=== PATIENT | female | born 1950 | race Caucasian/White ===

== ENCOUNTER 2016-07-18 09:06 | Inpatient (IN) ==
[~2016-07-18 09:06] MED LIST: *HR* Etomidate 20 MG/10 ML AMPUL IVP ONE
--- NOTE | 2016-07-18 09:11 | Emergency Department Note ---
Disposition Clinical Impression: Lactic acidosis, Dehydration, Acute kidney injury, UTI (urinary tract infection ) Disposition: Admitted As Inpatient Condition: Serious General Adult HPI - General Chief complaint: ED Shortness of Breath/Dyspnea Stated complaint: HALEY, n/v/d Time Seen by Provider: 07/18/16 09:10 - Related Data Home Medications Medication Instructions Recorded Confirmed Chlorhexidine Rinse 15 ml MM DAILY 01/07/15 07/18/16 Cholecalciferol (Vitamin D3) 1,000 unit PO DAILY 01/07/15 07/18/16 [Vitamin D3] FLUoxetine HCl [Prozac] 10 mg PO QAM 01/07/15 07/18/16 HydrOXYzine 10 mg PO TID 01/07/15 07/18/16 Ibandronate Sodium [Boniva] 150 mg PO QMONTH 01/07/15 07/18/16 LevETIRAcetam [Keppra] 1,000 mg PO BID 01/07/15 07/18/16 Levothyroxine [Synthroid] 125 mcg PO QAM 01/07/15 07/18/16 Nitrofurantoin (BID) [Macrobid] 100 mg PO DAILY 01/07/15 07/18/16 Oxcarbazepine [Trileptal] 900 mg PO BID 01/07/15 07/18/16 Phenytoin [Dilantin] 50 mg PO HS 01/07/15 07/18/16 Phenytoin [Dilantin] 200 mg PO HS 01/07/15 07/18/16 Trihexyphenidyl [Artane] 1 mg PO BID 01/07/15 07/18/16 Ascorbate Calcium [Vitamin C] 500 mg PO DAILY 06/10/15 07/18/16 Calcium Carbonate/Vitamin D3 1 tab PO DAILY 06/10/15 07/18/16 [Oyster Shell 500-Vit D3 200 Tb] Diazepam [Diastat] 10 mg RC AD PRN 06/10/15 07/18/16 Multivitamin/Iron/Folic Acid 1 tab PO DAILY 06/10/15 07/18/16 [Certavite-Antioxidant Tablet] Acetaminophen [Tylenol] 500 mg PO Q4H PRN 07/18/16 07/18/16 Bismuth Subsalicylate 30 ml PO Q4H PRN 07/18/16 07/18/16 [PEPTO-BISMOL (262mg/15mL) Susp] Chloraseptic Sentinel [Chloraseptic] 1 spray MM QID PRN 07/18/16 07/18/16 Loperamide [Imodium] 2 mg PO Q6H PRN 07/18/16 07/18/16 Loratadine [Allergy Relief] 10 mg PO DAILY 07/18/16 07/18/16 Mag Hydrox/Al Hydrox/Simeth 15 ml PO HS 07/18/16 07/18/16 [[place]i Liquid] Magnesium Hydroxide [Milk of 30 ml PO DAILY PRN 07/18/16 07/18/16 Magnesia] Polyethylene Glycol 3350 [Purelax] 17 gm PO MOWEFR 07/18/16 07/18/16 Previous Rx's Medication Instructions Recorded Aspirin Enteric Coated [Aspirin EC] 162 mg PO DAILY #0 tablet. 01/08/15 Pantoprazole Sodium [Protonix] 20 mg PO BID 90 Days 06/12/15 Sucralfate [Carafate] 1 gm PO TID 90 Days 06/12/15 Allergies Allergy/AdvReac Type Severity Reaction Status Date / Time Sulfa (Sulfonamide Allergy See Verified 01/07/15 12:33 Antibiotics) Comments Past Medical History - Past Medical History Medical history: Reports: other, non-contributory Psychiatric history: Reports: no psych history - Social History Smoking Status: Never smoker Smokeless Tobacco Status: No Alcohol use: Reports: none Drug use: Reports: none Course Vital Signs Temperature 97.9 F 07/18/16 09:07 Pulse Rate 132 07/18/16 09:07 Respiratory Rate 25 07/18/16 09:07 Blood Pressure 91/65 07/18/16 09:07 O2 Sat by Pulse Oximetry 93 07/18/16 09:07 Temperature 97.5 F L 07/20/16 05:00 Pulse Rate 112 07/20/16 06:00 Respiratory Rate 16 07/20/16 06:00 Blood Pressure 105/52 07/20/16 06:00 O2 Sat by Pulse Oximetry 100 07/20/16 06:00 Oxygen Delivery Oxygen Delivery Nasal Cannula Medical Decision Making - Lab Data Result diagrams: 07/20/16 03:37 07/20/16 03:37 Lab Results 07/18/16 07/18/16 07/18/16 Range/Units 09:38 09:38 10:28 WBC 9.0 (4.3-11.1) K/mcL RBC 5.33 H (3.82-4.97) M/mcL Hgb 17.2 H (11.5-15.4) g/dL Hct 48.6 H (35.3-44.9) % MCV 91.2 (83.0-100.0) fL MCH 32.3 (28.0-33.3) pg MCHC 35.4 (31.6-35.5) g/dL RDW 12.0 (11.5-14.5) % Plt Count 241 (140-400) K/mcL MPV 8.7 L (9.4-12.4) fL Seg Neutrophils % 60.0 % Band Neutrophils % 19.0 H (0-4) % Lymphocytes % 6.0 % Monocytes % 11.0 % Metamyelocytes % 1.0 H (0) % Myelocytes % 3.0 H (0) % Neutrophils # 7.1 (1.6-8.9) K/mcL Lymphocytes # 0.5 L (0.6-4.6) K/mcL Monocytes # 1.0 (0.0-1.3) K/mcL Platelet Estimate Normal (Normal) PT (9.4-12.1) Seconds INR APTT (26.0-36.0) Seconds ABG pH (7.32-7.45) pH Units ABG pCO2 (35-45) mmHg ABG pO2 (85-104) mmHg ABG HCO3 (21-27) mEQ/L ABG Total CO2 (20-26) mEq/L ABG O2 Saturation (95-98) % ABG Base Excess (-2.0 to 3.0) mEq/L Liter Flow L/MIN Blood Gas Modality Inspired O2 % Sodium 130 L (136-145) mEq/L Potassium 4.0 (3.5-4.5) mEq/L Chloride 95 L (98-109) mEq/L Carbon Dioxide 17 L (19-29) mEq/L BUN 28 H (7-20) mg/dL Creatinine 1.60 H (0.57-1.11) mg/dL Est GFR ( Amer) 39 L (> 60) Est GFR (Non-Af Amer) 32 L (> 60) BUN/Creatinine Ratio 18 (6-26) Glucose 96 (70-99) mg/dL Calculated Osmolality 275 L (280-300) Lactic Acid (0.5-2.2) mmol/L Calcium 10.6 (8.6-10.8) mg/dL Phosphorus 4.6 (2.3-4.7) mg/dL Magnesium 2.0 (1.6-2.6) mg/dL Total Bilirubin 0.6 (0.2-1.2) mg/dL Direct Bilirubin 0.3 (0.0-0.5) mg/dL Indirect Bilirubin 0.3 (0.0-1.2) mg/dL AST 63 H (5-34) Units/L ALT 33 (0-55) Units/L Alkaline Phosphatase 75 (38-126) Units/L Troponin I 0.14 H* (0-0.03) ng/mL B-Natriuretic Peptide (0-100) pg/mL Serum Total Protein 7.5 (6.0-8.3) g/dL Albumin 3.4 L (3.5-5.0) g/dL Globulin 4.1 H (2.4-3.5) g/dL Albumin/Globulin Ratio 0.8 L (1.1-2.2) TSH 3.300 (0.350-4.840) mcIU/mL Urine Color (Yellow) Urine Clarity (Clear) Urine pH (5.0-8.0) pH Units Ur Specific [place] (1.010-1.025) Urine Protein (Neg-Trace) mg/dL Urine Glucose (UA) (Normal) mg/dL Urine Ketones (Negative) mg/dL Urine Blood (Negative) Urine Nitrite (Negative) Urine Bilirubin (Negative) Urine Urobilinogen (Normal) mg/dL Ur Leukocyte Esterase (Negative) Urine Microscopic RBC (0-3) per hpf Urine Microscopic WBC (0-3) per hpf Ur Squamous Epith Cells (None-Few) per lpf Urine Bacteria (None-Few) per hpf Hyaline Casts (None-Few) per lpf Ur Culture Indicated? (NO) Stl C. diff Tox B Gene (Negative) Phenytoin 13.0 (10-20) mcg/mL 07/18/16 07/18/16 07/18/16 Range/Units 10:28 10:28 10:28 WBC (4.3-11.1) K/mcL RBC (3.82-4.97) M/mcL Hgb (11.5-15.4) g/dL Hct (35.3-44.9) % MCV (83.0-100.0) fL MCH (28.0-33.3) pg MCHC (31.6-35.5) g/dL RDW (11.5-14.5) % Plt Count (140-400) K/mcL MPV (9.4-12.4) fL Seg Neutrophils % % Band Neutrophils % (0-4) % Lymphocytes % % Monocytes % % Metamyelocytes % (0) % Myelocytes % (0) % Neutrophils # (1.6-8.9) K/mcL Lymphocytes # (0.6-4.6) K/mcL Monocytes # (0.0-1.3) K/mcL Platelet Estimate (Normal) PT 14.0 H (9.4-12.1) Seconds INR 1.3 APTT 78.3 H (26.0-36.0) Seconds ABG pH (7.32-7.45) pH Units ABG pCO2 (35-45) mmHg ABG pO2 (85-104) mmHg ABG HCO3 (21-27) mEQ/L ABG Total CO2 (20-26) mEq/L ABG O2 Saturation (95-98) % ABG Base Excess (-2.0 to 3.0) mEq/L Liter Flow L/MIN Blood Gas Modality Inspired O2 % Sodium (136-145) mEq/L Potassium (3.5-4.5) mEq/L Chloride (98-109) mEq/L Carbon Dioxide (19-29) mEq/L BUN (7-20) mg/dL Creatinine (0.57-1.11) mg/dL Est GFR ( Amer) (> 60) Est GFR (Non-Af Amer) (> 60) BUN/Creatinine Ratio (6-26) Glucose (70-99) mg/dL Calculated Osmolality (280-300) Lactic Acid 7.8 H* (0.5-2.2) mmol/L Calcium (8.6-10.8) mg/dL Phosphorus (2.3-4.7) mg/dL Magnesium (1.6-2.6) mg/dL Total Bilirubin (0.2-1.2) mg/dL Direct Bilirubin (0.0-0.5) mg/dL Indirect Bilirubin (0.0-1.2) mg/dL AST (5-34) Units/L ALT (0-55) Units/L Alkaline Phosphatase (38-126) Units/L Troponin I (0-0.03) ng/mL B-Natriuretic Peptide 3231 H (0-100) pg/mL Serum Total Protein (6.0-8.3) g/dL Albumin (3.5-5.0) g/dL Globulin (2.4-3.5) g/dL Albumin/Globulin Ratio (1.1-2.2) TSH (0.350-4.840) mcIU/mL Urine Color (Yellow) Urine Clarity (Clear) Urine pH (5.0-8.0) pH Units Ur Specific [place] (1.010-1.025) Urine Protein (Neg-Trace) mg/dL Urine Glucose (UA) (Normal) mg/dL Urine Ketones (Negative) mg/dL Urine Blood (Negative) Urine Nitrite (Negative) Urine Bilirubin (Negative) Urine Urobilinogen (Normal) mg/dL Ur Leukocyte Esterase (Negative) Urine Microscopic RBC (0-3) per hpf Urine Microscopic WBC (0-3) per hpf Ur Squamous Epith Cells (None-Few) per lpf Urine Bacteria (None-Few) per hpf Hyaline Casts (None-Few) per lpf Ur Culture Indicated? (NO) Stl C. diff Tox B Gene (Negative) Phenytoin (10-20) mcg/mL 07/18/16 07/18/16 07/18/16 Range/Units 10:50 10:55 11:50 WBC (4.3-11.1) K/mcL RBC (3.82-4.97) M/mcL Hgb (11.5-15.4) g/dL Hct (35.3-44.9) % MCV (83.0-100.0) fL MCH (28.0-33.3) pg MCHC (31.6-35.5) g/dL RDW (11.5-14.5) % Plt Count (140-400) K/mcL MPV (9.4-12.4) fL Seg Neutrophils % % Band Neutrophils % (0-4) % Lymphocytes % % Monocytes % % Metamyelocytes % (0) % Myelocytes % (0) % Neutrophils # (1.6-8.9) K/mcL Lymphocytes # (0.6-4.6) K/mcL Monocytes # (0.0-1.3) K/mcL Platelet Estimate (Normal) PT (9.4-12.1) Seconds INR APTT (26.0-36.0) Seconds ABG pH 7.34 (7.32-7.45) pH Units ABG pCO2 27 L (35-45) mmHg ABG pO2 67 L (85-104) mmHg ABG HCO3 14.6 L (21-27) mEQ/L ABG Total CO2 15.4 L (20-26) mEq/L ABG O2 Saturation 92 L (95-98) % ABG Base Excess -9.4 L (-2.0 to 3.0) mEq/L Liter Flow 2 L/MIN Blood Gas Modality [place] Inspired O2 28 % Sodium (136-145) mEq/L Potassium (3.5-4.5) mEq/L Chloride (98-109) mEq/L Carbon Dioxide (19-29) mEq/L BUN (7-20) mg/dL Creatinine (0.57-1.11) mg/dL Est GFR ( Amer) (> 60) Est GFR (Non-Af Amer) (> 60) BUN/Creatinine Ratio (6-26) Glucose (70-99) mg/dL Calculated Osmolality (280-300) Lactic Acid (0.5-2.2) mmol/L Calcium (8.6-10.8) mg/dL Phosphorus (2.3-4.7) mg/dL Magnesium (1.6-2.6) mg/dL Total Bilirubin (0.2-1.2) mg/dL Direct Bilirubin (0.0-0.5) mg/dL Indirect Bilirubin (0.0-1.2) mg/dL AST (5-34) Units/L ALT (0-55) Units/L Alkaline Phosphatase (38-126) Units/L Troponin I (0-0.03) ng/mL B-Natriuretic Peptide (0-100) pg/mL Serum Total Protein (6.0-8.3) g/dL Albumin (3.5-5.0) g/dL Globulin (2.4-3.5) g/dL Albumin/Globulin Ratio (1.1-2.2) TSH (0.350-4.840) mcIU/mL Urine Color Dark Yellow (Yellow) Urine Clarity Cloudy A (Clear) Urine pH 5.5 (5.0-8.0) pH Units Ur Specific [place] 1.018 (1.010-1.025) Urine Protein 30 H (Neg-Trace) mg/dL Urine Glucose (UA) Normal (Normal) mg/dL Urine Ketones Negative (Negative) mg/dL Urine Blood Negative (Negative) Urine Nitrite Negative (Negative) Urine Bilirubin Negative (Negative) Urine Urobilinogen Normal (Normal) mg/dL Ur Leukocyte Esterase Large H (Negative) Urine Microscopic RBC 0-3 (0-3) per hpf Urine Microscopic WBC 50-100 H (0-3) per hpf Ur Squamous Epith Cells Few (None-Few) per lpf Urine Bacteria Many H (None-Few) per hpf Hyaline Casts None Seen (None-Few) per lpf Ur Culture Indicated? YES A (NO) Stl C. diff Tox B Gene Negative (Negative) Phenytoin (10-20) mcg/mL 07/18/16 Range/Units 12:30 WBC (4.3-11.1) K/mcL RBC (3.82-4.97) M/mcL Hgb (11.5-15.4) g/dL Hct (35.3-44.9) % MCV (83.0-100.0) fL MCH (28.0-33.3) pg MCHC (31.6-35.5) g/dL RDW (11.5-14.5) % Plt Count (140-400) K/mcL MPV (9.4-12.4) fL Seg Neutrophils % % Band Neutrophils % (0-4) % Lymphocytes % % Monocytes % % Metamyelocytes % (0) % Myelocytes % (0) % Neutrophils # (1.6-8.9) K/mcL Lymphocytes # (0.6-4.6) K/mcL Monocytes # (0.0-1.3) K/mcL Platelet Estimate (Normal) PT (9.4-12.1) Seconds INR APTT (26.0-36.0) Seconds ABG pH (7.32-7.45) pH Units ABG pCO2 (35-45) mmHg ABG pO2 (85-104) mmHg ABG HCO3 (21-27) mEQ/L ABG Total CO2 (20-26) mEq/L ABG O2 Saturation (95-98) % ABG Base Excess (-2.0 to 3.0) mEq/L Liter Flow L/MIN Blood Gas Modality Inspired O2 % Sodium (136-145) mEq/L Potassium (3.5-4.5) mEq/L Chloride (98-109) mEq/L Carbon Dioxide (19-29) mEq/L BUN (7-20) mg/dL Creatinine (0.57-1.11) mg/dL Est GFR ( Amer) (> 60) Est GFR (Non-Af Amer) (> 60) BUN/Creatinine Ratio (6-26) Glucose (70-99) mg/dL Calculated Osmolality (280-300) Lactic Acid 5.2 H* (0.5-2.2) mmol/L Calcium (8.6-10.8) mg/dL Phosphorus (2.3-4.7) mg/dL Magnesium (1.6-2.6) mg/dL Total Bilirubin (0.2-1.2) mg/dL Direct Bilirubin (0.0-0.5) mg/dL Indirect Bilirubin (0.0-1.2) mg/dL AST (5-34) Units/L ALT (0-55) Units/L Alkaline Phosphatase (38-126) Units/L Troponin I (0-0.03) ng/mL B-Natriuretic Peptide (0-100) pg/mL Serum Total Protein (6.0-8.3) g/dL Albumin (3.5-5.0) g/dL Globulin (2.4-3.5) g/dL Albumin/Globulin Ratio (1.1-2.2) TSH (0.350-4.840) mcIU/mL Urine Color (Yellow) Urine Clarity (Clear) Urine pH (5.0-8.0) pH Units Ur Specific [place] (1.010-1.025) Urine Protein (Neg-Trace) mg/dL Urine Glucose (UA) (Normal) mg/dL Urine Ketones (Negative) mg/dL Urine Blood (Negative) Urine Nitrite (Negative) Urine Bilirubin (Negative) Urine Urobilinogen (Normal) mg/dL Ur Leukocyte Esterase (Negative) Urine Microscopic RBC (0-3) per hpf Urine Microscopic WBC (0-3) per hpf Ur Squamous Epith Cells (None-Few) per lpf Urine Bacteria (None-Few) per hpf Hyaline Casts (None-Few) per lpf Ur Culture Indicated? (NO) Stl C. diff Tox B Gene (Negative) Phenytoin (10-20) mcg/mL Critical Care Time Critical Care Time: Yes Total Critical Care Time: 45 Attestation: Patient presented hypoxic and hypotensive requiring central line placement and IV fluids Attestation Statement - Attestation Attestation: I examined this patient and my medical decision-making was reviewed with the [employer]/PA/Advanced Practice Nurse/Resident Physician. I agree with the documented findings, disposition and treatment plan as described except to the extent set forth below. Face to face time provided Patient is hypotensive and hypoxic. MRDD prevents accurate review of systems. She had complained of GI symptoms recently. Accu-Chek normal prehospital. Patient seen and evaluated in conjunction with the resident physician Dr. Berkwoitz 10:15: Patient continues to have loose foul-smelling stools. She is hypotensive. Poor peripheral IV access. The resident physician Dr. Berkowitz placed a right femoral triple lumen catheter under my supervision with ultrasound guidance.
[2016-07-18] MEDS ORDERED: 0.9 % Sodium Chloride 1,000 ML IVC ONE ×4 (09:12→14:28)
--- NOTE | 2016-07-18 09:43 | Emergency Department Note ---
Disposition Clinical Impression: Lactic acidosis, Dehydration, Acute kidney injury UTI (urinary tract infection) Qualifiers: Urinary tract infection type: site unspecified Hematuria presence: without hematuria Qualified Code(s): N39.0 - Urinary tract infection, site not specified Disposition: Admitted As Inpatient Condition: Serious General Adult HPI - General Chief complaint: ED Shortness of Breath/Dyspnea Stated complaint: HALEY, n/v/d Time Seen by Provider: 07/18/16 09:10 Source: patient, EMS Limitations: other Nursing Notes Reviewed: Yes Vital Signs Reviewed: Yes - History of Present Illness HPI Narrative: Patient with past medical history MRDD including seizures and on Dilantin presents for evaluation secondary to decreased responsiveness and low pulse ox and detention. Per report the patient is normally able to communicate limitedly. Patient has had nausea vomiting and diarrhea since yesterday. Patient was recently treated for UTI, finish her antibiotics, and then was treated for a yeast infection. Patient presents with tachycardia and hypertensive as well as requiring 15 L by nonrebreather. No significant abdominal tenderness or other overt skin infection. Pain Scale: 0 - Related Data Home Medications Medication Instructions Recorded Confirmed Chlorhexidine Rinse 15 ml MM DAILY 01/07/15 07/18/16 Cholecalciferol (Vitamin D3) 1,000 unit PO DAILY 01/07/15 07/18/16 [Vitamin D3] FLUoxetine HCl [Prozac] 10 mg PO QAM 01/07/15 07/18/16 HydrOXYzine 10 mg PO TID 01/07/15 07/18/16 Ibandronate Sodium [Boniva] 150 mg PO QMONTH 01/07/15 07/18/16 LevETIRAcetam [Keppra] 1,000 mg PO BID 01/07/15 07/18/16 Levothyroxine [Synthroid] 125 mcg PO QAM 01/07/15 07/18/16 Nitrofurantoin (BID) [Macrobid] 100 mg PO DAILY 01/07/15 07/18/16 Oxcarbazepine [Trileptal] 900 mg PO BID 01/07/15 07/18/16 Phenytoin [Dilantin] 50 mg PO HS 01/07/15 07/18/16 Phenytoin [Dilantin] 200 mg PO HS 01/07/15 07/18/16 Trihexyphenidyl [Artane] 1 mg PO BID 01/07/15 07/18/16 Ascorbate Calcium [Vitamin C] 500 mg PO DAILY 06/10/15 07/18/16 Calcium Carbonate/Vitamin D3 1 tab PO DAILY 06/10/15 07/18/16 [Oyster Shell 500-Vit D3 200 Tb] Diazepam [Diastat] 10 mg RC AD PRN 06/10/15 07/18/16 Multivitamin/Iron/Folic Acid 1 tab PO DAILY 06/10/15 07/18/16 [Certavite-Antioxidant Tablet] Acetaminophen [Tylenol] 500 mg PO Q4H PRN 07/18/16 07/18/16 Bismuth Subsalicylate 30 ml PO Q4H PRN 07/18/16 07/18/16 [PEPTO-BISMOL (262mg/15mL) Susp] Chloraseptic [place] [Chloraseptic] 1 spray MM QID PRN 07/18/16 07/18/16 Loperamide [Imodium] 2 mg PO Q6H PRN 07/18/16 07/18/16 Loratadine [Allergy Relief] 10 mg PO DAILY 07/18/16 07/18/16 Mag Hydrox/Al Hydrox/Simeth 15 ml PO HS 07/18/16 07/18/16 [[place] Liquid] Magnesium Hydroxide [Milk of 30 ml PO DAILY PRN 07/18/16 07/18/16 Magnesia] Polyethylene Glycol 3350 [Purelax] 17 gm PO MOWEFR 07/18/16 07/18/16 Previous Rx's Medication Instructions Recorded Aspirin Enteric Coated [Aspirin EC] 162 mg PO DAILY #0 tablet. 01/08/15 Pantoprazole Sodium [Protonix] 20 mg PO BID 90 Days 06/12/15 Sucralfate [Carafate] 1 gm PO TID 90 Days 06/12/15 Allergies Allergy/AdvReac Type Severity Reaction Status Date / Time Sulfa (Sulfonamide Allergy See Verified 01/07/15 12:33 Antibiotics) Comments Review of Systems: Reported nausea, vomiting, diarrhea Limitations: ROS unobtainable due to patients medical condition Past Medical History - Past Medical History Medical history: Reports: other, non-contributory Psychiatric history: Reports: no psych history - Social History Smoking Status: Never smoker Smokeless Tobacco Status: No Alcohol use: Reports: none Drug use: Reports: none Physical Exam General appearance: Patient opens eyes to verbal stimuli. Not able to respond to communicate otherwise secondary to mental status. Protecting her airway and breathing by nonrebreather with mild tachypnea and a pulse ox of 94%. Eyes: anicteric sclerae, moist conjunctivae; PERRL HENT: Atraumatic; oropharynx clear with significantly dry mucous membranes Neck: Normal inspection; Trachea midline; FROM, supple Lungs: Occasional rhonchi CV: Tachycardic without significant murmur Abdomen: Soft, non-tender; no rebound or gaurding Extremities: No peripheral edema or extremity lymphadenopathy Skin: Normal temperature; no rash, ulcers or lesions Neuro: Awake and still voice - General Limitations: other General appearance: alert Course - Consultations Consultation #1: Discussed with reversal print inspector, Dr. Camarillo. Patient is to receive another liter of fluids and a repeat lactate in order to determine level of care needed. Repeat lactate downtrending. Patient responding to fluids. Patient cleared for intermediate care Discussed with hospitalistTd. Patient accepted for admission. Vital Signs Temperature 97.9 F 07/18/16 09:07 Pulse Rate 132 07/18/16 09:07 Respiratory Rate 25 07/18/16 09:07 Blood Pressure 91/65 07/18/16 09:07 O2 Sat by Pulse Oximetry 93 07/18/16 09:07 Temperature 97.2 F L 07/18/16 19:01 Pulse Rate 137 07/18/16 19:01 Respiratory Rate 22 07/18/16 19:01 Blood Pressure 125/81 07/18/16 19:01 O2 Sat by Pulse Oximetry 97 07/18/16 19:01 Oxygen Delivery Oxygen Delivery Nasal Cannula Procedures - Central Line Placement Right Femoral Central Line Inserted*: Yes Central Line Insertion: emergent Procedural Pause: verify patient name and date of , timeout performed per policy, larisa and assess the site, assemble equipment and verify supplies, perform hand hygiene During the Procedure: clinician is wearing sterile gloves, cap, mask,& gown during insertion, sterile field and sterile technique are maintained, patient's face is covered with drape or mask and wearing a cap, everyone in room is wearing a mask Prep the Procedure Site: apply chloraprep to the skin using a back and forth scrubbing motion, apply chloraprep for 30 seconds (upper body), 1-2 min ( femoral sites), allow prep to dry, drape the patient with a full body drape Local Anesthetic: lidocaine 1% Amount of anesthesia used (mL): 3 Ultrasound Used for Placement: Yes Central Line Lumen Inserted: triple Post Procedure: sutured in place, good blood return, all ports aspirated, flushed, capped, sterile dressing applied, guide wire removed and visualized, dressing is dated Complications: none Medical Decision Making - Medical Records Medical records reviewed: Yes I reviewed the patient's medical records. - Lab Data Lab results reviewed: Yes I reviewed the patient's lab results. Result diagrams: 07/18/16 10:28 07/18/16 09:38 Lab Results 07/18/16 07/18/16 07/18/16 Range/Units 09:38 09:38 10:28 WBC 9.0 (4.3-11.1) K/mcL RBC 5.33 H (3.82-4.97) M/mcL Hgb 17.2 H (11.5-15.4) g/dL Hct 48.6 H (35.3-44.9) % MCV 91.2 (83.0-100.0) fL MCH 32.3 (28.0-33.3) pg MCHC 35.4 (31.6-35.5) g/dL RDW 12.0 (11.5-14.5) % Plt Count 241 (140-400) K/mcL MPV 8.7 L (9.4-12.4) fL Seg Neutrophils % 60.0 % Band Neutrophils % 19.0 H (0-4) % Lymphocytes % 6.0 % Monocytes % 11.0 % Metamyelocytes % 1.0 H (0) % Myelocytes % 3.0 H (0) % Neutrophils # 7.1 (1.6-8.9) K/mcL Lymphocytes # 0.5 L (0.6-4.6) K/mcL Monocytes # 1.0 (0.0-1.3) K/mcL Platelet Estimate Normal (Normal) PT (9.4-12.1) Seconds INR APTT (26.0-36.0) Seconds ABG pH (7.32-7.45) pH Units ABG pCO2 (35-45) mmHg ABG pO2 (85-104) mmHg ABG HCO3 (21-27) mEQ/L ABG Total CO2 (20-26) mEq/L ABG O2 Saturation (95-98) % ABG Base Excess (-2.0 to 3.0) mEq/L Liter Flow L/MIN Blood Gas Modality Inspired O2 % Sodium 130 L (136-145) mEq/L Potassium 4.0 (3.5-4.5) mEq/L Chloride 95 L (98-109) mEq/L Carbon Dioxide 17 L (19-29) mEq/L BUN 28 H (7-20) mg/dL Creatinine 1.60 H (0.57-1.11) mg/dL Est GFR ( Amer) 39 L (> 60) Est GFR (Non-Af Amer) 32 L (> 60) BUN/Creatinine Ratio 18 (6-26) Glucose 96 (70-99) mg/dL Calculated Osmolality 275 L (280-300) Lactic Acid (0.5-2.2) mmol/L Calcium 10.6 (8.6-10.8) mg/dL Phosphorus 4.6 (2.3-4.7) mg/dL Magnesium 2.0 (1.6-2.6) mg/dL Total Bilirubin 0.6 (0.2-1.2) mg/dL Direct Bilirubin 0.3 (0.0-0.5) mg/dL Indirect Bilirubin 0.3 (0.0-1.2) mg/dL AST 63 H (5-34) Units/L ALT 33 (0-55) Units/L Alkaline Phosphatase 75 (38-126) Units/L Troponin I 0.14 H* (0-0.03) ng/mL B-Natriuretic Peptide (0-100) pg/mL Serum Total Protein 7.5 (6.0-8.3) g/dL Albumin 3.4 L (3.5-5.0) g/dL Globulin 4.1 H (2.4-3.5) g/dL Albumin/Globulin Ratio 0.8 L (1.1-2.2) TSH 3.300 (0.350-4.840) mcIU/mL Urine Color (Yellow) Urine Clarity (Clear) Urine pH (5.0-8.0) pH Units Ur Specific [place] (1.010-1.025) Urine Protein (Neg-Trace) mg/dL Urine Glucose (UA) (Normal) mg/dL Urine Ketones (Negative) mg/dL Urine Blood (Negative) Urine Nitrite (Negative) Urine Bilirubin (Negative) Urine Urobilinogen (Normal) mg/dL Ur Leukocyte Esterase (Negative) Urine Microscopic RBC (0-3) per hpf Urine Microscopic WBC (0-3) per hpf Ur Squamous Epith Cells (None-Few) per lpf Urine Bacteria (None-Few) per hpf Hyaline Casts (None-Few) per lpf Ur Culture Indicated? (NO) Stl C. diff Tox B Gene (Negative) Phenytoin 13.0 (10-20) mcg/mL 07/18/16 07/18/16 07/18/16 Range/Units 10:28 10:28 10:28 WBC (4.3-11.1) K/mcL RBC (3.82-4.97) M/mcL Hgb (11.5-15.4) g/dL Hct (35.3-44.9) % MCV (83.0-100.0) fL MCH (28.0-33.3) pg MCHC (31.6-35.5) g/dL RDW (11.5-14.5) % Plt Count (140-400) K/mcL MPV (9.4-12.4) fL Seg Neutrophils % % Band Neutrophils % (0-4) % Lymphocytes % % Monocytes % % Metamyelocytes % (0) % Myelocytes % (0) % Neutrophils # (1.6-8.9) K/mcL Lymphocytes # (0.6-4.6) K/mcL Monocytes # (0.0-1.3) K/mcL Platelet Estimate (Normal) PT 14.0 H (9.4-12.1) Seconds INR 1.3 APTT 78.3 H (26.0-36.0) Seconds ABG pH (7.32-7.45) pH Units ABG pCO2 (35-45) mmHg ABG pO2 (85-104) mmHg ABG HCO3 (21-27) mEQ/L ABG Total CO2 (20-26) mEq/L ABG O2 Saturation (95-98) % ABG Base Excess (-2.0 to 3.0) mEq/L Liter Flow L/MIN Blood Gas Modality Inspired O2 % Sodium (136-145) mEq/L Potassium (3.5-4.5) mEq/L Chloride (98-109) mEq/L Carbon Dioxide (19-29) mEq/L BUN (7-20) mg/dL Creatinine (0.57-1.11) mg/dL Est GFR ( Amer) (> 60) Est GFR (Non-Af Amer) (> 60) BUN/Creatinine Ratio (6-26) Glucose (70-99) mg/dL Calculated Osmolality (280-300) Lactic Acid 7.8 H* (0.5-2.2) mmol/L Calcium (8.6-10.8) mg/dL Phosphorus (2.3-4.7) mg/dL Magnesium (1.6-2.6) mg/dL Total Bilirubin (0.2-1.2) mg/dL Direct Bilirubin (0.0-0.5) mg/dL Indirect Bilirubin (0.0-1.2) mg/dL AST (5-34) Units/L ALT (0-55) Units/L Alkaline Phosphatase (38-126) Units/L Troponin I (0-0.03) ng/mL B-Natriuretic Peptide 3231 H (0-100) pg/mL Serum Total Protein (6.0-8.3) g/dL Albumin (3.5-5.0) g/dL Globulin (2.4-3.5) g/dL Albumin/Globulin Ratio (1.1-2.2) TSH (0.350-4.840) mcIU/mL Urine Color (Yellow) Urine Clarity (Clear) Urine pH (5.0-8.0) pH Units Ur Specific [place] (1.010-1.025) Urine Protein (Neg-Trace) mg/dL Urine Glucose (UA) (Normal) mg/dL Urine Ketones (Negative) mg/dL Urine Blood (Negative) Urine Nitrite (Negative) Urine Bilirubin (Negative) Urine Urobilinogen (Normal) mg/dL Ur Leukocyte Esterase (Negative) Urine Microscopic RBC (0-3) per hpf Urine Microscopic WBC (0-3) per hpf Ur Squamous Epith Cells (None-Few) per lpf Urine Bacteria (None-Few) per hpf Hyaline Casts (None-Few) per lpf Ur Culture Indicated? (NO) Stl C. diff Tox B Gene (Negative) Phenytoin (10-20) mcg/mL 07/18/16 07/18/16 07/18/16 Range/Units 10:50 10:55 11:50 WBC (4.3-11.1) K/mcL RBC (3.82-4.97) M/mcL Hgb (11.5-15.4) g/dL Hct (35.3-44.9) % MCV (83.0-100.0) fL MCH (28.0-33.3) pg MCHC (31.6-35.5) g/dL RDW (11.5-14.5) % Plt Count (140-400) K/mcL MPV (9.4-12.4) fL Seg Neutrophils % % Band Neutrophils % (0-4) % Lymphocytes % % Monocytes % % Metamyelocytes % (0) % Myelocytes % (0) % Neutrophils # (1.6-8.9) K/mcL Lymphocytes # (0.6-4.6) K/mcL Monocytes # (0.0-1.3) K/mcL Platelet Estimate (Normal) PT (9.4-12.1) Seconds INR APTT (26.0-36.0) Seconds ABG pH 7.34 (7.32-7.45) pH Units ABG pCO2 27 L (35-45) mmHg ABG pO2 67 L (85-104) mmHg ABG HCO3 14.6 L (21-27) mEQ/L ABG Total CO2 15.4 L (20-26) mEq/L ABG O2 Saturation 92 L (95-98) % ABG Base Excess -9.4 L (-2.0 to 3.0) mEq/L Liter Flow 2 L/MIN Blood Gas Modality [place] Inspired O2 28 % Sodium (136-145) mEq/L Potassium (3.5-4.5) mEq/L Chloride (98-109) mEq/L Carbon Dioxide (19-29) mEq/L BUN (7-20) mg/dL Creatinine (0.57-1.11) mg/dL Est GFR ( Amer) (> 60) Est GFR (Non-Af Amer) (> 60) BUN/Creatinine Ratio (6-26) Glucose (70-99) mg/dL Calculated Osmolality (280-300) Lactic Acid (0.5-2.2) mmol/L Calcium (8.6-10.8) mg/dL Phosphorus (2.3-4.7) mg/dL Magnesium (1.6-2.6) mg/dL Total Bilirubin (0.2-1.2) mg/dL Direct Bilirubin (0.0-0.5) mg/dL Indirect Bilirubin (0.0-1.2) mg/dL AST (5-34) Units/L ALT (0-55) Units/L Alkaline Phosphatase (38-126) Units/L Troponin I (0-0.03) ng/mL B-Natriuretic Peptide (0-100) pg/mL Serum Total Protein (6.0-8.3) g/dL Albumin (3.5-5.0) g/dL Globulin (2.4-3.5) g/dL Albumin/Globulin Ratio (1.1-2.2) TSH (0.350-4.840) mcIU/mL Urine Color Dark Yellow (Yellow) Urine Clarity Cloudy A (Clear) Urine pH 5.5 (5.0-8.0) pH Units Ur Specific [place] 1.018 (1.010-1.025) Urine Protein 30 H (Neg-Trace) mg/dL Urine Glucose (UA) Normal (Normal) mg/dL Urine Ketones Negative (Negative) mg/dL Urine Blood Negative (Negative) Urine Nitrite Negative (Negative) Urine Bilirubin Negative (Negative) Urine Urobilinogen Normal (Normal) mg/dL Ur Leukocyte Esterase Large H (Negative) Urine Microscopic RBC 0-3 (0-3) per hpf Urine Microscopic WBC 50-100 H (0-3) per hpf Ur Squamous Epith Cells Few (None-Few) per lpf Urine Bacteria Many H (None-Few) per hpf Hyaline Casts None Seen (None-Few) per lpf Ur Culture Indicated? YES A (NO) Stl C. diff Tox B Gene Negative (Negative) Phenytoin (10-20) mcg/mL 07/18/16 Range/Units 12:30 WBC (4.3-11.1) K/mcL RBC (3.82-4.97) M/mcL Hgb (11.5-15.4) g/dL Hct (35.3-44.9) % MCV (83.0-100.0) fL MCH (28.0-33.3) pg MCHC (31.6-35.5) g/dL RDW (11.5-14.5) % Plt Count (140-400) K/mcL MPV (9.4-12.4) fL Seg Neutrophils % % Band Neutrophils % (0-4) % Lymphocytes % % Monocytes % % Metamyelocytes % (0) % Myelocytes % (0) % Neutrophils # (1.6-8.9) K/mcL Lymphocytes # (0.6-4.6) K/mcL Monocytes # (0.0-1.3) K/mcL Platelet Estimate (Normal) PT (9.4-12.1) Seconds INR APTT (26.0-36.0) Seconds ABG pH (7.32-7.45) pH Units ABG pCO2 (35-45) mmHg ABG pO2 (85-104) mmHg ABG HCO3 (21-27) mEQ/L ABG Total CO2 (20-26) mEq/L ABG O2 Saturation (95-98) % ABG Base Excess (-2.0 to 3.0) mEq/L Liter Flow L/MIN Blood Gas Modality Inspired O2 % Sodium (136-145) mEq/L Potassium (3.5-4.5) mEq/L Chloride (98-109) mEq/L Carbon Dioxide (19-29) mEq/L BUN (7-20) mg/dL Creatinine (0.57-1.11) mg/dL Est GFR ( Amer) (> 60) Est GFR (Non-Af Amer) (> 60) BUN/Creatinine Ratio (6-26) Glucose (70-99) mg/dL Calculated Osmolality (280-300) Lactic Acid 5.2 H* (0.5-2.2) mmol/L Calcium (8.6-10.8) mg/dL Phosphorus (2.3-4.7) mg/dL Magnesium (1.6-2.6) mg/dL Total Bilirubin (0.2-1.2) mg/dL Direct Bilirubin (0.0-0.5) mg/dL Indirect Bilirubin (0.0-1.2) mg/dL AST (5-34) Units/L ALT (0-55) Units/L Alkaline Phosphatase (38-126) Units/L Troponin I (0-0.03) ng/mL B-Natriuretic Peptide (0-100) pg/mL Serum Total Protein (6.0-8.3) g/dL Albumin (3.5-5.0) g/dL Globulin (2.4-3.5) g/dL Albumin/Globulin Ratio (1.1-2.2) TSH (0.350-4.840) mcIU/mL Urine Color (Yellow) Urine Clarity (Clear) Urine pH (5.0-8.0) pH Units Ur Specific [place] (1.010-1.025) Urine Protein (Neg-Trace) mg/dL Urine Glucose (UA) (Normal) mg/dL Urine Ketones (Negative) mg/dL Urine Blood (Negative) Urine Nitrite (Negative) Urine Bilirubin (Negative) Urine Urobilinogen (Normal) mg/dL Ur Leukocyte Esterase (Negative) Urine Microscopic RBC (0-3) per hpf Urine Microscopic WBC (0-3) per hpf Ur Squamous Epith Cells (None-Few) per lpf Urine Bacteria (None-Few) per hpf Hyaline Casts (None-Few) per lpf Ur Culture Indicated? (NO) Stl C. diff Tox B Gene (Negative) Phenytoin (10-20) mcg/mL - Radiology Data Radiology results reviewed: Yes I reviewed the patient's radiology results. - EKG Data EKG #1 EKG attestation: Yes I reviewed and interpreted this EKG. EKG results narrative: EKG shows sinus tachycardia with ventricular rate of 133. MO 171. QRS 71. QTC 357. No ST elevations. Nonspecific rate dependent depressions likely in the anterior leads.
[2016-07-18 10:07] LABS: Albumin 3.4 g/dL (3.5-5.0); Albumin/Globulin Ratio 0.8 (1.1-2.2); Bilirubin,Direct 0.3 mg/dL (0.0-0.5); Bilirubin,Indirect 0.3 mg/dL (0.0-1.2); Bilirubin,Total 0.6 mg/dL (0.2-1.2); Calcium 10.6 mg/dL (8.6-10.8); Globulin 4.1 g/dL (2.4-3.5); Phosphorous 4.6 mg/dL (2.3-4.7); Total Protein 7.5 g/dL (6.0-8.3)
[2016-07-18] MEDS ORDERED: Piperacillin/Tazobactam 3.375 GM in D5% in Water (Mini-Bag+) 100 ML IVPB ONE (10:29)
[2016-07-18 10:36] LABS: Hematocrit 48.6 % (35.3-44.9); Hemoglobin 17.2 g/dL (11.5-15.4); Mean Corpuscular HGB Conc 35.4 g/dL (31.6-35.5); Mean Corpuscular Hemoglobin 32.3 pg (28.0-33.3); Mean Corpuscular Volume 91.2 fL (83.0-100.0); Mean Platelet Volume 8.7 fL (9.4-12.4); Platelet Count 241 K/mcL (140-400); Red Blood Count 5.33 M/mcL (3.82-4.97)
[2016-07-18 10:39] LABS: Thyroid Stimulating Hormone 3.3 mcIU/mL (0.350-4.840)
[2016-07-18 10:55] LABS: Lymphocytes # 0.5 K/mcL (0.6-4.6); Neutrophils # 7.1 K/mcL (1.6-8.9)
[2016-07-18 10:56] LABS: Platelet Estimate Normal (Normal)
[2016-07-18 11:08] LABS: INR 1.3
[2016-07-18 11:10] LABS: Activated Partial Thrombo Time 78.3 Seconds (26.0-36.0)
[2016-07-18 11:22] LABS: Bilirubin,Urine Negative (Negative); Blood,Urine Negative (Negative); Clarity,Urine Cloudy (Clear); Color,Urine Dark Yellow (Yellow); Glucose,Urine (UA) Normal (Normal); Ketones,Urine Negative (Negative); Leukocyte Esterase,Urine Large (Negative); Nitrite,Urine Negative (Negative); PH,Urine 5.5 pH Units (5.0-8.0); Protein,Urine 30 mg/dL (Neg-Trace); Specific Gravity,Urine 1.018 (1.010-1.025); Urobilinogen,Urine Normal (Normal)
[2016-07-18 11:26] LABS: Bacteria,Urine Many per hpf (None-Few); Hyaline Casts,Urine None Seen per lpf (None-Few); Squamous Epithelial Cell,Urine Few per lpf (None-Few); WBC,Urine 50-100 per hpf (0-3)
[2016-07-18 11:47] LABS: RBC,Urine 0-3 per hpf (0-3)
[2016-07-18 12:10] LABS: ABG Base Excess -9.4 mEq/L (-2.0 to 3.0); ABG HCO3 14.6 mEQ/L (21-27); ABG Oxygen Saturation 92 % (95-98); ABG PCO2 27 mmHg (35-45); ABG PH 7.34 pH Units (7.32-7.45); ABG PO2 67 mmHg (85-104); ABG TCO2 15.4 mEq/L (20-26); Blood Gas FiO2 28 %; Blood Gas Liter Flow 2 L/MIN
[2016-07-18] MEDS ORDERED: Naloxone 0.4 MG/ML INJ IVP PRN (15:49)
[2016-07-18] MEDS ORDERED: *HR* Morphine 2 MG/ML SYRINGE IVP PRN (15:49)
[2016-07-18] MEDS ORDERED: Acetaminophen 325 MG TABLET PO PRN (15:49)
[2016-07-18] MEDS ORDERED: Ondansetron 4 MG/2 ML VIAL IVP PRN (15:49)
[2016-07-18] MEDS ORDERED: *HR* HYDROcodone/Acet 5/325 mg TABLET PO PRN (15:49)
--- NOTE | 2016-07-18 15:59 | Internal Med History&Physical ---
Date of Encounter: 07/18/16 Time of Encounter: 15:57 Assessment and Plan (1) Acute respiratory failure with hypoxia Current visit: Yes Status: Acute Secondary to pneumonia Continue oxygen supplement. (2) Pneumonia Current visit: Yes Status: Acute Aspiration pneumonia Continue antibiotics Consult speech and swallow for evaluation. Nothing by mouth except medications for now. Qualifiers: Pneumonia type: due to unspecified organism Laterality: unspecified laterality Lung location: unspecified part of lung Qualified Code(s): J18.9 - Pneumonia, unspecified organism (3) Severe sepsis Current visit: Yes Status: Acute Patient with tachycardia, hypotension, no leukocytosis but chest x-ray with evidence of pneumonia. Patient has tried slightly improving with IV fluid hydration, continue IV fluid hydration. Presented lactate of 7.8 improved to 5.6 with IV fluids continue to monitor. Cultures have been drawn, will follow. Source of sepsis is aspiration pneumonia, and suspected UTI. Patient on Zosyn, will continue the same we will start patient on levofloxacin for pseudomonas coverage. Patient has not been hospitalized in the year and she is low-risk for MRSA was not started vancomycin at this time. Patient is high risk Patient is full code (4) Mental retardation Current visit: Yes Status: Chronic Chronic, stable. Resume home medication especially antiseizure medications and antipsychosis medications. Aspiration precautions, fall precautions (5) Hypothyroid Current visit: Yes Status: Chronic TSH is within normal limits, resume home dose of Synthroid. Qualifiers: Hypothyroidism type: unspecified Qualified Code(s): E03.9 - Hypothyroidism , unspecified (6) Seizure disorder Current visit: Yes Status: Chronic Phenytoin level is therapeutic, resume phenytoin. Resume other seizure medications. (7) Hyponatremia Current visit: Yes Status: Chronic Chronic, stable, continue to monitor. (8) Lactic acidosis Current visit: Yes Status: Acute Secondary to hypotension from severe sepsis. Continue to monitor Continue IV fluids (9) Acute kidney injury Current visit: Yes Status: Acute Continue IV fluid hydration, avoid nephrotoxins, obtain retroperitoneal ultrasound scan, continue to monitor closely (10) UTI (urinary tract infection) Current visit: Yes Status: Acute Suspected Patient is on antibiotics for pneumonia Follow cultures. Qualifiers: Urinary tract infection type: site unspecified Hematuria presence: without hematuria Qualified Code(s): N39.0 - Urinary tract infection, site not specified (11) Elevated troponin Current visit: Yes Status: Acute Possibly from demand ischemia We will obtain echocardiogram. Unable to state the patient has just been due to patient's mental status. EKG with sinus tachycardia. (12) Diarrhea Current visit: Yes Status: Acute Patient's home medication list reveals several medications including laxatives. Hold on laxatives. Continue rectal tube C. difficile is negative Monitor electrolytes. Qualifiers: Diarrhea type: unspecified type Qualified Code(s): R19.7 - Diarrhea, unspecified Internal Medicine - H&P: HPI Chief complaint: Difficulty Breathing Admitted From: Home ([facility]) Plans for Post Hospital Care: Transfer Other ([facility]) History of present illness: Ms. Curiel is a 65 year old female Patient is a resident of a fpc, she has a history of MRDD, schizophrenia , seizure disorder, hypothyroidism, Patient is verbal, however due to mental status, history obtained from EMR chart and from a caregiver at the fpc. Patient is reported to have had urinary tract infection about a week ago, and has completed her treatment, developed yeast infection following the use of antibiotics, and has been on treatment for that. She was noticed yesterday today complaining of epigastric discomfort, and diarrhea. This morning they noted at the nursing facility that she developed cyanosis of the fingertips, difficulty breathing. Hence to protect the ER. There are no sick contacts and a fpc. Caregivers deny history of aspiration however to reports she has been having recurrent belching and retching since yesterday. In the ER, patient was found to be Hypotensive, tachycardic, and in respiratory distress with hypoxia, workup reveals no leukocytosis, polycythemia, mild hyponatremia, severe sepsis with lactic acidosis and CLEMENTINA. Chest x-ray significant for pneumonia. Patient had copious diarrhea in the ER, CDiff was sent and was negative. Arterial blood gas reveals respiratory alkalosis compensated and hypoxia. Patient will be admitted and managed for severe sepsis secondary to aspiration pneumonia, lactic acidosis, CLEMENTINA, and suspected UTI. Her blood pressure has responded to IV fluids received in the ER. We will continue IV fluid hydration and continue to monitor. Patient is full code. Past Med Surg Social Fam HX - Past Medical History Medical history: other, non-contributory Psychiatric history: no psych history - Social History Smoking Status: Never smoker Smokeless Tobacco Status: No Alcohol use: none Drug use: none Internal Medicine - H&P: Meds Chlorhexidine Rinse 15 ml MM DAILY 01/07/15 [History] Cholecalciferol (Vitamin D3) [Vitamin D3] 1,000 unit PO DAILY 01/07/15 [History] FLUoxetine HCl [Prozac] 10 mg PO QAM 01/07/15 [History] HydrOXYzine 10 mg PO TID 01/07/15 [History] Ibandronate Sodium [Boniva] 150 mg PO QMONTH 01/07/15 [History] LevETIRAcetam [Keppra] 1,000 mg PO BID 01/07/15 [History] Levothyroxine [Synthroid] 125 mcg PO QAM 01/07/15 [History] Nitrofurantoin (BID) [Macrobid] 100 mg PO DAILY 01/07/15 [History] Oxcarbazepine [Trileptal] 900 mg PO BID 01/07/15 [History] Phenytoin [Dilantin] 50 mg PO HS 01/07/15 [History] Phenytoin [Dilantin] 200 mg PO HS 01/07/15 [History] Trihexyphenidyl [Artane] 1 mg PO BID 01/07/15 [History] Aspirin Enteric Coated [Aspirin EC] 162 mg PO DAILY #0 tablet. 01/08/15 [Rx] Ascorbate Calcium [Vitamin C] 500 mg PO DAILY 06/10/15 [History] Calcium Carbonate/Vitamin D3 [Oyster Shell 500-Vit D3 200 Tb] 1 tab PO DAILY [History] Diazepam [Diastat] 10 mg RC AD PRN 06/10/15 [History] Multivitamin/Iron/Folic Acid [Certavite-Antioxidant Tablet] 1 tab PO DAILY 06/09 [History] Pantoprazole Sodium [Protonix] 20 mg PO BID 90 Days 06/12/15 [Rx] Sucralfate [Carafate] 1 gm PO TID 90 Days 06/12/15 [Rx] Acetaminophen [Tylenol] 500 mg PO Q4H PRN 07/18/16 [History] Bismuth Subsalicylate [PEPTO-BISMOL (262mg/15mL) Susp] 30 ml PO Q4H PRN [History] Chloraseptic Crapo [Chloraseptic] 1 spray MM QID PRN 07/18/16 [History] Loperamide [Imodium] 2 mg PO Q6H PRN 07/18/16 [History] Loratadine [Allergy Relief] 10 mg PO DAILY 07/18/16 [History] Mag Hydrox/Al Hydrox/Simeth [Masanti Liquid] 15 ml PO HS 07/18/16 [History] Magnesium Hydroxide [Milk of Magnesia] 30 ml PO DAILY PRN 07/18/16 [History] Polyethylene Glycol 3350 [Purelax] 17 gm PO MOWEFR 07/18/16 [History] Allergies Sulfa (Sulfonamide Antibiotics) Allergy (Verified 01/07/15 12:33) See Comments unknown ROS unobtainable: due to mental status All Systems PM: A 10-system review of systems was performed and is negative for pertinent findings except as documented above in the HPI. - Constitutional Constitutional: as per HPI - EENT Eyes: as per HPI Ears: as per HPI - Constitutional Vitals: Temp Pulse Resp BP Pulse Ox 97.9 F 120 20 130/98 94 07/18/16 09:07 07/18/16 14:23 07/18/16 14:23 07/18/16 12:32 07/18/16 14:23 General appearance: Present: A&O X 0 (Unable to assess due to mental retartdation) - Head Head exam: Present: atraumatic, normocephalic - Eye Eye exam: Present: PERRL, conjuntiva pink, sclera anicteric Pupils: Present: PERRL - Neck Neck exam general surgery: Present: supple, trachea midline. Absent: lymphadenopathy - Respiratory Respiratory exam: Present: CTAB. Absent: accessory muscle use, rales, rhonchi, wheezes - Cardiovascular Cardiovascular exam: Present: RRR, +S1, +S2, systolic murmur, tachycardia. Absent: diastolic murmur, gallop, rubs - GI/Abdominal GI/Abdominal exam: Present: normal bowel sounds, soft, no peritoneal signs. Absent: distended, tenderness - Extremities Exam Extremities exam: Present: warm, radial pulses palpable and symetrical. Absent : calf tenderness, cyanotic, pedal edema - Neurological Exam Neurological exam: Present: alert, CN II-XII intact, no focal deficits. Absent : oriented X3, pronater drift, facial droop, speech deficit - Skin Skin exam: Present: dry, intact Internal Med - H&P Results - Labs CBC & Chem 7: 07/18/16 10:28 07/18/16 09:38
[2016-07-18] MEDS ORDERED: Levofloxacin 750 MG/150 ML 750 MG/150 ML BAG IVPB SCH ×2 (16:00→16:30)
[2016-07-18] MEDS: 0.9 % Sodium Chloride 1,000 ML IVC SCH ×2 (17:35→23:19)
--- NOTE | 2016-07-18 20:26 | Electrocardiograph Report ---
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
[2016-07-18] MEDS ORDERED: *HR* Etomidate 20 MG/10 ML AMPUL IVP ONE (21:13)
--- NOTE | 2016-07-18 21:46 | Event Note ---
Date of Encounter: 07/18/16 Time of Encounter: 21:00 On-call Hospitalist note: I was paged about the pt, that the pt is tachypneic, with resp rate of about 40/ min. Pt is unresponsive to verbal stimuli. O/E: labored breathing; b/l air entry present. Peripheral cyanosis. Tachycardic and hypotensive on the monitor. I have reviewed H&P, Imaging and labs. Pt is thought to have impending respiratory arrest. Urgent endotracheal intubation and mechanical ventilation was considered. Pt does not have any family. Contact number with the RN - Margarito Claudio: [employer] Former at the long term. Called her on cell phone # [phone] (Office# ). Discussed regarding clinical status and the need for intubation. Ms Claudio reports that Pt is her own guardian and she is for full codes. Pt never discussed with Ms Claudio regarding not wanting intubation or mechanical ventilation. Pt is transferred to the ICU and intubated and started on mechanical ventilation. CXR reviewed post intubation and the ET-tube repositioned. Pt was given IV fluids and started on norepinephrine for hypotension / septic shock. Antibiotics broadened and added vancomycin. Pt is critically ill and critical care time spent with the pt in evaluation, medical decision making and stabilizing the pt in 2N and in ICU is about 50 minutes
[2016-07-18] MEDS ORDERED: Vancomycin 1,000 MG in D5% in Water 250 ML IVPB SCH (22:00)
[2016-07-18] MEDS ORDERED: Vancomycin 1,000 MG in D5% in Water 250 ML IVPB ONE (22:00)
[2016-07-18] MEDS ORDERED: *HR* Dextrose 50 % in Water (Syg) 50 ML SYRINGE ONE (22:01)
[2016-07-18] MEDS: *HR* Dextrose 50 % in Water (Syg) 50 ML SYRINGE IVP PRN (22:05)
[2016-07-18 22:15] LABS: ABG HCO3 14.6 mEQ/L (21-27); ABG Oxygen Saturation 95 % (95-98); ABG PCO2 31 mmHg (35-45); ABG PH 7.28 pH Units (7.32-7.45); ABG PO2 84 mmHg (85-104); ABG TCO2 15.6 mEq/L (20-26)
[2016-07-18 22:18] LABS: Blood Gas FiO2 80 %; Blood Gas Respiration Rate 12
[2016-07-18 22:19] LABS: Blood Gas PEEP 5 cm H2O
[2016-07-18] MEDS: Piperacillin/Tazobactam 3.375 GM in D5% in Water (Mini-Bag+) 100 ML IVPB SCH (22:36)
[2016-07-18] MEDS: levETIRAcetam 250 MG TABLET PO SCH (22:38)
[2016-07-18] MEDS: OXcarbazepine 150 MG TABLET PO SCH (22:38)
[2016-07-18 23:02] LABS: Basophils % 0.7 %; Hematocrit 38.1 % (35.3-44.9); Immature Granulocytes % 1.9 % (0-4); Lymphocytes # 0.3 K/mcL (0.6-4.6); Lymphocytes % 7.4 %; Mean Corpuscular HGB Conc 35.2 g/dL (31.6-35.5); Mean Corpuscular Hemoglobin 32.4 pg (28.0-33.3); Mean Platelet Volume 9.2 fL (9.4-12.4); Monocytes # 0.4 K/mcL (0.0-1.3); Monocytes % 8.4 %; Neutrophils # 3.4 K/mcL (1.6-8.9); Platelet Count 141 K/mcL (140-400); Red Blood Count 4.14 M/mcL (3.82-4.97); Red Cell Distribution Width 12.4 % (11.5-14.5); Segmented Neutrophils % 81.6 %
[2016-07-18 23:04] LABS: Hemoglobin 13.4 g/dL (11.5-15.4)
[2016-07-18 23:18] LABS: Albumin/Globulin Ratio 0.8 (1.1-2.2); Bilirubin,Total 0.5 mg/dL (0.2-1.2); Globulin 2.6 g/dL (2.4-3.5); Potassium 4.7 mEq/L (3.5-4.5)
[2016-07-18 23:24] LABS: Dohle Bodies Present (Not Present); Total Protein 4.7 g/dL (6.0-8.3); Toxic Vacuolation Present (Not Present)
[2016-07-18 23:25] LABS: Albumin 2.1 g/dL (3.5-5.0); Burr Cells 3+ (Not Present); Polychromasia 1+ (Not Present)
[2016-07-18 23:26] LABS: Platelet Estimate Normal (Normal)
[2016-07-19] MEDS ORDERED: Lacri-Lube 3.5 GM TUBE BOTH EYES PRN (00:23)
--- NOTE | 2016-07-19 00:31 | Procedure Note ---
Date of procedure: 07/19/16 Pre-op diagnosis: Acute respiratory failure Post-op diagnosis: same Procedure: Endotracheal intubation: Patient was brought to the intensive care unit in respiratory distress. Patient was on BiPAP but was not responding to verbal stimuli. BiPAP removed and the patient was bagged using a bag valve mask to an oxygen saturation 100%. Patient was sedated with 15 mg of etomidate. A glidascope size 4 blade was inserted into the oropharynx and a grade 1 view of the vocal cords was obtained. A size 7 ET tube was visualized passing through the vocal cords and secured at the 23 cm larisa at the lips. CO2 detector was positive for color change, bilateral breath sounds were heard. Chest x-ray was obtained and showed the tip of the ET tube up against the yarely. The tube was then pulled back 2 cm. The patient was then placed on mechanical ventilation. The patient tolerated the procedure well, there are no immediate complications. The attending physician, Dr. Peng, was present and supervised the entire procedure. Anesthesia: MAC Surgeon: Adryan Costa Estimated blood loss (cc): 0 Pathology: none sent Condition: critical Disposition: ICU
[2016-07-19] MEDS: Norepinephrine 4 MG in D5% in Water 250 ML IVC SCH ×2 (01:18→19:20)
[2016-07-19 03:43] LABS: Basophils # 0.1 K/mcL (0.0-0.2); Hematocrit 42.1 % (35.3-44.9); Immature Granulocytes % 0.2 % (0-4); Lymphocytes # 0.6 K/mcL (0.6-4.6); Lymphocytes % 10.8 %; Mean Corpuscular HGB Conc 35.9 g/dL (31.6-35.5); Mean Corpuscular Hemoglobin 32.6 pg (28.0-33.3); Mean Corpuscular Volume 90.9 fL (83.0-100.0); Monocytes # 0.4 K/mcL (0.0-1.3); Monocytes % 6.1 %; Platelet Count 178 K/mcL (140-400); Red Blood Count 4.63 M/mcL (3.82-4.97); Red Cell Distribution Width 12.6 % (11.5-14.5); Segmented Neutrophils % 81.9 %
[2016-07-19 03:51] LABS: Hemoglobin 15.1 g/dL (11.5-15.4); Neutrophils # 4.8 K/mcL (1.6-8.9)
[2016-07-19 03:59] LABS: Calcium 8.3 mg/dL (8.6-10.8); Magnesium 1.2 mg/dL (1.6-2.6); Phosphorous 3.4 mg/dL (2.3-4.7); Potassium 4.8 mEq/L (3.5-4.5)
[2016-07-19 04:08] LABS: Platelet Estimate Normal (Normal); Reactive Lymphocytes Present (Not Present); Toxic Granulation Present (Not Present); Toxic Vacuolation Present (Not Present)
[2016-07-19 04:20] LABS: Adenovirus F 40/41 PCR Not detected (Not detect); Astrovirus PCR Not detected (Not detect); C.difficile Toxin A/B by PCR Not detected (Not detect); Campylobacter by PCR Not detected (Not detect); Cryptosporidium by PCR Not detected (Not detect); Cyclospora cayetanensis PCR Not detected (Not detect); E. coli O157 by PCR Not detected (Not detect); Entamoeba histolytica PCR Not detected (Not detect); Enteroaggregative E.coli(EAEC) Not detected (Not detect); Enteropathogenic E.coli(EPEC) Not detected (Not detect); Enterotoxigenic E.coli (ETEC) Not detected (Not detect); Giardia lamblia PCR Not detected (Not detect); Norovirus GI/GII PCR Not detected (Not detect); Plesiomonas shigelloides PCR Not detected (Not detect); Rotavirus A PCR Not detected (Not detect); Salmonella PCR Not detected (Not detect); Sapovirus PCR Not detected (Not detect); Shig/EnteroinvasiveE coli EIEC Not detected (Not detect); Shigalike tox-prod E coli STEC Not detected (Not detect); Vibrio PCR Not detected (Not detect); Vibrio cholerae PCR Not detected (Not detect); Yersinia enterocolitica PCR Not detected (Not detect)
[2016-07-19] MEDS: Piperacillin/Tazobactam 3.375 GM in D5% in Water (Mini-Bag+) 100 ML IVPB SCH ×3 (04:55→22:13)
[2016-07-19] MEDS ORDERED: Calcium Gluconate 1,000 MG in D5% in Water 100 ML IVPB PRN (04:55)
[2016-07-19] MEDS ORDERED: Sodium Phosphate 30 MMOL in D5% in Water 100 ML IVPB PRN (04:55)
[2016-07-19 04:58] LABS: ABG HCO3 11.9 mEQ/L (21-27); ABG Oxygen Saturation 98 % (95-98); ABG PCO2 21 mmHg (35-45); ABG PH 7.36 pH Units (7.32-7.45); ABG PO2 112 mmHg (85-104); ABG TCO2 12.5 mEq/L (20-26)
[2016-07-19 04:59] LABS: Blood Gas FiO2 40 %
[2016-07-19] MEDS ORDERED: D5% in 0.45% NACL 1,000 ML IVC SCH (05:00)
[2016-07-19] MEDS: Lacri-Lube 3.5 GM TUBE BOTH EYES SCH ×5 (05:02→21:29)
[2016-07-19] MEDS: *HR* Dextrose 50 % in Water (Syg) 50 ML SYRINGE IVP PRN ×3 (05:02→06:38)
[2016-07-19] MEDS: *HR* Enoxaparin 30 MG/0.3 ML SYRINGE SQ SCH (05:03)
[2016-07-19] MEDS: Pantoprazole 40 MG VIAL IVP SCH (05:04)
[2016-07-19] MEDS ORDERED: *HR* Dextrose 50 % in Water (Syg) 50 ML SYRINGE ONE (05:21)
[2016-07-19] MEDS: Magnesium Sulfate 2 GM in D5% in Water 100 ML IVPB PRN ×2 (05:31→21:12)
[2016-07-19] MEDS: Chlorhexidine Rinse 15 ML MOUTHWASH MM SCH ×2 (08:07→21:33)
[2016-07-19] MEDS: Aspirin Enteric Coated 81 MG Tablet PO SCH (08:08)
[2016-07-19] MEDS: OXcarbazepine 150 MG TABLET PO SCH ×2 (08:08→21:30)
[2016-07-19] MEDS: FLUoxetine HCl 10 MG CAPSULE PO SCH (08:09)
[2016-07-19] MEDS: Cholecalciferol (D-3) 1,000 UNIT TABLET PO SCH (08:09)
[2016-07-19] MEDS: levETIRAcetam 250 MG TABLET PO SCH (08:09)
--- NOTE | 2016-07-19 08:30 | Pulmonology Consult Note ---
<Lester Farr - Last Filed: 07/19/16 13:26> Date of Encounter: 07/19/16 Time of Encounter: 08:30 Assessment and Plan (1) Septic shock Current Visit: Yes Status: Acute on admission met SIRS criteria with tachycardia, tachypnea, and bands 19 currently afebrile and tachycardic without leukocytosis initial lactic acidosis 7.8, downtrending to 3.4 after fluid resuscitation hypotensive requiring Levophed currently 7 mcg hernandez cultured - urine culture 07/19 finalized without pathogens isolated currently on broad-spectrum empiric antibiotics, day 2 - Vancomycin, Zosyn, and Levaquine started 07/18 - await cultures to de-escalate (2) Acute respiratory failure with hypoxia Current Visit: Yes Status: Acute likely secondary to pneumonia continue vent support ABG - 7.36/21/112/11.8/98 wean as tolerated (3) Pneumonia Current Visit: Yes Status: Acute suspect aspiration pneumonia gastric contents in ET tube with suction continue broad-spectrum antibiotics, day 2 concerning for possible small bowel obstruction NPO Qualifiers: Pneumonia type: due to unspecified organism Laterality: unspecified laterality Lung location: unspecified part of lung Qualified Code(s): J18.9 - Pneumonia, unspecified organism (4) Acute kidney injury Current Visit: Yes Status: Acute possibly from hypotension continue LR maintenance AVOID nephrotoxins US retroperitoneal 07/18 - limited evaluation without evidence of hydronephrosis continue to monitor (5) Bowel obstruction Current Visit: Yes Status: Suspected reports of epigastric discomfort and diarrhea on admission on exam abdomen is mildly distended and diffusely tender gastric output 1.5 L risk for aspiration KUB 6/2 - nondistened loops of large and small bowel suspected obstruction, CT abd/pelvis with oral contrast ordered and pending - CT abd/pelvis 6/2 - multiple distended fluid-filled loops of small bowel suggestive of distal SBO without transition point Surgery consulted - continue intermittent wall suction with OG - additional 2 L gastric output through OG after CT scan Qualifiers: Intestinal obstruction type: unspecified Qualified Code(s): K56.60 - Unspecified intestinal obstruction (6) Lactic acidosis Current Visit: Yes Status: Acute secondary to hypotension from septic shock improving, 3.4 (4.5) presented initial 7.8 continue to monitor (7) Tachycardia Current Visit: Yes Status: Acute tachycardia 140s on monitor appears to be atrial flutter possibly secondary to dehydration and sepsis EKG 61/2 appears sinus tachycardia rate 140 review of records, no prior history continue to monitor and consider antiarrhythmic ECHO 04/04/2010 EF 55-60% without LV systolic dysfunction has received total of 4L resuscitation in ED, additional 2L bolus ordered (8) Diarrhea Current Visit: Yes Status: Acute 1.5L rectal tube output C. diff is negative abdominal tenderness on exam, concern for possible obstruction, CT abd/pelvis ordered stool PCR negative continue to monitor electrolytes Qualifiers: Diarrhea type: unspecified type Qualified Code(s): R19.7 - Diarrhea, unspecified (9) Mental retardation Current Visit: Yes Status: Chronic chronic resident at a long term, reportedly high functioning resume home medications (10) Seizure disorder Current Visit: Yes Status: Chronic history of seizure disorder therapeutic on Phenytoin 13 converted Keppra and Dilantin to IV equivalents from home dose, equal PO to IV equivalents - Keppra 1000 BID - Dilantin 250 to 125 BID (11) Hypomagnesemia Current Visit: Yes Status: Acute Mg 1.2 continue to monitor and replete (12) Hyponatremia Current Visit: Yes Status: Chronic chronic, stable discontinued D5W to maintenance LR 95 cc/hr continue to monitor (13) UTI (urinary tract infection) Current Visit: Yes Status: Suspected suspected UTI with many bacteria and large leuk esterase and 50-100 WBCs urine culture 07/18 NGTD without isolated pathogens Qualifiers: Urinary tract infection type: site unspecified Hematuria presence: without hematuria Qualified Code(s): N39.0 - Urinary tract infection, site not specified (14) Goals of care, counseling/discussion Current Visit: Yes Status: Acute consult social worker school to verify POA (15) DVT prophylaxis Current Visit: Yes Status: Acute Lovenox 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 diff negative, urine culture NGTD, blood culture pending, currently on broad-spectrum and plan to de-escalate Heme/Onc: stable, no active bleeding, Lovenox for DVT prophylaxis Endocrine: hypoglycemia protocol Skin: continue ICU skin care per protocol Lines: ET, OG, rectal tube, R fem CVC FULL CODE Dispo: ICU care History of Present Illness Consult date: 07/19/16 Requesting physician: Sj Peng Reason for consult: dyspnea, pneumonia, other (acute resp failure) Chief complaint: dyspnea History of present illness: Ms. Curiel is a 65-year-old female with past medical history of MRDD and seizure disorder who was admitted to [place] for severe sepsis secondary to aspiration pneumonia, lactic acidosis, and suspected UTI. History is limited at this time and supplemented through medical records. Last night patient became to And placed on BiPAP. She became nonresponsive developing respiratory failure and was subsequently intubated. She was transferred to the intensive care unit 03/2016. Appears that she is a resident at a long term. She had recently been treated for a urinary tract infection the past week and subsequently developed a yeast infection. She presented to the ED for epigastric discomfort and diarrhea. He was noted that she was having some dyspnea as well. In the ED she was found to be hypotensive, tachycardic and in respiratory distress requiring 15L NRB. A full septic workup was performed. There is questionable opacity in the right lower lobe concerning for aspiration pneumonia on CXR. No leukocytosis. She appears dehydrated with elevation in her BUN and creatinine. She has a lactic acidosis that is downtrending. She is currently on broad-spectrum empiric antibiotics day 2. Patient was examined at bedside. She was intubated overnight. Currently only on Versed. She grimaces on physical examination. Roughly 1.5 L gastric output through the rectal tube. C. diff is negative. Stool PCR negative. KUB showed some gas distention awaiting CT abdomen and pelvis with oral contrast. Unable to obtain further review of systems due to mental state. Past Med Surg Social Fam HX - Past Medical History Medical history: other, non-contributory Psychiatric history: no psych history - Past Surgical History Surgical History: hip replacement - Social History Smoking Status: Never smoker Smokeless Tobacco Status: No Alcohol use: none Drug use: none Medications and Allergies Chlorhexidine Rinse 15 ml MM DAILY 01/07/15 [History] Cholecalciferol (Vitamin D3) [Vitamin D3] 1,000 unit PO DAILY 01/07/15 [History] FLUoxetine HCl [Prozac] 10 mg PO QAM 01/07/15 [History] HydrOXYzine 10 mg PO TID 01/07/15 [History] Ibandronate Sodium [Boniva] 150 mg PO QMONTH 01/07/15 [History] LevETIRAcetam [Keppra] 1,000 mg PO BID 01/07/15 [History] Levothyroxine [Synthroid] 125 mcg PO QAM 01/07/15 [History] Nitrofurantoin (BID) [Macrobid] 100 mg PO DAILY 01/07/15 [History] Oxcarbazepine [Trileptal] 900 mg PO BID 01/07/15 [History] Phenytoin [Dilantin] 50 mg PO HS 01/07/15 [History] Phenytoin [Dilantin] 200 mg PO HS 01/07/15 [History] Trihexyphenidyl [Artane] 1 mg PO BID 01/07/15 [History] Aspirin Enteric Coated [Aspirin EC] 162 mg PO DAILY #0 tablet. 01/08/15 [Rx] Ascorbate Calcium [Vitamin C] 500 mg PO DAILY 06/10/15 [History] Calcium Carbonate/Vitamin D3 [Oyster Shell 500-Vit D3 200 Tb] 1 tab PO DAILY [History] Diazepam [Diastat] 10 mg RC AD PRN 06/10/15 [History] Multivitamin/Iron/Folic Acid [Certavite-Antioxidant Tablet] 1 tab PO DAILY 06/09 [History] Pantoprazole Sodium [Protonix] 20 mg PO BID 90 Days 06/12/15 [Rx] Sucralfate [Carafate] 1 gm PO TID 90 Days 06/12/15 [Rx] Acetaminophen [Tylenol] 500 mg PO Q4H PRN 07/18/16 [History] Bismuth Subsalicylate [PEPTO-BISMOL (262mg/15mL) Susp] 30 ml PO Q4H PRN [History] Chloraseptic [place] [Chloraseptic] 1 spray MM QID PRN 07/18/16 [History] Loperamide [Imodium] 2 mg PO Q6H PRN 07/18/16 [History] Loratadine [Allergy Relief] 10 mg PO DAILY 07/18/16 [History] Mag Hydrox/Al Hydrox/Simeth [Masanti Liquid] 15 ml PO HS 07/18/16 [History] Magnesium Hydroxide [Milk of Magnesia] 30 ml PO DAILY PRN 07/18/16 [History] Polyethylene Glycol 3350 [Purelax] 17 gm PO MOWEFR 07/18/16 [History] Allergies Sulfa (Sulfonamide Antibiotics) Allergy (Verified 01/07/15 12:33) See Comments unknown ROS unobtainable: due to mental status Physical Examination Vital Signs: Vital Signs, Last 4 Hours Temp Pulse Resp BP Pulse Ox 07/19/16 07:48 24 75/39 95 07/19/16 07:41 99.8 F H 07/19/16 06:07 24 100 07/19/16 05:48 140 22 90/50 100 07/19/16 05:25 139 07/19/16 05:00 139 26 95/53 99 General appearance: agitated, other (Sedated and intubated) Eyes: nonicteric ENT: other (Endotracheal intubation) Effort: other (Mechanically ventilated) Auscultation: bilateral: clear Cardiovascular: regular rate and rhythm (Tachycardic, 142) Gastrointestinal: hypoactive bowel sounds, tender (Diffuse), other (Mildly distended) Integumentary: normal, other (Scars to the right lower extremity suggestive of prior fracture and repair, 2 screws in the right ankle) Extremities: no cyanosis, no edema Musculoskeletal: no deformities pupils equal and round, unable to assess due to mental status Right femoral CVC properly dressed without signs of infection Ventilator Settings Ventilator Settings: Ventilator Settings, Last 8 Hours Ventilator Mode VC+ Ventilator Mode A/C Ventilator Mode A/C Ventilator Mode VC+ Ventilator Mode VC+ Ventilator Mode VC+ Ventilator Mode A/C Ventilator Mode A/C Ventilator Mode A/C Ventilator Mode A/C Ventilator Mode A/C Ventilator Tidal Volume 450 Setting Ventilator Tidal Volume 450 Setting Ventilator Tidal Volume 450 Setting Ventilator Tidal Volume 450 Setting Ventilator Tidal Volume 450 Setting Ventilator Tidal Volume 450 Setting Ventilator Tidal Volume 450 Setting Ventilator Tidal Volume 450 Setting Ventilator Tidal Volume 450 Setting Ventilator Tidal Volume 450 Setting Ventilator Tidal Volume 450 Setting Ventilator Respiratory Rate 12 Setting Ventilator Respiratory Rate 12 Setting Ventilator Respiratory Rate 12 Setting Ventilator Respiratory Rate 12 Setting Ventilator Respiratory Rate 12 Setting Ventilator Respiratory Rate 12 Setting Ventilator Respiratory Rate 12 Setting Ventilator Respiratory Rate 12 Setting Ventilator Respiratory Rate 12 Setting Ventilator Respiratory Rate 12 Setting Ventilator Respiratory Rate 12 Setting Actual Respiratory Rate 29 Actual Respiratory Rate 24 Actual Respiratory Rate 22 Actual Respiratory Rate 26 Actual Respiratory Rate 25 Actual Respiratory Rate 25 Actual Respiratory Rate 25 Actual Respiratory Rate 21 Actual Respiratory Rate 21 Actual Respiratory Rate 19 Positive End Expiratory 5 Pressure Positive End Expiratory 5 Pressure Positive End Expiratory 5 Pressure Positive End Expiratory 5 Pressure Positive End Expiratory 5 Pressure Positive End Expiratory 5 Pressure Positive End Expiratory 5 Pressure Positive End Expiratory 5 Pressure Positive End Expiratory 5 Pressure Positive End Expiratory 5 Pressure Positive End Expiratory 5 Pressure Peak Inspiratory Airway 28 Pressure Peak Inspiratory Airway 27 Pressure Peak Inspiratory Airway 28 Pressure Peak Inspiratory Airway 29 Pressure Peak Inspiratory Airway 27 Pressure Peak Inspiratory Airway 24 Pressure Peak Inspiratory Airway 27 Pressure Peak Inspiratory Airway 26 Pressure Peak Inspiratory Airway 25 Pressure Peak Inspiratory Airway 24 Pressure Results - Laboratory Findings CBC and BMP: 07/19/16 03:06 07/19/16 03:06 ABG ABG pH 7.36 pH Units (7.32-7.45) 07/19/16 04:39 ABG pCO2 21 mmHg (35-45) L 07/19/16 04:39 ABG pO2 112 mmHg (85-104) H 07/19/16 04:39 ABG O2 Saturation 98 % (95-98) 07/19/16 04:39 PT/INR, D-dimer PT 14.0 Seconds (9.4-12.1) H 07/18/16 10:28 Abnormal lab findings: Abnormal lab results MCHC 35.9 g/dL (31.6-35.5) H 07/19/16 03:06 MPV 9.0 fL (9.4-12.4) L 07/19/16 03:06 Band Neutrophils % 19.0 % (0-4) H 07/18/16 10:28 Metamyelocytes % 1.0 % (0) H 07/18/16 10:28 Myelocytes % 3.0 % (0) H 07/18/16 10:28 Reactive Lymphocytes Present (Not Present) A 07/19/16 03:06 Toxic Granulation Present (Not Present) A 07/19/16 03:06 Toxic Vacuolation Present (Not Present) A 07/19/16 03:06 Dohle Bodies Present (Not Present) A 07/18/16 22:37 Polychromasia 1+ (Not Present) A 07/18/16 22:37 [place] Cells 3+ (Not Present) A 07/18/16 22:37 PT 14.0 Seconds (9.4-12.1) H 07/18/16 10:28 APTT 78.3 Seconds (26.0-36.0) H 07/18/16 10:28 ABG pCO2 21 mmHg (35-45) L 07/19/16 04:39 ABG pO2 112 mmHg (85-104) H 07/19/16 04:39 ABG HCO3 11.9 mEQ/L (21-27) L 07/19/16 04:39 ABG Total CO2 12.5 mEq/L (20-26) L 07/19/16 04:39 ABG Base Excess -11.0 mEq/L (-2.0 to 3.0) L 07/19/16 04:39 Sodium 131 mEq/L (136-145) L 07/19/16 03:06 Potassium 4.8 mEq/L (3.5-4.5) H 07/19/16 03:06 Carbon Dioxide 14 mEq/L (19-29) L 07/19/16 03:06 BUN 38 mg/dL (7-20) H 07/19/16 03:06 Creatinine 1.43 mg/dL (0.57-1.11) H 07/19/16 03:06 Est GFR ( Amer) 45 (> 60) L 07/19/16 03:06 Est GFR (Non-Af Amer) 37 (> 60) L 07/19/16 03:06 BUN/Creatinine Ratio 27 (6-26) H 07/19/16 03:06 Glucose 114 mg/dL (70-99) H 07/19/16 03:06 POC Glucose 159 (58-89) H 07/19/16 05:51 Lactic Acid 3.4 mmol/L (0.5-2.2) H 07/19/16 03:06 Calcium 8.3 mg/dL (8.6-10.8) L 07/19/16 03:06 Magnesium 1.2 mg/dL (1.6-2.6) L 07/19/16 03:06 AST 120 Units/L (5-34) H 07/18/16 22:37 Troponin I 0.14 ng/mL (0-0.03) H* 07/18/16 09:38 B-Natriuretic Peptide 3231 pg/mL (0-100) H 07/18/16 10:28 Serum Total Protein 4.7 g/dL (6.0-8.3) L D 07/18/16 22:37 Albumin 2.1 g/dL (3.5-5.0) L D 07/18/16 22:37 Albumin/Globulin Ratio 0.8 (1.1-2.2) L 07/18/16 22:37 Urine Clarity Cloudy (Clear) A 07/18/16 10:55 Urine Protein 30 mg/dL (Neg-Trace) H 07/18/16 10:55 Ur Leukocyte Esterase Large (Negative) H 07/18/16 10:55 Urine Microscopic WBC 50-100 per hpf (0-3) H 07/18/16 10:55 Urine Bacteria Many per hpf (None-Few) H 07/18/16 10:55 Ur Culture Indicated? YES (NO) A 07/18/16 10:55 - Clinical Findings Intake & Output: Intake & Output 07/18/16 07/19/16 07/19/16 23:59 07:59 15:59 Intake Total 1010 / 1010 994 / 994 Output Total 1628 / 1628 125 / 125 Balance -618 / -618 869 / 869 Weight 54.9 kg 55.4 kg Consult Discharge Plan - Plan Referrals: NO,PCP [Primary Care Provider] - <Chaparrita Kessler - Last Filed: 07/19/16 17:17> Date of Encounter: 07/19/16 All Systems: A 10-system review of systems was performed and is negative for pertinent findings except as documented above in the HPI. Physical Examination Vital Signs: Vital Signs, Last 4 Hours Pulse Resp BP Pulse Ox 07/19/16 17:08 24 75/57 92 07/19/16 16:10 139 25 89/55 92 07/19/16 15:52 23 86/49 94 07/19/16 15:00 141 24 81/56 94 07/19/16 14:00 137 24 85/52 92 07/19/16 13:48 137 21 86/57 97 Ventilator Settings Ventilator Settings: Ventilator Settings, Last 8 Hours Ventilator Mode VC+ Ventilator Mode VC+ Ventilator Mode VC+ Ventilator Mode VC+ Ventilator Mode VC+ Ventilator Mode VC+ Ventilator Mode VC+ Ventilator Mode VC+ Ventilator Mode VC+ Ventilator Mode VC+ Ventilator Mode VC+ Ventilator Tidal Volume 450 Setting Ventilator Tidal Volume 450 Setting Ventilator Tidal Volume 450 Setting Ventilator Tidal Volume 450 Setting Ventilator Tidal Volume 450 Setting Ventilator Tidal Volume 450 Setting Ventilator Tidal Volume 450 Setting Ventilator Tidal Volume 450 Setting Ventilator Tidal Volume 450 Setting Ventilator Tidal Volume 450 Setting Ventilator Tidal Volume 450 Setting Ventilator Respiratory Rate 12 Setting Ventilator Respiratory Rate 12 Setting Ventilator Respiratory Rate 12 Setting Ventilator Respiratory Rate 12 Setting Ventilator Respiratory Rate 12 Setting Ventilator Respiratory Rate 12 Setting Ventilator Respiratory Rate 12 Setting Ventilator Respiratory Rate 12 Setting Ventilator Respiratory Rate 12 Setting Ventilator Respiratory Rate 12 Setting Ventilator Respiratory Rate 12 Setting Actual Respiratory Rate 25 Actual Respiratory Rate 24 Actual Respiratory Rate 25 Actual Respiratory Rate 24 Actual Respiratory Rate 22 Actual Respiratory Rate 20 Actual Respiratory Rate 19 Actual Respiratory Rate 21 Actual Respiratory Rate 22 Actual Respiratory Rate 27 Actual Respiratory Rate 28 Positive End Expiratory 5 Pressure Positive End Expiratory 5 Pressure Positive End Expiratory 5 Pressure Positive End Expiratory 5 Pressure Positive End Expiratory 5 Pressure Positive End Expiratory 5 Pressure Positive End Expiratory 5 Pressure Positive End Expiratory 5 Pressure Positive End Expiratory 5 Pressure Positive End Expiratory 5 Pressure Positive End Expiratory 5 Pressure Peak Inspiratory Airway 26 Pressure Peak Inspiratory Airway 25 Pressure Peak Inspiratory Airway 27 Pressure Peak Inspiratory Airway 26 Pressure Peak Inspiratory Airway 26 Pressure Peak Inspiratory Airway 27 Pressure Peak Inspiratory Airway 27 Pressure Peak Inspiratory Airway 28 Pressure Peak Inspiratory Airway 33 Pressure Peak Inspiratory Airway 33 Pressure Peak Inspiratory Airway 36 Pressure Results - Laboratory Findings CBC and BMP: 07/19/16 03:06 07/19/16 03:06 ABG ABG pH 7.36 pH Units (7.32-7.45) 07/19/16 04:39 ABG pCO2 21 mmHg (35-45) L 07/19/16 04:39 ABG pO2 112 mmHg (85-104) H 07/19/16 04:39 ABG O2 Saturation 98 % (95-98) 07/19/16 04:39 PT/INR, D-dimer PT 14.0 Seconds (9.4-12.1) H 07/18/16 10:28 Abnormal lab findings: Abnormal lab results MCHC 35.9 g/dL (31.6-35.5) H 07/19/16 03:06 MPV 9.0 fL (9.4-12.4) L 07/19/16 03:06 Band Neutrophils % 19.0 % (0-4) H 07/18/16 10:28 Metamyelocytes % 1.0 % (0) H 07/18/16 10:28 Myelocytes % 3.0 % (0) H 07/18/16 10:28 Reactive Lymphocytes Present (Not Present) A 07/19/16 03:06 Toxic Granulation Present (Not Present) A 07/19/16 03:06 Toxic Vacuolation Present (Not Present) A 07/19/16 03:06 Dohle Bodies Present (Not Present) A 07/18/16 22:37 Polychromasia 1+ (Not Present) A 07/18/16 22:37 [place] Cells 3+ (Not Present) A 07/18/16 22:37 PT 14.0 Seconds (9.4-12.1) H 07/18/16 10:28 APTT 78.3 Seconds (26.0-36.0) H 07/18/16 10:28 ABG pCO2 21 mmHg (35-45) L 07/19/16 04:39 ABG pO2 112 mmHg (85-104) H 07/19/16 04:39 ABG HCO3 11.9 mEQ/L (21-27) L 07/19/16 04:39 ABG Total CO2 12.5 mEq/L (20-26) L 07/19/16 04:39 ABG Base Excess -11.0 mEq/L (-2.0 to 3.0) L 07/19/16 04:39 Sodium 131 mEq/L (136-145) L 07/19/16 03:06 Potassium 4.8 mEq/L (3.5-4.5) H 07/19/16 03:06 Carbon Dioxide 14 mEq/L (19-29) L 07/19/16 03:06 BUN 38 mg/dL (7-20) H 07/19/16 03:06 Creatinine 1.43 mg/dL (0.57-1.11) H 07/19/16 03:06 Est GFR ( Amer) 45 (> 60) L 07/19/16 03:06 Est GFR (Non-Af Amer) 37 (> 60) L 07/19/16 03:06 BUN/Creatinine Ratio 27 (6-26) H 07/19/16 03:06 Glucose 114 mg/dL (70-99) H 07/19/16 03:06 Lactic Acid 3.4 mmol/L (0.5-2.2) H 07/19/16 03:06 Calcium 8.3 mg/dL (8.6-10.8) L 07/19/16 03:06 Magnesium 1.2 mg/dL (1.6-2.6) L 07/19/16 03:06 AST 120 Units/L (5-34) H 07/18/16 22:37 Troponin I 0.14 ng/mL (0-0.03) H* 07/18/16 09:38 B-Natriuretic Peptide 3231 pg/mL (0-100) H 07/18/16 10:28 Serum Total Protein 4.7 g/dL (6.0-8.3) L D 07/18/16 22:37 Albumin 2.1 g/dL (3.5-5.0) L D 07/18/16 22:37 Albumin/Globulin Ratio 0.8 (1.1-2.2) L 07/18/16 22:37 Urine Clarity Cloudy (Clear) A 07/18/16 10:55 Urine Protein 30 mg/dL (Neg-Trace) H 07/18/16 10:55 Ur Leukocyte Esterase Large (Negative) H 07/18/16 10:55 Urine Microscopic WBC 50-100 per hpf (0-3) H 07/18/16 10:55 Urine Bacteria Many per hpf (None-Few) H 07/18/16 10:55 Ur Culture Indicated? YES (NO) A 07/18/16 10:55 - Clinical Findings Intake & Output: Intake & Output 07/19/16 07/19/16 07/19/16 07:59 15:59 23:59 Intake Total 994 / 994 2544 / 2544 Output Total 125 / 125 1999 / 1999 Balance 869 / 869 544 / 544 Weight 55.4 kg - Attending Attestation I examined this patient and my medical decision-making was reviewed with the RV REPAIR TECHNICIAN/PA/Advanced Practice Nurse/Resident Physician. I agree with the documented findings, disposition and treatment plan as described except to the extent set forth below. Patient seen and examined. Labs, radiology, chart personally reviewed. 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 We may consider EEG. Pulmonary: Acceptable oxygenation and ventilation and change band mode to VC plus with no plan for spontaneous breathing trial since patient remained hemodynamically unstable Cardiovascular: Septic shock. I suspect tachycardia is most likely from volume depletion. GI: Nutrition per dietary and GI prophylaxis per routine. CT abdomen is ordered and suspect small bowel obstruction with consultation of surgery team. Heme: DVT prophylaxis per routine ID: Continue antibiotics and plan to de-escalation Renal; urine out put and renal funtion reviewed Endorcine: blood glucose is monitored Lines: all lines checked and no evidence of infections Skin: skin care to prevent pressure ulcers per nursing routine care Social service consultation. I spent 35 min of Critical Care time with this patient. It involved decision making of high complexity to assess, manipulate, and support vital organ system failure and/or to prevent further life threatening deterioration of the patient' s condition. The time involved in the performance of separately reportable procedures was not counted toward critical care time.
[2016-07-19] MEDS: FentaNYL (PF) 1,000 MCG in 0.9 % Sodium Chloride 80 ML IVC SCH (09:32)
[2016-07-19] MEDS: levETIRAcetam 1,000 MG in 0.9 % Sodium Chloride 100 ML IVPB SCH ×2 (09:34→21:40)
[2016-07-19] MEDS: 0.9 % Sodium Chloride 1,000 ML IVC ONE ×2 (09:36→10:47)
[2016-07-19] MEDS ORDERED: 0.9 % Sodium Chloride 1,000 ML ONE (10:43)
[2016-07-19] MEDS ORDERED: Dextrose Gel 15 GM PO PRN ×2 (10:50)
[2016-07-19] MEDS ORDERED: *HR* Dextrose 50 % in Water (Syg) 50 ML SYRINGE IVP PRN (10:50)
[2016-07-19] MEDS ORDERED: D5% in Water 1,000 ML IVC PRN (10:50)
[2016-07-19] MEDS: Ringers Solution, Lactated 1,000 ML IVC SCH ×2 (12:45→21:58)
[2016-07-19] MEDS ORDERED: 0.9 % Sodium Chloride 1,000 ML IVC ONE (16:17)
--- NOTE | 2016-07-19 17:48 | General Surgery Consult Note ---
Date of Encounter: 07/19/16 Time of Encounter: 17:40 Assessment and Plan (1) Bowel obstruction Current Visit: Yes Status: Suspected The patient has bowel obstruction by CAT scan. She has a continued septic course. She has mental retardation and schizophrenia. There is no power of energy attorney. I believe that the patient's abdominal findings constitute a true emergency and that this warrants exploration without consent. I will obtain a another opinion from her critical care doctors as to an appropriate course of action. If they concur I would recommend exploratory laparotomy. Qualifiers: Intestinal obstruction type: unspecified Qualified Code(s): K56.60 - Unspecified intestinal obstruction History of Present Illness Consult date: 07/19/16 Reason for consult: other (Sepsis and abnormal CAT scan of the abdomen) History of present illness: The patient was admitted to the hospital yesterday with severe sepsis and lactic acidosis. She was found to have pneumonia. A follow-up CAT scan demonstrated bowel obstruction. Maximum size of the small bowel is 8 cm. The patient has MRDD and schizophrenia and is unable to give a history. The patient does not have power of energy attorney. The patient is intubated and unconscious. She is on Levophed pressor to support her systolic blood pressure. She continues to have a septic course. Physical examination is limited. Nasogastric tube drainage is greater than 3 L. Past Med Surg Social Fam HX - Past Medical History Medical history: other, non-contributory Psychiatric history: no psych history - Past Surgical History Surgical History: hip replacement, other (No abdominal scars are noted) - Social History Smoking Status: Never smoker Smokeless Tobacco Status: No Alcohol use: none Drug use: none Medications and Allergies Chlorhexidine Rinse 15 ml MM DAILY 01/07/15 [History] Cholecalciferol (Vitamin D3) [Vitamin D3] 1,000 unit PO DAILY 01/07/15 [History] FLUoxetine HCl [Prozac] 10 mg PO QAM 01/07/15 [History] HydrOXYzine 10 mg PO TID 01/07/15 [History] Ibandronate Sodium [Boniva] 150 mg PO QMONTH 01/07/15 [History] LevETIRAcetam [Keppra] 1,000 mg PO BID 01/07/15 [History] Levothyroxine [Synthroid] 125 mcg PO QAM 01/07/15 [History] Nitrofurantoin (BID) [Macrobid] 100 mg PO DAILY 01/07/15 [History] Oxcarbazepine [Trileptal] 900 mg PO BID 01/07/15 [History] Phenytoin [Dilantin] 50 mg PO HS 01/07/15 [History] Phenytoin [Dilantin] 200 mg PO HS 01/07/15 [History] Trihexyphenidyl [Artane] 1 mg PO BID 01/07/15 [History] Aspirin Enteric Coated [Aspirin EC] 162 mg PO DAILY #0 tablet. 01/08/15 [Rx] Ascorbate Calcium [Vitamin C] 500 mg PO DAILY 06/10/15 [History] Calcium Carbonate/Vitamin D3 [Oyster Shell 500-Vit D3 200 Tb] 1 tab PO DAILY [History] Diazepam [Diastat] 10 mg RC AD PRN 06/10/15 [History] Multivitamin/Iron/Folic Acid [Certavite-Antioxidant Tablet] 1 tab PO DAILY 06/09 [History] Pantoprazole Sodium [Protonix] 20 mg PO BID 90 Days 06/12/15 [Rx] Sucralfate [Carafate] 1 gm PO TID 90 Days 06/12/15 [Rx] Acetaminophen [Tylenol] 500 mg PO Q4H PRN 07/18/16 [History] Bismuth Subsalicylate [PEPTO-BISMOL (262mg/15mL) Susp] 30 ml PO Q4H PRN [History] Chloraseptic [place] [Chloraseptic] 1 spray MM QID PRN 07/18/16 [History] Loperamide [Imodium] 2 mg PO Q6H PRN 07/18/16 [History] Loratadine [Allergy Relief] 10 mg PO DAILY 07/18/16 [History] Mag Hydrox/Al Hydrox/Simeth [Masanti Liquid] 15 ml PO HS 07/18/16 [History] Magnesium Hydroxide [Milk of Magnesia] 30 ml PO DAILY PRN 07/18/16 [History] Polyethylene Glycol 3350 [Purelax] 17 gm PO MOWEFR 07/18/16 [History] Allergies Sulfa (Sulfonamide Antibiotics) Allergy (Verified 01/07/15 12:33) See Comments unknown Review of Systems ROS unobtainable: due to endotracheal tube All systems PM: A 10-system review of systems was performed and is negative for pertinent findings except as documented above in the HPI. General Surgery Exam Initial Vital Signs Temp Pulse Resp BP Pulse Ox 97.9 F 132 25 91/65 93 07/18/16 09:07 07/18/16 09:07 07/18/16 09:07 07/18/16 09:07 07/18/16 09:07 - General physical appearance other (Septic on ventilator not responsive) - Neck no masses, no bruits, trachea midline, no lymphadectomy, no venous distension - Respiratory normal expansion, normal respiratory effort, clear to percussion, clear to auscultation - Cardiovascular Cardiovascular exam: Present: RRR, tachycardia (Hypotensive on pressors) - Abdomen Abdomen general surgery: Present: distended (Mildly distended with no bowel sounds.) - Neurologic Present: other (Unresponsive on the ventilator) - Psychiatric Psychiatric general surgery: Present: other (Unresponsive on the ventilator) Exam Initial Vital Signs Temp Pulse Resp BP Pulse Ox 97.9 F 132 25 91/65 93 07/18/16 09:07 07/18/16 09:07 07/18/16 09:07 07/18/16 09:07 07/18/16 09:07 Results - Labs 07/19/16 03:06 07/19/16 03:06 Abnormal lab results MCHC 35.9 g/dL (31.6-35.5) H 07/19/16 03:06 MPV 9.0 fL (9.4-12.4) L 07/19/16 03:06 Band Neutrophils % 19.0 % (0-4) H 07/18/16 10:28 Metamyelocytes % 1.0 % (0) H 07/18/16 10:28 Myelocytes % 3.0 % (0) H 07/18/16 10:28 Reactive Lymphocytes Present (Not Present) A 07/19/16 03:06 Toxic Granulation Present (Not Present) A 07/19/16 03:06 Toxic Vacuolation Present (Not Present) A 07/19/16 03:06 Dohle Bodies Present (Not Present) A 07/18/16 22:37 Polychromasia 1+ (Not Present) A 07/18/16 22:37 Ralston Cells 3+ (Not Present) A 07/18/16 22:37 PT 14.0 Seconds (9.4-12.1) H 07/18/16 10:28 APTT 78.3 Seconds (26.0-36.0) H 07/18/16 10:28 ABG pCO2 21 mmHg (35-45) L 07/19/16 04:39 ABG pO2 112 mmHg (85-104) H 07/19/16 04:39 ABG HCO3 11.9 mEQ/L (21-27) L 07/19/16 04:39 ABG Total CO2 12.5 mEq/L (20-26) L 07/19/16 04:39 ABG Base Excess -11.0 mEq/L (-2.0 to 3.0) L 07/19/16 04:39 Sodium 131 mEq/L (136-145) L 07/19/16 03:06 Potassium 4.8 mEq/L (3.5-4.5) H 07/19/16 03:06 Carbon Dioxide 14 mEq/L (19-29) L 07/19/16 03:06 BUN 38 mg/dL (7-20) H 07/19/16 03:06 Creatinine 1.43 mg/dL (0.57-1.11) H 07/19/16 03:06 Est GFR ( Amer) 45 (> 60) L 07/19/16 03:06 Est GFR (Non-Af Amer) 37 (> 60) L 07/19/16 03:06 BUN/Creatinine Ratio 27 (6-26) H 07/19/16 03:06 Glucose 114 mg/dL (70-99) H 07/19/16 03:06 Lactic Acid 3.4 mmol/L (0.5-2.2) H 07/19/16 03:06 Calcium 8.3 mg/dL (8.6-10.8) L 07/19/16 03:06 Magnesium 1.2 mg/dL (1.6-2.6) L 07/19/16 03:06 AST 120 Units/L (5-34) H 07/18/16 22:37 Troponin I 0.14 ng/mL (0-0.03) H* 07/18/16 09:38 B-Natriuretic Peptide 3231 pg/mL (0-100) H 07/18/16 10:28 Serum Total Protein 4.7 g/dL (6.0-8.3) L D 07/18/16 22:37 Albumin 2.1 g/dL (3.5-5.0) L D 07/18/16 22:37 Albumin/Globulin Ratio 0.8 (1.1-2.2) L 07/18/16 22:37 Urine Clarity Cloudy (Clear) A 07/18/16 10:55 Urine Protein 30 mg/dL (Neg-Trace) H 07/18/16 10:55 Ur Leukocyte Esterase Large (Negative) H 07/18/16 10:55 Urine Microscopic WBC 50-100 per hpf (0-3) H 07/18/16 10:55 Urine Bacteria Many per hpf (None-Few) H 07/18/16 10:55 Ur Culture Indicated? YES (NO) A 07/18/16 10:55 Diabetes panel 07/18/16 07/19/16 Range/Units 22:37 03:06 Sodium 132 L 131 L (136-145) mEq/L Potassium 4.7 H 4.8 H (3.5-4.5) mEq/L Chloride 108 107 (98-109) mEq/L Carbon Dioxide 14 L 14 L (19-29) mEq/L BUN 34 H 38 H (7-20) mg/dL Creatinine 1.41 H 1.43 H (0.57-1.11) mg/dL Glucose 154 H 114 H (70-99) mg/dL Calcium 8.0 L D 8.3 L (8.6-10.8) mg/dL AST 120 H (5-34) Units/L ALT 49 (0-55) Units/L Alkaline Phosphatase 41 (38-126) Units/L Albumin 2.1 L D (3.5-5.0) g/dL Calcium panel 07/18/16 07/19/16 Range/Units 22:37 03:06 Calcium 8.0 L D 8.3 L (8.6-10.8) mg/dL Phosphorus 3.4 (2.3-4.7) mg/dL Albumin 2.1 L D (3.5-5.0) g/dL Pituitary panel 07/18/16 07/19/16 Range/Units 22:37 03:06 Sodium 132 L 131 L (136-145) mEq/L Potassium 4.7 H 4.8 H (3.5-4.5) mEq/L Chloride 108 107 (98-109) mEq/L Carbon Dioxide 14 L 14 L (19-29) mEq/L BUN 34 H 38 H (7-20) mg/dL Creatinine 1.41 H 1.43 H (0.57-1.11) mg/dL Glucose 154 H 114 H (70-99) mg/dL Calcium 8.0 L D 8.3 L (8.6-10.8) mg/dL Adrenal panel 07/18/16 07/19/16 Range/Units 22:37 03:06 Sodium 132 L 131 L (136-145) mEq/L Potassium 4.7 H 4.8 H (3.5-4.5) mEq/L Chloride 108 107 (98-109) mEq/L Carbon Dioxide 14 L 14 L (19-29) mEq/L BUN 34 H 38 H (7-20) mg/dL Creatinine 1.41 H 1.43 H (0.57-1.11) mg/dL Glucose 154 H 114 H (70-99) mg/dL Calcium 8.0 L D 8.3 L (8.6-10.8) mg/dL Total Bilirubin 0.5 (0.2-1.2) mg/dL AST 120 H (5-34) Units/L ALT 49 (0-55) Units/L Alkaline Phosphatase 41 (38-126) Units/L Albumin 2.1 L D (3.5-5.0) g/dL All other labs normal. Consult Discharge Plan - Plan Referrals: NO,PCP [Primary Care Provider] -
--- NOTE | 2016-07-19 18:00 | Event Note ---
<Vamshi Orellana - Last Filed: 07/19/16 17:54> Date of Encounter: 07/19/16 Time of Encounter: 17:54 General surgery was consulted for bowel obstruction. After evaluation by general surgery, it was determined that patient be taken to OR for exploratory laporotomy. This is complicated by the fact that patient has no POA. However, since this is determined to be a true emergency situation, consent is implied and Dr. Laurent will take this patient for emergency exploratory laporotomy. Attending physician Dr. Kessler was made aware and agrees with this plan. <Chaparrita Kessler - Last Filed: 07/19/16 18:05> Date of Encounter: 07/19/16 Since surgeon see this as an emergency situation, then I would agree with the plan of care. This was discussed with the resident
--- NOTE | 2016-07-19 18:42 | Anesthesia Evaluation PreOp ---
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 Dsouza 2014], Ankle Fx x 2.) Alcohol Use: none Drug use: none Medications and Allergies Chlorhexidine Rinse 15 ml MM DAILY 01/07/15 [History] Cholecalciferol (Vitamin D3) [Vitamin D3] 1,000 unit PO DAILY 01/07/15 [History] FLUoxetine HCl [Prozac] 10 mg PO QAM 01/07/15 [History] HydrOXYzine 10 mg PO TID 01/07/15 [History] Ibandronate Sodium [Boniva] 150 mg PO QMONTH 01/07/15 [History] LevETIRAcetam [Keppra] 1,000 mg PO BID 01/07/15 [History] Levothyroxine [Synthroid] 125 mcg PO QAM 01/07/15 [History] Nitrofurantoin (BID) [Macrobid] 100 mg PO DAILY 01/07/15 [History] Oxcarbazepine [Trileptal] 900 mg PO BID 01/07/15 [History] Phenytoin [Dilantin] 50 mg PO HS 01/07/15 [History] Phenytoin [Dilantin] 200 mg PO HS 01/07/15 [History] Trihexyphenidyl [Artane] 1 mg PO BID 01/07/15 [History] Aspirin Enteric Coated [Aspirin EC] 162 mg PO DAILY #0 tablet. 01/08/15 [Rx] Ascorbate Calcium [Vitamin C] 500 mg PO DAILY 06/10/15 [History] Calcium Carbonate/Vitamin D3 [Oyster Shell 500-Vit D3 200 Tb] 1 tab PO DAILY [History] Diazepam [Diastat] 10 mg RC AD PRN 06/10/15 [History] Multivitamin/Iron/Folic Acid [Certavite-Antioxidant Tablet] 1 tab PO DAILY 06/09 [History] Pantoprazole Sodium [Protonix] 20 mg PO BID 90 Days 06/12/15 [Rx] Sucralfate [Carafate] 1 gm PO TID 90 Days 06/12/15 [Rx] Acetaminophen [Tylenol] 500 mg PO Q4H PRN 07/18/16 [History] Bismuth Subsalicylate [PEPTO-BISMOL (262mg/15mL) Susp] 30 ml PO Q4H PRN [History] Chloraseptic [place] [Chloraseptic] 1 spray MM QID PRN 07/18/16 [History] Loperamide [Imodium] 2 mg PO Q6H PRN 07/18/16 [History] Loratadine [Allergy Relief] 10 mg PO DAILY 07/18/16 [History] Mag Hydrox/Al Hydrox/Simeth [Masanti Liquid] 15 ml PO HS 07/18/16 [History] Magnesium Hydroxide [Milk of Magnesia] 30 ml PO DAILY PRN 07/18/16 [History] Polyethylene Glycol 3350 [Purelax] 17 gm PO MOWEFR 07/18/16 [History] Allergies Sulfa (Sulfonamide Antibiotics) Allergy (Verified 01/07/15 12:33) See Comments unknown - Meds/Allergy Pre-op Review Medications Reviewed: Yes Allergies Reviewed: Yes Beta Blockers on Current Med List: No Anesthesia Results - Labs 07/19/16 03:06 07/19/16 03:06 Laboratory Results Impressions Retroperitoneum Ultrasound 07/18/16 16:56 IMPRESSION: Limited evaluation. No evidence of hydronephrosis. D/ / Jorge Mccann MD / Jorge Mccann MD Interpreting Provider: Jorge Mccann MD Chest X-Ray 07/18/16 21:26 IMPRESSION: Interval placement of endotracheal tube with tip at the level of the yarely recommend retraction by approximately 2.5 cm. Enteric tube identified which appears appropriately positioned. D/ / Merrick Zhao MD / Merrick Zhao MD Interpreting Provider: Merrick Zhao MD X-Ray 07/19/16 08:15 IMPRESSION: Nonvisualization of the patient's reported OG tube. D/ / 07/19/2016 08:55:31 Justice Metz MD / sajan Interpreting Provider: Justice Metz MD Abdomen/Pelvis CT 07/19/16 11:00 IMPRESSION: There are multiple distended fluid-filled loops of small bowel containing air-fluid levels as well as distention of the stomach and distal esophagus. Findings are concerning for distal small bowel obstruction. Transition point is not identified on this study although evaluation is limited due to poor passage of contrast into the distal small bowel. There is a small amount of ascites with diffuse mesenteric edema. There is bibasilar airspace disease, atelectasis versus pneumonia, with trace bilateral pleural effusions. D/ / Kristina Dhaliwal MD / Kristina Dhaliwal MD Interpreting Provider: Kristina Dhaliwal MD - Imaging EKG: image reviewed (133bpm Sinus Tach) Anesthesia Exam Vital Signs Temp Pulse Resp BP Pulse Ox 07/19/16 18:23 133 22 120/64 95 07/19/16 17:56 137 23 92/59 96 07/19/16 17:08 24 75/57 92 07/19/16 16:10 139 25 89/55 92 07/19/16 15:52 23 86/49 94 07/19/16 15:00 141 24 81/56 94 07/19/16 14:00 137 24 85/52 92 07/19/16 13:48 137 21 86/57 97 07/19/16 12:01 130 19 91/58 97 07/19/16 12:00 98.1 F 07/19/16 11:41 22 85/61 95 07/19/16 10:40 137 21 78/50 94 07/19/16 09:36 28 123/64 95 07/19/16 09:20 143 27 105/66 96 07/19/16 08:15 145 26 102/87 95 07/19/16 07:48 24 75/39 95 07/19/16 07:41 99.8 F H 07/19/16 06:07 24 100 07/19/16 05:48 140 22 90/50 100 07/19/16 05:25 139 07/19/16 05:00 139 26 95/53 99 07/19/16 04:13 23 71/34 100 07/19/16 03:40 140 24 102/71 100 07/19/16 03:00 98.8 F 140 22 81/35 100 07/19/16 02:09 20 92/57 100 07/19/16 01:43 131 21 85/71 100 07/19/16 00:49 131 19 89/72 100 07/19/16 00:08 20 90/72 100 07/19/16 00:00 130 20 90/72 100 07/18/16 23:59 98.9 F 07/18/16 22:51 129 18 94/45 100 07/18/16 21:56 99.1 F 122 24 89/58 100 07/18/16 21:47 100 07/18/16 21:46 100 07/18/16 21:38 21 105/83 100 07/18/16 20:25 52 125/81 91 07/18/16 20:00 134 07/18/16 19:01 97.2 F L 137 22 125/81 97 Intake and Output 07/19/16 07/19/16 07/19/16 07:59 15:59 23:59 Intake Total 994 / 994 2544 / 2544 100 / 100 Output Total 125 / 125 1999 / 1999 200 / 200 Balance 869 / 869 544 / 544 -100 / -100 Intake: IV Fluids 994 / 994 1294 / 1294 100 / 100 0.9 % Sodium Chloride 1, 572 / 572 1000 / 1000 000 ML @ 3750 mls/hr IVC .Q32M ONE Rx#:[id number] Versed 50 MG In 0.9 % 90 / 90 Sodium Chloride 90 ML @ 2 MG/HR 4 mls/hr IVC CONT ANALI Rx#:[id number] Levophed 4 MG In Dextrose 72 / 72 5% 250 ML @ 8 MCG/MIN 30 mls/hr IVC CONT ANALI Rx#: [id number] Magnesium Sulfate 2 GM In 104 / 104 Dextrose 5% 100 ML @ 50 mls/hr IVPB Q6H PRN Rx#: [id number] Zosyn 3.375 GM In 100 / 100 100 / 100 100 / 100 Dextrose 5% (Minibag+) 100 ML 100 ML @ 25 mls/hr IVPB Q8H [facility] Rx#: [id number] Vancocin 1,000 MG In 250 / 250 Dextrose 5% 250 ML @ 166. 667 mls/hr IVPB ONCE ONE Rx#:[id number] Oral 0 / 0 Free Water 1250 / 1250 Output: Rectal Tube 0 / 0 Catheter 125 / 125 Gastric Drainage 1999 / 1999 200 / 200 Other: Stool Consistency liquid Stool Color Brown Weight 55.4 kg Blood Glucose* 159 Patient Weight 07/19/16 23:59 Weight 55.4 kg Height: 5'4" Weight: 122# BMI = 21 NPO (# of Hours): MNoc - HEENT Mallampati: Intubated Anesthesia Assess/Plan ASA Score: 4, E Modified Dubois Scale for Level of Consciousness: Asleep with no response ( Intubated/sedated in ICU) Anesthetic Plan: General Monitoring Plan: Standard Monitors, A-Line (??) Recovery Plan: ICU <Niki Hamilton - Last Filed: 07/20/16 00:48> Date of Encounter: 07/20/16 Time of Encounter: 21:50 Anesthesia Results - Labs 07/19/16 03:06 07/19/16 03:06 Anesthesia Exam - 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
[2016-07-19] MEDS ORDERED: Ondansetron 4 MG/2 ML VIAL ONE (18:50)
[2016-07-19] MEDS ORDERED: Dexamethasone 4 MG/ML VIAL ONE (18:50)
[2016-07-19] MEDS ORDERED: *HR* Succinylcholine 200 MG/10 ML VIAL IVP ONE (18:50)
[2016-07-19] MEDS ORDERED: *HR* Rocuronium Bromide 50 MG/5 ML VIAL ONE ×2 (18:50→23:43)
[2016-07-19] MEDS ORDERED: Lidocaine -MPF 2% 2 ML VIAL ONE (18:50)
[2016-07-19] MEDS ORDERED: Lidocaine -MPF 4% 5 ML AMPUL ONE (18:50)
[2016-07-19] MEDS ORDERED: *HR* FentaNYL (PF) 100 MCG/2 ML VIAL ONE (18:54)
[2016-07-19] MEDS ORDERED: *HR* Propofol 200 MG/20 ML VIAL IVP ONE (18:54)
[2016-07-19] MEDS ORDERED: Heparin 1,000 UNITS/500 mL NS 500 ML ONE (21:29)
[2016-07-19] MEDS ORDERED: *HR* EPINEPHrine 1 MG/ML AMPUL ONE (21:37)
[2016-07-19] MEDS ORDERED: CefOXitin 1,000 MG VIAL ONE (21:42)
[2016-07-19] MEDS ORDERED: *HR* Midazolam HCl 2 MG/2 ML VIAL ONE (21:44)
[2016-07-19] MEDS ORDERED: Vancomycin 1,000 MG in D5% in Water 250 ML IVPB SCH (23:00)
[2016-07-20] MEDS ORDERED: Ringers Solution, Lactated 1,000 ML IVC ONE ×2 (00:25→00:26)
--- NOTE | 2016-07-20 00:28 | Operative Note ---
Date of procedure: 07/20/16 Pre-op diagnosis: Acute abdomen Post-op diagnosis: other (Full-thickness necrosis of the colon and patchy full- thickness necrosis of 35% of the small bowel (ileum)) Anesthesia: CHAMP Surgeon: Aiden Laurent Specimen: Total abdominal colectomy. 35% of the small bowel (ileum) Condition: critical Disposition: ICU Procedure in Detail: The patient was taken to the operating room emergently without informed consent. The patient was unresponsive, on a ventilator, MRDD, and schizophrenic. The patient does not have power of assistant prosecuting attorney. She would not have survived without immediate surgery. This was discussed with her primary service and they are in agreement. Once in the operating room, a left femoral arterial line was placed. After several attempts by the anesthesiologist I placed a Seldinger needle in the left common femoral artery followed by a guidewire and catheter. This was sutured in place with 2-0 silk. Sterile dressing was applied. The abdomen was prepped and draped in sterile fashion utilizing ChloraPrep standard draping techniques. Timeout was taken patient was identified. I made a midline incision. It was immediately evident that there were multiple areas of necrosis in the abdomen. The largest area of necrosis appeared to be the entire sigmoid colon which had full-thickness necrosis but fortunately had not yet perforated. There was an area of preserved colon at the splenic flexure and along the area of necrosis across the transverse colon. There is an area of preserved right colon and then long areas of necrosis and ileum. This made operative planning problematic. I divided the rectum with a contour stapler. Then mobilized sigmoid colon and divided the sigmoid mesentery with clamps and hemostatic ligatures. This allowed me to divide the colon again and the descending area and passed the necrotic specimen off the field. I then completely mobilized the splenic flexure and as the colon was mobilized on the transverse colon a long segment of necrosis was encountered. The entire transverse mesocolon was divided with clamps and hemostatic ligatures. There was an area of hepatic flexure and right colon that was spared I mobilize this area in anticipation of performing resection with the ileum. The ileum was then assessed. There were multiple areas of full-thickness necrosis. I divided the bowel at the last area of full-thickness necrosis. I then divided the mesentery of the small bowel with clamps and hemostatic ligatures into continuity with the dissection of the right colon. At the end of the resection the patient had received a total abdominal colectomy as well as 35% of the small bowel (ileum). The remaining small bowel was brought out as an ileostomy in the right midabdomen. The abdomen was irrigated with copious amounts of antibiotic containing solution. The midline was closed with looped 0 PDS and the skin with Vicryl and skin clips. I matured the ileostomy with interrupted 3 -0 Vicryl. The patient actually required less pressor at the end of the case than at the beginning. Although I would not describe her clinical course is stable, she developed no episodes of hypotension during the procedure. She is transferred to the intensive care unit in critical condition.
[2016-07-20] MEDS ORDERED: 0.9 % Sodium Chloride 1,000 ML IVC SCH (00:30)
[2016-07-20] MEDS: Norepinephrine 4 MG in D5% in Water 250 ML IVC SCH ×3 (00:38→13:31)
--- NOTE | 2016-07-20 00:48 | Anesthesia Evaluation Post Op ---
Date of Encounter: 07/20/16 Time of Encounter: 00:47 - Vital Signs Vital Signs: See ICU documentation - Lungs Lungs: Clear Ascult./Percussion - Airway Airway: Intubated - Cardiovascular Regular Rate, Baseline Rhythm - Mental Status Mental Status: Sedated - Pain Pain Scale used: Unable to assess - Nausea Vomiting Nausea Vomiting: Unable to assess - Hydration Hydration: NPO, Navarrete catheter - Discharge PostOp Status: Transfer Patient to floor (continue care in ICU - patient remains at pre-op status)
[2016-07-20 01:11] LABS: ABG Base Excess -15.4 mEq/L (-2.0 to 3.0); ABG HCO3 12.3 mEQ/L (21-27); ABG Oxygen Saturation 98 % (95-98); ABG PCO2 36 mmHg (35-45); ABG PO2 126 mmHg (85-104); ABG TCO2 13.4 mEq/L (20-26)
[2016-07-20 01:12] LABS: Blood Gas FiO2 40 %
[2016-07-20 01:13] LABS: ABG PH 7.14 pH Units (7.32-7.45)
[2016-07-20] MEDS: Lacri-Lube 3.5 GM TUBE BOTH EYES SCH ×6 (01:22→19:54)
[2016-07-20] MEDS: FentaNYL (PF) 1,000 MCG in 0.9 % Sodium Chloride 80 ML IVC SCH (02:17)
[2016-07-20] MEDS: Ringers Solution, Lactated 1,000 ML IVC SCH ×4 (02:54→17:49)
[2016-07-20 03:53] LABS: Basophils % 0.3 %; Mean Corpuscular Volume 93.4 fL (83.0-100.0)
[2016-07-20 03:55] LABS: Hematocrit 23.9 % (35.3-44.9); Hemoglobin 8.4 g/dL (11.5-15.4); Immature Granulocytes % 2.1 % (0-4); Immature Platelets 3.2 % (1.1-6.1); Lymphocytes # 0.4 K/mcL (0.6-4.6); Lymphocytes % 12.7 %; Mean Corpuscular HGB Conc 35.1 g/dL (31.6-35.5); Mean Corpuscular Hemoglobin 32.8 pg (28.0-33.3); Mean Platelet Volume 9.5 fL (9.4-12.4); Monocytes # 0.3 K/mcL (0.0-1.3); Monocytes % 9.8 %; Red Blood Count 2.56 M/mcL (3.82-4.97); Red Cell Distribution Width 13.1 % (11.5-14.5); Segmented Neutrophils % 75.1 %
[2016-07-20] MEDS: Piperacillin/Tazobactam 3.375 GM in D5% in Water (Mini-Bag+) 100 ML IVPB SCH ×3 (04:07→19:53)
[2016-07-20 04:12] LABS: Albumin 1.1 g/dL (3.5-5.0); Albumin/Globulin Ratio 0.6 (1.1-2.2); Bilirubin,Direct 0.4 mg/dL (0.0-0.5); Bilirubin,Indirect 0.2 mg/dL (0.0-1.2); Bilirubin,Total 0.6 mg/dL (0.2-1.2); Calcium 6.4 mg/dL (8.6-10.8); Globulin 1.9 g/dL (2.4-3.5); Magnesium 1.3 mg/dL (1.6-2.6); Phosphorous 3.6 mg/dL (2.3-4.7); Potassium 4.6 mEq/L (3.5-4.5)
[2016-07-20 04:32] LABS: ABG Base Excess -10.2 mEq/L (-2.0 to 3.0); ABG HCO3 15.3 mEQ/L (21-27); ABG Oxygen Saturation 99 % (95-98); ABG PCO2 31 mmHg (35-45); ABG PO2 143 mmHg (85-104); ABG TCO2 16.3 mEq/L (20-26)
[2016-07-20 04:33] LABS: Neutrophils # 2.6 K/mcL (1.6-8.9)
[2016-07-20 04:34] LABS: Platelet Count 81 K/mcL (140-400)
[2016-07-20 04:39] LABS: Blood Gas FiO2 40 %
[2016-07-20 04:46] LABS: Platelet Estimate Decreased (Normal); Reactive Lymphocytes Present (Not Present); Toxic Granulation Present (Not Present)
[2016-07-20 04:47] LABS: Polychromasia 1+ (Not Present)
[2016-07-20 04:49] LABS: Acanthocytes 3+ (Not Present); Large Platelets Present (Not Present)
[2016-07-20] MEDS: Pantoprazole 40 MG VIAL IVP SCH (05:24)
[2016-07-20] MEDS: *HR* Enoxaparin 30 MG/0.3 ML SYRINGE SQ SCH ×2 (05:24→05:37)
[2016-07-20] MEDS: Magnesium Sulfate 2 GM in D5% in Water 100 ML IVPB PRN (05:38)
[2016-07-20] MEDS: *HR* Metoprolol 5 MG/5 ML VIAL IVP SCH (06:29)
[2016-07-20] MEDS ORDERED: *HR* Heparin 5,000 UNIT/ML VIAL IVP ONE (06:52)
[2016-07-20] MEDS ORDERED: *HR* Heparin 5,000 UNIT/ML VIAL IVP PRN ×2 (06:52)
[2016-07-20] MEDS ORDERED: Heparin 25,000 UNIT/500 ML D5W 25,000 UNIT/500 ML MLS IVC SCH (07:00)
[2016-07-20 07:11] LABS: INR 1.4; Prothrombin Time 15.7 Seconds (9.4-12.1)
[2016-07-20 07:14] LABS: Activated Partial Thrombo Time 76.2 Seconds (26.0-36.0)
[2016-07-20] MEDS: Aspirin Enteric Coated 81 MG Tablet PO SCH (08:16)
[2016-07-20] MEDS: FLUoxetine HCl 10 MG CAPSULE PO SCH (08:17)
[2016-07-20] MEDS: Cholecalciferol (D-3) 1,000 UNIT TABLET PO SCH (08:17)
[2016-07-20] MEDS: OXcarbazepine 150 MG TABLET PO SCH (08:17)
[2016-07-20] MEDS: Chlorhexidine Rinse 15 ML MOUTHWASH MM SCH ×2 (08:18→19:54)
[2016-07-20] MEDS: levETIRAcetam 1,000 MG in 0.9 % Sodium Chloride 100 ML IVPB SCH ×2 (08:23→20:17)
[2016-07-20] MEDS ORDERED: D10% in Water 500 ML IVC PRN (10:02)
--- NOTE | 2016-07-20 10:39 | Pulmonology Progress Note ---
<Graciela Pedersen - Last Filed: 07/20/16 11:35> Date of Encounter: 07/20/16 Time of Encounter: 10:32 Assessment and Plan (1) Septic shock Current Visit: Yes Status: Acute On admission, patient met SIRS criteria with tachycardia, tachypnea and bandemia. Lactic acidosis now trending down 7.8 >> 4.8. Hypertensive requiring vassopressors to maintain MAP. Initially concerned for infectious cause of sepsis - hernandez-culture negative thus far. Started on vanco, zosyn and levaquin on 07/18. Septic shock more likely secondary to significant bowel necrosis, now s/p colectomy and SBR. Will de-escalate antibiotics to zosyn. - De-escalate antibiotics to zosyn - Continue to monitor vitals and labs - Follow cultures - Vasopressors if needed to maintain MAP >65. (2) Intestinal necrosis Current Visit: Yes Status: Acute Per report, patient had epigastric discomfort and diarrhea on admission. Abdomen was midly distended and diffusely tender. CT abdomen/pelvis (07/19) demonstrated multiple distended fluid-filled loops of small bowel suggestive of distal SBO without transition point. Surgery was consulted and patient was taken for emergency ex lap. Found to have full thickness necrosis of colon and patchy full thickness necrosis of 35% small bowel, now POD#1 s/p total colectomy and SBR. Colostomy site in RLQ is pink, dry and intact. Rectal tube removed. - NPO - will start TPN today for nutrition - Maintain NG tube to low-intermittent wall suction - Management per surgery team (3) Acute respiratory failure with hypoxia Current Visit: Yes Status: Acute Acute respiratory failure likely secondary to aspiration pneumonia. Remains intubated and sedated - vent settings RR12, TV450, FiO2 40% and PEEP 5. Initially on broad-spectrum antibiotics, de-escalated to zosyn today. Follow cultures. - Continue zosyn - Follow cultures - Wean ventilatory support as tolerated (4) Lactic acidosis Current Visit: Yes Status: Acute Patient with a lactic acidosis, now improving 7.8 >> 3.7. Secondary to septic shock hypotension secondary to significant bowel necrosis. - Continue to monitor (5) Pneumonia Current Visit: Yes Status: Acute Patient with acute respiratory failure likely secondary to aspiration pneumonia. Gastric contents were seen when suctioning ET tube. Antibiotics were de-escalated to zosyn, day 3 total of antibitoics. - Continue antibiotics - Follow cultures - Wean ventilator support as tolerated Qualifiers: Pneumonia type: due to unspecified organism Laterality: unspecified laterality Lung location: unspecified part of lung Qualified Code(s): J18.9 - Pneumonia, unspecified organism (6) Atrial fibrillation Current Visit: Yes Status: Acute Patient developed atrial fibrillation this morning, unknown if patient has a history of paroxismal AFib. Rhythm converted with one dose of lopressor. - Continue cardiac monitoring - On lovenox for DVT ppx - If patient has recurrently paroxismal AFib, patient will require further treatment Qualifiers: Atrial fibrillation type: unspecified Qualified Code(s): I48.91 - Unspecified atrial fibrillation (7) Acute kidney injury Current Visit: Yes Status: Acute Patient with acute kidney injury likely secondary to hypotension initially. Worse this morning, likely secondary to surgery. Decreased urine output. - Monitor kidney function and UOP - Continue LR maintenance fluids - Avoid nephrotoxic agents (8) Hypothyroid Current Visit: Yes Status: Chronic Patient with history of hypothyroid on home synthroid 125mcg daily. Will give patient stress dose IV steroids today and started patient on IV synthroid 50mcg daily. Qualifiers: Hypothyroidism type: unspecified Qualified Code(s): E03.9 - Hypothyroidism , unspecified (9) Mental retardation Current Visit: Yes Status: Chronic History of MDRR. She is a [facility] at a [facility] but is reportedly high functioning. (10) Seizure disorder Current Visit: Yes Status: Chronic Patient with history of a sezure disorder on multiple home medications. Phenytoin therapeutic at 13. Keppra and dilantin were converted from PO to IV and continued. Trihexyphenidyl and Triliptal are both held as patient is NPO. (11) DVT prophylaxis Current Visit: Yes Status: Acute Lovenox for DVT ppx Neuro: Intubated and sedated. Will switch versed to propofol, continue fentanyl. Hx of MRDD and seizure disorder - continue dilantin and keppra, some medications on hold as she is NPO. Pulm: Acute respiratory failure likely secondary to aspiration pneumonia - on antibiotics. Vent settings - RR12, TV450, FiO2 40%, PEEP 5. Wean as tolerated. Cardio: AFib this morning, converted with one dose of lopressor. Continue to monitor. FEN-GI: S/p colectomy and SBR with colostomy. NPO, starting TPN today Renal: CLEMENTINA, minimal UOP - fluids, continue to monitor ID: Sepsis secondary to bowel necrosis. Antibiotics de-escalated to zosyn Heme/Onc: lovenox for DVT ppx Endocrine: Hypoglycemia protocol. Stress dose steroids today. Restart synthroid at 50mcg daily Skin: ICU skin care protocol Lines: Et, OG, right fem CVC, left fem arterial Code status: FULL Dispo: ICU Subjective Principal diagnosis: Sepsis secondary to bowel necrosis, acute respiratory failure Interval history: Yesterday, CT showed small bowel obstruction and patient was taken to the OR for ex lap. Found to have full thickness necrosis of the colon and patchy full thickness necrosis of 35% of the small bowel. Now POD#1 s/p total colectomy and small bowel resection with colostomy formation. This morning patient went in to atrial fibrillation with HR 100-120, converted with one dose of lopressor. Tmax 100.2 overnight. Blood pressure stable in 90-100s/50s. Patient seen and examined this morning. She remains intubated and sedated. She opens eyes with palpation of abdomen, does not follow commands. Lungs are clear to auscultation bilaterally, no wheezing or rhonchi. Abdomen is tender. New ostomy site RLQ - ostomy is pink and dry with some liquid output. Objective PUL Vital signs: Last Vital Signs Temp 96.3 F L 07/20/16 10:00 Pulse 80 07/20/16 10:00 Resp 15 07/20/16 10:18 BP 108/45 07/20/16 10:00 Pulse Ox 100 07/20/16 10:18 General appearance: no acute distress, other (Intubated and sedated) Eyes: nonicteric ENT: oropharynx moist Effort: normal Auscultation: bilateral: clear Cardiovascular: regular rate and rhythm, other Gastrointestinal: soft, tender, other (new ostomy in RLQ - pink and dry) Integumentary: normal Extremities: no cyanosis, no edema, no clubbing unable to assess due to mental status Ventilator Settings Ventilator Settings: Ventilator Settings, Last 8 Hours Ventilator Mode VC+ Ventilator Mode VC+ Ventilator Mode VC+ Ventilator Mode VC+ Ventilator Mode VC+ Ventilator Mode VC+ Ventilator Mode VC+ Ventilator Mode VC+ Ventilator Mode VC+ Ventilator Mode VC+ Ventilator Mode VC+ Ventilator Tidal Volume 450 Setting Ventilator Tidal Volume 450 Setting Ventilator Tidal Volume 450 Setting Ventilator Tidal Volume 450 Setting Ventilator Tidal Volume 450 Setting Ventilator Tidal Volume 450 Setting Ventilator Tidal Volume 450 Setting Ventilator Tidal Volume 450 Setting Ventilator Tidal Volume 450 Setting Ventilator Tidal Volume 450 Setting Ventilator Tidal Volume 450 Setting Ventilator Respiratory Rate 12 Setting Ventilator Respiratory Rate 12 Setting Ventilator Respiratory Rate 12 Setting Ventilator Respiratory Rate 12 Setting Ventilator Respiratory Rate 12 Setting Ventilator Respiratory Rate 12 Setting Ventilator Respiratory Rate 12 Setting Ventilator Respiratory Rate 12 Setting Ventilator Respiratory Rate 12 Setting Ventilator Respiratory Rate 12 Setting Ventilator Respiratory Rate 12 Setting Actual Respiratory Rate 16 Actual Respiratory Rate 15 Actual Respiratory Rate 14 Actual Respiratory Rate 13 Actual Respiratory Rate 15 Actual Respiratory Rate 18 Actual Respiratory Rate 15 Actual Respiratory Rate 14 Actual Respiratory Rate 15 Actual Respiratory Rate 13 Positive End Expiratory 5 Pressure Positive End Expiratory 5 Pressure Positive End Expiratory 5 Pressure Positive End Expiratory 5 Pressure Positive End Expiratory 5 Pressure Positive End Expiratory 5 Pressure Positive End Expiratory 5 Pressure Positive End Expiratory 5 Pressure Positive End Expiratory 5 Pressure Positive End Expiratory 5 Pressure Positive End Expiratory 5 Pressure Peak Inspiratory Airway 24 Pressure Peak Inspiratory Airway 24 Pressure Peak Inspiratory Airway 24 Pressure Peak Inspiratory Airway 25 Pressure Peak Inspiratory Airway 24 Pressure Peak Inspiratory Airway 23 Pressure Peak Inspiratory Airway 23 Pressure Peak Inspiratory Airway 25 Pressure Peak Inspiratory Airway 24 Pressure Peak Inspiratory Airway 25 Pressure Results - Laboratory Findings CBC and BMP: 07/20/16 03:37 07/20/16 03:37 ABG ABG pH 7.30 pH Units (7.32-7.45) L D 07/20/16 04:25 ABG pCO2 31 mmHg (35-45) L 07/20/16 04:25 ABG pO2 143 mmHg (85-104) H 07/20/16 04:25 ABG O2 Saturation 99 % (95-98) H 07/20/16 04:25 PT/INR, D-dimer PT 15.7 Seconds (9.4-12.1) H 07/20/16 06:53 Abnormal lab findings: Abnormal lab results WBC 3.4 K/mcL (4.3-11.1) L 07/20/16 03:37 RBC 2.56 M/mcL (3.82-4.97) L 07/20/16 03:37 Hgb 8.4 g/dL (11.5-15.4) L D 07/20/16 03:37 Hct 23.9 % (35.3-44.9) L 07/20/16 03:37 Plt Count 81 K/mcL (140-400) L D 07/20/16 03:37 Band Neutrophils % 19.0 % (0-4) H 07/18/16 10:28 Metamyelocytes % 1.0 % (0) H 07/18/16 10:28 Myelocytes % 3.0 % (0) H 07/18/16 10:28 Lymphocytes # 0.4 K/mcL (0.6-4.6) L 07/20/16 03:37 Reactive Lymphocytes Present (Not Present) A 07/20/16 03:37 Toxic Granulation Present (Not Present) A 07/20/16 03:37 Toxic Vacuolation Present (Not Present) A 07/19/16 03:06 Dohle Bodies Present (Not Present) A 07/18/16 22:37 Platelet Estimate Decreased (Normal) L 07/20/16 03:37 Large Platelets Present (Not Present) A 07/20/16 03:37 Polychromasia 1+ (Not Present) A 07/20/16 03:37 Reedy Cells 3+ (Not Present) A 07/18/16 22:37 Acanthocytes (Spur) 3+ (Not Present) A 07/20/16 03:37 PT 15.7 Seconds (9.4-12.1) H 07/20/16 06:53 APTT 76.2 Seconds (26.0-36.0) H 07/20/16 06:53 ABG pH 7.30 pH Units (7.32-7.45) L D 07/20/16 04:25 ABG pCO2 31 mmHg (35-45) L 07/20/16 04:25 ABG pO2 143 mmHg (85-104) H 07/20/16 04:25 ABG HCO3 15.3 mEQ/L (21-27) L 07/20/16 04:25 ABG Total CO2 16.3 mEq/L (20-26) L 07/20/16 04:25 ABG O2 Saturation 99 % (95-98) H 07/20/16 04:25 ABG Base Excess -10.2 mEq/L (-2.0 to 3.0) L 07/20/16 04:25 Sodium 131 mEq/L (136-145) L 07/20/16 03:37 Potassium 4.6 mEq/L (3.5-4.5) H 07/20/16 03:37 Carbon Dioxide 14 mEq/L (19-29) L 07/20/16 03:37 BUN 41 mg/dL (7-20) H 07/20/16 03:37 Creatinine 1.83 mg/dL (0.57-1.11) H 07/20/16 03:37 Est GFR ( Amer) 34 (> 60) L 07/20/16 03:37 Est GFR (Non-Af Amer) 28 (> 60) L 07/20/16 03:37 Glucose 184 mg/dL (70-99) H 07/20/16 03:37 POC Glucose 118 (58-89) H 07/20/16 06:07 Lactic Acid 3.7 mmol/L (0.5-2.2) H 07/20/16 06:53 Calcium 6.4 mg/dL (8.6-10.8) L D 07/20/16 03:37 Ionized Calcium 1.04 mmol/L (1.15-1.35) L 07/20/16 05:25 Magnesium 1.3 mg/dL (1.6-2.6) L 07/20/16 03:37 AST 103 Units/L (5-34) H 07/20/16 03:37 Alkaline Phosphatase 30 Units/L (38-126) L 07/20/16 03:37 Troponin I 0.14 ng/mL (0-0.03) H* 07/18/16 09:38 B-Natriuretic Peptide 3231 pg/mL (0-100) H 07/18/16 10:28 Serum Total Protein 3.0 g/dL (6.0-8.3) L D 07/20/16 03:37 Albumin 1.1 g/dL (3.5-5.0) L D 07/20/16 03:37 Globulin 1.9 g/dL (2.4-3.5) L 07/20/16 03:37 Albumin/Globulin Ratio 0.6 (1.1-2.2) L 07/20/16 03:37 Urine Clarity Cloudy (Clear) A 07/18/16 10:55 Urine Protein 30 mg/dL (Neg-Trace) H 07/18/16 10:55 Ur Leukocyte Esterase Large (Negative) H 07/18/16 10:55 Urine Microscopic WBC 50-100 per hpf (0-3) H 07/18/16 10:55 Urine Bacteria Many per hpf (None-Few) H 07/18/16 10:55 Ur Culture Indicated? YES (NO) A 07/18/16 10:55 - Clinical Findings Intake & Output: Intake & Output 07/19/16 07/20/16 07/20/16 23:59 07:59 15:59 Intake Total 1437.3 / 1437.3 1999.7 / 1999.7 50 / 50 Output Total 675 / 675 425 / 425 650 / 650 Balance 762.3 / 762.3 1575.7 / 1575.7 -600 / -600 Weight 68.039 kg Consult Discharge Plan - Plan Referrals: NO,PCP [Primary Care Provider] - <Chaparrita Kessler - Last Filed: 07/20/16 12:26> Date of Encounter: 07/20/16 Objective PUL Vital signs: Last Vital Signs Temp 96.3 F L 07/20/16 10:00 Pulse 80 07/20/16 10:00 Resp 15 07/20/16 10:18 BP 108/45 07/20/16 10:00 Pulse Ox 100 07/20/16 10:18 Ventilator Settings Ventilator Settings: Ventilator Settings, Last 8 Hours Ventilator Mode VC+ Ventilator Mode VC+ Ventilator Mode VC+ Ventilator Mode VC+ Ventilator Mode VC+ Ventilator Mode VC+ Ventilator Mode VC+ Ventilator Mode VC+ Ventilator Mode VC+ Ventilator Mode VC+ Ventilator Tidal Volume 450 Setting Ventilator Tidal Volume 450 Setting Ventilator Tidal Volume 450 Setting Ventilator Tidal Volume 450 Setting Ventilator Tidal Volume 450 Setting Ventilator Tidal Volume 450 Setting Ventilator Tidal Volume 450 Setting Ventilator Tidal Volume 450 Setting Ventilator Tidal Volume 450 Setting Ventilator Tidal Volume 450 Setting Ventilator Respiratory Rate 12 Setting Ventilator Respiratory Rate 12 Setting Ventilator Respiratory Rate 12 Setting Ventilator Respiratory Rate 12 Setting Ventilator Respiratory Rate 12 Setting Ventilator Respiratory Rate 12 Setting Ventilator Respiratory Rate 12 Setting Ventilator Respiratory Rate 12 Setting Ventilator Respiratory Rate 12 Setting Ventilator Respiratory Rate 12 Setting Actual Respiratory Rate 16 Actual Respiratory Rate 15 Actual Respiratory Rate 15 Actual Respiratory Rate 14 Actual Respiratory Rate 13 Actual Respiratory Rate 16 Actual Respiratory Rate 15 Actual Respiratory Rate 18 Actual Respiratory Rate 15 Positive End Expiratory 5 Pressure Positive End Expiratory 5 Pressure Positive End Expiratory 5 Pressure Positive End Expiratory 5 Pressure Positive End Expiratory 5 Pressure Positive End Expiratory 5 Pressure Positive End Expiratory 5 Pressure Positive End Expiratory 5 Pressure Positive End Expiratory 5 Pressure Positive End Expiratory 5 Pressure Peak Inspiratory Airway 24 Pressure Peak Inspiratory Airway 24 Pressure Peak Inspiratory Airway 24 Pressure Peak Inspiratory Airway 24 Pressure Peak Inspiratory Airway 25 Pressure Peak Inspiratory Airway 24 Pressure Peak Inspiratory Airway 24 Pressure Peak Inspiratory Airway 23 Pressure Peak Inspiratory Airway 23 Pressure Results - Laboratory Findings CBC and BMP: 07/20/16 03:37 07/20/16 03:37 ABG ABG pH 7.30 pH Units (7.32-7.45) L D 07/20/16 04:25 ABG pCO2 31 mmHg (35-45) L 07/20/16 04:25 ABG pO2 143 mmHg (85-104) H 07/20/16 04:25 ABG O2 Saturation 99 % (95-98) H 07/20/16 04:25 PT/INR, D-dimer PT 15.7 Seconds (9.4-12.1) H 07/20/16 06:53 Abnormal lab findings: Abnormal lab results WBC 3.4 K/mcL (4.3-11.1) L 07/20/16 03:37 RBC 2.56 M/mcL (3.82-4.97) L 07/20/16 03:37 Hgb 8.4 g/dL (11.5-15.4) L D 07/20/16 03:37 Hct 23.9 % (35.3-44.9) L 07/20/16 03:37 Plt Count 81 K/mcL (140-400) L D 07/20/16 03:37 Band Neutrophils % 19.0 % (0-4) H 07/18/16 10:28 Metamyelocytes % 1.0 % (0) H 07/18/16 10:28 Myelocytes % 3.0 % (0) H 07/18/16 10:28 Lymphocytes # 0.4 K/mcL (0.6-4.6) L 07/20/16 03:37 Reactive Lymphocytes Present (Not Present) A 07/20/16 03:37 Toxic Granulation Present (Not Present) A 07/20/16 03:37 Toxic Vacuolation Present (Not Present) A 07/19/16 03:06 Dohle Bodies Present (Not Present) A 07/18/16 22:37 Platelet Estimate Decreased (Normal) L 07/20/16 03:37 Large Platelets Present (Not Present) A 07/20/16 03:37 Polychromasia 1+ (Not Present) A 07/20/16 03:37 Isai Cells 3+ (Not Present) A 07/18/16 22:37 Acanthocytes (Spur) 3+ (Not Present) A 07/20/16 03:37 PT 15.7 Seconds (9.4-12.1) H 07/20/16 06:53 APTT 76.2 Seconds (26.0-36.0) H 07/20/16 06:53 ABG pH 7.30 pH Units (7.32-7.45) L D 07/20/16 04:25 ABG pCO2 31 mmHg (35-45) L 07/20/16 04:25 ABG pO2 143 mmHg (85-104) H 07/20/16 04:25 ABG HCO3 15.3 mEQ/L (21-27) L 07/20/16 04:25 ABG Total CO2 16.3 mEq/L (20-26) L 07/20/16 04:25 ABG O2 Saturation 99 % (95-98) H 07/20/16 04:25 ABG Base Excess -10.2 mEq/L (-2.0 to 3.0) L 07/20/16 04:25 Sodium 131 mEq/L (136-145) L 07/20/16 03:37 Potassium 4.6 mEq/L (3.5-4.5) H 07/20/16 03:37 Carbon Dioxide 14 mEq/L (19-29) L 07/20/16 03:37 BUN 41 mg/dL (7-20) H 07/20/16 03:37 Creatinine 1.83 mg/dL (0.57-1.11) H 07/20/16 03:37 Est GFR ( Amer) 34 (> 60) L 07/20/16 03:37 Est GFR (Non-Af Amer) 28 (> 60) L 07/20/16 03:37 Glucose 184 mg/dL (70-99) H 07/20/16 03:37 POC Glucose 118 (58-89) H 07/20/16 06:07 Lactic Acid 3.7 mmol/L (0.5-2.2) H 07/20/16 06:53 Calcium 6.4 mg/dL (8.6-10.8) L D 07/20/16 03:37 Ionized Calcium 1.04 mmol/L (1.15-1.35) L 07/20/16 05:25 Magnesium 1.3 mg/dL (1.6-2.6) L 07/20/16 03:37 AST 103 Units/L (5-34) H 07/20/16 03:37 Alkaline Phosphatase 30 Units/L (38-126) L 07/20/16 03:37 Troponin I 0.14 ng/mL (0-0.03) H* 07/18/16 09:38 B-Natriuretic Peptide 3231 pg/mL (0-100) H 07/18/16 10:28 Serum Total Protein 3.0 g/dL (6.0-8.3) L D 07/20/16 03:37 Albumin 1.1 g/dL (3.5-5.0) L D 07/20/16 03:37 Globulin 1.9 g/dL (2.4-3.5) L 07/20/16 03:37 Albumin/Globulin Ratio 0.6 (1.1-2.2) L 07/20/16 03:37 Urine Clarity Cloudy (Clear) A 07/18/16 10:55 Urine Protein 30 mg/dL (Neg-Trace) H 07/18/16 10:55 Ur Leukocyte Esterase Large (Negative) H 07/18/16 10:55 Urine Microscopic WBC 50-100 per hpf (0-3) H 07/18/16 10:55 Urine Bacteria Many per hpf (None-Few) H 07/18/16 10:55 Ur Culture Indicated? YES (NO) A 07/18/16 10:55 - Clinical Findings Intake & Output: Intake & Output 07/19/16 07/20/16 07/20/16 23:59 07:59 15:59 Intake Total 1437.3 / 1437.3 1999.7 / 1999.7 50 / 50 Output Total 675 / 675 425 / 425 650 / 650 Balance 762.3 / 762.3 1575.7 / 1575.7 -600 / -600 Weight 68.039 kg - Attending Attestation I examined this patient and my medical decision-making was reviewed with the REST ROOM MATRON/PA/Advanced Practice Nurse/Resident Physician. I agree with the documented findings, disposition and treatment plan as described except to the extent set forth below. Patient seen and examined. Labs, radiology, chart personally reviewed. 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 Pulmonary: Acceptable oxygenation and ventilation. There is no plan for extubation due to hemodynamic instability Cardiovascular: Patient remained in shock postoperatively and continue with resuscitation with IV fluid and vasopressor. GI: Nutrition per dietary and GI prophylaxis per routine. Since patient has large portion of her intestine was removed, then will start her on TPN. We will check pre-albumin I suspect patient is malnourished which I do not know the severity at this time until we have pre-albumen level. Discussed with Dr. Laurent and appreciate all his help. Heme: DVT prophylaxis per routine ID: Continue antibiotics and plan to de-escalation Renal; urine out put and renal funtion reviewed Endorcine: blood glucose is monitored. Change by mouth levothyroxin 2 IV levothyroxine and stressed dose steroid Lines: all lines checked and no evidence of infections Skin: skin care to prevent pressure ulcers per nursing routine care I spent 35 min of Critical Care time with this patient. It involved decision making of high complexity to assess, manipulate, and support vital organ system failure and/or to prevent further life threatening deterioration of the patient' s condition. The time involved in the performance of separately reportable procedures was not counted toward critical care time.
[2016-07-20] MEDS ORDERED: Aminoglycoside Consult 1 EACH MC ONE (12:00)
[2016-07-20] MEDS: Hydrocortisone Sodium Succ 100 MG/2 ML VIAL IVP SCH ×2 (12:22→17:48)
[2016-07-20] MEDS: Levothyroxine Sodium 100 MCG VIAL IVP SCH (12:23)
--- NOTE | 2016-07-20 12:54 | Electrocardiograph Report ---
[place] [id number] Test Date: 2016-07-19 Pat Name: Georgia Curiel Department: 109 Room: [facility] Gender: F Dog Barber: JORDIN : 1950 Requested By: Lester Farr Order Number: [id number] Reading MD: Adryan Chiu MD Measurements Intervals [place] Rate: 144 P: 56 TX: 154 QRS: 20 QRSD: 72 T: 69 QT: 269 QTc: 352 Interpretive Statements SINUS TACHYCARDIA LOW QRS VOLTAGE IN EXTREMITY LEADS Electronically Signed On 07-20-2016 12:52:52 EDT by Adryan Chiu MD
[2016-07-20] MEDS ORDERED: Clinimix E 5%-15% SOLUTION 2,000 ML with MVI, adult with vitamin K 10 ML IVC SCH (17:00)
--- NOTE | 2016-07-20 22:05 | General Surgery Progress Note ---
Date of Encounter: 07/20/16 Time of Encounter: 07:00 - Assessment and Plan (1) Acute abdomen Current Visit: Yes Status: Resolved POD #1 for; emergency exploratory laparotomy resulting in total colectomy, partial ileectomy with ileostomy with Dr. Laurent on 07/20/16 NG tube to low intermittent wall suction. Medical management per ICU team Supportive care and pain control IV fluids to maintain hydration IV antibiotics Repeat am labs Maintain Navarrete catheter for strict I and O's. Serial abdominal exams Vital signs per protocol Elevate head of bed to 30 degrees Daily dressing change- complete today PPI therapy daily DVT prophylaxis TPN for nutrition while awaiting return of bowel function Remove rectal tube Will continue to follow patient closely as patient is being treated for sepsis. The assessment and plan as outlined above was discussed with the patient and/or family members who expressed understanding and agreement. All questions were answered. Subjective Narrative: The patient was seen and examined. She is intubated and sedated. Ileostomy site with excellent result demonstrating pink tissue. Orogastric tube in place. Continue treatment of sepsis. Objective Vital Signs - Last 8 Hours Temp Pulse Resp BP Pulse Ox 07/20/16 21:00 107 18 123/55 100 07/20/16 20:09 98.6 F 07/20/16 20:00 100 17 100/48 100 07/20/16 19:42 16 106/50 100 07/20/16 19:00 99 17 110/51 100 07/20/16 18:00 96 14 93/45 100 07/20/16 17:00 98 16 100/47 100 07/20/16 16:43 15 100 07/20/16 16:00 96 14 104/48 100 07/20/16 15:00 98.3 F 88 15 113/51 100 Intake and Output 07/20/16 07/20/16 07/20/16 07:59 15:59 23:59 Intake Total 2104.7 / 2104.7 650 / 650 1270 / 1270 Output Total 425 / 425 1100 / 1100 200 / 200 Balance 1679.7 / 1679.7 -450 / -450 1070 / 1070 Intake: IV Fluids 2104.7 / 2104.7 600 / 600 1270 / 1270 FentaNYL (PF) 1,000 MCG 100 / 100 In 0.9 % Sodium Chloride 80 ML @ 50 MCG/HR 5 mls/ hr IVC CONT [facility] Rx#: [id number] Versed 50 MG In 0.9 % 100 / 100 Sodium Chloride 90 ML @ 2 MG/HR 4 mls/hr IVC CONT [facility] Rx#:[id number] Levophed 4 MG In Dextrose 500.0 / 500.0 290 / 290 60 / 60 5% 250 ML @ 8 MCG/MIN 30 mls/hr IVC CONT [facility] Rx#: [id number] Lactated Ringers 1,000 ML 1000 / 1000 1000 / 1000 @ 95 mls/hr IVC .[id number] [facility] Rx#:[id number] Calcium Gluconate 1,000 110 / 110 MG In Dextrose 5% 100 ML @ 50 mls/hr IVPB Q6HR PRN Rx#:[id number] Magnesium Sulfate 2 GM In 104 / 104 Dextrose 5% 100 ML @ 50 mls/hr IVPB Q6H PRN Rx#: [id number] Zosyn 3.375 GM In 100 / 100 100 / 100 Dextrose 5% (Minibag+) 100 ML 100 ML @ 25 mls/hr IVPB Q8H [facility] Rx#: [id number] Vancocin 1,000 MG In 250 / 250 Dextrose 5% 250 ML @ 166. 667 mls/hr IVPB Q24H [facility] Rx#:[id number] Keppra 1,000 MG In 0.9 % 50.7 / 50.7 100 / 100 110 / 110 Sodium Chloride 100 ML @ 400 mls/hr IVPB BID [facility] Rx#:[id number] Oral 0 / 0 Free Water 50 / 50 Output: Stool 125 / 125 Estimated Blood Loss 100 / 100 Rectal Tube 0 / 0 Urine Amount (Catheter) 75 / 75 Catheter 100 / 100 425 / 425 50 / 50 Gastric Drainage 150 / 150 550 / 550 150 / 150 Other: Weight 68.039 kg Blood Glucose* 118 100 98 Patient Weight 07/20/16 23:59 Weight 68.039 kg - General physical appearance other (Septic on ventilator not responsive) - ENT dry mucosa - Neck Neck exam: no masses, trachea midline - Respiratory normal expansion, normal respiratory effort, clear to auscultation - Cardiovascular Cardiovascular exam: Present: RRR, tachycardia (Hypotension on pressors). Absent: JVD - Abdomen Abdomen: Present: soft - Incision Incision: Present: clean and dry, intact - Integumentary no rash, no abnormal pigmentation - Neurologic other (Intubated and sedated unresponsive) - Labs 07/20/16 03:37 07/21/16 03:40 Diabetes panel 07/20/16 Range/Units 03:37 Sodium 131 L (136-145) mEq/L Potassium 4.6 H (3.5-4.5) mEq/L Chloride 109 (98-109) mEq/L Carbon Dioxide 14 L (19-29) mEq/L BUN 41 H (7-20) mg/dL Creatinine 1.83 H (0.57-1.11) mg/dL Glucose 184 H (70-99) mg/dL Calcium 6.4 L D (8.6-10.8) mg/dL AST 103 H (5-34) Units/L ALT 50 (0-55) Units/L Alkaline Phosphatase 30 L (38-126) Units/L Albumin 1.1 L D (3.5-5.0) g/dL Calcium panel 07/20/16 Range/Units 03:37 Calcium 6.4 L D (8.6-10.8) mg/dL Phosphorus 3.6 (2.3-4.7) mg/dL Albumin 1.1 L D (3.5-5.0) g/dL Pituitary panel 07/20/16 Range/Units 03:37 Sodium 131 L (136-145) mEq/L Potassium 4.6 H (3.5-4.5) mEq/L Chloride 109 (98-109) mEq/L Carbon Dioxide 14 L (19-29) mEq/L BUN 41 H (7-20) mg/dL Creatinine 1.83 H (0.57-1.11) mg/dL Glucose 184 H (70-99) mg/dL Calcium 6.4 L D (8.6-10.8) mg/dL Adrenal panel 07/20/16 Range/Units 03:37 Sodium 131 L (136-145) mEq/L Potassium 4.6 H (3.5-4.5) mEq/L Chloride 109 (98-109) mEq/L Carbon Dioxide 14 L (19-29) mEq/L BUN 41 H (7-20) mg/dL Creatinine 1.83 H (0.57-1.11) mg/dL Glucose 184 H (70-99) mg/dL Calcium 6.4 L D (8.6-10.8) mg/dL Total Bilirubin 0.6 (0.2-1.2) mg/dL AST 103 H (5-34) Units/L ALT 50 (0-55) Units/L Alkaline Phosphatase 30 L (38-126) Units/L Albumin 1.1 L D (3.5-5.0) g/dL - VTE Documentation of Mechanical Device: Intermittent pneumatic compression device Consult Discharge Plan - Plan Referrals: NO,PCP [Primary Care Provider] - - Attending Attestation I examined this patient and my medical decision-making was reviewed with the COSMETIC DENTIST/PA/Advanced Practice Nurse/Resident Physician. I agree with the documented findings, disposition and treatment plan as described except to the extent set forth below. The patient is seen and evaluated on morning rounds. She is still alive. Pressors are coming down. Her creatinine is 1.8. She is beginning to make urine. The ileostomy is pink. She may yet survive. Continue maximum supportive care Aiden Laurent MD FACS
[2016-07-21] MEDS: Hydrocortisone Sodium Succ 100 MG/2 ML VIAL IVP SCH
[2016-07-21] MEDS: Lacri-Lube 3.5 GM TUBE BOTH EYES SCH ×6 (00:10→20:33)
[2016-07-21 04:18] LABS: Ionized Calcium 1.16 mmol/L (1.15-1.35)
[2016-07-21 04:24] LABS: ABG Base Excess -6.3 mEq/L (-2.0 to 3.0); ABG HCO3 18.3 mEQ/L (21-27); ABG Oxygen Saturation 99 % (95-98); ABG PCO2 31 mmHg (35-45); ABG PH 7.38 pH Units (7.32-7.45); ABG PO2 155 mmHg (85-104); ABG TCO2 19.3 mEq/L (20-26)
[2016-07-21] MEDS: Piperacillin/Tazobactam 3.375 GM in D5% in Water (Mini-Bag+) 100 ML IVPB SCH ×3 (04:27→20:24)
[2016-07-21] MEDS: Ringers Solution, Lactated 1,000 ML IVC SCH ×2 (04:28→15:04)
[2016-07-21 04:32] LABS: Calcium 7.4 mg/dL (8.6-10.8)
[2016-07-21 04:34] LABS: Blood Gas FiO2 40 %
[2016-07-21 04:52] LABS: Magnesium 1.8 mg/dL (1.6-2.6); Phosphorous 3.3 mg/dL (2.3-4.7)
[2016-07-21] MEDS: Pantoprazole 40 MG VIAL IVP SCH (05:57)
[2016-07-21] MEDS: Magnesium Sulfate 2 GM in D5% in Water 100 ML IVPB PRN (05:57)
[2016-07-21] MEDS ORDERED: *HR* Enoxaparin 30 MG/0.3 ML SYRINGE SQ SCH (06:00)
--- NOTE | 2016-07-21 08:00 | Pulmonology Progress Note ---
<Lester Farr - Last Filed: 07/21/16 09:53> Date of Encounter: 07/21/16 Time of Encounter: 07:58 Assessment and Plan (1) Septic shock Current Visit: Yes Status: Acute on admission met SIRS criteria with tachycardia, tachypnea, and bandemia remains afebrile s/p colectomy and SBR, POD #2 secondary to necrotic bowel hernandez cultures negative for growth - urine and blood cultures x2 on 07/18 NGTD de-escalated antibiotics to Zosyn on 07/20, currently day 4 - Vancomycin, Zosyn, and Levaquin started / lactic acidosis increased to 3.7 (2.8) off pressors currently - goal to maintain MAP >65 (2) Acute respiratory failure with hypoxia Current Visit: Yes Status: Acute likely secondary to pneumonia continue vent support and wean as tolerated de-escalated antibiotics to Zosyn on 07/20, currently day 4 tolerating CPAP trial today, plan to wean later today or tomorrow (3) Postoperative anemia Current Visit: Yes Status: Acute POD #2 of total colectom and SBR with right ileosotomy she appears pale and hgb reported 5 from 8.4 continue to monitor transfuse 2 units of pRBCs (4) Intestinal necrosis Current Visit: Yes Status: Acute CT abd/pelvis (/) demonstrated multiple distended fluid-filled loops of small bowel suggestive of distal SBO without transition point surgery consulted and taken for emergent ex lap - full thickness necrosis of colon and patchy full thickness necrosis of 35% small bowel - colostomy site in RLQ is pink, dry and intact. POD #2 s/p total colectomy and SBR started on TPN for nutrition - hyperglycemic, added 10U insulin to TPN, next bag at 1700 - will continue to monitor plan to switch OG to NG prior to extubation management per surgery team, appreciated (5) Bowel obstruction Current Visit: Yes Status: Suspected as above Qualifiers: Intestinal obstruction type: unspecified Qualified Code(s): K56.60 - Unspecified intestinal obstruction (6) Pneumonia Current Visit: Yes Status: Acute suspect aspiration pneumonia gastric contents in ET tube with suction continue antibiotics, day 4 Qualifiers: Pneumonia type: due to unspecified organism Laterality: unspecified laterality Lung location: unspecified part of lung Qualified Code(s): J18.9 - Pneumonia, unspecified organism (7) Thrombocytopenia Current Visit: Yes Status: Acute platelets 81k continue to monitor discontinued Lovenox DVT prophylaxis EPCDs only low 4Ts HIT transfuse if develops major bleeding with <50K or drops <10K without bleeding (8) Acute kidney injury Current Visit: Yes Status: Acute improving likely from hypotension AVOID nephrotoxins US retroperitoneal / - limited evaluation without evidence of hydronephrosis continue to monitor (9) Lactic acidosis Current Visit: Yes Status: Acute secondary to hypotension from septic shock improving continue to monitor (10) Mental retardation Current Visit: Yes Status: Chronic chronic resident at a halfway, reportedly high functioning resume home medications (11) Seizure disorder Current Visit: Yes Status: Chronic history of seizure disorder therapeutic on Phenytoin 13 continue home medications (12) Hyponatremia Current Visit: Yes Status: Chronic chronic, stable continue to monitor (13) UTI (urinary tract infection) Current Visit: Yes Status: Suspected suspected UTI with many bacteria and large leuk esterase and 50-100 WBCs urine culture 07/18 NGTD without isolated pathogens Qualifiers: Urinary tract infection type: site unspecified Hematuria presence: without hematuria Qualified Code(s): N39.0 - Urinary tract infection, site not specified (14) Goals of care, counseling/discussion Current Visit: Yes Status: Acute consult child welfare social worker to verify POA patient has no POA POD #2 of total colectomy and SBR (15) Tachycardia Current Visit: Yes Status: Resolved (16) DVT prophylaxis Current Visit: Yes Status: Acute discontinued Lovenox on EPCDs 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 diff negative, urine culture NGTD, blood culture pending, currently on Zosyn day 4 Heme/Onc: postop anemia, transfuse 2 units pRBCs, platelets low at 81 will continue to monitor and plan to transfuse, discontinued Lovenox, EPCDs for DVT prophylaxis, no active bleeding Endocrine: hypoglycemia protocol, TPN with insulin Skin: continue ICU skin care per protocol Lines: ET, OG, R fem CVC, left fem arterial line FULL CODE Dispo: ICU care Subjective Principal diagnosis: Sepsis secondary to bowel necrosis, acute respiratory failure Interval history: No major events overnight. Patient seen and examined at bedside. She remains intubated and on light sedation. She opens eyes to voice and follow simple commands. She has been on CPAP trial since 619 pulling good tidal volumes and a respiratory rate of 20. Unable to obtain further review systems due to current mental status. Objective PUL Vital signs: Last Vital Signs Temp 98.8 F 07/21/16 03:00 Pulse 99 07/21/16 06:00 Resp 17 07/21/16 06:20 BP 108/53 07/21/16 06:20 Pulse Ox 100 07/21/16 06:20 General appearance: no acute distress, other (lightly sedated, remains intubated ) Eyes: nonicteric ENT: other (endotracheal intubation, OG tube) Effort: normal Auscultation: bilateral: clear Cardiovascular: regular rate and rhythm Gastrointestinal: hypoactive bowel sounds, soft, non-tender, non-distended, other (righ ileostomy, stoma is pink) Integumentary: other (appears pale without any signs of active bleeding, no jaundice) Extremities: edema (mild), other (screws to the right ankle with scar from prior surgery) Musculoskeletal: no deformities pupils equal and round, unable to assess due to mental status Right femoral CVC, left femoral arterial line, aguiar catheter, ET, OG lines appropriately dressed without signs of infection Ventilator Settings Ventilator Settings: Ventilator Settings, Last 8 Hours Ventilator Mode CPAP Ventilator Mode VC+ Ventilator Mode VC+ Ventilator Mode VC+ Ventilator Mode VC+ Ventilator Mode VC+ Ventilator Mode VC+ Ventilator Mode VC+ Ventilator Mode VC+ Ventilator Mode VC+ Ventilator Mode VC+ Ventilator Tidal Volume 450 Setting Ventilator Tidal Volume 450 Setting Ventilator Tidal Volume 450 Setting Ventilator Tidal Volume 450 Setting Ventilator Tidal Volume 450 Setting Ventilator Tidal Volume 450 Setting Ventilator Tidal Volume 450 Setting Ventilator Tidal Volume 450 Setting Ventilator Tidal Volume 450 Setting Ventilator Tidal Volume 450 Setting Ventilator Respiratory Rate 12 Setting Ventilator Respiratory Rate 12 Setting Ventilator Respiratory Rate 12 Setting Ventilator Respiratory Rate 12 Setting Ventilator Respiratory Rate 12 Setting Ventilator Respiratory Rate 12 Setting Ventilator Respiratory Rate 12 Setting Ventilator Respiratory Rate 12 Setting Ventilator Respiratory Rate 12 Setting Ventilator Respiratory Rate 12 Setting Actual Respiratory Rate 17 Actual Respiratory Rate 16 Actual Respiratory Rate 18 Actual Respiratory Rate 17 Actual Respiratory Rate 17 Actual Respiratory Rate 17 Actual Respiratory Rate 17 Actual Respiratory Rate 17 Actual Respiratory Rate 16 Actual Respiratory Rate 14 Positive End Expiratory 5 Pressure Positive End Expiratory 5 Pressure Positive End Expiratory 5 Pressure Positive End Expiratory 5 Pressure Positive End Expiratory 5 Pressure Positive End Expiratory 5 Pressure Positive End Expiratory 5 Pressure Positive End Expiratory 5 Pressure Positive End Expiratory 5 Pressure Positive End Expiratory 5 Pressure Positive End Expiratory 5 Pressure Peak Inspiratory Airway 16 Pressure Peak Inspiratory Airway 20 Pressure Peak Inspiratory Airway 22 Pressure Peak Inspiratory Airway 20 Pressure Peak Inspiratory Airway 21 Pressure Peak Inspiratory Airway 22 Pressure Peak Inspiratory Airway 22 Pressure Peak Inspiratory Airway 22 Pressure Peak Inspiratory Airway 22 Pressure Peak Inspiratory Airway 22 Pressure Results - Laboratory Findings CBC and BMP: 07/20/16 03:37 07/21/16 03:40 ABG ABG pH 7.38 pH Units (7.32-7.45) 07/21/16 04:15 ABG pCO2 31 mmHg (35-45) L 07/21/16 04:15 ABG pO2 155 mmHg (85-104) H 07/21/16 04:15 ABG O2 Saturation 99 % (95-98) H 07/21/16 04:15 PT/INR, D-dimer PT 15.7 Seconds (9.4-12.1) H 07/20/16 06:53 Abnormal lab findings: Abnormal lab results WBC 3.4 K/mcL (4.3-11.1) L 07/20/16 03:37 RBC 2.56 M/mcL (3.82-4.97) L 07/20/16 03:37 Hgb 8.4 g/dL (11.5-15.4) L D 07/20/16 03:37 Hct 23.9 % (35.3-44.9) L 07/20/16 03:37 Plt Count 81 K/mcL (140-400) L D 07/20/16 03:37 Band Neutrophils % 19.0 % (0-4) H 07/18/16 10:28 Metamyelocytes % 1.0 % (0) H 07/18/16 10:28 Myelocytes % 3.0 % (0) H 07/18/16 10:28 Lymphocytes # 0.4 K/mcL (0.6-4.6) L 07/20/16 03:37 Reactive Lymphocytes Present (Not Present) A 07/20/16 03:37 Toxic Granulation Present (Not Present) A 07/20/16 03:37 Toxic Vacuolation Present (Not Present) A 07/19/16 03:06 Dohle Bodies Present (Not Present) A 07/18/16 22:37 Platelet Estimate Decreased (Normal) L 07/20/16 03:37 Large Platelets Present (Not Present) A 07/20/16 03:37 Polychromasia 1+ (Not Present) A 07/20/16 03:37 [place] Cells 3+ (Not Present) A 07/18/16 22:37 Acanthocytes (Spur) 3+ (Not Present) A 07/20/16 03:37 PT 15.7 Seconds (9.4-12.1) H 07/20/16 06:53 APTT 76.2 Seconds (26.0-36.0) H 07/20/16 06:53 ABG pCO2 31 mmHg (35-45) L 07/21/16 04:15 ABG pO2 155 mmHg (85-104) H 07/21/16 04:15 ABG HCO3 18.3 mEQ/L (21-27) L 07/21/16 04:15 ABG Total CO2 19.3 mEq/L (20-26) L 07/21/16 04:15 ABG O2 Saturation 99 % (95-98) H 07/21/16 04:15 ABG Base Excess -6.3 mEq/L (-2.0 to 3.0) L 07/21/16 04:15 Sodium 130 mEq/L (136-145) L 07/21/16 03:40 Carbon Dioxide 17 mEq/L (19-29) L 07/21/16 03:40 BUN 42 mg/dL (7-20) H 07/21/16 03:40 Creatinine 1.61 mg/dL (0.57-1.11) H 07/21/16 03:40 Est GFR ( Amer) 39 (> 60) L 07/21/16 03:40 Est GFR (Non-Af Amer) 32 (> 60) L 07/21/16 03:40 Glucose 200 mg/dL (70-99) H 07/21/16 03:40 POC Glucose 198 (58-89) H 07/21/16 05:16 Lactic Acid 3.7 mmol/L (0.5-2.2) H 07/20/16 06:53 Calcium 7.4 mg/dL (8.6-10.8) L D 07/21/16 03:40 AST 103 Units/L (5-34) H 07/20/16 03:37 Alkaline Phosphatase 30 Units/L (38-126) L 07/20/16 03:37 Troponin I 0.14 ng/mL (0-0.03) H* 07/18/16 09:38 B-Natriuretic Peptide 3231 pg/mL (0-100) H 07/18/16 10:28 Serum Total Protein 3.0 g/dL (6.0-8.3) L D 07/20/16 03:37 Albumin 1.1 g/dL (3.5-5.0) L D 07/20/16 03:37 Globulin 1.9 g/dL (2.4-3.5) L 07/20/16 03:37 Albumin/Globulin Ratio 0.6 (1.1-2.2) L 07/20/16 03:37 Prealbumin 4.0 mg/dL (16.0-38.0) L 07/20/16 11:05 Urine Clarity Cloudy (Clear) A 07/18/16 10:55 Urine Protein 30 mg/dL (Neg-Trace) H 07/18/16 10:55 Ur Leukocyte Esterase Large (Negative) H 07/18/16 10:55 Urine Microscopic WBC 50-100 per hpf (0-3) H 07/18/16 10:55 Urine Bacteria Many per hpf (None-Few) H 07/18/16 10:55 Ur Culture Indicated? YES (NO) A 07/18/16 10:55 - Clinical Findings Intake & Output: Intake & Output 07/20/16 07/20/16 07/21/16 15:59 23:59 07:59 Intake Total 650 / 650 1370 / 1370 1150 / 1150 Output Total 1100 / 1100 425 / 425 575 / 575 Balance -450 / -450 945 / 945 575 / 575 Weight 65.8 kg - VTE Documentation of Mechanical Device: Intermittent pneumatic compression device Consult Discharge Plan - Plan Referrals: NO,PCP [Primary Care Provider] - <Saadlla,Haval M - Last Filed: 07/21/16 12:27> Date of Encounter: 07/21/16 Objective PUL Vital signs: Last Vital Signs Temp 98.7 F 07/21/16 11:40 Pulse 91 07/21/16 12:00 Resp 24 07/21/16 12:00 BP 101/45 07/21/16 12:00 Pulse Ox 100 07/21/16 12:00 Ventilator Settings Ventilator Settings: Ventilator Settings, Last 8 Hours Ventilator Mode CPAP Ventilator Mode CPAP Ventilator Mode CPAP Ventilator Mode CPAP Ventilator Mode CPAP Ventilator Mode CPAP Ventilator Mode CPAP Ventilator Mode CPAP Ventilator Mode CPAP Ventilator Mode VC+ Ventilator Mode VC+ Ventilator Tidal Volume 450 Setting Ventilator Tidal Volume 450 Setting Ventilator Tidal Volume 450 Setting Ventilator Tidal Volume 450 Setting Ventilator Tidal Volume 450 Setting Ventilator Tidal Volume 450 Setting Ventilator Tidal Volume 450 Setting Ventilator Tidal Volume 450 Setting Ventilator Tidal Volume 450 Setting Ventilator Tidal Volume 450 Setting Ventilator Respiratory Rate 12 Setting Ventilator Respiratory Rate 12 Setting Ventilator Respiratory Rate 12 Setting Ventilator Respiratory Rate 12 Setting Ventilator Respiratory Rate 12 Setting Ventilator Respiratory Rate 12 Setting Ventilator Respiratory Rate 12 Setting Ventilator Respiratory Rate 12 Setting Ventilator Respiratory Rate 12 Setting Ventilator Respiratory Rate 12 Setting Actual Respiratory Rate 23 Actual Respiratory Rate 24 Actual Respiratory Rate 24 Actual Respiratory Rate 24 Actual Respiratory Rate 19 Actual Respiratory Rate 18 Actual Respiratory Rate 20 Actual Respiratory Rate 18 Actual Respiratory Rate 17 Actual Respiratory Rate 16 Actual Respiratory Rate 18 Positive End Expiratory 5 Pressure Positive End Expiratory 5 Pressure Positive End Expiratory 5 Pressure Positive End Expiratory 5 Pressure Positive End Expiratory 5 Pressure Positive End Expiratory 5 Pressure Positive End Expiratory 5 Pressure Positive End Expiratory 5 Pressure Positive End Expiratory 5 Pressure Positive End Expiratory 5 Pressure Positive End Expiratory 5 Pressure Peak Inspiratory Airway 11 Pressure Peak Inspiratory Airway 11 Pressure Peak Inspiratory Airway 11 Pressure Peak Inspiratory Airway 11 Pressure Peak Inspiratory Airway 11 Pressure Peak Inspiratory Airway 16 Pressure Peak Inspiratory Airway 14 Pressure Peak Inspiratory Airway 16 Pressure Peak Inspiratory Airway 16 Pressure Peak Inspiratory Airway 20 Pressure Peak Inspiratory Airway 22 Pressure Results - Laboratory Findings CBC and BMP: 07/20/16 03:37 07/21/16 03:40 ABG ABG pH 7.38 pH Units (7.32-7.45) 07/21/16 04:15 ABG pCO2 31 mmHg (35-45) L 07/21/16 04:15 ABG pO2 155 mmHg (85-104) H 07/21/16 04:15 ABG O2 Saturation 99 % (95-98) H 07/21/16 04:15 PT/INR, D-dimer PT 15.7 Seconds (9.4-12.1) H 07/20/16 06:53 Abnormal lab findings: Abnormal lab results WBC 3.4 K/mcL (4.3-11.1) L 07/20/16 03:37 RBC 2.56 M/mcL (3.82-4.97) L 07/20/16 03:37 Hgb 8.4 g/dL (11.5-15.4) L D 07/20/16 03:37 Hct 23.9 % (35.3-44.9) L 07/20/16 03:37 Plt Count 81 K/mcL (140-400) L D 07/20/16 03:37 Band Neutrophils % 19.0 % (0-4) H 07/18/16 10:28 Metamyelocytes % 1.0 % (0) H 07/18/16 10:28 Myelocytes % 3.0 % (0) H 07/18/16 10:28 Lymphocytes # 0.4 K/mcL (0.6-4.6) L 07/20/16 03:37 Reactive Lymphocytes Present (Not Present) A 07/20/16 03:37 Toxic Granulation Present (Not Present) A 07/20/16 03:37 Toxic Vacuolation Present (Not Present) A 07/19/16 03:06 Dohle Bodies Present (Not Present) A 07/18/16 22:37 Platelet Estimate Decreased (Normal) L 07/20/16 03:37 Large Platelets Present (Not Present) A 07/20/16 03:37 Polychromasia 1+ (Not Present) A 07/20/16 03:37 [place] Cells 3+ (Not Present) A 07/18/16 22:37 Acanthocytes (Spur) 3+ (Not Present) A 07/20/16 03:37 PT 15.7 Seconds (9.4-12.1) H 07/20/16 06:53 APTT 76.2 Seconds (26.0-36.0) H 07/20/16 06:53 ABG pCO2 31 mmHg (35-45) L 07/21/16 04:15 ABG pO2 155 mmHg (85-104) H 07/21/16 04:15 ABG HCO3 18.3 mEQ/L (21-27) L 07/21/16 04:15 ABG Total CO2 19.3 mEq/L (20-26) L 07/21/16 04:15 ABG O2 Saturation 99 % (95-98) H 07/21/16 04:15 ABG Base Excess -6.3 mEq/L (-2.0 to 3.0) L 07/21/16 04:15 Sodium 130 mEq/L (136-145) L 07/21/16 03:40 Carbon Dioxide 17 mEq/L (19-29) L 07/21/16 03:40 BUN 42 mg/dL (7-20) H 07/21/16 03:40 Creatinine 1.61 mg/dL (0.57-1.11) H 07/21/16 03:40 Est GFR ( Amer) 39 (> 60) L 07/21/16 03:40 Est GFR (Non-Af Amer) 32 (> 60) L 07/21/16 03:40 Glucose 200 mg/dL (70-99) H 07/21/16 03:40 POC Glucose 168 (58-89) H 07/21/16 11:55 Lactic Acid 3.7 mmol/L (0.5-2.2) H 07/20/16 06:53 Calcium 7.4 mg/dL (8.6-10.8) L D 07/21/16 03:40 AST 103 Units/L (5-34) H 07/20/16 03:37 Alkaline Phosphatase 30 Units/L (38-126) L 07/20/16 03:37 Troponin I 0.14 ng/mL (0-0.03) H* 07/18/16 09:38 B-Natriuretic Peptide 3231 pg/mL (0-100) H 07/18/16 10:28 Serum Total Protein 3.0 g/dL (6.0-8.3) L D 07/20/16 03:37 Albumin 1.1 g/dL (3.5-5.0) L D 07/20/16 03:37 Globulin 1.9 g/dL (2.4-3.5) L 07/20/16 03:37 Albumin/Globulin Ratio 0.6 (1.1-2.2) L 07/20/16 03:37 Prealbumin 4.0 mg/dL (16.0-38.0) L 07/20/16 11:05 Urine Clarity Cloudy (Clear) A 07/18/16 10:55 Urine Protein 30 mg/dL (Neg-Trace) H 07/18/16 10:55 Ur Leukocyte Esterase Large (Negative) H 07/18/16 10:55 Urine Microscopic WBC 50-100 per hpf (0-3) H 07/18/16 10:55 Urine Bacteria Many per hpf (None-Few) H 07/18/16 10:55 Ur Culture Indicated? YES (NO) A 07/18/16 10:55 - Clinical Findings Intake & Output: Intake & Output 07/20/16 07/21/16 07/21/16 23:59 07:59 15:59 Intake Total 1370 / 1370 1150 / 1150 155 / 155 Output Total 425 / 425 575 / 575 710 / 710 Balance 945 / 945 575 / 575 -555 / -555 Weight 65.8 kg 71.2 kg - Attending Attestation I examined this patient and my medical decision-making was reviewed with the R D INTERN/PA/Advanced Practice Nurse/Resident Physician. I agree with the documented findings, disposition and treatment plan as described except to the extent set forth below. Patient seen and examined. Labs, radiology, chart personally reviewed. 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 Lowered to pressure support to 5 on CPAP trial. We will wait until the patient more awake and considering extubation. Most likely we will not extubate today since we will give her blood transfusion and considering will be volume. Cardiovascular: Relatively stable GI: Nutrition per dietary and GI prophylaxis per routine. Continue TPN and adding insulin Heme: DVT prophylaxis per routine. Anemia I suspect combination post surgery and also could be her baseline is low, but this is more acute blood loss and it is not clear at this time the source. Blood transfusion and if H&H drops then CT abdomen will be ordered. Hold heparin and possibly if there is evidence of active bleeding, then we will transfuse platelets. ID: Continue antibiotics and plan to de-escalation Renal; urine out put and renal funtion reviewed Endorcine: blood glucose is monitored. Blood glucose needs to be under better control Lines: all lines checked and no evidence of infections. Keep femoral line, since changing this line is not urgent and patient cannot give consent. Skin: skin care to prevent pressure ulcers per nursing routine care Social service I spent 35 min of Critical Care time with this patient. It involved decision making of high complexity to assess, manipulate, and support vital organ system failure and/or to prevent further life threatening deterioration of the patient' s condition. The time involved in the performance of separately reportable procedures was not counted toward critical care time.
--- NOTE | 2016-07-21 08:36 | General Surgery Progress Note ---
Date of Encounter: 07/21/16 Time of Encounter: 07:00 - Assessment and Plan (1) Acute abdomen Current Visit: Yes Status: Resolved POD #2 for; emergency exploratory laparotomy resulting in total colectomy, partial ileectomy with ileostomy with Dr. Laurent on 07/20/16 NG tube to low intermittent wall suction. Medical management per ICU team Supportive care and pain control IV fluids to maintain hydration IV antibiotics Repeat am labs Maintain Navarreet catheter for strict I and O's. Serial abdominal exams Vital signs per protocol Elevate head of bed to 30 degrees Daily dressing change- complete today PPI therapy daily DVT prophylaxis TPN for nutrition while awaiting return of bowel function Change out orogastric tube to NG tube today for easier extubation when indicated. Will continue to follow patient closely as patient is being treated for sepsis. The assessment and plan as outlined above was discussed with the patient and/or family members who expressed understanding and agreement. All questions were answered. Subjective Narrative: The patient was seen and examined. She is intubated with orogastric tube in place. Today however she is alert and responding to commands. Ileostomy site with excellent result still demonstrating pink tissue. Continue treatment of sepsis. Objective Vital Signs - Last 8 Hours Temp Pulse Resp BP Pulse Ox 07/21/16 08:08 19 100 07/21/16 06:20 17 108/53 100 07/21/16 06:00 99 16 112/53 100 07/21/16 05:00 100 18 117/55 100 07/21/16 04:00 101 17 102/47 100 07/21/16 03:40 17 113/51 100 07/21/16 03:00 98.8 F 98 17 125/55 100 07/21/16 02:00 98 17 122/54 100 07/21/16 01:20 17 115/52 100 07/21/16 01:00 97 16 113/51 100 Intake and Output 07/20/16 07/21/16 07/21/16 23:59 07:59 15:59 Intake Total 1370 / 1370 1150 / 1150 Output Total 425 / 425 575 / 575 Balance 945 / 945 575 / 575 Intake: IV Fluids 1370 / 1370 1150 / 1150 FentaNYL (PF) 1,000 MCG 100 / 100 In 0.9 % Sodium Chloride 80 ML @ 50 MCG/HR 5 mls/ hr IVC CONT ANALI Rx#: [id number] Levophed 4 MG In Dextrose 60 / 60 50 / 50 5% 250 ML @ 8 MCG/MIN 30 mls/hr IVC CONT ANALI Rx#: [id number] Lactated Ringers 1,000 ML 1000 / 1000 1000 / 1000 @ 95 mls/hr IVC .[id number] ANALI Rx#:[id number] Zosyn 3.375 GM In 100 / 100 100 / 100 Dextrose 5% (Minibag+) 100 ML 100 ML @ 25 mls/hr IVPB Q8H ANALI Rx#: [id number] Keppra 1,000 MG In 0.9 % 110 / 110 Sodium Chloride 100 ML @ 400 mls/hr IVPB BID ANALI Rx#:[id number] Oral 0 / 0 Output: Urine 200 / 200 Stool 175 / 175 Rectal Tube 50 / 50 Catheter 225 / 225 Gastric Drainage 150 / 150 200 / 200 Other: Weight 65.8 kg Blood Glucose* 98 198 - General physical appearance other (Septic on ventilator however today she is responding to commands is alert.) - Eyes normal ocular movement - ENT normal mucosa, atraumatic, normocephalic - Neck Neck exam: no masses, trachea midline, no venous distension - Respiratory normal expansion, normal respiratory effort, clear to auscultation - Cardiovascular Cardiovascular exam: Present: RRR, tachycardia. Absent: JVD - Abdomen Abdomen: Present: soft, tender. Absent: distended, guarding, rebound, rigid, peritoneal Additional Comments: Ileostomy site demonstrates healthy pink tissue - Incision Incision: Present: clean and dry, intact - Integumentary no rash, no abnormal pigmentation - Neurologic other (Intubated) - Labs 07/22/16 04:00 07/22/16 04:00 Diabetes panel 07/21/16 07/21/16 Range/Units 03:40 03:40 Sodium 130 L (136-145) mEq/L Potassium 4.0 (3.5-4.5) mEq/L Chloride 106 (98-109) mEq/L Carbon Dioxide 17 L (19-29) mEq/L BUN 42 H (7-20) mg/dL Creatinine 1.61 H (0.57-1.11) mg/dL Glucose 200 H (70-99) mg/dL Calcium 7.4 L D (8.6-10.8) mg/dL Triglycerides 73 (< 150) mg/dL Calcium panel 07/21/16 07/21/16 Range/Units 03:40 03:40 Calcium 7.4 L D (8.6-10.8) mg/dL Phosphorus 3.3 (2.3-4.7) mg/dL Pituitary panel 07/21/16 Range/Units 03:40 Sodium 130 L (136-145) mEq/L Potassium 4.0 (3.5-4.5) mEq/L Chloride 106 (98-109) mEq/L Carbon Dioxide 17 L (19-29) mEq/L BUN 42 H (7-20) mg/dL Creatinine 1.61 H (0.57-1.11) mg/dL Glucose 200 H (70-99) mg/dL Calcium 7.4 L D (8.6-10.8) mg/dL Adrenal panel 07/21/16 Range/Units 03:40 Sodium 130 L (136-145) mEq/L Potassium 4.0 (3.5-4.5) mEq/L Chloride 106 (98-109) mEq/L Carbon Dioxide 17 L (19-29) mEq/L BUN 42 H (7-20) mg/dL Creatinine 1.61 H (0.57-1.11) mg/dL Glucose 200 H (70-99) mg/dL Calcium 7.4 L D (8.6-10.8) mg/dL - VTE Documentation of Mechanical Device: Intermittent pneumatic compression device Consult Discharge Plan - Plan Referrals: NO,PCP [Primary Care Provider] - - Attending Attestation I examined this patient and my medical decision-making was reviewed with the SNOWBOARD DESIGNER/PA/Advanced Practice Nurse/Resident Physician. I agree with the documented findings, disposition and treatment plan as described except to the extent set forth below. The patient is seen and evaluated several times throughout the day. She demonstrates increasing stability. Nasogastric tube drainage is starting to fall off and she has developed activity in her ileostomy. Continue maximum supportive care. Aiden Laurent MD FACS
[2016-07-21] MEDS: *HR* Metoprolol 5 MG/5 ML VIAL IVP SCH (10:32)
[2016-07-21] MEDS: Chlorhexidine Rinse 15 ML MOUTHWASH MM SCH ×2 (10:32→20:24)
[2016-07-21] MEDS: Levothyroxine Sodium 100 MCG VIAL IVP SCH (10:32)
[2016-07-21] MEDS: levETIRAcetam 1,000 MG in 0.9 % Sodium Chloride 100 ML IVPB SCH ×2 (10:47→21:58)
[2016-07-21] MEDS ORDERED: 0.9 % Sodium Chloride 500 ML ONE (11:18)
[2016-07-21] MEDS ORDERED: Clinimix E 5%-15% SOLUTION 2,000 ML with MVI, adult with vitamin K 10 ML, Insulin Hum... IVC SCH (17:00)
[2016-07-21 20:01] LABS: Hematocrit 20.2 % (35.3-44.9); Hemoglobin 7.4 g/dL (11.5-15.4); Immature Platelets 3.5 % (1.1-6.1); Mean Corpuscular HGB Conc 36.6 g/dL (31.6-35.5); Mean Corpuscular Hemoglobin 31.9 pg (28.0-33.3); Mean Corpuscular Volume 87.1 fL (83.0-100.0); Mean Platelet Volume 10.5 fL (9.4-12.4); Monocytes # 0.8 K/mcL (0.0-1.3); Platelet Count 44 K/mcL (140-400); Red Blood Count 2.32 M/mcL (3.82-4.97); Red Cell Distribution Width 13.6 % (11.5-14.5)
[2016-07-21 20:08] LABS: Lymphocytes # 0.6 K/mcL (0.6-4.6); Neutrophils # 6.6 K/mcL (1.6-8.9); Platelet Estimate Decreased (Normal); Toxic Granulation Present (Not Present)
[2016-07-21 20:09] LABS: Acanthocytes 1+ (Not Present)
[2016-07-21 20:10] LABS: Reactive Lymphocytes Present (Not Present)
[2016-07-21] MEDS: FentaNYL (PF) 1,000 MCG in 0.9 % Sodium Chloride 80 ML IVC SCH ×2 (22:29)
[2016-07-22] MEDS: Lacri-Lube 3.5 GM TUBE BOTH EYES SCH ×6 (00:13→20:35)
[2016-07-22 00:21] LABS: Hematocrit 19.6 % (35.3-44.9); Hemoglobin 6.9 g/dL (11.5-15.4); Immature Platelets 4.1 % (1.1-6.1); Mean Corpuscular HGB Conc 35.2 g/dL (31.6-35.5); Mean Corpuscular Hemoglobin 30.8 pg (28.0-33.3); Mean Corpuscular Volume 87.5 fL (83.0-100.0); Mean Platelet Volume 11.1 fL (9.4-12.4); Red Blood Count 2.24 M/mcL (3.82-4.97); Red Cell Distribution Width 13.9 % (11.5-14.5)
[2016-07-22 00:24] LABS: Platelet Count 42 K/mcL (140-400)
[2016-07-22 01:08] LABS: Monocytes # 0.2 K/mcL (0.0-1.3); Neutrophils # 5.8 K/mcL (1.6-8.9)
[2016-07-22 01:09] LABS: Platelet Estimate Decreased (Normal); Toxic Granulation Present (Not Present)
[2016-07-22 01:15] LABS: Acanthocytes 1+ (Not Present); Large Platelets Present (Not Present); Reactive Lymphocytes Present (Not Present)
[2016-07-22] MEDS: Ringers Solution, Lactated 1,000 ML IVC SCH (02:13)
[2016-07-22] MEDS: Piperacillin/Tazobactam 3.375 GM in D5% in Water (Mini-Bag+) 100 ML IVPB SCH (04:06)
[2016-07-22 04:31] LABS: Hematocrit 19.6 % (35.3-44.9); Hemoglobin 6.9 g/dL (11.5-15.4); Mean Corpuscular HGB Conc 35.2 g/dL (31.6-35.5); Mean Corpuscular Hemoglobin 30.7 pg (28.0-33.3); Mean Corpuscular Volume 87.1 fL (83.0-100.0); Mean Platelet Volume 10.2 fL (9.4-12.4); Red Blood Count 2.25 M/mcL (3.82-4.97); Red Cell Distribution Width 14.2 % (11.5-14.5)
[2016-07-22 04:38] LABS: Platelet Count 39 K/mcL (140-400)
[2016-07-22 04:48] LABS: Calcium 7.6 mg/dL (8.6-10.8); Magnesium 1.9 mg/dL (1.6-2.6); Potassium 3.6 mEq/L (3.5-4.5)
[2016-07-22] MEDS: Potassium Chloride 40 MEQ/200 ML BAG IVPB PRN ×2 (05:12→12:13)
[2016-07-22] MEDS: Magnesium Sulfate 2 GM in D5% in Water 100 ML IVPB PRN (05:12)
[2016-07-22 05:41] LABS: Lymphocytes # 0.4 K/mcL (0.6-4.6); Monocytes # 0.7 K/mcL (0.0-1.3); Neutrophils # 5.6 K/mcL (1.6-8.9)
[2016-07-22 05:42] LABS: Anisocytosis 1+ (Not Present); Platelet Estimate Decreased (Normal)
[2016-07-22 05:43] LABS: Toxic Granulation Present (Not Present)
[2016-07-22 05:44] LABS: Large Platelets Present (Not Present)
[2016-07-22] MEDS: Pantoprazole 40 MG VIAL IVP SCH (06:49)
[2016-07-22] MEDS: *HR* Metoprolol 5 MG/5 ML VIAL IVP SCH (07:42)
[2016-07-22 08:35] LABS: Hematocrit 15.8 % (35.3-44.9); Hemoglobin 5.6 g/dL (11.5-15.4); Mean Corpuscular HGB Conc 35.4 g/dL (31.6-35.5); Mean Corpuscular Hemoglobin 32.7 pg (28.0-33.3); Mean Corpuscular Volume 92.4 fL (83.0-100.0); Red Blood Count 1.71 M/mcL (3.82-4.97); Red Cell Distribution Width 42.4 % (11.5-14.5)
[2016-07-22 08:36] LABS: Lymphocytes # 0.4 K/mcL (0.6-4.6); Mean Platelet Volume 9.6 fL (9.4-12.4); Platelet Count 59 K/mcL (140-400)
[2016-07-22] MEDS: levETIRAcetam 1,000 MG in 0.9 % Sodium Chloride 100 ML IVPB SCH ×2 (08:36→21:34)
[2016-07-22] MEDS: Chlorhexidine Rinse 15 ML MOUTHWASH MM SCH ×2 (08:36→20:35)
[2016-07-22 08:37] LABS: Monocytes # 0.6 K/mcL (0.0-1.3); Platelet Estimate Decreased (Normal)
[2016-07-22] MEDS: Levothyroxine Sodium 100 MCG VIAL IVP SCH (08:37)
--- NOTE | 2016-07-22 08:52 | Pulmonology Progress Note ---
<IbethGuevara W - Last Filed: 07/22/16 12:25> Date of Encounter: 07/22/16 Objective PUL Vital signs: Last Vital Signs Temp 98.5 F 07/22/16 07:43 Pulse 81 07/22/16 08:00 Resp 16 07/22/16 08:00 BP 122/49 07/22/16 08:00 Pulse Ox 98 07/22/16 08:00 Ventilator Settings Ventilator Settings: Ventilator Settings, Last 8 Hours Ventilator Mode VC+ Ventilator Mode CPAP Ventilator Mode CPAP Ventilator Mode CPAP Ventilator Mode A/C Ventilator Mode A/C Ventilator Mode A/C Ventilator Mode A/C Ventilator Mode A/C Ventilator Mode A/C Ventilator Mode A/C Ventilator Mode A/C Ventilator Tidal Volume 450 Setting Ventilator Tidal Volume 450 Setting Ventilator Tidal Volume 450 Setting Ventilator Tidal Volume 450 Setting Ventilator Tidal Volume 450 Setting Ventilator Tidal Volume 450 Setting Ventilator Tidal Volume 450 Setting Ventilator Tidal Volume 450 Setting Ventilator Tidal Volume 450 Setting Ventilator Tidal Volume 450 Setting Ventilator Tidal Volume 450 Setting Ventilator Respiratory Rate 12 Setting Ventilator Respiratory Rate 12 Setting Ventilator Respiratory Rate 12 Setting Ventilator Respiratory Rate 12 Setting Ventilator Respiratory Rate 12 Setting Ventilator Respiratory Rate 12 Setting Ventilator Respiratory Rate 12 Setting Ventilator Respiratory Rate 12 Setting Ventilator Respiratory Rate 12 Setting Actual Respiratory Rate 16 Actual Respiratory Rate 23 Actual Respiratory Rate 25 Actual Respiratory Rate 15 Actual Respiratory Rate 15 Actual Respiratory Rate 15 Actual Respiratory Rate 15 Actual Respiratory Rate 15 Actual Respiratory Rate 16 Actual Respiratory Rate 14 Actual Respiratory Rate 15 Positive End Expiratory 5 Pressure Positive End Expiratory 5 Pressure Positive End Expiratory 5 Pressure Positive End Expiratory 5 Pressure Positive End Expiratory 5 Pressure Positive End Expiratory 5 Pressure Positive End Expiratory 5 Pressure Positive End Expiratory 5 Pressure Positive End Expiratory 5 Pressure Positive End Expiratory 5 Pressure Peak Inspiratory Airway 11 Pressure Peak Inspiratory Airway 29 Pressure Peak Inspiratory Airway 28 Pressure Peak Inspiratory Airway 27 Pressure Peak Inspiratory Airway 25 Pressure Peak Inspiratory Airway 22 Pressure Peak Inspiratory Airway 28 Pressure Peak Inspiratory Airway 23 Pressure Peak Inspiratory Airway 23 Pressure Results - Laboratory Findings CBC and BMP: 07/22/16 11:03 07/22/16 11:03 ABG ABG pH 7.38 pH Units (7.32-7.45) 07/21/16 04:15 ABG pCO2 31 mmHg (35-45) L 07/21/16 04:15 ABG pO2 155 mmHg (85-104) H 07/21/16 04:15 ABG O2 Saturation 99 % (95-98) H 07/21/16 04:15 PT/INR, D-dimer PT 15.7 Seconds (9.4-12.1) H 07/20/16 06:53 Abnormal lab findings: Abnormal lab results RBC 2.25 M/mcL (3.82-4.97) L 07/22/16 04:00 Hgb 6.9 g/dL (11.5-15.4) L 07/22/16 04:00 Hct 19.6 % (35.3-44.9) L 07/22/16 04:00 Plt Count 39 K/mcL (140-400) L 07/22/16 04:00 Band Neutrophils % 10.0 % (0-4) H 07/22/16 04:00 Metamyelocytes % 2.0 % (0) H 07/21/16 23:00 Myelocytes % 3.0 % (0) H 07/18/16 10:28 Lymphocytes # 0.4 K/mcL (0.6-4.6) L 07/22/16 04:00 Reactive Lymphocytes Present (Not Present) A 07/21/16 23:00 Toxic Granulation Present (Not Present) A 07/22/16 04:00 Toxic Vacuolation Present (Not Present) A 07/19/16 03:06 Dohle Bodies Present (Not Present) A 07/18/16 22:37 Platelet Estimate Decreased (Normal) L 07/22/16 04:00 Large Platelets Present (Not Present) A 07/22/16 04:00 Polychromasia 1+ (Not Present) A 07/20/16 03:37 Anisocytosis 1+ (Not Present) A 07/22/16 04:00 [place] Cells 3+ (Not Present) A 07/18/16 22:37 Acanthocytes (Spur) 1+ (Not Present) A 07/21/16 23:00 PT 15.7 Seconds (9.4-12.1) H 07/20/16 06:53 APTT 76.2 Seconds (26.0-36.0) H 07/20/16 06:53 ABG pCO2 31 mmHg (35-45) L 07/21/16 04:15 ABG pO2 155 mmHg (85-104) H 07/21/16 04:15 ABG HCO3 18.3 mEQ/L (21-27) L 07/21/16 04:15 ABG Total CO2 19.3 mEq/L (20-26) L 07/21/16 04:15 ABG O2 Saturation 99 % (95-98) H 07/21/16 04:15 ABG Base Excess -6.3 mEq/L (-2.0 to 3.0) L 07/21/16 04:15 Sodium 132 mEq/L (136-145) L 07/22/16 04:00 Carbon Dioxide 18 mEq/L (19-29) L 07/22/16 04:00 BUN 45 mg/dL (7-20) H 07/22/16 04:00 Creatinine 1.28 mg/dL (0.57-1.11) H 07/22/16 04:00 Est GFR ( Amer) 51 (> 60) L 07/22/16 04:00 Est GFR (Non-Af Amer) 42 (> 60) L 07/22/16 04:00 BUN/Creatinine Ratio 35 (6-26) H 07/22/16 04:00 Glucose 129 mg/dL (70-99) H 07/22/16 04:00 POC Glucose 125 (58-89) H 07/22/16 06:53 Lactic Acid 3.7 mmol/L (0.5-2.2) H 07/20/16 06:53 Calcium 7.6 mg/dL (8.6-10.8) L 07/22/16 04:00 AST 103 Units/L (5-34) H 07/20/16 03:37 Alkaline Phosphatase 30 Units/L (38-126) L 07/20/16 03:37 Troponin I 0.14 ng/mL (0-0.03) H* 07/18/16 09:38 B-Natriuretic Peptide 3231 pg/mL (0-100) H 07/18/16 10:28 Serum Total Protein 3.0 g/dL (6.0-8.3) L D 07/20/16 03:37 Albumin 1.1 g/dL (3.5-5.0) L D 07/20/16 03:37 Globulin 1.9 g/dL (2.4-3.5) L 07/20/16 03:37 Albumin/Globulin Ratio 0.6 (1.1-2.2) L 07/20/16 03:37 Prealbumin 4.0 mg/dL (16.0-38.0) L 07/20/16 11:05 Urine Clarity Cloudy (Clear) A 07/18/16 10:55 Urine Protein 30 mg/dL (Neg-Trace) H 07/18/16 10:55 Ur Leukocyte Esterase Large (Negative) H 07/18/16 10:55 Urine Microscopic WBC 50-100 per hpf (0-3) H 07/18/16 10:55 Urine Bacteria Many per hpf (None-Few) H 07/18/16 10:55 Ur Culture Indicated? YES (NO) A 07/18/16 10:55 - Clinical Findings Intake & Output: Intake & Output 07/21/16 07/22/16 07/22/16 23:59 07:59 15:59 Intake Total 605 / 605 1205 / 1205 Output Total 900 / 900 800 / 800 Balance -295 / -295 405 / 405 Weight 71.8 kg Consult Discharge Plan - Plan Referrals: NO,PCP [Primary Care Provider] - - Attending Attestation I examined this patient and my medical decision-making was reviewed with the ROUTE VENDING MACHINE SERVICER/PA/Advanced Practice Nurse/Resident Physician. I agree with the documented findings, disposition and treatment plan as described except to the extent set forth below. Patient seen and examined at bedside Labs, radiology, chart personally reviewed. All lines examined without evidence of infection. Neuropsych: baseline MDR. does not follow commands today but spontaneous movements noted on exam he will cecal round reactive to light. Sedation holiday today Pulm: Hypoxic respiratory failure intubated. minimal vent settings requirements acceptable oxygenation and ventilation spontaneous breathing trial one more awake. Cards: Hemodynamics are stable. no vasopressor requirement continue telemetry monitoring remove arterial line. May need gentle diuresis if repeat transfusion needed. FEN-GI:cont TPN. currently resting bowl s/p partical small bowl and total large bowel removal. Surgery Following. PEG Tube placement per Srugery discretion no immediate need. Stop IV fluids. Renal: CLEMENT[place] improving. appropriate UOP replace lytes per protocol cont daily BMP. ID: treating for ischemic collitis. Heme/Onc: Anemia s/t to blood loss complicated by critical illness.7.1 .today afer transfuse 2 uPRBCs yesterday for hgb <7. Recheck this afternoon if <7.0 will transfuse d/w surgery regarding etiology of ongoing bleeding which is suspicious for bowel source. Thrombocytopenia stop beta lactam switch to carbapnenem holding chemical DVT prophylaxis. cont SCDs. Endo:cont synthroid, glucose monitored and stable. Integ/MSK: cont skin care per ICU protocol CODE: Full Code. <Niki De Guzman - Last Filed: 07/22/16 12:44> Date of Encounter: 07/22/16 Time of Encounter: 07:30 Assessment and Plan (1) Septic shock Current Visit: Yes Status: Acute Patient with SIRS criteria on admission with tachycardia, kidney, bandemia Status post day #3 colectomy and small bowel resection with colostomy for necrosis of bowel per Dr. Laurent Blood cultures and urine cultures 07/18/2016 no growth to date Continue Zosyn (day #4) Lactic acid 1.0 today down from 3.7 two days ago Hemodynamically stable With blood pressure of 116/46 from (MAP 70) Patient is currently off pressors at this time (2) Acute respiratory failure with hypoxia Current Visit: Yes Status: Acute Likely hypoxia secondary to aspiration pneumonia Patient ventilated with fentanyl for sedation Patient did tolerate CPAP trial yesterday Will wean off the vent when tolerated (3) Postoperative anemia Current Visit: Yes Status: Acute Patient was transfused 2 units of packed red blood cells yesterday Liver, hemoglobin 6.9 this morning which is unchanged from 6.9 yesterday prior to transfusion Will transfuse 2 more units packed RBCs today (4) Intestinal necrosis Current Visit: Yes Status: Acute Status post day #3 colectomy and small bowel resection with colostomy for necrosis of bowel per Dr. Laurent Patient has colostomy with output of brown liquid stool Continue TPN for nutrition Appreciate recommendations per surgery (5) Bowel obstruction Current Visit: Yes Status: Suspected As above Qualifiers: Intestinal obstruction type: unspecified Qualified Code(s): K56.60 - Unspecified intestinal obstruction (6) Pneumonia Current Visit: Yes Status: Acute Suspect aspiration pneumonia Diffuse rhonchi on auscultation patient of lungs NG tube in place with drainage of bilious fluid Discontinue Zosyn (day#4) due to concern for adverse reaction of pancytopenia We have started Ertapenem today Qualifiers: Pneumonia type: aspiration pneumonia Laterality: unspecified laterality Lung location: unspecified part of lung (7) Acute kidney injury Current Visit: Yes Status: Acute Creatinine 1.28 decreased from 1.61 yesterday This is elevated from patient's baseline creatinine is 0.69 Will continue to monitor renal function (8) Lactic acidosis Current Visit: Yes Status: Resolved Lactic acid 1.0 today, lactic acidosis is resolved (9) Hyponatremia Current Visit: No Status: Acute Patient has chronic hyponatremia Continue to monitor (10) Seizure disorder Current Visit: Yes Status: Chronic No recent seizure activity reported Continue home doses of Dilantin and Keppra (11) Thrombocytopenia Current Visit: Yes Status: Acute Platelets trended down to 39 today, down from 81 days ago Will discontinue Zosyn due to concern for exacerbating thrombocytopenia Will start Ertapenem for antibiotic coverage We will continue to monitor platelets (12) Mental retardation Current Visit: Yes Status: Chronic Patient lives in a prison and is reportedly high functioning (13) Tachycardia Current Visit: Yes Status: Resolved (14) UTI (urinary tract infection) Current Visit: Yes Status: Suspected Suspected UTI with many bacteria, large leukocyte esterase, 50-100 WBCs Urine culture 07/18/2016 no growth to date, no pathogens isolated Qualifiers: Urinary tract infection type: site unspecified Hematuria presence: without hematuria Qualified Code(s): N39.0 - Urinary tract infection, site not specified (15) Goals of care, counseling/discussion Current Visit: Yes Status: Acute Patient does not have POA Social work following (16) DVT prophylaxis Current Visit: Yes Status: Acute Lovenox discontinued due to continued anemia and concern for GI bleed 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 Laurent. Patient has chronic hyponatremia, will continue to monitor. Renal: CLEMENTINA is improving, patient has good urine output ID: Stool PCR negative, C. difficile negative, urine culture negative, blood cultures 2 negative, will continue Zosyn and start ertapenem today area and ertapenem will cover aspiration pneumonia as well as abdominal naida. Heme/onc: Persistent anemia with hemoglobin of 6.9 despite two units packed RBCs transfused yesterday. Will transfuse 2 more units packed RBCs today. Persistent thrombocytopenia. Lovenox has been discontinued. IPCD's for DVT prophylaxis. Continue to monitor CBC. Monitor for active bleeding. Endocrine: TPN with insulin, hypoglycemia protocol Skin: Continue ICU skin care per protocol Lines: ETT, NG, right femoral central venous catheter Full code Subjective Principal diagnosis: Sepsis secondary to bowel necrosis, acute respiratory failure Interval history: Patient doing well this morning. Patient remains on the ventilator. No events overnight. Objective PUL Vital signs: Last Vital Signs Temp 98.5 F 07/22/16 07:43 Pulse 83 07/22/16 07:00 Resp 23 07/22/16 07:36 BP 141/57 07/22/16 07:00 Pulse Ox 98 07/22/16 07:36 General appearance: no acute distress, other (Patient opens eyes to voice command) Eyes: nonicteric ENT: oropharynx dry Neck: supple, no JVD, other (No carotid bruit ) Effort: other (Ventilated at a tidal volume of 450, FiO2 40%, PEEP 5.0) Auscultation: bilateral: rhonchi Cardiovascular: regular rate and rhythm, other (No murmur noted ) Gastrointestinal: absent bowel sounds Integumentary: normal Extremities: no cyanosis, no edema Musculoskeletal: no deformities unable to assess due to mental status Ventilator Settings Ventilator Settings: Ventilator Settings, Last 8 Hours Ventilator Mode VC+ Ventilator Mode CPAP Ventilator Mode CPAP Ventilator Mode A/C Ventilator Mode A/C Ventilator Mode A/C Ventilator Mode A/C Ventilator Mode A/C Ventilator Mode A/C Ventilator Mode A/C Ventilator Mode A/C Ventilator Mode A/C Ventilator Tidal Volume 450 Setting Ventilator Tidal Volume 450 Setting Ventilator Tidal Volume 450 Setting Ventilator Tidal Volume 450 Setting Ventilator Tidal Volume 450 Setting Ventilator Tidal Volume 450 Setting Ventilator Tidal Volume 450 Setting Ventilator Tidal Volume 450 Setting Ventilator Tidal Volume 450 Setting Ventilator Tidal Volume 450 Setting Ventilator Tidal Volume 450 Setting Ventilator Respiratory Rate 12 Setting Ventilator Respiratory Rate 12 Setting Ventilator Respiratory Rate 12 Setting Ventilator Respiratory Rate 12 Setting Ventilator Respiratory Rate 12 Setting Ventilator Respiratory Rate 12 Setting Ventilator Respiratory Rate 12 Setting Ventilator Respiratory Rate 12 Setting Ventilator Respiratory Rate 12 Setting Ventilator Respiratory Rate 12 Setting Actual Respiratory Rate 23 Actual Respiratory Rate 25 Actual Respiratory Rate 15 Actual Respiratory Rate 15 Actual Respiratory Rate 15 Actual Respiratory Rate 15 Actual Respiratory Rate 15 Actual Respiratory Rate 16 Actual Respiratory Rate 14 Actual Respiratory Rate 15 Actual Respiratory Rate 15 Positive End Expiratory 5 Pressure Positive End Expiratory 5 Pressure Positive End Expiratory 5 Pressure Positive End Expiratory 5 Pressure Positive End Expiratory 5 Pressure Positive End Expiratory 5 Pressure Positive End Expiratory 5 Pressure Positive End Expiratory 5 Pressure Positive End Expiratory 5 Pressure Positive End Expiratory 5 Pressure Positive End Expiratory 5 Pressure Peak Inspiratory Airway 11 Pressure Peak Inspiratory Airway 29 Pressure Peak Inspiratory Airway 28 Pressure Peak Inspiratory Airway 27 Pressure Peak Inspiratory Airway 25 Pressure Peak Inspiratory Airway 22 Pressure Peak Inspiratory Airway 28 Pressure Peak Inspiratory Airway 23 Pressure Peak Inspiratory Airway 23 Pressure Peak Inspiratory Airway 22 Pressure Results - Laboratory Findings CBC and BMP: 07/22/16 11:03 07/22/16 11:03 ABG ABG pH 7.38 pH Units (7.32-7.45) 07/21/16 04:15 ABG pCO2 31 mmHg (35-45) L 07/21/16 04:15 ABG pO2 155 mmHg (85-104) H 07/21/16 04:15 ABG O2 Saturation 99 % (95-98) H 07/21/16 04:15 PT/INR, D-dimer PT 15.7 Seconds (9.4-12.1) H 07/20/16 06:53 Abnormal lab findings: Abnormal lab results RBC 2.25 M/mcL (3.82-4.97) L 07/22/16 04:00 Hgb 6.9 g/dL (11.5-15.4) L 07/22/16 04:00 Hct 19.6 % (35.3-44.9) L 07/22/16 04:00 Plt Count 39 K/mcL (140-400) L 07/22/16 04:00 Band Neutrophils % 10.0 % (0-4) H 07/22/16 04:00 Metamyelocytes % 2.0 % (0) H 07/21/16 23:00 Myelocytes % 3.0 % (0) H 07/18/16 10:28 Lymphocytes # 0.4 K/mcL (0.6-4.6) L 07/22/16 04:00 Reactive Lymphocytes Present (Not Present) A 07/21/16 23:00 Toxic Granulation Present (Not Present) A 07/22/16 04:00 Toxic Vacuolation Present (Not Present) A 07/19/16 03:06 Dohle Bodies Present (Not Present) A 07/18/16 22:37 Platelet Estimate Decreased (Normal) L 07/22/16 04:00 Large Platelets Present (Not Present) A 07/22/16 04:00 Polychromasia 1+ (Not Present) A 07/20/16 03:37 Anisocytosis 1+ (Not Present) A 07/22/16 04:00 [place] Cells 3+ (Not Present) A 07/18/16 22:37 Acanthocytes (Spur) 1+ (Not Present) A 07/21/16 23:00 PT 15.7 Seconds (9.4-12.1) H 07/20/16 06:53 APTT 76.2 Seconds (26.0-36.0) H 07/20/16 06:53 ABG pCO2 31 mmHg (35-45) L 07/21/16 04:15 ABG pO2 155 mmHg (85-104) H 07/21/16 04:15 ABG HCO3 18.3 mEQ/L (21-27) L 07/21/16 04:15 ABG Total CO2 19.3 mEq/L (20-26) L 07/21/16 04:15 ABG O2 Saturation 99 % (95-98) H 07/21/16 04:15 ABG Base Excess -6.3 mEq/L (-2.0 to 3.0) L 07/21/16 04:15 Sodium 132 mEq/L (136-145) L 07/22/16 04:00 Carbon Dioxide 18 mEq/L (19-29) L 07/22/16 04:00 BUN 45 mg/dL (7-20) H 07/22/16 04:00 Creatinine 1.28 mg/dL (0.57-1.11) H 07/22/16 04:00 Est GFR ( Amer) 51 (> 60) L 07/22/16 04:00 Est GFR (Non-Af Amer) 42 (> 60) L 07/22/16 04:00 BUN/Creatinine Ratio 35 (6-26) H 07/22/16 04:00 Glucose 129 mg/dL (70-99) H 07/22/16 04:00 POC Glucose 125 (58-89) H 07/22/16 06:53 Lactic Acid 3.7 mmol/L (0.5-2.2) H 07/20/16 06:53 Calcium 7.6 mg/dL (8.6-10.8) L 07/22/16 04:00 AST 103 Units/L (5-34) H 07/20/16 03:37 Alkaline Phosphatase 30 Units/L (38-126) L 07/20/16 03:37 Troponin I 0.14 ng/mL (0-0.03) H* 07/18/16 09:38 B-Natriuretic Peptide 3231 pg/mL (0-100) H 07/18/16 10:28 Serum Total Protein 3.0 g/dL (6.0-8.3) L D 07/20/16 03:37 Albumin 1.1 g/dL (3.5-5.0) L D 07/20/16 03:37 Globulin 1.9 g/dL (2.4-3.5) L 07/20/16 03:37 Albumin/Globulin Ratio 0.6 (1.1-2.2) L 07/20/16 03:37 Prealbumin 4.0 mg/dL (16.0-38.0) L 07/20/16 11:05 Urine Clarity Cloudy (Clear) A 07/18/16 10:55 Urine Protein 30 mg/dL (Neg-Trace) H 07/18/16 10:55 Ur Leukocyte Esterase Large (Negative) H 07/18/16 10:55 Urine Microscopic WBC 50-100 per hpf (0-3) H 07/18/16 10:55 Urine Bacteria Many per hpf (None-Few) H 07/18/16 10:55 Ur Culture Indicated? YES (NO) A 07/18/16 10:55 - Clinical Findings Intake & Output: Intake & Output 07/21/16 07/22/16 07/22/16 23:59 07:59 15:59 Intake Total 605 / 605 1205 / 1205 Output Total 900 / 900 800 / 800 Balance -295 / -295 405 / 405 Weight 71.8 kg - VTE Documentation of Mechanical Device: Intermittent pneumatic compression device
[2016-07-22 11:16] LABS: Red Cell Distribution Width 14.6 % (11.5-14.5)
[2016-07-22 11:18] LABS: Hematocrit 20.4 % (35.3-44.9); Hemoglobin 7.1 g/dL (11.5-15.4); Immature Platelets 3.8 % (1.1-6.1); Mean Corpuscular HGB Conc 34.8 g/dL (31.6-35.5); Mean Corpuscular Hemoglobin 30.9 pg (28.0-33.3); Mean Corpuscular Volume 88.7 fL (83.0-100.0); Mean Platelet Volume 10.3 fL (9.4-12.4)
[2016-07-22 11:25] LABS: Platelet Count 42 K/mcL (140-400)
[2016-07-22 11:56] LABS: Lymphocytes # 1.1 K/mcL (0.6-4.6); Neutrophils # 5.9 K/mcL (1.6-8.9); Toxic Granulation Present (Not Present)
[2016-07-22 11:57] LABS: Platelet Estimate Decreased (Normal)
[2016-07-22] MEDS: Ertapenem 1,000 MG in 0.9 % Sodium Chloride Mini Bag 100 ML IVPB SCH (12:03)
[2016-07-22 15:38] LABS: Eosinophils % 0.1 %; Hematocrit 18.9 % (35.3-44.9); Mean Corpuscular Volume 88.7 fL (83.0-100.0); Red Blood Count 2.13 M/mcL (3.82-4.97); Red Cell Distribution Width 14.6 % (11.5-14.5)
[2016-07-22 15:40] LABS: Basophils % 0.1 %; Hemoglobin 6.7 g/dL (11.5-15.4); Immature Platelets 4.2 % (1.1-6.1); Lymphocytes # 0.7 K/mcL (0.6-4.6); Lymphocytes % 8.6 %; Mean Corpuscular HGB Conc 35.4 g/dL (31.6-35.5); Mean Corpuscular Hemoglobin 31.5 pg (28.0-33.3); Mean Platelet Volume 10.2 fL (9.4-12.4); Monocytes # 0.4 K/mcL (0.0-1.3); Monocytes % 4.4 %; Segmented Neutrophils % 85.8 %
[2016-07-22 15:42] LABS: Platelet Count 45 K/mcL (140-400)
[2016-07-22] MEDS ORDERED: Furosemide 20 MG/2 ML VIAL IVP ONE (15:59)
[2016-07-22 16:05] LABS: Platelet Estimate Decreased (Normal); Reactive Lymphocytes Present (Not Present); Rouleaux Present (Not Present); Toxic Granulation Present (Not Present)
[2016-07-22] MEDS ORDERED: Clinimix E 5%-15% SOLUTION 2,000 ML with MVI, adult with vitamin K 10 ML IVC SCH (17:00)
[2016-07-22] MEDS ORDERED: 0.9 % Sodium Chloride 250 ML ONE (17:06)
[2016-07-22] MEDS: FentaNYL (PF) 1,000 MCG in 0.9 % Sodium Chloride 80 ML IVC SCH (19:41)
[2016-07-22 22:51] LABS: Hematocrit 28.2 % (35.3-44.9); Monocytes % 4.7 %
[2016-07-22 22:53] LABS: Basophils % 0.2 %; Eosinophils % 0.1 %; Hemoglobin 9.8 g/dL (11.5-15.4); Immature Granulocytes % 1.5 % (0-4); Immature Platelets 4.3 % (1.1-6.1); Lymphocytes # 0.8 K/mcL (0.6-4.6); Lymphocytes % 7.5 %; Mean Corpuscular HGB Conc 34.8 g/dL (31.6-35.5); Mean Corpuscular Hemoglobin 30.1 pg (28.0-33.3); Mean Corpuscular Volume 86.5 fL (83.0-100.0); Mean Platelet Volume 10.3 fL (9.4-12.4); Monocytes # 0.5 K/mcL (0.0-1.3); Neutrophils # 9.4 K/mcL (1.6-8.9); Platelet Count 48 K/mcL (140-400); Red Blood Count 3.26 M/mcL (3.82-4.97); Red Cell Distribution Width 14.6 % (11.5-14.5)
[2016-07-22 23:37] LABS: Toxic Granulation Present (Not Present)
[2016-07-22 23:38] LABS: Reactive Lymphocytes Present (Not Present)
[2016-07-22 23:40] LABS: Platelet Estimate Decreased (Normal); Rouleaux Present (Not Present)
[2016-07-23] MEDS: Lacri-Lube 3.5 GM TUBE BOTH EYES SCH ×7 (00:39→23:52)
[2016-07-23 03:22] LABS: Basophils % 0.2 %; Eosinophils % 0.1 %; Hemoglobin 9.3 g/dL (11.5-15.4)
[2016-07-23 03:24] LABS: Hematocrit 26.6 % (35.3-44.9); Immature Granulocytes % 1.8 % (0-4); Immature Platelets 4.6 % (1.1-6.1); Lymphocytes # 0.8 K/mcL (0.6-4.6); Lymphocytes % 8.1 %; Mean Corpuscular Hemoglobin 30.1 pg (28.0-33.3); Mean Corpuscular Volume 86.1 fL (83.0-100.0); Monocytes # 0.4 K/mcL (0.0-1.3); Monocytes % 4.4 %; Nucleated Red Blood Cells 0.2 /100 WBC (0); Red Blood Count 3.09 M/mcL (3.82-4.97); Red Cell Distribution Width 15.3 % (11.5-14.5); Segmented Neutrophils % 85.4 %
[2016-07-23 03:30] LABS: Magnesium 1.9 mg/dL (1.6-2.6); Phosphorous 2.8 mg/dL (2.3-4.7)
[2016-07-23 03:31] LABS: BUN/Creatinine Ratio 40 (6-26); Blood Urea Nitrogen 43 mg/dL (7-20); Carbon Dioxide 19 mEq/L (19-29); Chloride 109 mEq/L (98-109); Glucose 134 mg/dL (70-99); Potassium 4.1 mEq/L (3.5-4.5); Sodium 133 mEq/L (136-145); eGFR For African Americans > 60 (> 60); eGFR For Non-African Americans 51 (> 60)
[2016-07-23 03:32] LABS: Alanine Aminotransferase 25 Units/L (0-55); Albumin 1.1 g/dL (3.5-5.0); Albumin/Globulin Ratio 0.4 (1.1-2.2); Alkaline Phosphatase 55 Units/L (38-126); Aspartate Amino Transferase 31 Units/L (5-34); Bilirubin,Total 1.4 mg/dL (0.2-1.2); Globulin 2.9 g/dL (2.4-3.5); Osmolality,Calculated 289 (280-300)
[2016-07-23 03:49] LABS: Platelet Count 43 K/mcL (140-400)
[2016-07-23 03:50] LABS: Dohle Bodies Present (Not Present); Platelet Estimate Decreased (Normal); Reactive Lymphocytes Present (Not Present); Toxic Vacuolation Present (Not Present)
[2016-07-23] MEDS: FentaNYL (PF) 1,000 MCG in 0.9 % Sodium Chloride 80 ML IVC SCH ×2 (03:52→17:43)
[2016-07-23] MEDS: Pantoprazole 40 MG VIAL IVP SCH (05:56)
--- NOTE | 2016-07-23 07:36 | Pulmonology Progress Note ---
<Niki De Guzman Bernadette - Last Filed: 07/23/16 10:49> Date of Encounter: 07/23/16 Time of Encounter: 07:10 Assessment and Plan (1) Septic shock Current Visit: Yes Status: Acute Patient with SIRS criteria on admission with tachycardia, kidney, bandemia Status post day #4 colectomy and small bowel resection with colostomy for necrosis of bowel per Dr. Laurent Blood cultures and urine cultures 07/18/2016 no growth to date Continue Ertapenem (day#2). 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 Current Visit: Yes Status: Acute CT without contrast demonstrates moderate acute right MCA territory infarct to frontal and parietal lobes, large acute left SCREEN STRETCHER territory infarct involving parietal and occipital lobes, small acute left LUCAS territory infarct involving the left superior frontal gyrus No acute intracranial hemorrhage is demonstrated There is concern for a central embolic etiology given these findings An ECHO with saline has been ordered and is pending Neurology has been consulted Given the large distribution of this CVA, there is great concern for hemorrhagic conversion, especially given the patient's thrombocytopenia We will closely monitor pressure and augment as necessary We will hold Aspirin due to thrombocytopenia We will avoid statins at this time due to patient unable to take oral medications (3) Cerebral infarction involving left posterior cerebral artery Current Visit: Yes Status: Acute As above (4) Cerebral infarction involving left anterior cerebral artery Current Visit: Yes Status: Acute As above (5) Acute respiratory failure with hypoxia Current Visit: Yes Status: Acute Likely hypoxia secondary to aspiration pneumonia Patient has been ventilated with sedation Patient is currently tolerating CPAP trial today Will wean off the vent when tolerated (6) Postoperative anemia Current Visit: Yes Status: Acute Patient was transfused 2 units of packed red blood cells yesterday Hemoglobin 9.3 today after transfusion yesterday Patient does have black-colored stool to colostomy Continue to monitor for active bleeding (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 Laurent Patient has colostomy with output of dark brown-black liquid stool Continue TPN for nutrition Dr. Laurent plans for PEG tube placement today Appreciate recommendations per surgery (8) Bowel obstruction Current Visit: Yes Status: Suspected As above Qualifiers: Intestinal obstruction type: unspecified Qualified Code(s): K56.60 - Unspecified intestinal obstruction (9) Pneumonia Current Visit: Yes Status: Acute Suspect aspiration pneumonia Rhonchi decreased from yesterday on auscultation patient of lungs NG tube in place with drainage of 100mL of bilious fluid Continue Ertapenem (day#2) Patient did receive 3.5 days of Zosyn Zosyn has been discontinued due to concern for adverse reaction of pancytopenia Qualifiers: Pneumonia type: aspiration pneumonia Laterality: unspecified laterality Lung location: unspecified part of lung (10) Acute kidney injury Current Visit: Yes Status: Acute Creatinine 1.08 decreased from 1.28 yesterday This is elevated from patient's baseline creatinine is 0.69 Will continue to monitor renal function (11) Hyponatremia Current Visit: No Status: Acute Patient has chronic hyponatremia Continue to monitor (12) Seizure disorder Current Visit: Yes Status: Chronic No recent seizure activity reported Continue home doses of Dilantin and Keppra (13) Thrombocytopenia Current Visit: Yes Status: Acute Platelets low again today at 43 today, down from 81 days ago We have discontinued Zosyn due to concern for exacerbating thrombocytopenia Continue Ertapenem for antibiotic coverage We will continue to monitor platelets (14) Mental retardation Current Visit: Yes Status: Chronic Patient lives in a half-way and is reportedly high functioning (15) Lactic acidosis Current Visit: Yes Status: Resolved Lactic acidosis is resolved (16) Tachycardia Current Visit: Yes Status: Resolved (17) UTI (urinary tract infection) Current Visit: Yes Status: Suspected Suspected UTI with many bacteria, large leukocyte esterase, 50-100 WBCs Urine culture 07/18/2016 no growth to date, no pathogens isolated Qualifiers: Urinary tract infection type: site unspecified Hematuria presence: without hematuria Qualified Code(s): N39.0 - Urinary tract infection, site not specified (18) Goals of care, counseling/discussion Current Visit: Yes Status: Acute Patient does not have POA Social work following (19) DVT prophylaxis Current Visit: Yes Status: Acute Lovenox discontinued due to continued anemia and concern for GI bleed IPCDs in place MATERIAL LOADER: New findings of acute infarcts to right MCA, left SCREEN STRETCHER,and left LUCAS. Concern for embolic event. History of MRDD and seizure disorder, continue home medications, continue sedation with fentanyl Pulmonary: On ventilator, concern for aspiration pneumonia seen on chest x-ray 07/18/2016. Currently, she is tolerating BIPAP, will wean off vent when tolerated Cardiology: Normal sinus rhythm, stable vitals. Pressors have been discontinued FEN-GI: Status post day #4 total colectomy and small bowel resection with right ileostomy per Dr. Laurent. Good output to colostomy. Patient has chronic hyponatremia, will continue to monitor. Renal: CLEMENTINA is improving, patient has good urine output ID: Stool PCR negative, C. difficile negative, urine culture negative, blood cultures 2 negative. Continue Ertapenem (day#2), which will cover for aspiration pneumonia as well as abdominal naida. Heme/onc: Anemia improved today with hemoglobin of despite two units packed RBCs transfused yesterday. Will transfuse 2 more units packed RBCs today. Persistent thrombocytopenia. Lovenox has been discontinued. IPCD's for DVT prophylaxis. Continue to monitor CBC. Monitor for active bleeding. Endocrine: TPN with insulin, hypoglycemia protocol Skin: Continue ICU skin care per protocol Lines: ETT, NG, right femoral central venous catheter Full code Subjective Principal diagnosis: Sepsis secondary to bowel necrosis, acute respiratory failure Interval history: Patient doing well this morning. Patient has been on BIPAP for approximately 1 hour this morning. She is saturating well and breathing comfortably with a Positive Airway Pressure of 5mmHg. Patient's nurse does notice decrease movement to left hand and left foot. Patient is not moving these extremities upon command. Objective PUL Vital signs: Last Vital Signs Temp 98.2 F 07/23/16 04:46 Pulse 99 07/23/16 07:00 Resp 28 07/23/16 07:00 BP 139/75 07/23/16 07:00 Pulse Ox 98 07/23/16 07:00 General appearance: no acute distress (Sedated and on CPAP. More alter today than yesterday. Patient able to follow voice commands. ) Eyes: other (Scleral edema noted) ENT: oropharynx dry Neck: supple, no JVD, other (No carotid bruit) Effort: normal Auscultation: bilateral: rhonchi (Decreased Rhonchi from yesterday) Cardiovascular: regular rate and rhythm Gastrointestinal: normoactive bowel sounds, non-distended, other (Colostomy to right abdomen) Integumentary: normal, other (No rash, erythema, cellulitis) Extremities: no cyanosis, cool, edema (To all extremities. However, left hand has 2+ non-pitting edema), other (No cyanosis to bilateral upper and lower extremities. Right femoral central venous catheter. ) Musculoskeletal: other (Patient not moving left hand or left toes upon command. Patient does move right hand and right toes upon command. ) pupils equal and round other (Sedated on Ventilatory) Ventilator Settings Ventilator Settings: Ventilator Settings, Last 8 Hours Ventilator Mode CPAP Ventilator Mode VC+ Ventilator Mode VC+ Ventilator Mode VC+ Ventilator Mode VC+ Ventilator Mode VC+ Ventilator Mode VC+ Ventilator Mode VC+ Ventilator Mode VC+ Ventilator Mode VC+ Ventilator Mode VC+ Ventilator Tidal Volume 450 Setting Ventilator Tidal Volume 450 Setting Ventilator Tidal Volume 450 Setting Ventilator Tidal Volume 450 Setting Ventilator Tidal Volume 450 Setting Ventilator Tidal Volume 450 Setting Ventilator Tidal Volume 450 Setting Ventilator Tidal Volume 450 Setting Ventilator Tidal Volume 450 Setting Ventilator Tidal Volume 450 Setting Ventilator Respiratory Rate 12 Setting Ventilator Respiratory Rate 1 Setting Ventilator Respiratory Rate 12 Setting Ventilator Respiratory Rate 12 Setting Ventilator Respiratory Rate 12 Setting Ventilator Respiratory Rate 12 Setting Ventilator Respiratory Rate 12 Setting Ventilator Respiratory Rate 12 Setting Ventilator Respiratory Rate 12 Setting Ventilator Respiratory Rate 12 Setting Ventilator Respiratory Rate 12 Setting Actual Respiratory Rate 28 Actual Respiratory Rate 22 Actual Respiratory Rate 19 Actual Respiratory Rate 17 Actual Respiratory Rate 17 Actual Respiratory Rate 17 Actual Respiratory Rate 21 Actual Respiratory Rate 16 Actual Respiratory Rate 18 Actual Respiratory Rate 21 Actual Respiratory Rate 22 Positive End Expiratory 5 Pressure Positive End Expiratory 5 Pressure Positive End Expiratory 5 Pressure Positive End Expiratory 5 Pressure Positive End Expiratory 5 Pressure Positive End Expiratory 5 Pressure Positive End Expiratory 5 Pressure Positive End Expiratory 5 Pressure Positive End Expiratory 5 Pressure Positive End Expiratory 5 Pressure Positive End Expiratory 5 Pressure Peak Inspiratory Airway 10 Pressure Peak Inspiratory Airway 19 Pressure Peak Inspiratory Airway 27 Pressure Peak Inspiratory Airway 36 Pressure Peak Inspiratory Airway 30 Pressure Peak Inspiratory Airway 29 Pressure Peak Inspiratory Airway 31 Pressure Peak Inspiratory Airway 32 Pressure Results - Laboratory Findings CBC and BMP: 07/23/16 03:11 07/23/16 03:11 ABG ABG pH 7.38 pH Units (7.32-7.45) 07/21/16 04:15 ABG pCO2 31 mmHg (35-45) L 07/21/16 04:15 ABG pO2 155 mmHg (85-104) H 07/21/16 04:15 ABG O2 Saturation 99 % (95-98) H 07/21/16 04:15 PT/INR, D-dimer PT 15.7 Seconds (9.4-12.1) H 07/20/16 06:53 Abnormal lab findings: Abnormal lab results RBC 3.09 M/mcL (3.82-4.97) L 07/23/16 03:11 Hgb 9.3 g/dL (11.5-15.4) L 07/23/16 03:11 Hct 26.6 % (35.3-44.9) L 07/23/16 03:11 RDW 15.3 % (11.5-14.5) H 07/23/16 03:11 Plt Count 43 K/mcL (140-400) L 07/23/16 03:11 Metamyelocytes % 2.0 % (0) H 07/21/16 23:00 Myelocytes % 3.0 % (0) H 07/18/16 10:28 Nucleated RBCs/100 WBC 0.2 /100 WBC (0) H 07/23/16 03:11 Reactive Lymphocytes Present (Not Present) A 07/23/16 03:11 Toxic Granulation Present (Not Present) A 07/22/16 22:40 Toxic Vacuolation Present (Not Present) A 07/23/16 03:11 Dohle Bodies Present (Not Present) A 07/23/16 03:11 Platelet Estimate Decreased (Normal) L 07/23/16 03:11 Large Platelets Present (Not Present) A 07/22/16 04:00 Polychromasia 1+ (Not Present) A 07/20/16 03:37 Anisocytosis 1+ (Not Present) A 07/22/16 04:00 [place] Cells 3+ (Not Present) A 07/18/16 22:37 Acanthocytes (Spur) 1+ (Not Present) A 07/21/16 23:00 Rouleaux Present (Not Present) A 07/22/16 22:40 PT 15.7 Seconds (9.4-12.1) H 07/20/16 06:53 APTT 76.2 Seconds (26.0-36.0) H 07/20/16 06:53 ABG pCO2 31 mmHg (35-45) L 07/21/16 04:15 ABG pO2 155 mmHg (85-104) H 07/21/16 04:15 ABG HCO3 18.3 mEQ/L (21-27) L 07/21/16 04:15 ABG Total CO2 19.3 mEq/L (20-26) L 07/21/16 04:15 ABG O2 Saturation 99 % (95-98) H 07/21/16 04:15 ABG Base Excess -6.3 mEq/L (-2.0 to 3.0) L 07/21/16 04:15 Sodium 133 mEq/L (136-145) L 07/23/16 03:11 BUN 43 mg/dL (7-20) H 07/23/16 03:11 Est GFR (Non-Af Amer) 51 (> 60) L 07/23/16 03:11 BUN/Creatinine Ratio 40 (6-26) H 07/23/16 03:11 Glucose 134 mg/dL (70-99) H 07/23/16 03:11 POC Glucose 122 (58-89) H 07/22/16 23:46 Calcium 8.0 mg/dL (8.6-10.8) L 07/23/16 03:11 Total Bilirubin 1.4 mg/dL (0.2-1.2) H D 07/23/16 03:11 Troponin I 0.14 ng/mL (0-0.03) H* 07/18/16 09:38 B-Natriuretic Peptide 3231 pg/mL (0-100) H 07/18/16 10:28 Serum Total Protein 4.0 g/dL (6.0-8.3) L D 07/23/16 03:11 Albumin 1.1 g/dL (3.5-5.0) L 07/23/16 03:11 Albumin/Globulin Ratio 0.4 (1.1-2.2) L 07/23/16 03:11 Prealbumin 4.0 mg/dL (16.0-38.0) L 07/20/16 11:05 Urine Clarity Cloudy (Clear) A 07/18/16 10:55 Urine Protein 30 mg/dL (Neg-Trace) H 07/18/16 10:55 Ur Leukocyte Esterase Large (Negative) H 07/18/16 10:55 Urine Microscopic WBC 50-100 per hpf (0-3) H 07/18/16 10:55 Urine Bacteria Many per hpf (None-Few) H 07/18/16 10:55 Ur Culture Indicated? YES (NO) A 07/18/16 10:55 - Clinical Findings Intake & Output: Intake & Output 07/22/16 07/22/16 07/23/16 15:59 23:59 07:59 Intake Total 590 / 590 770 / 770 375 / 375 Output Total 600 / 600 725 / 725 2300 / 2300 Balance -10 / -10 45 / 45 -1925 / -1925 Weight 70.76 kg - VTE Documentation of Mechanical Device: Intermittent pneumatic compression device Consult Discharge Plan - Plan Referrals: NO,PCP [Non-Partnered Physician] - <Guevara Cristina - Last Filed: 07/23/16 12:46> Date of Encounter: 07/23/16 Objective PUL Vital signs: Last Vital Signs Temp 98.2 F 07/23/16 04:46 Pulse 87 07/23/16 09:00 Resp 16 07/23/16 09:00 BP 143/56 07/23/16 09:00 Pulse Ox 100 07/23/16 09:00 Ventilator Settings Ventilator Settings: Ventilator Settings, Last 8 Hours Ventilator Mode VC+ Ventilator Mode VC+ Ventilator Mode VC+ Ventilator Mode CPAP Ventilator Mode VC+ Ventilator Mode VC+ Ventilator Mode VC+ Ventilator Mode VC+ Ventilator Mode VC+ Ventilator Mode VC+ Ventilator Mode VC+ Ventilator Tidal Volume 450 Setting Ventilator Tidal Volume 450 Setting Ventilator Tidal Volume 450 Setting Ventilator Tidal Volume 450 Setting Ventilator Tidal Volume 450 Setting Ventilator Tidal Volume 450 Setting Ventilator Tidal Volume 450 Setting Ventilator Tidal Volume 450 Setting Ventilator Tidal Volume 450 Setting Ventilator Tidal Volume 450 Setting Ventilator Respiratory Rate 12 Setting Ventilator Respiratory Rate 12 Setting Ventilator Respiratory Rate 12 Setting Ventilator Respiratory Rate 12 Setting Ventilator Respiratory Rate 1 Setting Ventilator Respiratory Rate 12 Setting Ventilator Respiratory Rate 12 Setting Ventilator Respiratory Rate 12 Setting Ventilator Respiratory Rate 12 Setting Ventilator Respiratory Rate 12 Setting Ventilator Respiratory Rate 12 Setting Actual Respiratory Rate 16 Actual Respiratory Rate 15 Actual Respiratory Rate 19 Actual Respiratory Rate 28 Actual Respiratory Rate 22 Actual Respiratory Rate 19 Actual Respiratory Rate 17 Actual Respiratory Rate 17 Actual Respiratory Rate 17 Actual Respiratory Rate 21 Actual Respiratory Rate 16 Positive End Expiratory 5 Pressure Positive End Expiratory 5 Pressure Positive End Expiratory 5 Pressure Positive End Expiratory 5 Pressure Positive End Expiratory 5 Pressure Positive End Expiratory 5 Pressure Positive End Expiratory 5 Pressure Positive End Expiratory 5 Pressure Positive End Expiratory 5 Pressure Positive End Expiratory 5 Pressure Positive End Expiratory 5 Pressure Peak Inspiratory Airway 27 Pressure Peak Inspiratory Airway 10 Pressure Peak Inspiratory Airway 19 Pressure Peak Inspiratory Airway 27 Pressure Peak Inspiratory Airway 36 Pressure Peak Inspiratory Airway 30 Pressure Results - Laboratory Findings CBC and BMP: 07/23/16 03:11 07/23/16 03:11 ABG ABG pH 7.38 pH Units (7.32-7.45) 07/21/16 04:15 ABG pCO2 31 mmHg (35-45) L 07/21/16 04:15 ABG pO2 155 mmHg (85-104) H 07/21/16 04:15 ABG O2 Saturation 99 % (95-98) H 07/21/16 04:15 PT/INR, D-dimer PT 15.7 Seconds (9.4-12.1) H 07/20/16 06:53 Abnormal lab findings: Abnormal lab results RBC 3.09 M/mcL (3.82-4.97) L 07/23/16 03:11 Hgb 9.3 g/dL (11.5-15.4) L 07/23/16 03:11 Hct 26.6 % (35.3-44.9) L 07/23/16 03:11 RDW 15.3 % (11.5-14.5) H 07/23/16 03:11 Plt Count 43 K/mcL (140-400) L 07/23/16 03:11 Metamyelocytes % 2.0 % (0) H 07/21/16 23:00 Myelocytes % 3.0 % (0) H 07/18/16 10:28 Nucleated RBCs/100 WBC 0.2 /100 WBC (0) H 07/23/16 03:11 Reactive Lymphocytes Present (Not Present) A 07/23/16 03:11 Toxic Granulation Present (Not Present) A 07/22/16 22:40 Toxic Vacuolation Present (Not Present) A 07/23/16 03:11 Dohle Bodies Present (Not Present) A 07/23/16 03:11 Platelet Estimate Decreased (Normal) L 07/23/16 03:11 Large Platelets Present (Not Present) A 07/22/16 04:00 Polychromasia 1+ (Not Present) A 07/20/16 03:37 Anisocytosis 1+ (Not Present) A 07/22/16 04:00 [place]ai Cells 3+ (Not Present) A 07/18/16 22:37 Acanthocytes (Spur) 1+ (Not Present) A 07/21/16 23:00 Rouleaux Present (Not Present) A 07/22/16 22:40 PT 15.7 Seconds (9.4-12.1) H 07/20/16 06:53 APTT 76.2 Seconds (26.0-36.0) H 07/20/16 06:53 ABG pCO2 31 mmHg (35-45) L 07/21/16 04:15 ABG pO2 155 mmHg (85-104) H 07/21/16 04:15 ABG HCO3 18.3 mEQ/L (21-27) L 07/21/16 04:15 ABG Total CO2 19.3 mEq/L (20-26) L 07/21/16 04:15 ABG O2 Saturation 99 % (95-98) H 07/21/16 04:15 ABG Base Excess -6.3 mEq/L (-2.0 to 3.0) L 07/21/16 04:15 Sodium 133 mEq/L (136-145) L 07/23/16 03:11 BUN 43 mg/dL (7-20) H 07/23/16 03:11 Est GFR (Non-Af Amer) 51 (> 60) L 07/23/16 03:11 BUN/Creatinine Ratio 40 (6-26) H 07/23/16 03:11 Glucose 134 mg/dL (70-99) H 07/23/16 03:11 POC Glucose 122 (58-89) H 07/22/16 23:46 Calcium 8.0 mg/dL (8.6-10.8) L 07/23/16 03:11 Total Bilirubin 1.4 mg/dL (0.2-1.2) H D 07/23/16 03:11 Troponin I 0.14 ng/mL (0-0.03) H* 07/18/16 09:38 B-Natriuretic Peptide 3231 pg/mL (0-100) H 07/18/16 10:28 Serum Total Protein 4.0 g/dL (6.0-8.3) L D 07/23/16 03:11 Albumin 1.1 g/dL (3.5-5.0) L 07/23/16 03:11 Albumin/Globulin Ratio 0.4 (1.1-2.2) L 07/23/16 03:11 Prealbumin 4.0 mg/dL (16.0-38.0) L 07/20/16 11:05 Urine Clarity Cloudy (Clear) A 07/18/16 10:55 Urine Protein 30 mg/dL (Neg-Trace) H 07/18/16 10:55 Ur Leukocyte Esterase Large (Negative) H 07/18/16 10:55 Urine Microscopic WBC 50-100 per hpf (0-3) H 07/18/16 10:55 Urine Bacteria Many per hpf (None-Few) H 07/18/16 10:55 Ur Culture Indicated? YES (NO) A 07/18/16 10:55 - Clinical Findings Intake & Output: Intake & Output 07/22/16 07/23/16 07/23/16 23:59 07:59 15:59 Intake Total 770 / 770 375 / 375 Output Total 725 / 725 2400 / 2400 Balance 45 / 45 -2024 / -2024 Weight 70.76 kg - Attending Attestation I examined this patient and my medical decision-making was reviewed with the GAS WELDING MACHINE OPERATOR/PA/Advanced Practice Nurse/Resident Physician. I agree with the documented findings, disposition and treatment plan as described except to the extent set forth below. I spent 35 min of Critical Care time with this patient. It involved decision making of high complexity to assess, manipulate, and support vital organ system failure and/or to prevent further life threatening deterioration of the patient' s condition. The time involved in the performance of separately reportable procedures was not counted toward critical care time. Neuropsych: Left sided weakness primarily in LUE prompting CT scan of head which noted on acute b/l emoblic CVA phenomenom suspect central source. TTE with bubble study ordered (may need YVES),Neurology also consulted contraindication to antiplatelet therapy given thrombocytopenia currently not taking by mouth medications and so statin cannot be given glucose continues to be monitored and is well controlled , I suspect patient has high probability of development of cerebral edema and possibly hemorrhagic conversion. Will likely need MRA of head and neck but will defer to neurology for guidance history of seizure disorder cont cont antiepileptics baseline MDR. Pulm: Hypoxic respiratory failure intubated. minimal vent settings requirements acceptable oxygenation holding liberation trial pending acute CVA evaluation. Cards: Hemodynamics are stable. Avoid antihpertensives/diuretics in setting of acute Ischemic CVA. Initial evidence of Afib but has been sinus rhythm clearly this is potential cause of emoblic CVA. Cannot anticogulate given recent anemia and blood loss along with thrombocytopenia FEN-GI:cont TPN. currently resting bowl s/p partial small bowl and total large bowel removal. Surgery Following. PEG Tube placement per Surgery on hold because of acute CVA. Plan to match ins and outs today with crystalloid infusion Renal: CLEMENTINA improving. appropriate UOP replace lytes per protocol cont daily BMP. ID: treating for ischemic collitis. Had initially been on paper Salant Madhavi back down but with thrombocytopenia this was switched to ertapenem patient does have underlying seizure disorder and so this will be transitioned to aztreonam + Flagyl to -57 days based upon clinical course Heme/Onc: Anemia s/t to blood loss complicated by critical illness. H/H stable after transfusion yesterday continue to monitor. Thrombocytopenia likely secondary to sepsis and medication effect, she does not had any significant exposure to heparin so HIT is very unlikely Possible DIC Check Coag panel, fibrinogen and peripheral smear today. Scan upper and lower ext's for DVT ( although rare and considered unlikley thrombocyopenia with arterial +venous thrombosis i.e. APLA plausible). Occult malignancy also in differential. May need Hematology consult based upon today's w/u. Endo:cont synthroid for hypothyroidism, glucose monitored and stable. Integ/MSK: cont skin care per ICU protocol CODE: Full Code. Patient has no relatives or healthcare power of securities attorney we have consulted social insurance adviser to initiate process of acquiring Court guardianship. Overall prognosis is at best guarded and I do not think that aggressive measures such as cardiopulmonary resuscitation and current clinical condition is warranted may need to discuss this with Ethics team.
[2016-07-23] MEDS: Ertapenem 1,000 MG in 0.9 % Sodium Chloride Mini Bag 100 ML IVPB SCH (09:11)
[2016-07-23] MEDS: Levothyroxine Sodium 100 MCG VIAL IVP SCH (09:12)
[2016-07-23] MEDS: levETIRAcetam 1,000 MG in 0.9 % Sodium Chloride 100 ML IVPB SCH ×2 (09:12→21:38)
[2016-07-23] MEDS: Chlorhexidine Rinse 15 ML MOUTHWASH MM SCH ×2 (09:12→20:11)
[2016-07-23 11:37] LABS: Prothrombin Time 10.7 Seconds (9.4-12.1)
[2016-07-23 11:40] LABS: Activated Partial Thrombo Time 29.4 Seconds (26.0-36.0)
[2016-07-23] MEDS ORDERED: 0.9 % Sodium Chloride 500 ML IVC ONE (12:59)
--- NOTE | 2016-07-23 15:41 | Venous Imaging Report ---
Echo with Saline Contrast Name: Georgia Curiel Date of Study: 07/23/2016 Date: 1950 Ht: 64.0 in Medical Record#: [id number] Age: 66 Wt: 156.0 lb Gender: Female BSA: 1.76 Order #: [id number] Location: [facility] Room #: ICU04 Reading Physician: Harley Molina DO, [facility] [employer] Assistant: Gamaliel Dick RN Ordering Physician: Niki De Guzman DO Primary Physician: Magno Ribeiro MD Indications: Cerebrovascular Accident Impressions: LVEF 60-65%. Normal LV chamber size, wall thickness and function. Normal left ventricular diastolic function. Normal right ventricular structure and function. No evidence of a PFO with agitated saline. Mild tricuspid regurgitation. No pulmonary hypertension. Left Ventricular Wall Motion: Rest Echo Findings All wall segments showed normal motion. Findings: Study Quality * Technically adequate exam. ECG Findings * Normal sinus rhythm. Left Ventricle * LVEF 60-65%. * Normal LV chamber size, wall thickness and function. * Normal left ventricular diastolic function. Right Ventricle * Normal right ventricular structure and function. Left Atrium * Normal left atrial size. Right Atrium * Normal right atrial size. Interatrial Septum * No evidence of PFO with agitated saline contrast. Aortic Valve * Trileaflet aortic valve. * Mildly sclerotic aortic valve leaflets. * No aortic regurgitation. * No aortic stenosis. Mitral Valve * Normal mitral valve structure and function. * No mitral stenosis. * Trace mitral regurgitation. Tricuspid Valve * Normal tricuspid valve structure. * Mild tricuspid regurgitation. * No pulmonary hypertension. Pulmonic Valve * Normal pulmonic valve structure and function. * No pulmonic regurgitation. Aorta * Normally sized aortic root. Pericardium * The pericardium appears normal. IVC * Normal IVC dimensions and inspiratory collapse. Pulmonary Artery * Normal visualized portions of the main pulmonary artery. History 03/31/2010 a Previous Echo was performed. Contrast: Agitated saline 30 ml. Measurements: BP: 112/ 54 2D Normal Values RVIDd: 2.50 cm <2.7 cm IVSd: 1.20 cm 0.6 - 1.0 cm LVIDd: 3.30 cm 3.7 - 5.6 cm LVPWd: 1.20 cm 0.6 - 1.1 cm LVIDs: 2.10 cm 1.5 - 3.6 cm LA: 3.00 cm 2.0 - 4.0cm %FS: 36.40 cm >25 % LVOT Diam: 1.60 cm LA volume: 57 Mitral Valve Peak E:.93 m/sec Peak A:.78 m/sec E/A Ratio:1.2 Peak E' Lat Gee:10.4 cm/s Peak E' Med Gee:9.65 cm/s E/E' Lat Ratio:9 E/E' Med Ratio:9 Tricuspid Valve TV Regurg Peak Grad: 28.00mmHg TV Regurg Peak Gee: 2.65m/sec Updated by Harley Molina DO, CLARISA, MATTHEW SHAH on 07/23/2016 3:35:16 PM electronically signed on 07/23/2016 3:36:43 PM with status of Final Wall Motion Rosenthal: 1=Normal, 2=Hypokinesis, 3=Akinesis, 4=Dyskinesis, 5=Aneurysmal, 6=Hyperkinetic, X=Not Visualized (Blank)=Missing
--- NOTE | 2016-07-23 16:01 | Neurology - Consult Note ---
Date of Encounter: 07/23/16 Time of Encounter: 15:54 Assessment and Plan (1) Cerebral infarction involving right middle cerebral artery Current Visit: Yes Status: Acute This patient has unfortunately experienced multiple large vessel artery infarcts. These include an infarct in the territory of the right middle cerebral artery, left posterior cerebral artery, left anterior cerebral artery. 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 Echocardiogram is pending to rule out a cardiac embolic source or large aortic arch atheroma. At this juncture there was no evidence of hemorrhagic transformation, however this is certainly an area of concern. There is no mass effect or impending herniation. She does have thrombocytopenia. For now the plan should be to stabilize her medically. I will check a phenytoin as well as levetiracetam levels. I will obtain a CT scan of the head in the morning. She maintained her levetiracetam and phenytoin through IV administration if necessary. Critical care time spent with this patient reviewing the medical records, reviewing CT scan, discussing case with the attending and nursing was 60 minutes. I would not recommend anticoagulating this patient for at least 5 days unless absolutely necessary. History of Present Illness HPI: Ms. Curiel is a 66 year old female with a previous history of MRDD, and seizures was admitted to [facility] on 07/18/2016 secondary to sepsis felt secondary to aspiration pneumonia, and suspected UTI. Ultimately she developed respiratory failure and had to be intubated. A CT of the chest and abdomen apparently revealed a bowel obstruction. General surgery at that time felt that emergent and took her for immediate exploratory laparotomy on July 202016. Apparently immediately after the surgical site was opened several areas of necrotic bowel were identified. The surgery however was completed uneventfully. Apparently on July 23 the patient developed paucity of movement of the left upper and lower extremities. She also had decreased levels of responsiveness. Although she has MRDD she is generally able to communicate. A CT scan of the head revealed an acute infarct in the right middle cerebral artery territory, an acute infarct in the left posterior cerebral artery territory as well as an acute infarct in the left anterior cerebral artery territory. This of course arouses suspicions of an embolic event. I did personally reviewed the study. I did not see evidence of hemorrhagic conversion of the infarcts. There is no mass effect present. Patient does have several other independent stroke risk factors which include atrial fibrillation, hyperlipidemia. Past Med Surg Social Fam HX - Past Medical History Medical history: other, non-contributory Psychiatric history: no psych history - Past Surgical History Surgical History: hip replacement, other (No abdominal scars are noted) - Social History Smoking Status: Never smoker Smokeless Tobacco Status: No Alcohol use: none Drug use: none Medications and Allergies Chlorhexidine Rinse 15 ml MM DAILY 01/07/15 [History] Cholecalciferol (Vitamin D3) [Vitamin D3] 1,000 unit PO DAILY 01/07/15 [History] FLUoxetine HCl [Prozac] 10 mg PO QAM 01/07/15 [History] HydrOXYzine 10 mg PO TID 01/07/15 [History] Ibandronate Sodium [Boniva] 150 mg PO QMONTH 01/07/15 [History] LevETIRAcetam [Keppra] 1,000 mg PO BID 01/07/15 [History] Levothyroxine [Synthroid] 125 mcg PO QAM 01/07/15 [History] Nitrofurantoin (BID) [Macrobid] 100 mg PO DAILY 01/07/15 [History] Oxcarbazepine [Trileptal] 900 mg PO BID 01/07/15 [History] Phenytoin [Dilantin] 50 mg PO HS 01/07/15 [History] Phenytoin [Dilantin] 200 mg PO HS 01/07/15 [History] Trihexyphenidyl [Artane] 1 mg PO BID 01/07/15 [History] Aspirin Enteric Coated [Aspirin EC] 162 mg PO DAILY #0 tablet. 01/08/15 [Rx] Ascorbate Calcium [Vitamin C] 500 mg PO DAILY 06/10/15 [History] Calcium Carbonate/Vitamin D3 [Oyster Shell 500-Vit D3 200 Tb] 1 tab PO DAILY [History] Diazepam [Diastat] 10 mg RC AD PRN 06/10/15 [History] Multivitamin/Iron/Folic Acid [Certavite-Antioxidant Tablet] 1 tab PO DAILY 06/09 [History] Pantoprazole Sodium [Protonix] 20 mg PO BID 90 Days 06/12/15 [Rx] Sucralfate [Carafate] 1 gm PO TID 90 Days 06/12/15 [Rx] Acetaminophen [Tylenol] 500 mg PO Q4H PRN 07/18/16 [History] Bismuth Subsalicylate [PEPTO-BISMOL (262mg/15mL) Susp] 30 ml PO Q4H PRN [History] Chloraseptic [place] [Chloraseptic] 1 spray MM QID PRN 07/18/16 [History] Loperamide [Imodium] 2 mg PO Q6H PRN 07/18/16 [History] Loratadine [Allergy Relief] 10 mg PO DAILY 07/18/16 [History] Mag Hydrox/Al Hydrox/Simeth [Masanti Liquid] 15 ml PO HS 07/18/16 [History] Magnesium Hydroxide [Milk of Magnesia] 30 ml PO DAILY PRN 07/18/16 [History] Polyethylene Glycol 3350 [Purelax] 17 gm PO MOWEFR 07/18/16 [History] Allergies Sulfa (Sulfonamide Antibiotics) Allergy (Verified 01/07/15 12:33) See Comments unknown ROS unobtainable: due to mental status All Systems: A 10-system review of systems was performed and is negative for pertinent findings except as documented above in the HPI. Physical Examination - Vital Signs Vital Signs: Initial Vital Signs Temp Pulse Resp BP Pulse Ox 97.9 F 132 25 91/65 93 07/18/16 09:07 07/18/16 09:07 07/18/16 09:07 07/18/16 09:07 07/18/16 09:07 - Exam Exam: Neurologic examination finds that patient is sedated with fentanyl. She does open her eyes to voice and tactile stimulation. She is not following commands at this time. She does appear to make eye contact however she quickly drifts back into unconsciousness. She was attempting to raise the right arm towards her ET tube. Cranial nerve findings pupils are reactive and equal at about 3 mm. Doll's eyes are present. Patient is intubated and is difficult to assess for facial asymmetry. She is breathing above the ventilator. Motor exam finds again that she does maintain spontaneous movement of the right arm. She does withdrawal the right leg from noxious stim. She does have however increased tone to passive movement of all 4 extremities. 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 Sensory exam-is difficult to complete precisely as the patient is unconscious. However she does open her eyes to voice, she does withdrawal and open her eyes to tactile stimulation of the plantar aspects of her feet. Deep tendon reflexes-bilateral Babinski signs are present. Results - Laboratory Findings CBC and BMP: 07/23/16 03:11 07/23/16 03:11 Abnormal lab findings: Abnormal lab results RBC 3.09 M/mcL (3.82-4.97) L 07/23/16 03:11 Hgb 9.3 g/dL (11.5-15.4) L 07/23/16 03:11 Hct 26.6 % (35.3-44.9) L 07/23/16 03:11 RDW 15.3 % (11.5-14.5) H 07/23/16 03:11 Plt Count 43 K/mcL (140-400) L 07/23/16 03:11 Metamyelocytes % 2.0 % (0) H 07/21/16 23:00 Myelocytes % 3.0 % (0) H 07/18/16 10:28 Nucleated RBCs/100 WBC 0.2 /100 WBC (0) H 07/23/16 03:11 Reactive Lymphocytes Present (Not Present) A 07/23/16 03:11 Toxic Granulation Present (Not Present) A 07/22/16 22:40 Toxic Vacuolation Present (Not Present) A 07/23/16 03:11 Dohle Bodies Present (Not Present) A 07/23/16 03:11 Platelet Estimate Decreased (Normal) L 07/23/16 03:11 Large Platelets Present (Not Present) A 07/22/16 04:00 Polychromasia 1+ (Not Present) A 07/20/16 03:37 Anisocytosis 1+ (Not Present) A 07/22/16 04:00 Isai Cells 3+ (Not Present) A 07/18/16 22:37 Acanthocytes (Spur) 1+ (Not Present) A 07/21/16 23:00 Rouleaux Present (Not Present) A 07/22/16 22:40 Fibrinogen 745 mg/dL (169-393) H* 07/23/16 12:28 ABG pCO2 31 mmHg (35-45) L 07/21/16 04:15 ABG pO2 155 mmHg (85-104) H 07/21/16 04:15 ABG HCO3 18.3 mEQ/L (21-27) L 07/21/16 04:15 ABG Total CO2 19.3 mEq/L (20-26) L 07/21/16 04:15 ABG O2 Saturation 99 % (95-98) H 07/21/16 04:15 ABG Base Excess -6.3 mEq/L (-2.0 to 3.0) L 07/21/16 04:15 Sodium 133 mEq/L (136-145) L 07/23/16 03:11 BUN 43 mg/dL (7-20) H 07/23/16 03:11 Est GFR (Non-Af Amer) 51 (> 60) L 07/23/16 03:11 BUN/Creatinine Ratio 40 (6-26) H 07/23/16 03:11 Glucose 134 mg/dL (70-99) H 07/23/16 03:11 POC Glucose 141 (58-89) H 07/23/16 11:13 Calcium 8.0 mg/dL (8.6-10.8) L 07/23/16 03:11 Total Bilirubin 1.4 mg/dL (0.2-1.2) H D 07/23/16 03:11 Troponin I 0.14 ng/mL (0-0.03) H* 07/18/16 09:38 B-Natriuretic Peptide 3231 pg/mL (0-100) H 07/18/16 10:28 Serum Total Protein 4.0 g/dL (6.0-8.3) L D 07/23/16 03:11 Albumin 1.1 g/dL (3.5-5.0) L 07/23/16 03:11 Albumin/Globulin Ratio 0.4 (1.1-2.2) L 07/23/16 03:11 Prealbumin 4.0 mg/dL (16.0-38.0) L 07/20/16 11:05 Urine Clarity Cloudy (Clear) A 07/18/16 10:55 Urine Protein 30 mg/dL (Neg-Trace) H 07/18/16 10:55 Ur Leukocyte Esterase Large (Negative) H 07/18/16 10:55 Urine Microscopic WBC 50-100 per hpf (0-3) H 07/18/16 10:55 Urine Bacteria Many per hpf (None-Few) H 07/18/16 10:55 Ur Culture Indicated? YES (NO) A 07/18/16 10:55 Consult Discharge Plan - Plan Referrals: NO,PCP [Non-Partnered Physician] -
[2016-07-23] MEDS: MetroNIDAZOLE 500 MG/100 ML 500 MG/100 ML BAG IVPB SCH ×2 (16:10→23:55)
[2016-07-23] MEDS: Aztreonam 2,000 MG in D5% in Water (Mini-Bag+) 100 ML IVPB SCH ×2 (16:11→23:54)
[2016-07-23] MEDS ORDERED: Clinimix E 5%-15% SOLUTION 2,000 ML with MVI, adult with vitamin K 10 ML IVC SCH (17:00)
[2016-07-24] MEDS: Lacri-Lube 3.5 GM TUBE BOTH EYES SCH ×5 (03:55→20:42)
[2016-07-24 04:10] LABS: Magnesium 1.5 mg/dL (1.6-2.6); Phosphorous 3.6 mg/dL (2.3-4.7)
[2016-07-24 04:11] LABS: Alanine Aminotransferase 25 Units/L (0-55); Albumin 1.1 g/dL (3.5-5.0); Albumin/Globulin Ratio 0.4 (1.1-2.2); Alkaline Phosphatase 67 Units/L (38-126); Aspartate Amino Transferase 41 Units/L (5-34); BUN/Creatinine Ratio 48 (6-26); Bilirubin,Total 1.3 mg/dL (0.2-1.2); Blood Urea Nitrogen 43 mg/dL (7-20); Calcium 7.9 mg/dL (8.6-10.8); Carbon Dioxide 20 mEq/L (19-29); Chloride 110 mEq/L (98-109); Globulin 2.8 g/dL (2.4-3.5); Glucose 128 mg/dL (70-99); Osmolality,Calculated 294 (280-300); Potassium 3.9 mEq/L (3.5-4.5); Sodium 136 mEq/L (136-145); Total Protein 3.9 g/dL (6.0-8.3); eGFR For African Americans > 60 (> 60); eGFR For Non-African Americans > 60 (> 60)
[2016-07-24 04:14] LABS: Hemoglobin 8.6 g/dL (11.5-15.4); Nucleated Red Blood Cells 0.2 /100 WBC (0); Red Cell Distribution Width 15.6 % (11.5-14.5)
[2016-07-24 04:15] LABS: Basophils % 0.2 %; Hematocrit 24.8 % (35.3-44.9); Immature Granulocytes % 5.8 % (0-4); Immature Platelets 4.7 % (1.1-6.1); Lymphocytes # 0.8 K/mcL (0.6-4.6); Lymphocytes % 7.7 %; Mean Corpuscular HGB Conc 34.7 g/dL (31.6-35.5); Mean Corpuscular Hemoglobin 30.5 pg (28.0-33.3); Mean Corpuscular Volume 87.9 fL (83.0-100.0); Mean Platelet Volume 10.5 fL (9.4-12.4); Monocytes # 0.5 K/mcL (0.0-1.3); Monocytes % 4.3 %; Neutrophils # 8.6 K/mcL (1.6-8.9); Red Blood Count 2.82 M/mcL (3.82-4.97)
[2016-07-24 04:41] LABS: Platelet Count 76 K/mcL (140-400)
[2016-07-24 04:43] LABS: Reactive Lymphocytes Present (Not Present)
[2016-07-24 04:44] LABS: Platelet Estimate Marked Decrease (Normal); Rouleaux Present (Not Present); Toxic Granulation Present (Not Present)
[2016-07-24] MEDS: Potassium Chloride 40 MEQ/200 ML BAG IVPB PRN (04:44)
[2016-07-24] MEDS: Magnesium Sulfate 2 GM in D5% in Water 100 ML IVPB PRN ×2 (04:49→20:44)
[2016-07-24] MEDS: FentaNYL (PF) 1,000 MCG in 0.9 % Sodium Chloride 80 ML IVC SCH ×3 (04:49→22:10)
[2016-07-24] MEDS: Pantoprazole 40 MG VIAL IVP SCH (05:54)
--- NOTE | 2016-07-24 07:12 | Pulmonology Progress Note ---
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 Laurent --TPN with good output to ileostomy --start lactated ringers: goal net I/O near 0 Renal: Stable ID: --Stool PCR negative, C. difficile negative, urine culture negative, blood cultures 2 negative --Continue aztreonam and Flagyl for suspected aspiration pneumonia Heme/Onc: --Persistent thrombocytopenia, improved today 76 from 43 --DVT prophylaxis with IPCDs --Transfused a total of 4 units pRBC Endocrine: TPN, hypoglycemia protocol Integ/MSK: Continue ICU skin care protocol Lines: ETT, NG, right femoral central venous catheter Full code (2) Cerebral infarction involving left anterior cerebral artery Current Visit: Yes Status: Acute (3) Cerebral infarction involving left posterior cerebral artery Current Visit: Yes Status: Acute (4) Acute respiratory failure with hypoxia Current Visit: Yes Status: Acute (5) Thrombocytopenia Current Visit: Yes Status: Acute (6) Goals of care, counseling/discussion Current Visit: Yes Status: Acute Patient does not have POA Social work following (7) Postoperative anemia Current Visit: Yes Status: Acute Patient received 2 units pRBC 6/4 and 2 units pRBC 6/5 (8) Pneumonia Current Visit: Yes Status: Suspected Suspect aspiration pneumonia coverage with aztreonam and flagyl Qualifiers: Pneumonia type: aspiration pneumonia Laterality: unspecified laterality Lung location: unspecified part of lung Qualified Code(s): J69.0 - Pneumonitis due to inhalation of food and vomit (9) UTI (urinary tract infection) Current Visit: Yes Status: Suspected Suspected UTI with many bacteria, large leukocyte esterase, 50-100 WBCs Urine culture 07/18/2016 no growth to date, no pathogens isolated Qualifiers: Urinary tract infection type: site unspecified Hematuria presence: without hematuria Qualified Code(s): N39.0 - Urinary tract infection, site not specified (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 status post surgery (11) Bowel obstruction Current Visit: Yes Status: Resolved Resolved status post surgery Qualifiers: Intestinal obstruction type: unspecified Qualified Code(s): K56.60 - Unspecified intestinal obstruction (12) Mental retardation Current Visit: Yes Status: Chronic Patient lives in a fpc and is reportedly high functioning (13) Seizure disorder Current Visit: Yes Status: Chronic No recent seizure activity reported Continue home doses of Dilantin and Keppra (14) Septic shock Current Visit: Yes Status: Resolved Resolved (15) Lactic acidosis Current Visit: Yes Status: Resolved Resolved (16) Tachycardia Current Visit: Yes Status: Resolved Resolved (17) Acute kidney injury Current Visit: Yes Status: Resolved Resolved Subjective Principal diagnosis: Sepsis secondary to bowel necrosis, acute respiratory failure Objective PUL Vital signs: Last Vital Signs Temp 99.1 F 07/24/16 04:03 Pulse 96 07/24/16 06:00 Resp 16 07/24/16 06:00 BP 127/84 07/24/16 06:00 Pulse Ox 100 07/24/16 06:00 General appearance: other (Sedated) Eyes: nonicteric ENT: oropharynx moist Effort: other (Sedated and breathing with ventilatory support) Auscultation: bilateral: rhonchi Cardiovascular: regular rate and rhythm Gastrointestinal: normoactive bowel sounds, soft, tender (Postop), other (Clean dry dressing to midline abdomen, ileostomy with dark green output) Integumentary: other (Some skin breakdown and irritation around central line bandage) Extremities: no edema pupils equal and round, other (Patient does not move on command; however, she did move her right arm to painful stimulus of palpation of her abdomen. Eyes open throughout exam; however, patient would not follow commands to look at me.) Ventilator Settings Ventilator Settings: Ventilator Settings, Last 8 Hours Ventilator Mode CPAP Ventilator Mode VC+ Ventilator Mode VC+ Ventilator Mode VC+ Ventilator Mode VC+ Ventilator Mode VC+ Ventilator Mode VC+ Ventilator Mode VC+ Ventilator Mode VC+ Ventilator Mode VC+ Ventilator Mode VC+ Ventilator Tidal Volume 450 Setting Ventilator Tidal Volume 450 Setting Ventilator Tidal Volume 450 Setting Ventilator Tidal Volume 450 Setting Ventilator Tidal Volume 450 Setting Ventilator Tidal Volume 450 Setting Ventilator Tidal Volume 450 Setting Ventilator Tidal Volume 450 Setting Ventilator Tidal Volume 450 Setting Ventilator Tidal Volume 450 Setting Ventilator Tidal Volume 450 Setting Ventilator Respiratory Rate 12 Setting Ventilator Respiratory Rate 12 Setting Ventilator Respiratory Rate 12 Setting Ventilator Respiratory Rate 12 Setting Ventilator Respiratory Rate 12 Setting Ventilator Respiratory Rate 12 Setting Ventilator Respiratory Rate 12 Setting Ventilator Respiratory Rate 12 Setting Ventilator Respiratory Rate 12 Setting Ventilator Respiratory Rate 12 Setting Ventilator Respiratory Rate 12 Setting Actual Respiratory Rate 16 Actual Respiratory Rate 16 Actual Respiratory Rate 16 Actual Respiratory Rate 17 Actual Respiratory Rate 19 Actual Respiratory Rate 19 Actual Respiratory Rate 19 Actual Respiratory Rate 17 Actual Respiratory Rate 17 Actual Respiratory Rate 17 Actual Respiratory Rate 17 Positive End Expiratory 5 Pressure Positive End Expiratory 5 Pressure Positive End Expiratory 5 Pressure Positive End Expiratory 5 Pressure Positive End Expiratory 5 Pressure Positive End Expiratory 5 Pressure Positive End Expiratory 5 Pressure Positive End Expiratory 5 Pressure Positive End Expiratory 5 Pressure Positive End Expiratory 5 Pressure Positive End Expiratory 5 Pressure Peak Inspiratory Airway 30 Pressure Peak Inspiratory Airway 27 Pressure Peak Inspiratory Airway 27 Pressure Peak Inspiratory Airway 29 Pressure Peak Inspiratory Airway 36 Pressure Peak Inspiratory Airway 0 Pressure Peak Inspiratory Airway 31 Pressure Peak Inspiratory Airway 27 Pressure Peak Inspiratory Airway 27 Pressure Peak Inspiratory Airway 26 Pressure Peak Inspiratory Airway 31 Pressure Results - Laboratory Findings CBC and BMP: 07/24/16 03:24 07/24/16 03:24 ABG ABG pH 7.38 pH Units (7.32-7.45) 07/21/16 04:15 ABG pCO2 31 mmHg (35-45) L 07/21/16 04:15 ABG pO2 155 mmHg (85-104) H 07/21/16 04:15 ABG O2 Saturation 99 % (95-98) H 07/21/16 04:15 PT/INR, D-dimer PT 10.7 Seconds (9.4-12.1) 07/23/16 11:25 Abnormal lab findings: Abnormal lab results RBC 2.82 M/mcL (3.82-4.97) L 07/24/16 03:24 Hgb 8.6 g/dL (11.5-15.4) L 07/24/16 03:24 Hct 24.8 % (35.3-44.9) L 07/24/16 03:24 RDW 15.6 % (11.5-14.5) H 07/24/16 03:24 Plt Count 76 K/mcL (140-400) L D 07/24/16 03:24 Immature Gran % 5.8 % (0-4) H 07/24/16 03:24 Metamyelocytes % 2.0 % (0) H 07/21/16 23:00 Myelocytes % 3.0 % (0) H 07/18/16 10:28 Nucleated RBCs/100 WBC 0.2 /100 WBC (0) H 07/24/16 03:24 Reactive Lymphocytes Present (Not Present) A 07/24/16 03:24 Toxic Granulation Present (Not Present) A 07/24/16 03:24 Toxic Vacuolation Present (Not Present) A 07/23/16 03:11 Dohle Bodies Present (Not Present) A 07/23/16 03:11 Platelet Estimate Marked Decrease (Normal) L 07/24/16 03:24 Large Platelets Present (Not Present) A 07/22/16 04:00 Polychromasia 1+ (Not Present) A 07/20/16 03:37 Anisocytosis 1+ (Not Present) A 07/22/16 04:00 [place] Cells 3+ (Not Present) A 07/18/16 22:37 Acanthocytes (Spur) 1+ (Not Present) A 07/21/16 23:00 Rouleaux Present (Not Present) A 07/24/16 03:24 Fibrinogen 745 mg/dL (169-393) H* 07/23/16 12:28 ABG pCO2 31 mmHg (35-45) L 07/21/16 04:15 ABG pO2 155 mmHg (85-104) H 07/21/16 04:15 ABG HCO3 18.3 mEQ/L (21-27) L 07/21/16 04:15 ABG Total CO2 19.3 mEq/L (20-26) L 07/21/16 04:15 ABG O2 Saturation 99 % (95-98) H 07/21/16 04:15 ABG Base Excess -6.3 mEq/L (-2.0 to 3.0) L 07/21/16 04:15 Chloride 110 mEq/L (98-109) H 07/24/16 03:24 BUN 43 mg/dL (7-20) H 07/24/16 03:24 BUN/Creatinine Ratio 48 (6-26) H 07/24/16 03:24 Glucose 128 mg/dL (70-99) H 07/24/16 03:24 POC Glucose 140 (58-89) H 07/24/16 05:45 Calcium 7.9 mg/dL (8.6-10.8) L 07/24/16 03:24 Magnesium 1.5 mg/dL (1.6-2.6) L 07/24/16 03:24 Total Bilirubin 1.3 mg/dL (0.2-1.2) H 07/24/16 03:24 AST 41 Units/L (5-34) H 07/24/16 03:24 Troponin I 0.14 ng/mL (0-0.03) H* 07/18/16 09:38 B-Natriuretic Peptide 3231 pg/mL (0-100) H 07/18/16 10:28 Serum Total Protein 3.9 g/dL (6.0-8.3) L 07/24/16 03:24 Albumin 1.1 g/dL (3.5-5.0) L 07/24/16 03:24 Albumin/Globulin Ratio 0.4 (1.1-2.2) L 07/24/16 03:24 Prealbumin 4.0 mg/dL (16.0-38.0) L 07/20/16 11:05 Urine Clarity Cloudy (Clear) A 07/18/16 10:55 Urine Protein 30 mg/dL (Neg-Trace) H 07/18/16 10:55 Ur Leukocyte Esterase Large (Negative) H 07/18/16 10:55 Urine Microscopic WBC 50-100 per hpf (0-3) H 07/18/16 10:55 Urine Bacteria Many per hpf (None-Few) H 07/18/16 10:55 Ur Culture Indicated? YES (NO) A 07/18/16 10:55 - Clinical Findings Intake & Output: Intake & Output 07/23/16 07/23/16 07/24/16 15:59 23:59 07:59 Intake Total 121 / 121 374 / 374 864 / 864 Output Total 1400 / 1400 950 / 950 600 / 600 Balance -1279 / -1279 -576 / -576 264 / 264 Weight 70.42 kg - VTE Documentation of Mechanical Device: Intermittent pneumatic compression device Consult Discharge Plan - Plan Referrals: NO,PCP [Non-Partnered Physician] - <Guevara Cristina W - Last Filed: 07/24/16 12:17> Date of Encounter: 07/24/16 Objective PUL Vital signs: Last Vital Signs Temp 100.9 F H 07/24/16 07:40 Pulse 88 07/24/16 09:00 Resp 17 07/24/16 09:00 BP 107/51 07/24/16 09:00 Pulse Ox 100 07/24/16 09:00 Ventilator Settings Ventilator Settings: Ventilator Settings, Last 8 Hours Ventilator Mode VC+ Ventilator Mode VC+ Ventilator Mode VC+ Ventilator Mode VC+ Ventilator Mode CPAP Ventilator Mode VC+ Ventilator Mode VC+ Ventilator Mode VC+ Ventilator Mode VC+ Ventilator Mode VC+ Ventilator Mode VC+ Ventilator Tidal Volume 450 Setting Ventilator Tidal Volume 450 Setting Ventilator Tidal Volume 450 Setting Ventilator Tidal Volume 450 Setting Ventilator Tidal Volume 450 Setting Ventilator Tidal Volume 450 Setting Ventilator Tidal Volume 450 Setting Ventilator Tidal Volume 450 Setting Ventilator Tidal Volume 450 Setting Ventilator Tidal Volume 450 Setting Ventilator Tidal Volume 450 Setting Ventilator Respiratory Rate 12 Setting Ventilator Respiratory Rate 12 Setting Ventilator Respiratory Rate 12 Setting Ventilator Respiratory Rate 12 Setting Ventilator Respiratory Rate 12 Setting Ventilator Respiratory Rate 12 Setting Ventilator Respiratory Rate 12 Setting Ventilator Respiratory Rate 12 Setting Ventilator Respiratory Rate 12 Setting Ventilator Respiratory Rate 12 Setting Ventilator Respiratory Rate 12 Setting Actual Respiratory Rate 17 Actual Respiratory Rate 15 Actual Respiratory Rate 17 Actual Respiratory Rate 19 Actual Respiratory Rate 16 Actual Respiratory Rate 16 Actual Respiratory Rate 16 Actual Respiratory Rate 17 Actual Respiratory Rate 19 Actual Respiratory Rate 19 Actual Respiratory Rate 19 Positive End Expiratory 5 Pressure Positive End Expiratory 5 Pressure Positive End Expiratory 5 Pressure Positive End Expiratory 5 Pressure Positive End Expiratory 5 Pressure Positive End Expiratory 5 Pressure Positive End Expiratory 5 Pressure Positive End Expiratory 5 Pressure Positive End Expiratory 5 Pressure Positive End Expiratory 5 Pressure Positive End Expiratory 5 Pressure Peak Inspiratory Airway 28 Pressure Peak Inspiratory Airway 30 Pressure Peak Inspiratory Airway 27 Pressure Peak Inspiratory Airway 27 Pressure Peak Inspiratory Airway 29 Pressure Peak Inspiratory Airway 36 Pressure Peak Inspiratory Airway 0 Pressure Peak Inspiratory Airway 31 Pressure Results - Laboratory Findings CBC and BMP: 07/24/16 03:24 07/24/16 11:35 ABG ABG pH 7.38 pH Units (7.32-7.45) 07/21/16 04:15 ABG pCO2 31 mmHg (35-45) L 07/21/16 04:15 ABG pO2 155 mmHg (85-104) H 07/21/16 04:15 ABG O2 Saturation 99 % (95-98) H 07/21/16 04:15 PT/INR, D-dimer PT 10.7 Seconds (9.4-12.1) 07/23/16 11:25 Abnormal lab findings: Abnormal lab results RBC 2.82 M/mcL (3.82-4.97) L 07/24/16 03:24 Hgb 8.6 g/dL (11.5-15.4) L 07/24/16 03:24 Hct 24.8 % (35.3-44.9) L 07/24/16 03:24 RDW 15.6 % (11.5-14.5) H 07/24/16 03:24 Plt Count 76 K/mcL (140-400) L D 07/24/16 03:24 Immature Gran % 5.8 % (0-4) H 07/24/16 03:24 Metamyelocytes % 2.0 % (0) H 07/21/16 23:00 Myelocytes % 3.0 % (0) H 07/18/16 10:28 Nucleated RBCs/100 WBC 0.2 /100 WBC (0) H 07/24/16 03:24 Reactive Lymphocytes Present (Not Present) A 07/24/16 03:24 Toxic Granulation Present (Not Present) A 07/24/16 03:24 Toxic Vacuolation Present (Not Present) A 07/23/16 03:11 Dohle Bodies Present (Not Present) A 07/23/16 03:11 Platelet Estimate Marked Decrease (Normal) L 07/24/16 03:24 Large Platelets Present (Not Present) A 07/22/16 04:00 Polychromasia 1+ (Not Present) A 07/20/16 03:37 Anisocytosis 1+ (Not Present) A 07/22/16 04:00 Isai Cells 3+ (Not Present) A 07/18/16 22:37 Acanthocytes (Spur) 1+ (Not Present) A 07/21/16 23:00 Rouleaux Present (Not Present) A 07/24/16 03:24 Fibrinogen 745 mg/dL (169-393) H* 07/23/16 12:28 ABG pCO2 31 mmHg (35-45) L 07/21/16 04:15 ABG pO2 155 mmHg (85-104) H 07/21/16 04:15 ABG HCO3 18.3 mEQ/L (21-27) L 07/21/16 04:15 ABG Total CO2 19.3 mEq/L (20-26) L 07/21/16 04:15 ABG O2 Saturation 99 % (95-98) H 07/21/16 04:15 ABG Base Excess -6.3 mEq/L (-2.0 to 3.0) L 07/21/16 04:15 Chloride 110 mEq/L (98-109) H 07/24/16 03:24 BUN 43 mg/dL (7-20) H 07/24/16 03:24 BUN/Creatinine Ratio 48 (6-26) H 07/24/16 03:24 Glucose 128 mg/dL (70-99) H 07/24/16 03:24 POC Glucose 140 (58-89) H 07/24/16 05:45 Calcium 7.9 mg/dL (8.6-10.8) L 07/24/16 03:24 Magnesium 1.5 mg/dL (1.6-2.6) L 07/24/16 03:24 Total Bilirubin 1.3 mg/dL (0.2-1.2) H 07/24/16 03:24 AST 41 Units/L (5-34) H 07/24/16 03:24 Troponin I 0.14 ng/mL (0-0.03) H* 07/18/16 09:38 B-Natriuretic Peptide 3231 pg/mL (0-100) H 07/18/16 10:28 Serum Total Protein 3.9 g/dL (6.0-8.3) L 07/24/16 03:24 Albumin 1.1 g/dL (3.5-5.0) L 07/24/16 03:24 Albumin/Globulin Ratio 0.4 (1.1-2.2) L 07/24/16 03:24 Prealbumin 4.0 mg/dL (16.0-38.0) L 07/20/16 11:05 Urine Clarity Cloudy (Clear) A 07/18/16 10:55 Urine Protein 30 mg/dL (Neg-Trace) H 07/18/16 10:55 Ur Leukocyte Esterase Large (Negative) H 07/18/16 10:55 Urine Microscopic WBC 50-100 per hpf (0-3) H 07/18/16 10:55 Urine Bacteria Many per hpf (None-Few) H 07/18/16 10:55 Ur Culture Indicated? YES (NO) A 07/18/16 10:55 - Clinical Findings Intake & Output: Intake & Output 07/23/16 07/24/16 07/24/16 23:59 07:59 15:59 Intake Total 374 / 374 864 / 864 Output Total 950 / 950 1200 / 1200 Balance -576 / -576 -336 / -336 Weight 70.42 kg - Attending Attestation I examined this patient and my medical decision-making was reviewed with the MOLD COOLER/PA/Advanced Practice Nurse/Resident Physician. I agree with the documented findings, disposition and treatment plan as described except to the extent set forth below. Neuropsych: b/l Acute CVA including large right MCA and left [employer]NAGER territory and smaller LUCAS. Suspect emoblic phenomenon with hypercoagulble state. Neruo consulted no acute intervention. Repeat Head CT stable. Given size and thrombcytopenia high risk for hemorrhagic conversion. no Statin (no PO med) or ASA (low plts) at this time. Cont fentalnyl as needed for pain/agitation with daily sedation holiday. Cont antiepileptics for seizure disorder. Neuro following Pulm: Hypoxic respiratory failure intubated. minimal vent settings requirements acceptable oxygenation failed SBT (tachypenia) acceptable oxygenation/seation Cards: Hemodynamics are stable. Avoid antihpertensives/diuretics in setting of acute Ischemic CVA. Initial evidence of Afib but has been sinus rhythm clearly this is potential cause of emoblic CVA. Cannot anticogulate given recent anemia and blood loss along with thrombocytopenia. TTE w/o valvular vegetations may need to proceed with FEN-GI:cont TPN. currently resting bowl s/p partial small bowl and total large bowel removal. Surgery Following. PEG Tube placement per Surgery on hold because of acute CVA. Start Crystalloid Infusion. Renal: CLEMENTINA has resolved. appropriate UOP replace lytes per protocol cont daily BMP. ID: treating for ischemic collitis. Cont aztreonam + Flagyl to [id number] days based upon clinical course Heme/Onc: Anemia s/t to blood loss complicated by critical illness. H/H stable cont to monitor. Thrombocytopenia likely secondary to sepsis and medication effect, improving slowly. No evidence of DIC, Fibrinogen elevated. holding anticoagulation s/t high risk for ICH and thrombocytopenia. Endo:cont synthroid for hypothyroidism, glucose monitored and stable. Integ/MSK: cont skin care per ICU protocol CODE: Full Code. Request for emergent court ordered guardianship has been made and pending review.
[2016-07-24] MEDS: Chlorhexidine Rinse 15 ML MOUTHWASH MM SCH ×2 (08:24→20:41)
[2016-07-24] MEDS: Aztreonam 2,000 MG in D5% in Water (Mini-Bag+) 100 ML IVPB SCH ×2 (08:24→16:47)
[2016-07-24] MEDS: levETIRAcetam 1,000 MG in 0.9 % Sodium Chloride 100 ML IVPB SCH ×2 (08:24→20:44)
[2016-07-24] MEDS: Levothyroxine Sodium 100 MCG VIAL IVP SCH (08:25)
[2016-07-24] MEDS: MetroNIDAZOLE 500 MG/100 ML 500 MG/100 ML BAG IVPB SCH ×2 (08:26→16:47)
[2016-07-24] MEDS ORDERED: Ringers Solution, Lactated 500 ML IVC ONE ×2 (10:16→10:56)
--- NOTE | 2016-07-24 10:52 | Venous Imaging Report ---
LE Venous Duplex Patient Name:Georgia Curiel Order Number:[id number] Procedure Date:07/23/2016 Date:1950ge:66 yrs Gender:Female Location:[facility] Room #: IC04 Turret Lathe Machinist:Lenny Singh MD:DO Fili Mehta MD:Emir Pino MD Primary Indications:CVA, Lower extremity swelling, Concern for embolic event Secondary Indications: Impressions: Normal bilateral lower extremity deep and superficial venous exam. Findings Prior Study: No prior study available for comparison. Lower Extremity Venous Duplex Side Vein Compress Spontaneous Flow Augment Diameter (cm) Depth (cm) Right Distal Iliac Normal Yes Phasic Yes Right Common Femoral Normal Yes Phasic Yes Right Superficial Femoral Normal Yes Phasic Yes Right Popliteal Normal Yes Phasic Yes Right Posterior Tibial Normal Yes Phasic Yes Right Peroneal Normal Yes Phasic Yes Right Saphenofemoral [place] Normal Yes Phasic Yes Right Great Saphenous Normal Yes Phasic Yes Right Lesser Saphenous Normal Yes Phasic Yes Left Distal Iliac Normal Yes Phasic Yes Left Common Femoral Normal Yes Phasic Yes Left Superficial Femoral Normal Yes Phasic Yes Left Popliteal Normal Yes Phasic Yes Left Posterior Tibial Normal Yes Phasic Yes Left Peroneal Normal Yes Phasic Yes Left Saphenofemoral [place] Normal Yes Phasic Yes Left Great Saphenous Normal Yes Phasic Yes Left Lesser Saphenous Normal Yes Phasic Yes Updated by Emir Pino MD on 07/24/2016 10:46:43 AM electronically signed on 07/24/2016 10:47:10 AM with status of Final
[2016-07-24 11:52] LABS: Magnesium 1.6 mg/dL (1.6-2.6); Potassium 4.5 mEq/L (3.5-4.5)
[2016-07-24 12:05] LABS: Phenytoin (Dilantin) 8.8 mcg/mL (10-20)
[2016-07-24] MEDS: Ringers Solution, Lactated 1,000 ML IVC SCH ×2 (12:53→19:00)
--- NOTE | 2016-07-24 13:16 | General Surgery Progress Note ---
Date of Encounter: 07/24/16 Time of Encounter: 13:10 - Assessment and Plan (1) Acute abdomen Current Visit: Yes Status: Resolved POD #2 for; emergency exploratory laparotomy resulting in total colectomy, partial ileectomy with ileostomy with Dr. Laurent on 07/20/16 NG tube to low intermittent wall suction. Medical management per ICU team Supportive care and pain control IV fluids to maintain hydration IV antibiotics Repeat am labs Maintain Navarrete catheter for strict I and O's. Serial abdominal exams Vital signs per protocol Elevate head of bed to 30 degrees Daily dressing change- complete today PPI therapy daily DVT prophylaxis TPN for nutrition while awaiting return of bowel function Change out orogastric tube to NG tube today for easier extubation when indicated. Will continue to follow patient closely as patient is being treated for sepsis. The assessment and plan as outlined above was discussed with the patient and/or family members who expressed understanding and agreement. All questions were answered. 07/24/2016 the patient is seen and evaluated. We will continue with maximum supportive care. I would like to place a PEG tube as soon as possible. Understanding the emergency power of compliance attorney has been requested. Once this is in place we can discuss further care options Subjective Narrative: The patient opened her eyes and make eye contact with me today. She continues to be on the ventilator. Nasogastric tube drainage has fallen off. Midline incision looks just fine. The ileostomy is pink and functioning. She continues to have an embolic workup to explain her strokes as well as multiple areas of necrosis of the colon and small bowel. I think she would benefit from percutaneous endoscopic gastrostomy tube so that no tubes interfere with her airway during the ventilator weaning process. This will also allow for nutritional supplementation Objective Vital Signs - Last 8 Hours Temp Pulse Resp BP Pulse Ox 07/24/16 11:05 16 99 07/24/16 10:00 83 16 110/51 99 07/24/16 09:33 17 107/51 99 07/24/16 09:00 88 17 107/51 100 07/24/16 08:00 92 15 125/71 100 07/24/16 07:50 17 121/63 100 07/24/16 07:40 100.9 F H 07/24/16 07:15 95 07/24/16 07:00 93 19 121/63 100 07/24/16 06:00 96 16 127/84 100 07/24/16 05:22 16 100 Intake and Output 07/23/16 07/24/16 07/24/16 23:59 07:59 15:59 Intake Total 374 / 374 864 / 864 200 / 200 Output Total 950 / 950 1200 / 1200 Balance -576 / -576 -336 / -336 200 / 200 Intake: IV Fluids 374 / 374 864 / 864 200 / 200 FentaNYL (PF) 1,000 MCG 64 / 64 110 / 110 In 0.9 % Sodium Chloride 80 ML @ 50 MCG/HR 5 mls/ hr IVC CONT [facility] Rx#: [id number] Azactam 2,000 MG In 100 / 100 100 / 100 100 / 100 Dextrose 5% (Minibag+) 100 ML 100 ML @ 200 mls/ hr IVPB Q8HR [facility] Rx#: [id number] Intralipid 20% 250 ML @ 250 / 250 21 mls/hr IVPB DAILY@1700 [facility] Rx#:[id number] Magnesium Sulfate 2 GM In 104 / 104 Dextrose 5% 100 ML @ 50 mls/hr IVPB Q6H PRN Rx#: [id number] Flagyl Premix 500 MG/100 100 / 100 100 / 100 100 / 100 ML 500 mg In 100 ml @ 100 mls/hr IVPB Q8HR [facility] Rx# :[id number] Potassium Chloride 20 mEq 200 / 200 /100 mL 40 meq In 200 ml @ 100 mls/hr IVPB Q1H PRN Rx#:[id number] Keppra 1,000 MG In 0.9 % 110 / 110 Sodium Chloride 100 ML @ 400 mls/hr IVPB BID [facility] Rx#:[id number] Output: Stool 300 / 300 450 / 450 Catheter 600 / 600 650 / 650 Gastric Drainage 50 / 50 100 / 100 Other: Stool Consistency liquid Stool Color Green Weight 70.42 kg Blood Glucose* 104 140 - General physical appearance other (On the ventilator. She made eye contact with me today) - Respiratory clear to auscultation - Cardiovascular Cardiovascular exam: Present: irregular rhythm, no murmurs/rubs/gallops - Abdomen Abdomen: Present: bowel sounds present, soft, non tender (Ostomy is pink and functioning) - Neurologic other (Left upper extremity weakness) - Psychiatric other (Unable to assess) - Labs 07/24/16 03:24 07/24/16 11:35 Diabetes panel 07/24/16 07/24/16 Range/Units 03:24 11:35 Sodium 136 (136-145) mEq/L Potassium 3.9 4.5 (3.5-4.5) mEq/L Chloride 110 H (98-109) mEq/L Carbon Dioxide 20 (19-29) mEq/L BUN 43 H (7-20) mg/dL Creatinine 0.90 (0.57-1.11) mg/dL Glucose 128 H (70-99) mg/dL Calcium 7.9 L (8.6-10.8) mg/dL AST 41 H (5-34) Units/L ALT 25 (0-55) Units/L Alkaline Phosphatase 67 (38-126) Units/L Albumin 1.1 L (3.5-5.0) g/dL Calcium panel 07/24/16 07/24/16 Range/Units 03:24 03:24 Calcium 7.9 L (8.6-10.8) mg/dL Phosphorus 3.6 (2.3-4.7) mg/dL Albumin 1.1 L (3.5-5.0) g/dL Pituitary panel 07/24/16 07/24/16 Range/Units 03:24 11:35 Sodium 136 (136-145) mEq/L Potassium 3.9 4.5 (3.5-4.5) mEq/L Chloride 110 H (98-109) mEq/L Carbon Dioxide 20 (19-29) mEq/L BUN 43 H (7-20) mg/dL Creatinine 0.90 (0.57-1.11) mg/dL Glucose 128 H (70-99) mg/dL Calcium 7.9 L (8.6-10.8) mg/dL Adrenal panel 07/24/16 07/24/16 Range/Units 03:24 11:35 Sodium 136 (136-145) mEq/L Potassium 3.9 4.5 (3.5-4.5) mEq/L Chloride 110 H (98-109) mEq/L Carbon Dioxide 20 (19-29) mEq/L BUN 43 H (7-20) mg/dL Creatinine 0.90 (0.57-1.11) mg/dL Glucose 128 H (70-99) mg/dL Calcium 7.9 L (8.6-10.8) mg/dL Total Bilirubin 1.3 H (0.2-1.2) mg/dL AST 41 H (5-34) Units/L ALT 25 (0-55) Units/L Alkaline Phosphatase 67 (38-126) Units/L Albumin 1.1 L (3.5-5.0) g/dL - VTE Documentation of Mechanical Device: Intermittent pneumatic compression device Consult Discharge Plan - Plan Referrals: NO,PCP [Non-Partnered Physician] -
--- NOTE | 2016-07-24 16:08 | Neurology Progress Note ---
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 Unfortunately from a neurologic perspective I do not expect a good recovery. She is already compromised to some extent before experiencing 3 large vessel cerebral infarcts. Time will tell to what extent she improves. Would recommend withholding anticoagulation for at least 5 days from the time of the infarct. I would not recommend bolusing. I will follow peripherally. Subjective Principal diagnosis: Sepsis secondary to bowel necrosis, acute respiratory failure Interval history: Chart reviewed patient seen case was discussed with nursing. The patient is relatively unchanged from a neurologic perspective. She still opens her eyes spontaneously. She does not fixate on this examiner. She does not follow commands for this examiner. She still moves the right upper extremity in such a manner that she wants the ET tube out. And she does withdraw the right lower extremity to noxious stim. I did review the CT scan of the head today and is no evidence of hemorrhagic transformation of any of the infarcts. The demarcation of the infarcts however is much more prominent today which is typical. Objective - Constitutional Vitals: Temp Pulse Resp BP Pulse Ox 98.7 F 93 16 131/62 100 07/24/16 15:58 07/24/16 15:00 07/24/16 15:00 07/24/16 15:00 07/24/16 15:00 - Neurological Exam Additional comments: Neurologic examination today for cerebral functions finds that she is not following commands for me. She does try to extubate herself with the right upper extremity. She does withdraw the right foot. She has bilateral Babinskis. No seizure activity. No posturing is present. - VTE Documentation of Mechanical Device: Intermittent pneumatic compression device Results - Laboratory Findings CBC and BMP: 07/24/16 03:24 07/24/16 11:35 Abnormal lab findings: Abnormal lab results RBC 2.82 M/mcL (3.82-4.97) L 07/24/16 03:24 Hgb 8.6 g/dL (11.5-15.4) L 07/24/16 03:24 Hct 24.8 % (35.3-44.9) L 07/24/16 03:24 RDW 15.6 % (11.5-14.5) H 07/24/16 03:24 Plt Count 76 K/mcL (140-400) L D 07/24/16 03:24 Immature Gran % 5.8 % (0-4) H 07/24/16 03:24 Metamyelocytes % 2.0 % (0) H 07/21/16 23:00 Myelocytes % 3.0 % (0) H 07/18/16 10:28 Nucleated RBCs/100 WBC 0.2 /100 WBC (0) H 07/24/16 03:24 Reactive Lymphocytes Present (Not Present) A 07/24/16 03:24 Toxic Granulation Present (Not Present) A 07/24/16 03:24 Toxic Vacuolation Present (Not Present) A 07/23/16 03:11 Dohle Bodies Present (Not Present) A 07/23/16 03:11 Platelet Estimate Marked Decrease (Normal) L 07/24/16 03:24 Large Platelets Present (Not Present) A 07/22/16 04:00 Polychromasia 1+ (Not Present) A 07/20/16 03:37 Anisocytosis 1+ (Not Present) A 07/22/16 04:00 [place]vine Cells 3+ (Not Present) A 07/18/16 22:37 Acanthocytes (Spur) 1+ (Not Present) A 07/21/16 23:00 Rouleaux Present (Not Present) A 07/24/16 03:24 Fibrinogen 745 mg/dL (169-393) H* 07/23/16 12:28 ABG pCO2 31 mmHg (35-45) L 07/21/16 04:15 ABG pO2 155 mmHg (85-104) H 07/21/16 04:15 ABG HCO3 18.3 mEQ/L (21-27) L 07/21/16 04:15 ABG Total CO2 19.3 mEq/L (20-26) L 07/21/16 04:15 ABG O2 Saturation 99 % (95-98) H 07/21/16 04:15 ABG Base Excess -6.3 mEq/L (-2.0 to 3.0) L 07/21/16 04:15 Chloride 110 mEq/L (98-109) H 07/24/16 03:24 BUN 43 mg/dL (7-20) H 07/24/16 03:24 BUN/Creatinine Ratio 48 (6-26) H 07/24/16 03:24 Glucose 128 mg/dL (70-99) H 07/24/16 03:24 POC Glucose 119 (58-89) H 07/24/16 12:42 Calcium 7.9 mg/dL (8.6-10.8) L 07/24/16 03:24 Total Bilirubin 1.3 mg/dL (0.2-1.2) H 07/24/16 03:24 AST 41 Units/L (5-34) H 07/24/16 03:24 Troponin I 0.14 ng/mL (0-0.03) H* 07/18/16 09:38 B-Natriuretic Peptide 3231 pg/mL (0-100) H 07/18/16 10:28 Serum Total Protein 3.9 g/dL (6.0-8.3) L 07/24/16 03:24 Albumin 1.1 g/dL (3.5-5.0) L 07/24/16 03:24 Albumin/Globulin Ratio 0.4 (1.1-2.2) L 07/24/16 03:24 Prealbumin 4.0 mg/dL (16.0-38.0) L 07/20/16 11:05 Urine Clarity Cloudy (Clear) A 07/18/16 10:55 Urine Protein 30 mg/dL (Neg-Trace) H 07/18/16 10:55 Ur Leukocyte Esterase Large (Negative) H 07/18/16 10:55 Urine Microscopic WBC 50-100 per hpf (0-3) H 07/18/16 10:55 Urine Bacteria Many per hpf (None-Few) H 07/18/16 10:55 Ur Culture Indicated? YES (NO) A 07/18/16 10:55 Phenytoin 8.8 mcg/mL (10-20) L 07/24/16 11:35 Consult Discharge Plan - Plan Referrals: NO,PCP [Non-Partnered Physician] -
[2016-07-24] MEDS ORDERED: Clinimix E 5%-15% SOLUTION 2,000 ML with MVI, adult with vitamin K 10 ML IVC SCH (17:00)
--- NOTE | 2016-07-24 18:41 | Venous Imaging Report ---
UE Venous Duplex Patient Name:Georgia Curiel Order Number:[id number] Procedure Date:07/24/2016 Date:1950ge:66 yrs Gender:Female Location:[facility] Room #: IC04 Shank Burnisher:Maira Decker Referring MD:Guevara Cristina MD manager steel:Magno Ribeiro MD Reading MD:Emir Pino MD Primary Indications:r/o VTE Secondary Indications: Impressions: Normal bilateral lower extremity deep and superficial venous exam. Recommendations: After imaging the patient returned to their room. Findings Venous Duplex Results: Right: Venous imaging of the upper extremity reveals full patency and normal vessel compressibility of the right jugular, right subclavian, right axillary, right brachial, right cephalic, right basilic, right radial and right ulnar. Doppler signals in the evaluated veins were normal. Left: Venous imaging of the upper extremity reveals full patency and normal vessel compressibility of the left jugular, left subclavian, left axillary, left brachial, left cephalic, left basilic, left radial and left ulnar. Doppler signals in the evaluated veins were normal. Prior Study: No prior study available for comparison. Upper Extremity Venous Duplex Side Vein Compress Spontaneous Flow Augment Right Jugular Normal Yes Phasic Yes Right Subclavian Normal Yes Phasic Yes Right Axillary Normal Yes Phasic Yes Right Brachial Normal Yes Phasic Yes Right Cephalic Normal Yes Phasic Yes Right Basilic Normal Yes Phasic Yes Right Radial Normal Yes Phasic Yes Right Ulnar Normal Yes Phasic Yes Left Jugular Normal Yes Phasic Yes Left Subclavian Normal Yes Phasic Yes Left Axillary Normal Yes Phasic Yes Left Brachial Normal Yes Phasic Yes Left Cephalic Normal Yes Phasic Yes Left Basilic Normal Yes Phasic Yes Left Radial Normal Yes Phasic Yes Left Ulnar Normal Yes Phasic Yes Updated by Emir Pino MD on 07/24/2016 6:35:59 PM electronically signed on 07/24/2016 6:36:33 PM with status of Final
[2016-07-25] MEDS: Aztreonam 2,000 MG in D5% in Water (Mini-Bag+) 100 ML IVPB SCH ×4 (00:08→23:36)
[2016-07-25] MEDS: MetroNIDAZOLE 500 MG/100 ML 500 MG/100 ML BAG IVPB SCH ×4 (00:08→23:36)
[2016-07-25] MEDS: Lacri-Lube 3.5 GM TUBE BOTH EYES SCH ×7 (00:10→23:40)
[2016-07-25] MEDS: Ringers Solution, Lactated 1,000 ML IVC SCH ×3 (02:30→20:23)
[2016-07-25 03:35] LABS: Hematocrit 26.6 % (35.3-44.9); Hemoglobin 8.9 g/dL (11.5-15.4); Lymphocytes # 0.7 K/mcL (0.6-4.6); Mean Corpuscular HGB Conc 33.5 g/dL (31.6-35.5); Mean Corpuscular Hemoglobin 30.3 pg (28.0-33.3); Mean Corpuscular Volume 90.5 fL (83.0-100.0); Mean Platelet Volume 10.2 fL (9.4-12.4); Platelet Count 129 K/mcL (140-400); Red Blood Count 2.94 M/mcL (3.82-4.97)
[2016-07-25 03:54] LABS: Alanine Aminotransferase 29 Units/L (0-55); Albumin/Globulin Ratio 0.4 (1.1-2.2); Alkaline Phosphatase 69 Units/L (38-126); Aspartate Amino Transferase 50 Units/L (5-34); BUN/Creatinine Ratio 51 (6-26); Blood Urea Nitrogen 38 mg/dL (7-20); Carbon Dioxide 21 mEq/L (19-29); Chloride 110 mEq/L (98-109); Globulin 3.1 g/dL (2.4-3.5); Glucose 142 mg/dL (70-99); Magnesium 1.8 mg/dL (1.6-2.6); Osmolality,Calculated 291 (280-300); Potassium 4.2 mEq/L (3.5-4.5); Sodium 135 mEq/L (136-145); Total Protein 4.3 g/dL (6.0-8.3); eGFR For African Americans > 60 (> 60); eGFR For Non-African Americans > 60 (> 60)
[2016-07-25 03:55] LABS: Albumin 1.2 g/dL (3.5-5.0)
[2016-07-25 03:59] LABS: Eosinophils # 0.2 K/mcL (0.0-0.6); Large Platelets Present (Not Present); Monocytes # 1.1 K/mcL (0.0-1.3); Neutrophils # 9.3 K/mcL (1.6-8.9); Platelet Estimate Decreased (Normal)
[2016-07-25 04:00] LABS: Polychromasia 2+ (Not Present)
[2016-07-25] MEDS: FentaNYL (PF) 1,000 MCG in 0.9 % Sodium Chloride 80 ML IVC SCH ×3 (04:11→17:40)
[2016-07-25] MEDS: Magnesium Sulfate 2 GM in D5% in Water 100 ML IVPB PRN ×2 (04:29→15:45)
[2016-07-25] MEDS: Pantoprazole 40 MG VIAL IVP SCH (05:33)
--- NOTE | 2016-07-25 06:55 | Pulmonology Progress Note ---
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 Current Visit: Yes Status: Acute Neuropsych: --Sedated on ventilator, increased agitation, we will add Precedex --Acute infarcts to right MCA, left SPRAY GUN STRIPER,and left LUCAS 07/23; repeat head CT 07/24 shows stroke stable --History of MRDD and seizure disorder, continue home medications of phenytoin ( dilantin) and levetiracetam (keppra) --phenytoin level 07/24 8.8, corrected for albumin = 27.5 --hold phenytoin today, recheck level tomorrow morning Pulm: --On ventilator support, BiPAP trials daily; will wean off vent when tolerated --Concern for aspiration pneumonia --antibiotic coverage with aztreonam and Flagyl day 3 preceded by 1 day of ertapenem and 4.5 days of Zosyn; antibiotic day 8.5, will give 10 days of antibiotics Cardio: Stable FEN-GI: --GI prophylaxis on board --POD# 6 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 Laurent --TPN + lactated Ringer's with good output to ileostomy; total IV rate of 125, goal net I/O = 0 Renal: Stable ID: --Stool PCR negative, C. difficile negative, urine culture negative, blood cultures 2 negative --Continue aztreonam and Flagyl for suspected aspiration pneumonia Heme/Onc: --Persistent thrombocytopenia, improving daily --DVT prophylaxis with IPCDs, neurology recommends withholding anticoagulation for at least 5 days post cerebellar infarction --Transfused a total of 4 units pRBC, last transfusion 07/22 Endocrine: TPN, hypoglycemia protocol Integ/MSK: Continue ICU skin care protocol Lines: ETT, NG, right femoral central venous catheter Full code (2) Cerebral infarction involving left anterior cerebral artery Current Visit: Yes Status: Acute (3) Cerebral infarction involving left posterior cerebral artery Current Visit: Yes Status: Acute (4) Acute respiratory failure with hypoxia Current Visit: Yes Status: Acute (5) Thrombocytopenia Current Visit: Yes Status: Acute (6) Goals of care, counseling/discussion Current Visit: Yes Status: Acute Patient does not have POA Social work following (7) Postoperative anemia Current Visit: Yes Status: Acute Patient received 2 units pRBC / and 2 units pRBC / (8) Pneumonia Current Visit: Yes Status: Suspected Suspect aspiration pneumonia coverage with aztreonam and flagyl Qualifiers: Pneumonia type: aspiration pneumonia Laterality: unspecified laterality Lung location: unspecified part of lung Qualified Code(s): J69.0 - Pneumonitis due to inhalation of food and vomit (9) UTI (urinary tract infection) Current Visit: Yes Status: Suspected Suspected UTI with many bacteria, large leukocyte esterase, 50-100 WBCs Urine culture 07/18/2016 no growth to date, no pathogens isolated Qualifiers: Urinary tract infection type: site unspecified Hematuria presence: without hematuria Qualified Code(s): N39.0 - Urinary tract infection, site not specified (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 status post surgery (11) Bowel obstruction Current Visit: Yes Status: Resolved Resolved status post surgery Qualifiers: Intestinal obstruction type: unspecified Qualified Code(s): K56.60 - Unspecified intestinal obstruction (12) Mental retardation Current Visit: Yes Status: Chronic Patient lives in a alf and is reportedly high functioning (13) Seizure disorder Current Visit: Yes Status: Chronic No recent seizure activity reported Continue home doses of Dilantin and Keppra (14) Septic shock Current Visit: Yes Status: Resolved Resolved (15) Lactic acidosis Current Visit: Yes Status: Resolved Resolved (16) Tachycardia Current Visit: Yes Status: Resolved Resolved (17) Acute kidney injury Current Visit: Yes Status: Resolved Resolved Subjective Principal diagnosis: Sepsis secondary to bowel necrosis, acute respiratory failure Interval history: Patient tolerated 25 minutes of BiPAP this morning before being switched back to ventilator due to persistent tachypnea with decreased tidal volumes. Objective PUL Vital signs: Last Vital Signs Temp 99.9 F H 07/25/16 03:15 Pulse 101 07/25/16 06:00 Resp 29 07/25/16 06:00 BP 136/78 07/25/16 06:00 Pulse Ox 100 07/25/16 06:00 General appearance: other (Sedated on ventilator) Eyes: nonicteric, other (Opens eyes during my exam however does not look at me) Effort: other (On ventilator support) Auscultation: bilateral: rhonchi (Improved from previous days) Cardiovascular: regular rate and rhythm Gastrointestinal: normoactive bowel sounds, soft, tender (Postoperative), other (Ileostomy with green output) Integumentary: other (Weeping skin along groin from left line that has been removed, excoriation from previous bandage of right femoral central line) Extremities: no cyanosis, edema (Trace) Musculoskeletal: other (Moving right extremities minimally, no movement of left extremities) unable to assess due to mental status other (Unable to assess due to sedation) Ventilator Settings Ventilator Settings: Ventilator Settings, Last 8 Hours Ventilator Mode VC+ Ventilator Mode VC+ Ventilator Mode VC+ Ventilator Mode VC+ Ventilator Mode VC+ Ventilator Mode VC+ Ventilator Mode VC+ Ventilator Mode VC+ Ventilator Mode VC+ Ventilator Mode VC+ Ventilator Mode VC+ Ventilator Mode VC+ Ventilator Tidal Volume 450 Setting Ventilator Tidal Volume 450 Setting Ventilator Tidal Volume 450 Setting Ventilator Tidal Volume 450 Setting Ventilator Tidal Volume 450 Setting Ventilator Tidal Volume 450 Setting Ventilator Tidal Volume 450 Setting Ventilator Tidal Volume 450 Setting Ventilator Tidal Volume 450 Setting Ventilator Tidal Volume 450 Setting Ventilator Tidal Volume 450 Setting Ventilator Tidal Volume 450 Setting Ventilator Respiratory Rate 12 Setting Ventilator Respiratory Rate 12 Setting Ventilator Respiratory Rate 12 Setting Ventilator Respiratory Rate 12 Setting Ventilator Respiratory Rate 12 Setting Ventilator Respiratory Rate 12 Setting Ventilator Respiratory Rate 12 Setting Ventilator Respiratory Rate 12 Setting Ventilator Respiratory Rate 12 Setting Ventilator Respiratory Rate 12 Setting Ventilator Respiratory Rate 12 Setting Ventilator Respiratory Rate 12 Setting Actual Respiratory Rate 28 Actual Respiratory Rate 21 Actual Respiratory Rate 24 Actual Respiratory Rate 20 Actual Respiratory Rate 24 Actual Respiratory Rate 21 Actual Respiratory Rate 24 Actual Respiratory Rate 24 Actual Respiratory Rate 22 Actual Respiratory Rate 16 Actual Respiratory Rate 21 Actual Respiratory Rate 20 Positive End Expiratory 5 Pressure Positive End Expiratory 5 Pressure Positive End Expiratory 5 Pressure Positive End Expiratory 5 Pressure Positive End Expiratory 5 Pressure Positive End Expiratory 5 Pressure Positive End Expiratory 5 Pressure Positive End Expiratory 5 Pressure Positive End Expiratory 5 Pressure Positive End Expiratory 5 Pressure Positive End Expiratory 5 Pressure Positive End Expiratory 5 Pressure Peak Inspiratory Airway 16 Pressure Peak Inspiratory Airway 16 Pressure Peak Inspiratory Airway 26 Pressure Peak Inspiratory Airway 20 Pressure Peak Inspiratory Airway 23 Pressure Peak Inspiratory Airway 34 Pressure Peak Inspiratory Airway 35 Pressure Peak Inspiratory Airway 25 Pressure Peak Inspiratory Airway 41 Pressure Peak Inspiratory Airway 33 Pressure Peak Inspiratory Airway 32 Pressure Peak Inspiratory Airway 30 Pressure Results - Laboratory Findings CBC and BMP: 07/25/16 03:25 07/25/16 03:25 ABG ABG pH 7.38 pH Units (7.32-7.45) 07/21/16 04:15 ABG pCO2 31 mmHg (35-45) L 07/21/16 04:15 ABG pO2 155 mmHg (85-104) H 07/21/16 04:15 ABG O2 Saturation 99 % (95-98) H 07/21/16 04:15 PT/INR, D-dimer PT 10.7 Seconds (9.4-12.1) 07/23/16 11:25 Abnormal lab findings: Abnormal lab results WBC 11.3 K/mcL (4.3-11.1) H 07/25/16 03:25 RBC 2.94 M/mcL (3.82-4.97) L 07/25/16 03:25 Hgb 8.9 g/dL (11.5-15.4) L 07/25/16 03:25 Hct 26.6 % (35.3-44.9) L 07/25/16 03:25 RDW 15.0 % (11.5-14.5) H 07/25/16 03:25 Plt Count 129 K/mcL (140-400) L D 07/25/16 03:25 Immature Gran % 5.8 % (0-4) H 07/24/16 03:24 Metamyelocytes % 2.0 % (0) H 07/21/16 23:00 Myelocytes % 3.0 % (0) H 07/18/16 10:28 Neutrophils # 9.3 K/mcL (1.6-8.9) H 07/25/16 03:25 Nucleated RBCs/100 WBC 0.2 /100 WBC (0) H 07/24/16 03:24 Reactive Lymphocytes Present (Not Present) A 07/24/16 03:24 Toxic Granulation Present (Not Present) A 07/24/16 03:24 Toxic Vacuolation Present (Not Present) A 07/23/16 03:11 Dohle Bodies Present (Not Present) A 07/23/16 03:11 Platelet Estimate Decreased (Normal) L 07/25/16 03:25 Large Platelets Present (Not Present) A 07/25/16 03:25 Polychromasia 2+ (Not Present) A 07/25/16 03:25 Anisocytosis 1+ (Not Present) A 07/22/16 04:00 Cherry Plain Cells 3+ (Not Present) A 07/18/16 22:37 Acanthocytes (Spur) 1+ (Not Present) A 07/21/16 23:00 Rouleaux Present (Not Present) A 07/24/16 03:24 Fibrinogen 745 mg/dL (169-393) H* 07/23/16 12:28 ABG pCO2 31 mmHg (35-45) L 07/21/16 04:15 ABG pO2 155 mmHg (85-104) H 07/21/16 04:15 ABG HCO3 18.3 mEQ/L (21-27) L 07/21/16 04:15 ABG Total CO2 19.3 mEq/L (20-26) L 07/21/16 04:15 ABG O2 Saturation 99 % (95-98) H 07/21/16 04:15 ABG Base Excess -6.3 mEq/L (-2.0 to 3.0) L 07/21/16 04:15 Sodium 135 mEq/L (136-145) L 07/25/16 03:25 Chloride 110 mEq/L (98-109) H 07/25/16 03:25 BUN 38 mg/dL (7-20) H 07/25/16 03:25 BUN/Creatinine Ratio 51 (6-26) H 07/25/16 03:25 Glucose 142 mg/dL (70-99) H 07/25/16 03:25 POC Glucose 114 (58-89) H 07/25/16 00:07 Calcium 8.0 mg/dL (8.6-10.8) L 07/25/16 03:25 AST 50 Units/L (5-34) H 07/25/16 03:25 Troponin I 0.14 ng/mL (0-0.03) H* 07/18/16 09:38 B-Natriuretic Peptide 3231 pg/mL (0-100) H 07/18/16 10:28 Serum Total Protein 4.3 g/dL (6.0-8.3) L 07/25/16 03:25 Albumin 1.2 g/dL (3.5-5.0) L 07/25/16 03:25 Albumin/Globulin Ratio 0.4 (1.1-2.2) L 07/25/16 03:25 Prealbumin 4.0 mg/dL (16.0-38.0) L 07/20/16 11:05 Urine Clarity Cloudy (Clear) A 07/18/16 10:55 Urine Protein 30 mg/dL (Neg-Trace) H 07/18/16 10:55 Ur Leukocyte Esterase Large (Negative) H 07/18/16 10:55 Urine Microscopic WBC 50-100 per hpf (0-3) H 07/18/16 10:55 Urine Bacteria Many per hpf (None-Few) H 07/18/16 10:55 Ur Culture Indicated? YES (NO) A 07/18/16 10:55 Phenytoin 8.8 mcg/mL (10-20) L 07/24/16 11:35 - Clinical Findings Intake & Output: Intake & Output 07/24/16 07/24/16 07/25/16 15:59 23:59 07:59 Intake Total 290 / 290 1614 / 1614 1675 / 1675 Output Total 800 / 800 750 / 750 1775 / 1775 Balance -510 / -510 864 / 864 -100 / -100 Weight 72 kg - VTE Documentation of Mechanical Device: Intermittent pneumatic compression device Consult Discharge Plan - Plan Referrals: NO,PCP [Non-Partnered Physician] - <Guevara Cristina - Last Filed: 07/25/16 13:53> Date of Encounter: 07/25/16 Objective PUL Vital signs: Last Vital Signs Temp 99.1 F 07/25/16 11:33 Pulse 96 07/25/16 12:00 Resp 20 07/25/16 12:00 BP 130/69 07/25/16 12:00 Pulse Ox 100 07/25/16 12:00 Ventilator Settings Ventilator Settings: Ventilator Settings, Last 8 Hours Ventilator Mode VC+ Ventilator Mode VC+ Ventilator Mode VC+ Ventilator Mode VC+ Ventilator Mode VC+ Ventilator Mode VC+ Ventilator Mode VC+ Ventilator Mode VC+ Ventilator Mode VC+ Ventilator Mode VC+ Ventilator Tidal Volume 450 Setting Ventilator Tidal Volume 450 Setting Ventilator Tidal Volume 450 Setting Ventilator Tidal Volume 450 Setting Ventilator Tidal Volume 450 Setting Ventilator Tidal Volume 450 Setting Ventilator Tidal Volume 450 Setting Ventilator Tidal Volume 450 Setting Ventilator Tidal Volume 450 Setting Ventilator Tidal Volume 450 Setting Ventilator Respiratory Rate 12 Setting Ventilator Respiratory Rate 12 Setting Ventilator Respiratory Rate 12 Setting Ventilator Respiratory Rate 12 Setting Ventilator Respiratory Rate 12 Setting Ventilator Respiratory Rate 12 Setting Ventilator Respiratory Rate 12 Setting Ventilator Respiratory Rate 12 Setting Ventilator Respiratory Rate 12 Setting Ventilator Respiratory Rate 12 Setting Actual Respiratory Rate 15 Actual Respiratory Rate 21 Actual Respiratory Rate 25 Actual Respiratory Rate 15 Actual Respiratory Rate 20 Actual Respiratory Rate 19 Actual Respiratory Rate 19 Actual Respiratory Rate 22 Actual Respiratory Rate 20 Actual Respiratory Rate 28 Positive End Expiratory 5 Pressure Positive End Expiratory 5 Pressure Positive End Expiratory 5 Pressure Positive End Expiratory 5 Pressure Positive End Expiratory 5 Pressure Positive End Expiratory 5 Pressure Positive End Expiratory 5 Pressure Positive End Expiratory 5 Pressure Positive End Expiratory 5 Pressure Positive End Expiratory 5 Pressure Peak Inspiratory Airway 21 Pressure Peak Inspiratory Airway 18 Pressure Peak Inspiratory Airway 18 Pressure Peak Inspiratory Airway 37 Pressure Peak Inspiratory Airway 38 Pressure Peak Inspiratory Airway 38 Pressure Peak Inspiratory Airway 34 Pressure Peak Inspiratory Airway 34 Pressure Peak Inspiratory Airway 33 Pressure Peak Inspiratory Airway 16 Pressure Results - Laboratory Findings CBC and BMP: 07/25/16 03:25 07/25/16 03:25 ABG ABG pH 7.38 pH Units (7.32-7.45) 07/21/16 04:15 ABG pCO2 31 mmHg (35-45) L 07/21/16 04:15 ABG pO2 155 mmHg (85-104) H 07/21/16 04:15 ABG O2 Saturation 99 % (95-98) H 07/21/16 04:15 PT/INR, D-dimer PT 10.7 Seconds (9.4-12.1) 07/23/16 11:25 Abnormal lab findings: Abnormal lab results WBC 11.3 K/mcL (4.3-11.1) H 07/25/16 03:25 RBC 2.94 M/mcL (3.82-4.97) L 07/25/16 03:25 Hgb 8.9 g/dL (11.5-15.4) L 07/25/16 03:25 Hct 26.6 % (35.3-44.9) L 07/25/16 03:25 RDW 15.0 % (11.5-14.5) H 07/25/16 03:25 Plt Count 129 K/mcL (140-400) L D 07/25/16 03:25 Immature Gran % 5.8 % (0-4) H 07/24/16 03:24 Metamyelocytes % 2.0 % (0) H 07/21/16 23:00 Myelocytes % 3.0 % (0) H 07/18/16 10:28 Neutrophils # 9.3 K/mcL (1.6-8.9) H 07/25/16 03:25 Nucleated RBCs/100 WBC 0.2 /100 WBC (0) H 07/24/16 03:24 Reactive Lymphocytes Present (Not Present) A 07/24/16 03:24 Toxic Granulation Present (Not Present) A 07/24/16 03:24 Toxic Vacuolation Present (Not Present) A 07/23/16 03:11 Dohle Bodies Present (Not Present) A 07/23/16 03:11 Platelet Estimate Decreased (Normal) L 07/25/16 03:25 Large Platelets Present (Not Present) A 07/25/16 03:25 Polychromasia 2+ (Not Present) A 07/25/16 03:25 Anisocytosis 1+ (Not Present) A 07/22/16 04:00 Isai Cells 3+ (Not Present) A 07/18/16 22:37 Acanthocytes (Spur) 1+ (Not Present) A 07/21/16 23:00 Rouleaux Present (Not Present) A 07/24/16 03:24 Fibrinogen 745 mg/dL (169-393) H* 07/23/16 12:28 ABG pCO2 31 mmHg (35-45) L 07/21/16 04:15 ABG pO2 155 mmHg (85-104) H 07/21/16 04:15 ABG HCO3 18.3 mEQ/L (21-27) L 07/21/16 04:15 ABG Total CO2 19.3 mEq/L (20-26) L 07/21/16 04:15 ABG O2 Saturation 99 % (95-98) H 07/21/16 04:15 ABG Base Excess -6.3 mEq/L (-2.0 to 3.0) L 07/21/16 04:15 Sodium 135 mEq/L (136-145) L 07/25/16 03:25 Chloride 110 mEq/L (98-109) H 07/25/16 03:25 BUN 38 mg/dL (7-20) H 07/25/16 03:25 BUN/Creatinine Ratio 51 (6-26) H 07/25/16 03:25 Glucose 142 mg/dL (70-99) H 07/25/16 03:25 POC Glucose 107 (58-89) H 07/25/16 11:17 Calcium 8.0 mg/dL (8.6-10.8) L 07/25/16 03:25 AST 50 Units/L (5-34) H 07/25/16 03:25 Troponin I 0.14 ng/mL (0-0.03) H* 07/18/16 09:38 B-Natriuretic Peptide 3231 pg/mL (0-100) H 07/18/16 10:28 Serum Total Protein 4.3 g/dL (6.0-8.3) L 07/25/16 03:25 Albumin 1.2 g/dL (3.5-5.0) L 07/25/16 03:25 Albumin/Globulin Ratio 0.4 (1.1-2.2) L 07/25/16 03:25 Prealbumin 4.0 mg/dL (16.0-38.0) L 07/20/16 11:05 Urine Clarity Cloudy (Clear) A 07/18/16 10:55 Urine Protein 30 mg/dL (Neg-Trace) H 07/18/16 10:55 Ur Leukocyte Esterase Large (Negative) H 07/18/16 10:55 Urine Microscopic WBC 50-100 per hpf (0-3) H 07/18/16 10:55 Urine Bacteria Many per hpf (None-Few) H 07/18/16 10:55 Ur Culture Indicated? YES (NO) A 07/18/16 10:55 Phenytoin 8.8 mcg/mL (10-20) L 07/24/16 11:35 - Clinical Findings Intake & Output: Intake & Output 07/24/16 07/25/16 07/25/16 23:59 07:59 15:59 Intake Total 1614 / 1614 1685 / 1685 1269 / 1269 Output Total 750 / 750 2125 / 2125 700 / 700 Balance 864 / 864 -440 / -440 569 / 569 Weight 72 kg - Attending Attestation I examined this patient and my medical decision-making was reviewed with the ALTERATION HAND/PA/Advanced Practice Nurse/Resident Physician. I agree with the documented findings, disposition and treatment plan as described except to the extent set forth below. Neuropsych: b/l Acute CVA including large right MCA and left SPRAY GUN STRIPER territory and smaller LUCAS. Suspect emoblic phenomenon. Neuro consulted no acute intervention. Repeat Head CT stable. Given size and thrombcytopenia high risk for hemorrhagic conversion. no Statin (no PO med) or ASA (low plts) at this time. Cont fentanyl as needed for pain/agitation start precedex. Cont antiepileptics for seizure disorder hold dose of Dilatin for high level. Pulm: Hypoxic respiratory failure intubated. minimal vent settings requirements acceptable oxygenation, failed SBT (tachypenia) acceptable oxygenation/sedation and worsening pulmonary clarke. Will proceed with diuresis outside of window of acute CVA Cards: Hemodynamics are stable. Avoid antihpertensives/diuretics in setting of acute Ischemic CVA. Initial evidence of Afib but has been sinus rhythm clearly this is potential cause of emoblic CVA. Cannot anticogulate given recent anemia and blood loss along with thrombocytopenia. Consider TTE w/o valvular vegetations. FEN-GI: cont TPN. currently resting bowl s/p partial small bowl and total large bowel removal. Surgery Following. PEG Tube placement per Surgery on hold because of acute CVA. Cont Crystalloid Infusion to match I/Os. Renal: CLEMENTINA has resolved. appropriate UOP replace lytes per protocol cont daily BMP. ID: treating for ischemic collitis. Cont aztreonam + Flagyl to [id number] days based upon clinical course Heme/Onc: Anemia s/t to blood loss complicated by critical illness. H/H stable cont to monitor. Thrombocytopenia likely secondary to sepsis and medication effect continues to improve. Holding anticoagulation s/t high risk for ICH and thrombocytopenia. Cont mechanical DVT prophy Endo:cont synthroid for hypothyroidism, glucose monitored and stable. Integ/MSK: cont skin care per ICU protocol CODE: Full Code. Request for emergent court ordered guardianship has been made and pending review. Electrical Power Station Technician following
[2016-07-25] MEDS: levETIRAcetam 1,000 MG in 0.9 % Sodium Chloride 100 ML IVPB SCH ×2 (08:33→20:22)
[2016-07-25] MEDS: Chlorhexidine Rinse 15 ML MOUTHWASH MM SCH ×2 (08:34→20:22)
[2016-07-25] MEDS: Levothyroxine Sodium 100 MCG VIAL IVP SCH (08:35)
--- NOTE | 2016-07-25 10:21 | Event Note ---
Date of Encounter: 07/25/16 Time of Encounter: 07:15 No real change in the patient's overall condition. Her ileostomy is functioning. Nasogastric tube is dropping off. Once power of information security is obtained. Consider placement of PEG tube.
[2016-07-25] MEDS: Dexmedetomidine HCl 400 MCG/100 ML MLS IVC SCH ×2 (11:54→18:17)
[2016-07-25] MEDS ORDERED: Clinimix E 5%-15% SOLUTION 2,000 ML with MVI, adult with vitamin K 10 ML IVC SCH (17:00)
[2016-07-26] MEDS: Dexmedetomidine HCl 400 MCG/100 ML MLS IVC SCH ×3 (02:45→20:29)
[2016-07-26] MEDS: FentaNYL (PF) 1,000 MCG in 0.9 % Sodium Chloride 80 ML IVC SCH ×3 (03:30→23:15)
[2016-07-26] MEDS: Lacri-Lube 3.5 GM TUBE BOTH EYES SCH ×6 (03:33→23:32)
[2016-07-26 04:49] LABS: Hematocrit 27.1 % (35.3-44.9); Mean Corpuscular HGB Conc 33.2 g/dL (31.6-35.5); Mean Corpuscular Hemoglobin 30.3 pg (28.0-33.3); Mean Corpuscular Volume 91.2 fL (83.0-100.0); Mean Platelet Volume 10.5 fL (9.4-12.4); Monocytes # 0.8 K/mcL (0.0-1.3); Platelet Count 197 K/mcL (140-400); Red Blood Count 2.97 M/mcL (3.82-4.97); Red Cell Distribution Width 14.6 % (11.5-14.5)
[2016-07-26 05:19] LABS: Phenytoin (Dilantin) 6.6 mcg/mL (10-20)
[2016-07-26 05:20] LABS: BUN/Creatinine Ratio 61 (6-26); Blood Urea Nitrogen 39 mg/dL (7-20); Calcium 7.8 mg/dL (8.6-10.8); Carbon Dioxide 20 mEq/L (19-29); Chloride 109 mEq/L (98-109); Glucose 131 mg/dL (70-99); Magnesium 1.6 mg/dL (1.6-2.6); Osmolality,Calculated 291 (280-300); Phosphorous 4.6 mg/dL (2.3-4.7); Potassium 4.2 mEq/L (3.5-4.5); Sodium 135 mEq/L (136-145); eGFR For African Americans > 60 (> 60); eGFR For Non-African Americans > 60 (> 60)
[2016-07-26] MEDS: Ringers Solution, Lactated 1,000 ML IVC SCH (05:51)
[2016-07-26] MEDS: Pantoprazole 40 MG VIAL IVP SCH (05:51)
[2016-07-26 06:25] LABS: Lymphocytes # 0.8 K/mcL (0.6-4.6)
[2016-07-26 06:26] LABS: Reactive Lymphocytes Present (Not Present); Toxic Granulation Present (Not Present)
[2016-07-26 06:28] LABS: Dohle Bodies Present (Not Present); Large Platelets Present (Not Present); Platelet Estimate Normal (Normal)
[2016-07-26 06:30] LABS: Macrocytosis Present (Not Present); Polychromasia 1+ (Not Present); Rouleaux Present (Not Present)
--- NOTE | 2016-07-26 07:38 | Pulmonology Progress Note ---
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 Current Visit: Yes Status: Acute [address]-appointed guardianship has been approved for medical power of [employer] developer Neuropsych: --Sedated on ventilator --Acute infarcts to right MCA, left ASSISTANT MANAGER PT,and left LUCAS 07/23; repeat head CT 07/24 shows stroke stable --History of MRDD and seizure disorder, home medications of phenytoin (dilantin ) and levetiracetam (keppra) --Phenytoin held for 24 hours, corrected phenytoin level this morning 19.4; restart phenytoin at one half previous dose (75 mg BID) --Levetiracetam level of 47 Pulm: --On ventilator support, BiPAP trials daily; will wean off vent when tolerated --Concern for aspiration pneumonia --antibiotic coverage with aztreonam and Flagyl day 4 preceded by 1 day of ertapenem and 4.5 days of Zosyn; antibiotic day 9.5, will give 10 days of antibiotics --Plan for tracheostomy in the near future Cardio: EKG evidence of paroxysmal A. fib. Patient needs anticoagulation therapy for A. fib; this will start 07/29 - withholding anticoagulation 5 days post cerebellar infarction. 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 Laurent 07/20 --Plan for PEG tube in the near future --Start enteral feeds through NG tube/PEG tube --TPN with good output to ileostomy; goal net I/O = 0 Renal: Stable ID: --Stool PCR negative, C. difficile negative, urine culture negative, blood cultures 2 negative --Continue aztreonam and Flagyl for suspected aspiration pneumonia Heme/Onc: --DVT prophylaxis with IPCDs, neurology recommends withholding anticoagulation for at least 5 days post cerebellar infarction --Transfused a total of 4 units pRBC, last transfusion 07/22 Endocrine: TPN, hypoglycemia protocol - plan to start enteral feeds Integ/MSK: Continue ICU skin care protocol Lines: ETT, NG, right femoral central venous catheter --Plan for PICC line today with subsequent removal of central line Full code (2) Cerebral infarction involving left anterior cerebral artery Current Visit: Yes Status: Acute (3) Cerebral infarction involving left posterior cerebral artery Current Visit: Yes Status: Acute (4) Acute respiratory failure with hypoxia Current Visit: Yes Status: Acute (5) Goals of care, counseling/discussion Current Visit: Yes Status: Acute [address]-appointed guardianship has been approved Patient does not have POA Social work following (6) Postoperative anemia Current Visit: Yes Status: Acute Patient received 2 units pRBC 07/21 and 2 units pRBC 07/22 (7) Pneumonia Current Visit: Yes Status: Suspected Suspect aspiration pneumonia coverage with aztreonam and flagyl Qualifiers: Pneumonia type: aspiration pneumonia Laterality: unspecified laterality Lung location: unspecified part of lung Qualified Code(s): J69.0 - Pneumonitis due to inhalation of food and vomit (8) Thrombocytopenia Current Visit: Yes Status: Resolved Resolved (9) UTI (urinary tract infection) Current Visit: Yes Status: Suspected Suspected UTI with many bacteria, large leukocyte esterase, 50-100 WBCs Urine culture 07/18/2016 no growth to date, no pathogens isolated Qualifiers: Urinary tract infection type: site unspecified Hematuria presence: without hematuria Qualified Code(s): N39.0 - Urinary tract infection, site not specified (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 status post surgery (11) Bowel obstruction Current Visit: Yes Status: Resolved Resolved status post surgery Qualifiers: Intestinal obstruction type: unspecified Qualified Code(s): K56.60 - Unspecified intestinal obstruction (12) Mental retardation Current Visit: Yes Status: Chronic Patient lives in a chcf and is reportedly high functioning (13) Seizure disorder Current Visit: Yes Status: Chronic No recent seizure activity reported (14) Septic shock Current Visit: Yes Status: Resolved Resolved (15) Lactic acidosis Current Visit: Yes Status: Resolved Resolved (16) Tachycardia Current Visit: Yes Status: Resolved Resolved (17) Acute kidney injury Current Visit: Yes Status: Resolved Resolved Subjective Principal diagnosis: Sepsis secondary to bowel necrosis, acute respiratory failure Objective PUL Vital signs: Last Vital Signs Temp 99.2 F 07/26/16 03:30 Pulse 95 07/26/16 06:00 Resp 27 07/26/16 06:03 BP 108/60 07/26/16 06:00 Pulse Ox 100 07/26/16 06:03 General appearance: no acute distress, other (Sedated with ventilator support) Eyes: nonicteric ENT: oropharynx moist Effort: normal Auscultation: bilateral: clear Cardiovascular: regular rate and rhythm Gastrointestinal: normoactive bowel sounds, other (Ileostomy with dark green output, midline bandage clean and dry) Integumentary: other (Excoriation around bandage from right femoral central line ) Extremities: no edema, pink and warm, pulses normal Musculoskeletal: other (Movements of right extremities, no movement of left extremities) unable to assess due to mental status Ventilator Settings Ventilator Settings: Ventilator Settings, Last 8 Hours Ventilator Mode CPAP Ventilator Mode CPAP Ventilator Mode VC+ Ventilator Mode VC+ Ventilator Mode VC+ Ventilator Mode VC+ Ventilator Mode VC+ Ventilator Mode VC+ Ventilator Mode VC+ Ventilator Mode VC+ Ventilator Tidal Volume 450 Setting Ventilator Tidal Volume 450 Setting Ventilator Tidal Volume 450 Setting Ventilator Tidal Volume 450 Setting Ventilator Tidal Volume 450 Setting Ventilator Tidal Volume 450 Setting Ventilator Tidal Volume 450 Setting Ventilator Tidal Volume 450 Setting Ventilator Tidal Volume 450 Setting Ventilator Tidal Volume 450 Setting Ventilator Respiratory Rate 12 Setting Ventilator Respiratory Rate 12 Setting Ventilator Respiratory Rate 12 Setting Ventilator Respiratory Rate 12 Setting Ventilator Respiratory Rate 12 Setting Ventilator Respiratory Rate 12 Setting Ventilator Respiratory Rate 12 Setting Ventilator Respiratory Rate 12 Setting Ventilator Respiratory Rate 12 Setting Ventilator Respiratory Rate 12 Setting Actual Respiratory Rate 27 Actual Respiratory Rate 27 Actual Respiratory Rate 20 Actual Respiratory Rate 26 Actual Respiratory Rate 20 Actual Respiratory Rate 22 Actual Respiratory Rate 26 Actual Respiratory Rate 24 Actual Respiratory Rate 25 Actual Respiratory Rate 16 Positive End Expiratory 5 Pressure Positive End Expiratory 5 Pressure Positive End Expiratory 5 Pressure Positive End Expiratory 5 Pressure Positive End Expiratory 5 Pressure Positive End Expiratory 5 Pressure Positive End Expiratory 5 Pressure Positive End Expiratory 5 Pressure Positive End Expiratory 5 Pressure Positive End Expiratory 5 Pressure Peak Inspiratory Airway 16 Pressure Peak Inspiratory Airway 24 Pressure Peak Inspiratory Airway 14 Pressure Peak Inspiratory Airway 25 Pressure Peak Inspiratory Airway 24 Pressure Peak Inspiratory Airway 23 Pressure Peak Inspiratory Airway 14 Pressure Peak Inspiratory Airway 24 Pressure Peak Inspiratory Airway 26 Pressure Results - Laboratory Findings CBC and BMP: 07/26/16 04:35 07/26/16 04:35 ABG ABG pH 7.38 pH Units (7.32-7.45) 07/21/16 04:15 ABG pCO2 31 mmHg (35-45) L 07/21/16 04:15 ABG pO2 155 mmHg (85-104) H 07/21/16 04:15 ABG O2 Saturation 99 % (95-98) H 07/21/16 04:15 PT/INR, D-dimer PT 10.7 Seconds (9.4-12.1) 07/23/16 11:25 Abnormal lab findings: Abnormal lab results RBC 2.97 M/mcL (3.82-4.97) L 07/26/16 04:35 Hgb 9.0 g/dL (11.5-15.4) L 07/26/16 04:35 Hct 27.1 % (35.3-44.9) L 07/26/16 04:35 RDW 14.6 % (11.5-14.5) H 07/26/16 04:35 Immature Gran % 5.8 % (0-4) H 07/24/16 03:24 Band Neutrophils % 13.0 % (0-4) H 07/26/16 04:35 Metamyelocytes % 2.0 % (0) H 07/21/16 23:00 Myelocytes % 1.0 % (0) H 07/26/16 04:35 Promyelocytes % 1.0 % (0) H 07/26/16 04:35 Nucleated RBCs/100 WBC 0.2 /100 WBC (0) H 07/24/16 03:24 Reactive Lymphocytes Present (Not Present) A 07/26/16 04:35 Toxic Granulation Present (Not Present) A 07/26/16 04:35 Toxic Vacuolation Present (Not Present) A 07/23/16 03:11 Dohle Bodies Present (Not Present) A 07/26/16 04:35 Large Platelets Present (Not Present) A 07/26/16 04:35 Polychromasia 1+ (Not Present) A 07/26/16 04:35 Anisocytosis 1+ (Not Present) A 07/22/16 04:00 Macrocytosis Present (Not Present) A 07/26/16 04:35 Isai Cells 3+ (Not Present) A 07/18/16 22:37 Acanthocytes (Spur) 1+ (Not Present) A 07/21/16 23:00 Rouleaux Present (Not Present) A 07/26/16 04:35 Fibrinogen 745 mg/dL (169-393) H* 07/23/16 12:28 ABG pCO2 31 mmHg (35-45) L 07/21/16 04:15 ABG pO2 155 mmHg (85-104) H 07/21/16 04:15 ABG HCO3 18.3 mEQ/L (21-27) L 07/21/16 04:15 ABG Total CO2 19.3 mEq/L (20-26) L 07/21/16 04:15 ABG O2 Saturation 99 % (95-98) H 07/21/16 04:15 ABG Base Excess -6.3 mEq/L (-2.0 to 3.0) L 07/21/16 04:15 Sodium 135 mEq/L (136-145) L 07/26/16 04:35 BUN 39 mg/dL (7-20) H 07/26/16 04:35 BUN/Creatinine Ratio 61 (6-26) H 07/26/16 04:35 Glucose 131 mg/dL (70-99) H 07/26/16 04:35 POC Glucose 135 (58-89) H 07/25/16 23:50 Calcium 7.8 mg/dL (8.6-10.8) L 07/26/16 04:35 AST 50 Units/L (5-34) H 07/25/16 03:25 Troponin I 0.14 ng/mL (0-0.03) H* 07/18/16 09:38 B-Natriuretic Peptide 3231 pg/mL (0-100) H 07/18/16 10:28 Serum Total Protein 4.3 g/dL (6.0-8.3) L 07/25/16 03:25 Albumin 1.2 g/dL (3.5-5.0) L 07/25/16 03:25 Albumin/Globulin Ratio 0.4 (1.1-2.2) L 07/25/16 03:25 Prealbumin 4.0 mg/dL (16.0-38.0) L 07/20/16 11:05 Urine Clarity Cloudy (Clear) A 07/18/16 10:55 Urine Protein 30 mg/dL (Neg-Trace) H 07/18/16 10:55 Ur Leukocyte Esterase Large (Negative) H 07/18/16 10:55 Urine Microscopic WBC 50-100 per hpf (0-3) H 07/18/16 10:55 Urine Bacteria Many per hpf (None-Few) H 07/18/16 10:55 Ur Culture Indicated? YES (NO) A 07/18/16 10:55 Phenytoin 6.6 mcg/mL (10-20) L 07/26/16 04:35 - Clinical Findings Intake & Output: Intake & Output 07/25/16 07/25/16 07/26/16 15:59 23:59 07:59 Intake Total 1459 / 1459 2330 / 2330 1694 / 1694 Output Total 1000 / 1000 1500 / 1500 500 / 500 Balance 459 / 459 830 / 830 1194 / 1194 Weight 73 kg - VTE Documentation of Mechanical Device: Intermittent pneumatic compression device Consult Discharge Plan - Plan Referrals: NO,PCP [Non-Partnered Physician] - <Guevara Cristina - Last Filed: 07/26/16 16:08> Date of Encounter: 07/26/16 Objective PUL Vital signs: Last Vital Signs Temp 99.4 F 07/26/16 15:43 Pulse 90 07/26/16 15:00 Resp 19 07/26/16 15:17 BP 119/71 07/26/16 15:17 Pulse Ox 97 07/26/16 15:17 Ventilator Settings Ventilator Settings: Ventilator Settings, Last 8 Hours Ventilator Mode VC+ Ventilator Mode VC+ Ventilator Mode VC+ Ventilator Mode VC+ Ventilator Mode VC+ Ventilator Mode VC+ Ventilator Mode VC+ Ventilator Mode VC+ Ventilator Tidal Volume 450 Setting Ventilator Tidal Volume 450 Setting Ventilator Tidal Volume 450 Setting Ventilator Tidal Volume 450 Setting Ventilator Tidal Volume 450 Setting Ventilator Tidal Volume 450 Setting Ventilator Tidal Volume 450 Setting Ventilator Tidal Volume 450 Setting Ventilator Respiratory Rate 12 Setting Ventilator Respiratory Rate 12 Setting Ventilator Respiratory Rate 12 Setting Ventilator Respiratory Rate 12 Setting Ventilator Respiratory Rate 12 Setting Ventilator Respiratory Rate 12 Setting Ventilator Respiratory Rate 12 Setting Ventilator Respiratory Rate 12 Setting Actual Respiratory Rate 19 Actual Respiratory Rate 25 Actual Respiratory Rate 28 Actual Respiratory Rate 22 Actual Respiratory Rate 23 Actual Respiratory Rate 18 Actual Respiratory Rate 28 Actual Respiratory Rate 22 Positive End Expiratory 5 Pressure Positive End Expiratory 5 Pressure Positive End Expiratory 5 Pressure Positive End Expiratory 5 Pressure Positive End Expiratory 5 Pressure Positive End Expiratory 5 Pressure Positive End Expiratory 5 Pressure Positive End Expiratory 5 Pressure Peak Inspiratory Airway 26 Pressure Peak Inspiratory Airway 33 Pressure Peak Inspiratory Airway 25 Pressure Peak Inspiratory Airway 28 Pressure Results - Laboratory Findings CBC and BMP: 07/26/16 04:35 07/26/16 04:35 ABG ABG pH 7.38 pH Units (7.32-7.45) 07/21/16 04:15 ABG pCO2 31 mmHg (35-45) L 07/21/16 04:15 ABG pO2 155 mmHg (85-104) H 07/21/16 04:15 ABG O2 Saturation 99 % (95-98) H 07/21/16 04:15 PT/INR, D-dimer PT 10.7 Seconds (9.4-12.1) 07/23/16 11:25 Abnormal lab findings: Abnormal lab results RBC 2.97 M/mcL (3.82-4.97) L 07/26/16 04:35 Hgb 9.0 g/dL (11.5-15.4) L 07/26/16 04:35 Hct 27.1 % (35.3-44.9) L 07/26/16 04:35 RDW 14.6 % (11.5-14.5) H 07/26/16 04:35 Immature Gran % 5.8 % (0-4) H 07/24/16 03:24 Band Neutrophils % 13.0 % (0-4) H 07/26/16 04:35 Metamyelocytes % 2.0 % (0) H 07/21/16 23:00 Myelocytes % 1.0 % (0) H 07/26/16 04:35 Promyelocytes % 1.0 % (0) H 07/26/16 04:35 Nucleated RBCs/100 WBC 0.2 /100 WBC (0) H 07/24/16 03:24 Reactive Lymphocytes Present (Not Present) A 07/26/16 04:35 Toxic Granulation Present (Not Present) A 07/26/16 04:35 Toxic Vacuolation Present (Not Present) A 07/23/16 03:11 Dohle Bodies Present (Not Present) A 07/26/16 04:35 Large Platelets Present (Not Present) A 07/26/16 04:35 Polychromasia 1+ (Not Present) A 07/26/16 04:35 Anisocytosis 1+ (Not Present) A 07/22/16 04:00 Macrocytosis Present (Not Present) A 07/26/16 04:35 Isai Cells 3+ (Not Present) A 07/18/16 22:37 Acanthocytes (Spur) 1+ (Not Present) A 07/21/16 23:00 Rouleaux Present (Not Present) A 07/26/16 04:35 Fibrinogen 745 mg/dL (169-393) H* 07/23/16 12:28 ABG pCO2 31 mmHg (35-45) L 07/21/16 04:15 ABG pO2 155 mmHg (85-104) H 07/21/16 04:15 ABG HCO3 18.3 mEQ/L (21-27) L 07/21/16 04:15 ABG Total CO2 19.3 mEq/L (20-26) L 07/21/16 04:15 ABG O2 Saturation 99 % (95-98) H 07/21/16 04:15 ABG Base Excess -6.3 mEq/L (-2.0 to 3.0) L 07/21/16 04:15 Sodium 135 mEq/L (136-145) L 07/26/16 04:35 BUN 39 mg/dL (7-20) H 07/26/16 04:35 BUN/Creatinine Ratio 61 (6-26) H 07/26/16 04:35 Glucose 131 mg/dL (70-99) H 07/26/16 04:35 POC Glucose 142 (58-89) H 07/26/16 11:32 Calcium 7.8 mg/dL (8.6-10.8) L 07/26/16 04:35 AST 50 Units/L (5-34) H 07/25/16 03:25 Troponin I 0.14 ng/mL (0-0.03) H* 07/18/16 09:38 B-Natriuretic Peptide 3231 pg/mL (0-100) H 07/18/16 10:28 Serum Total Protein 4.3 g/dL (6.0-8.3) L 07/25/16 03:25 Albumin 1.2 g/dL (3.5-5.0) L 07/25/16 03:25 Albumin/Globulin Ratio 0.4 (1.1-2.2) L 07/25/16 03:25 Prealbumin 4.0 mg/dL (16.0-38.0) L 07/20/16 11:05 Urine Clarity Cloudy (Clear) A 07/18/16 10:55 Urine Protein 30 mg/dL (Neg-Trace) H 07/18/16 10:55 Ur Leukocyte Esterase Large (Negative) H 07/18/16 10:55 Urine Microscopic WBC 50-100 per hpf (0-3) H 07/18/16 10:55 Urine Bacteria Many per hpf (None-Few) H 07/18/16 10:55 Ur Culture Indicated? YES (NO) A 07/18/16 10:55 Phenytoin 6.6 mcg/mL (10-20) L 07/26/16 04:35 Levetiracetam 47 ug/mL (12-46) H 07/24/16 04:35 - Clinical Findings Intake & Output: Intake & Output 07/26/16 07/26/16 07/26/16 07:59 15:59 23:59 Intake Total 1694 / 1694 714 / 714 Output Total 500 / 500 2210 / 2210 Balance 1194 / 1194 -1496 / -1496 - Attending Attestation I examined this patient and my medical decision-making was reviewed with the PRESSURISED CONTAINER FILLER/PA/Advanced Practice Nurse/Resident Physician. I agree with the documented findings, disposition and treatment plan as described except to the extent set forth below. Neuropsych: b/l Acute CVA including large right MCA and left ASSISTANT MANAGER PT territory and smaller LUCAS. Suspect emoblic in the context of atrial fibrillation. Starting low-dose aspirin today consider full anticoagulation early next week if neurologically stable consulted cardiology no acute need for transesophageal echocardiogram. Cont fentanyl as needed for pain/agitation start precedex. Cont antiepileptics for seizure disorder restart smaller dose of Dilantin for high level. Continue Keppra neurology following. Daily sedation holiday Pulm: Hypoxic respiratory failure intubated. minimal vent settings requirements acceptable oxygenation but failed SBT (tachypenia) likely secondary to worsening pulmonary edema. Trial diuresis today for goal 1 L negative. Daily spontaneous breathing trial. Consideration of trach if fails liberation trial over the next week. Cards: Hemodynamics are stable. Recommendations from cardiology her to start full anticoagulation when safe from a neurological perspective which would be early next week. Aspirin has been started FEN-GI: cont TPN. Start trophic enteral nutrition. General surgery on board possibility of PEG tube Renal: CLEMENTINA has resolved. appropriate UOP replace lytes per protocol cont daily BMP. ID: treating for ischemic collitis. Cont aztreonam + Flagyl to [id number] days based upon clinical course. Antimicrobials to stop tomorrow Heme/Onc: Anemia s/t to blood loss complicated by critical illness. H/H stable cont to monitor. Thrombocytopenia has resolved . Cont mechanical DVT prophy Endo:cont synthroid for hypothyroidism, glucose monitored and stable. Integ/MSK: cont skin care per ICU protocol; remove Fem CVC replace with upper Ext PICC per team. CODE: Full Code. Request for emergent granted (for 48 hours) I spoke to the legal guardian Mr. Deras he is petition for full guardianship which will be under review next week
[2016-07-26] MEDS: Magnesium Sulfate 2 GM in D5% in Water 100 ML IVPB PRN ×2 (07:40→16:35)
[2016-07-26 08:04] LABS: Keppra (Levetiracetam) 47 ug/mL (12-46)
--- NOTE | 2016-07-26 08:09 | General Surgery Progress Note ---
Date of Encounter: 07/26/16 Time of Encounter: 06:45 - Assessment and Plan (1) Acute abdomen Current Visit: Yes Status: Resolved POD #2 for; emergency exploratory laparotomy resulting in total colectomy, partial ileectomy with ileostomy with Dr. Laurent on 07/20/16 NG tube to low intermittent wall suction. Medical management per ICU team Supportive care and pain control IV fluids to maintain hydration IV antibiotics Repeat am labs Maintain Navarrete catheter for strict I and O's. Serial abdominal exams Vital signs per protocol Elevate head of bed to 30 degrees Daily dressing change- complete today PPI therapy daily DVT prophylaxis TPN for nutrition while awaiting return of bowel function Change out orogastric tube to NG tube today for easier extubation when indicated. Will continue to follow patient closely as patient is being treated for sepsis. The assessment and plan as outlined above was discussed with the patient and/or family members who expressed understanding and agreement. All questions were answered. 07/24/2016 the patient is seen and evaluated. We will continue with maximum supportive care. I would like to place a PEG tube as soon as possible. Understanding the emergency power of title attorney has been requested. Once this is in place we can discuss further care options 07/26/2016. The patient is seen and evaluated. She may require PEG tube placement. The medical team and inform me that they have 48 hours of medical power of title attorney on emergency basis. She may require tracheostomy or PEG tube placement during that window time. No further abdominal surgical intervention is indicated. Subjective Narrative: The patient continues on the ventilator. Her blood pressure is now stable. The medical team has obtained emergency 48 hour power of title attorney. The patient had several episodes of bleeding through her ileostomy yesterday and the day before. I believe these episodes are mucosal slough from ischemia. She will not tolerate further bowel resection. I think the surgical decision is to go with the small bowel that remains. The ileostomy is functioning and passing watery green stool . She may require PEG tube placement as well as tracheostomy in the coming days. Objective Vital Signs - Last 8 Hours Temp Pulse Resp BP Pulse Ox 07/26/16 06:03 27 100 07/26/16 06:00 95 27 108/60 100 07/26/16 05:00 90 23 81/67 97 07/26/16 04:00 100 26 82/68 100 06/09/17 03:45 20 99 07/26/16 03:30 99.2 F 73 26 108/66 99 07/26/16 02:00 87 26 106/53 100 07/26/16 01:28 25 100 07/26/16 01:00 88 25 96/69 99 Intake and Output 07/25/16 07/26/16 07/26/16 23:59 07:59 15:59 Intake Total 2330 / 2330 1694 / 1694 Output Total 1500 / 1500 500 / 500 Balance 830 / 830 1194 / 1194 Intake: IV Fluids 2330 / 2330 1694 / 1694 PRECEDEX 400 mcg In 100 100 / 100 100 / 100 ml @ 0.2 MCG/KG/HR 3.6 mls/hr IVC .Q24H [facility] Rx#: [id number] FentaNYL (PF) 1,000 MCG 20 / 20 144 / 144 In 0.9 % Sodium Chloride 80 ML @ 50 MCG/HR 5 mls/ hr IVC CONT [facility] Rx#: [id number] Clinimix E 5%-15% 1900 / 1900 SOLUTION 2,000 ML @ 75 mls/hr IVC .Q24H [facility] with M.v.i. Adult 10 ml Rx#: [id number] Azactam 2,000 MG In 100 / 100 100 / 100 Dextrose 5% (Minibag+) 100 ML 100 ML @ 200 mls/ hr IVPB Q8HR [facility] Rx#: [id number] Intralipid 20% 250 ML @ 250 / 250 21 mls/hr IVPB DAILY@1700 [facility] Rx#:[id number] Flagyl Premix 500 MG/100 100 / 100 100 / 100 ML 500 mg In 100 ml @ 100 mls/hr IVPB Q8HR [facility] Rx# :[id number] Keppra 1,000 MG In 0.9 % 110 / 110 Sodium Chloride 100 ML @ 400 mls/hr IVPB BID [facility] Rx#:[id number] Oral 0 / 0 0 / 0 Tube Feeding 0 / 0 0 / 0 Free Water 0 / 0 0 / 0 Output: Stool 550 / 550 175 / 175 Catheter 800 / 800 300 / 300 Gastric Drainage 150 / 150 25 / 25 Other: Stool Consistency liquid Stool Color Bright Red Blood Green Blood Tinged Weight 73 kg Blood Glucose* 135 - General physical appearance chronically ill - Respiratory normal expansion, normal respiratory effort, clear to percussion, clear to auscultation - Cardiovascular Cardiovascular exam: Present: RRR, no murmurs/rubs/gallops - Abdomen Abdomen: Present: bowel sounds present, soft, non tender - Incision Incision: Present: clean and dry (Ostomy is pink and functional) - Psychiatric other (Unresponsive today) - Labs 07/26/16 04:35 07/26/16 04:35 Diabetes panel 07/26/16 Range/Units 04:35 Sodium 135 L (136-145) mEq/L Potassium 4.2 (3.5-4.5) mEq/L Chloride 109 (98-109) mEq/L Carbon Dioxide 20 (19-29) mEq/L BUN 39 H (7-20) mg/dL Creatinine 0.64 (0.57-1.11) mg/dL Glucose 131 H (70-99) mg/dL Calcium 7.8 L (8.6-10.8) mg/dL Calcium panel 07/26/16 07/26/16 Range/Units 04:35 04:35 Calcium 7.8 L (8.6-10.8) mg/dL Phosphorus 4.6 (2.3-4.7) mg/dL Pituitary panel 07/26/16 Range/Units 04:35 Sodium 135 L (136-145) mEq/L Potassium 4.2 (3.5-4.5) mEq/L Chloride 109 (98-109) mEq/L Carbon Dioxide 20 (19-29) mEq/L BUN 39 H (7-20) mg/dL Creatinine 0.64 (0.57-1.11) mg/dL Glucose 131 H (70-99) mg/dL Calcium 7.8 L (8.6-10.8) mg/dL Adrenal panel 07/26/16 Range/Units 04:35 Sodium 135 L (136-145) mEq/L Potassium 4.2 (3.5-4.5) mEq/L Chloride 109 (98-109) mEq/L Carbon Dioxide 20 (19-29) mEq/L BUN 39 H (7-20) mg/dL Creatinine 0.64 (0.57-1.11) mg/dL Glucose 131 H (70-99) mg/dL Calcium 7.8 L (8.6-10.8) mg/dL - VTE Documentation of Mechanical Device: Intermittent pneumatic compression device Consult Discharge Plan - Plan Referrals: NO,PCP [Non-Partnered Physician] -
[2016-07-26] MEDS: Levothyroxine Sodium 100 MCG VIAL IVP SCH (08:15)
[2016-07-26] MEDS: Chlorhexidine Rinse 15 ML MOUTHWASH MM SCH ×2 (08:15→20:18)
[2016-07-26] MEDS: Aztreonam 2,000 MG in D5% in Water (Mini-Bag+) 100 ML IVPB SCH ×3 (08:16→23:31)
[2016-07-26] MEDS: levETIRAcetam 1,000 MG in 0.9 % Sodium Chloride 100 ML IVPB SCH ×2 (08:16→21:18)
[2016-07-26] MEDS: MetroNIDAZOLE 500 MG/100 ML 500 MG/100 ML BAG IVPB SCH ×3 (08:16→23:31)
[2016-07-26] MEDS ORDERED: Furosemide 20 MG/2 ML VIAL IVP ONE (10:16)
[2016-07-26] MEDS ORDERED: PHENYTOIN IVPB SCH (10:30)
--- NOTE | 2016-07-26 10:30 | Event Note ---
Date of Encounter: 07/26/16 Time of Encounter: 10:25 YVES ordered by ICU team. Case discussed with ICU during formal rounds and chart reviewed. Patient in guarded condition given multiple comorbidities, but not currently requiring pressor support. ECGs reviewed - one demonstrates atrial fibrillation (not in [employer]). Neurology note reviewed - embolic event(s) described and anticoagulation recommended in 5 days, which will be 07/29/2016. Given PAF and embolic CVA, patient ideally should be on anticoagulation. YVES unlikely to change this management. Recommend cancel YVES for now. Please call me if any questions or concerns. Thanks, Harley Molina
[2016-07-26] MEDS ORDERED: Clinimix E 5%-15% SOLUTION 2,000 ML with MVI, adult with vitamin K 10 ML IVC SCH (17:00)
[2016-07-27] MEDS: Lacri-Lube 3.5 GM TUBE BOTH EYES SCH ×6 (04:25→23:18)
[2016-07-27] MEDS: Dexmedetomidine HCl 400 MCG/100 ML MLS IVC SCH ×3 (04:26→21:30)
[2016-07-27 05:03] LABS: Hematocrit 26.1 % (35.3-44.9); Hemoglobin 8.6 g/dL (11.5-15.4); Mean Corpuscular Hemoglobin 30.1 pg (28.0-33.3); Mean Corpuscular Volume 91.3 fL (83.0-100.0); Mean Platelet Volume 10.2 fL (9.4-12.4); Platelet Count 289 K/mcL (140-400); Red Blood Count 2.86 M/mcL (3.82-4.97); Red Cell Distribution Width 14.6 % (11.5-14.5)
[2016-07-27 05:17] LABS: BUN/Creatinine Ratio 62 (6-26); Blood Urea Nitrogen 38 mg/dL (7-20); Calcium 7.6 mg/dL (8.6-10.8); Carbon Dioxide 20 mEq/L (19-29); Chloride 108 mEq/L (98-109); Glucose 157 mg/dL (70-99); Magnesium 1.8 mg/dL (1.6-2.6); Osmolality,Calculated 288 (280-300); Phosphorous 5.1 mg/dL (2.3-4.7); Potassium 4.1 mEq/L (3.5-4.5); Sodium 133 mEq/L (136-145); eGFR For African Americans > 60 (> 60); eGFR For Non-African Americans > 60 (> 60)
[2016-07-27 05:35] LABS: Lymphocytes # 1.5 K/mcL (0.6-4.6); Monocytes # 0.5 K/mcL (0.0-1.3); Neutrophils # 6.2 K/mcL (1.6-8.9)
[2016-07-27 05:36] LABS: Platelet Estimate Normal (Normal); Reactive Lymphocytes Present (Not Present); Toxic Granulation Present (Not Present)
[2016-07-27 05:37] LABS: Dohle Bodies Present (Not Present)
[2016-07-27] MEDS: Pantoprazole 40 MG VIAL IVP SCH (05:55)
[2016-07-27] MEDS: FentaNYL (PF) 1,000 MCG in 0.9 % Sodium Chloride 80 ML IVC SCH ×3 (08:00→20:38)
[2016-07-27] MEDS: Chlorhexidine Rinse 15 ML MOUTHWASH MM SCH ×2 (09:02→20:22)
[2016-07-27] MEDS: Aspirin 81 MG TAB.CHEW PO SCH (09:02)
[2016-07-27] MEDS: Aztreonam 2,000 MG in D5% in Water (Mini-Bag+) 100 ML IVPB SCH (09:02)
[2016-07-27] MEDS: Levothyroxine Sodium 100 MCG VIAL IVP SCH (09:02)
[2016-07-27] MEDS: MetroNIDAZOLE 500 MG/100 ML 500 MG/100 ML BAG IVPB SCH (09:03)
[2016-07-27] MEDS: levETIRAcetam 1,000 MG in 0.9 % Sodium Chloride 100 ML IVPB SCH ×2 (09:10→21:11)
[2016-07-27] MEDS: Magnesium Sulfate 2 GM in D5% in Water 100 ML IVPB PRN (09:10)
--- NOTE | 2016-07-27 09:52 | General Surgery Progress Note ---
Date of Encounter: 07/28/16 Time of Encounter: 09:51 - Assessment and Plan (1) Acute abdomen Current Visit: Yes Status: Resolved Status post subtotal colectomy with ileostomy. Continue with dressing changes. Patient with minimal NG tube output. Agree with starting tube feeds via the NG tube. With respect to the patient's nutritional status I am concerned about placement of a PEG tube since she actively "pulled" at items and has the density to remove IVs and possible tubes. At this time I think would be most appropriate to start with feeds through the NG tube. Subjective Patient reports: other (Patient intubated and sedated. NG tube in place with minimal drainage.) Objective Vital Signs - Last 8 Hours Temp Pulse Resp BP Pulse Ox 07/27/16 09:03 100.2 F H 07/27/16 07:38 83 24 123/64 100 07/27/16 07:21 25 115/59 100 07/27/16 06:00 110 22 117/49 100 07/27/16 05:36 29 137/73 100 07/27/16 05:00 115 30 137/73 100 07/27/16 04:26 23 120/86 100 07/27/16 04:00 100.9 F H 102 25 109/96 100 07/27/16 03:50 99 18 128/87 100 07/27/16 02:19 25 100 07/27/16 02:00 99 20 127/76 100 Intake and Output 07/26/16 07/27/16 07/27/16 23:59 07:59 15:59 Intake Total 2624 / 2624 650 / 650 Output Total 1050 / 1050 400 / 400 Balance 1574 / 1574 650 / 650 -400 / -400 Intake: IV Fluids 2624 / 2624 650 / 650 PRECEDEX 400 mcg In 100 100 / 100 100 / 100 ml @ 0.2 MCG/KG/HR 3.6 mls/hr IVC .Q24H [facility] Rx#: [id number] FentaNYL (PF) 1,000 MCG 100 / 100 100 / 100 In 0.9 % Sodium Chloride 80 ML @ 50 MCG/HR 5 mls/ hr IVC CONT [facility] Rx#: [id number] Clinimix E 5%-15% 2009 SOLUTION 2,000 ML @ 75 mls/hr IVC .Q24H [facility] with M.v.i. Adult 10 ml Rx#: [id number] Azactam 2,000 MG In 100 / 100 100 / 100 Dextrose 5% (Minibag+) 100 ML 100 ML @ 200 mls/ hr IVPB Q8HR [facility] Rx#: [id number] Intralipid 20% 250 ML @ 250 / 250 21 mls/hr IVPB DAILY@1700 [facility] Rx#:[id number] Magnesium Sulfate 2 GM In 104 / 104 Dextrose 5% 100 ML @ 50 mls/hr IVPB Q6H [facility]N Rx#: [id number] Flagyl Premix 500 MG/100 100 / 100 100 / 100 ML 500 mg In 100 ml @ 100 mls/hr IVPB Q8HR [facility] Rx# :[id number] Keppra 1,000 MG In 0.9 % 110 / 110 Sodium Chloride 100 ML @ 400 mls/hr IVPB BID [facility] Rx#:[id number] Oral 0 / 0 0 / 0 Tube Feeding 0 / 0 0 / 0 Free Water 0 / 0 0 / 0 Output: Stool 375 / 375 75 / 75 Catheter 675 / 675 275 / 275 Gastric Drainage 0 / 0 50 / 50 Other: Stool Consistency liquid Stool Color Green Weight 73.5 kg Blood Glucose* 103 - Abdomen Abdomen: Present: soft (unable to assess tenderness on exam. Incision CDI. Ostomy pink. ) - Labs 07/28/16 03:35 07/28/16 03:35 Diabetes panel 07/27/16 Range/Units 04:55 Sodium 133 L (136-145) mEq/L Potassium 4.1 (3.5-4.5) mEq/L Chloride 108 (98-109) mEq/L Carbon Dioxide 20 (19-29) mEq/L BUN 38 H (7-20) mg/dL Creatinine 0.61 (0.57-1.11) mg/dL Glucose 157 H (70-99) mg/dL Calcium 7.6 L (8.6-10.8) mg/dL Calcium panel 07/27/16 Range/Units 04:55 Calcium 7.6 L (8.6-10.8) mg/dL Phosphorus 5.1 H (2.3-4.7) mg/dL Pituitary panel 07/27/16 Range/Units 04:55 Sodium 133 L (136-145) mEq/L Potassium 4.1 (3.5-4.5) mEq/L Chloride 108 (98-109) mEq/L Carbon Dioxide 20 (19-29) mEq/L BUN 38 H (7-20) mg/dL Creatinine 0.61 (0.57-1.11) mg/dL Glucose 157 H (70-99) mg/dL Calcium 7.6 L (8.6-10.8) mg/dL Adrenal panel 07/27/16 Range/Units 04:55 Sodium 133 L (136-145) mEq/L Potassium 4.1 (3.5-4.5) mEq/L Chloride 108 (98-109) mEq/L Carbon Dioxide 20 (19-29) mEq/L BUN 38 H (7-20) mg/dL Creatinine 0.61 (0.57-1.11) mg/dL Glucose 157 H (70-99) mg/dL Calcium 7.6 L (8.6-10.8) mg/dL - VTE Documentation of Mechanical Device: Intermittent pneumatic compression device Consult Discharge Plan - Plan Referrals: NO,PCP [Non-Partnered Physician] -
[2016-07-27 10:00] LABS: Phenytoin (Dilantin) Free 2.6 ug/mL (1.0-2.5); Phenytoin Dose NOT PROVIDED; Phenytoin Dose Frequency NOT PROVIDED; Phenytoin Route NOT PROVIDED
[2016-07-27] MEDS ORDERED: Vancomycin 1,000 MG in D5% in Water 250 ML IVPB SCH (10:00)
[2016-07-27 10:09] LABS: Phenytoin Percent Free 28.3 % (8.0-14.0); Phenytoin Type of Draw NOT PROVIDED
--- NOTE | 2016-07-27 10:23 | Pulmonology Progress Note ---
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 fib. Patient needs anticoagulation therapy for A. fib; this will start 07/29 - withholding anticoagulation 5 days post cerebellar infarction. 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 Laurent 07/20 --Plan for PEG tube in the near future --Start enteral/trophic feeds through NG tube/PEG tube --TPN with good output to ileostomy; goal net I/O = 0 Renal: Stable ID: Patient spiked fever overnight. Walls cultures obtained. Antibiotic coverage changed to vancomycin, meropenem, and micafungin. Antibiotic day #10 Heme/Onc: --DVT prophylaxis with IPCDs, neurology recommends withholding anticoagulation for at least 5 days post cerebellar infarction --Transfused a total of 4 units pRBC, last transfusion 07/22 Endocrine: TPN, hypoglycemia protocol - plan to start enteral/trophic feeds Integ/MSK: Continue ICU skin care protocol Lines: ETT, NG, R PICC Full code (2) Cerebral infarction involving left anterior cerebral artery Current Visit: Yes Status: Acute (3) Cerebral infarction involving left posterior cerebral artery Current Visit: Yes Status: Acute (4) Acute respiratory failure with hypoxia Current Visit: Yes Status: Acute (5) Goals of care, counseling/discussion Current Visit: Yes Status: Acute [address]-appointed guardianship has been approved Patient does not have POA Social work following (6) Postoperative anemia Current Visit: Yes Status: Acute Patient received 2 units pRBC /4 and 2 units pRBC /5 (7) Pneumonia Current Visit: Yes Status: Suspected Suspect aspiration pneumonia coverage with aztreonam and flagyl Qualifiers: Pneumonia type: aspiration pneumonia Laterality: unspecified laterality Lung location: unspecified part of lung Qualified Code(s): J69.0 - Pneumonitis due to inhalation of food and vomit (8) Thrombocytopenia Current Visit: Yes Status: Resolved Resolved (9) UTI (urinary tract infection) Current Visit: Yes Status: Suspected Suspected UTI with many bacteria, large leukocyte esterase, 50-100 WBCs Urine culture 07/18/2016 no growth to date, no pathogens isolated Qualifiers: Urinary tract infection type: site unspecified Hematuria presence: without hematuria Qualified Code(s): N39.0 - Urinary tract infection, site not specified (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 status post surgery (11) Bowel obstruction Current Visit: Yes Status: Resolved Resolved status post surgery Qualifiers: Intestinal obstruction type: unspecified Qualified Code(s): K56.60 - Unspecified intestinal obstruction (12) Mental retardation Current Visit: Yes Status: Chronic Patient lives in a [facility] and is reportedly high functioning (13) Seizure disorder Current Visit: Yes Status: Chronic No recent seizure activity reported (14) Septic shock Current Visit: Yes Status: Resolved Resolved (15) Lactic acidosis Current Visit: Yes Status: Resolved Resolved (16) Tachycardia Current Visit: Yes Status: Resolved Resolved (17) Acute kidney injury Current Visit: Yes Status: Resolved Resolved Subjective Principal diagnosis: Sepsis secondary to bowel necrosis, acute respiratory failure Interval history: Patient spiked a fever this AM. Objective PUL Vital signs: Last Vital Signs Temp 100.2 F H 07/27/16 09:03 Pulse 103 07/27/16 07:38 Resp 22 07/27/16 10:03 BP 109/48 07/27/16 10:03 Pulse Ox 100 07/27/16 10:03 General appearance: no acute distress, other (Sedated on mechanical ventilator) Eyes: nonicteric ENT: oropharynx moist Neck: supple Effort: normal Auscultation: bilateral: clear Cardiovascular: regular rate and rhythm Gastrointestinal: normoactive bowel sounds, soft, other (Ileostomy with liquid dark green output, midline bandage clean and dry) Integumentary: other (Excoriation from previous femoral central line bandages, improving) Extremities: no cyanosis, no edema, pink and warm, pulses normal Musculoskeletal: other (Moving right extremities, no movement of left extremities) unable to assess due to mental status Ventilator Settings Ventilator Settings: Ventilator Settings, Last 8 Hours Ventilator Mode VC+ Ventilator Mode VC+ Ventilator Mode VC+ Ventilator Mode VC+ Ventilator Mode VC+ Ventilator Mode VC+ Ventilator Mode VC+ Ventilator Mode VC+ Ventilator Mode VC+ Ventilator Tidal Volume 450 Setting Ventilator Tidal Volume 450 Setting Ventilator Tidal Volume 450 Setting Ventilator Tidal Volume 450 Setting Ventilator Tidal Volume 450 Setting Ventilator Tidal Volume 450 Setting Ventilator Tidal Volume 450 Setting Ventilator Tidal Volume 450 Setting Ventilator Tidal Volume 450 Setting Ventilator Respiratory Rate 12 Setting Ventilator Respiratory Rate 12 Setting Ventilator Respiratory Rate 12 Setting Ventilator Respiratory Rate 12 Setting Ventilator Respiratory Rate 12 Setting Ventilator Respiratory Rate 12 Setting Ventilator Respiratory Rate 12 Setting Ventilator Respiratory Rate 12 Setting Ventilator Respiratory Rate 12 Setting Actual Respiratory Rate 21 Actual Respiratory Rate 24 Actual Respiratory Rate 24 Actual Respiratory Rate 24 Actual Respiratory Rate 29 Actual Respiratory Rate 30 Actual Respiratory Rate 23 Actual Respiratory Rate 25 Actual Respiratory Rate 22 Positive End Expiratory 5 Pressure Positive End Expiratory 5 Pressure Positive End Expiratory 5 Pressure Positive End Expiratory 5 Pressure Positive End Expiratory 5 Pressure Positive End Expiratory 5 Pressure Positive End Expiratory 5 Pressure Positive End Expiratory 5 Pressure Peak Inspiratory Airway 22 Pressure Peak Inspiratory Airway 22 Pressure Peak Inspiratory Airway 20 Pressure Peak Inspiratory Airway 25 Pressure Peak Inspiratory Airway 22 Pressure Peak Inspiratory Airway 22 Pressure Peak Inspiratory Airway 26 Pressure Peak Inspiratory Airway 26 Pressure Results - Laboratory Findings CBC and BMP: 07/27/16 04:55 07/27/16 04:55 ABG ABG pH 7.38 pH Units (7.32-7.45) 07/21/16 04:15 ABG pCO2 31 mmHg (35-45) L 07/21/16 04:15 ABG pO2 155 mmHg (85-104) H 07/21/16 04:15 ABG O2 Saturation 99 % (95-98) H 07/21/16 04:15 PT/INR, D-dimer PT 10.7 Seconds (9.4-12.1) 07/23/16 11:25 Abnormal lab findings: Abnormal lab results RBC 2.86 M/mcL (3.82-4.97) L 07/27/16 04:55 Hgb 8.6 g/dL (11.5-15.4) L 07/27/16 04:55 Hct 26.1 % (35.3-44.9) L 07/27/16 04:55 RDW 14.6 % (11.5-14.5) H 07/27/16 04:55 Immature Gran % 5.8 % (0-4) H 07/24/16 03:24 Band Neutrophils % 13.0 % (0-4) H 07/26/16 04:35 Metamyelocytes % 2.0 % (0) H 07/21/16 23:00 Myelocytes % 1.0 % (0) H 07/26/16 04:35 Promyelocytes % 1.0 % (0) H 07/26/16 04:35 Nucleated RBCs/100 WBC 0.2 /100 WBC (0) H 07/24/16 03:24 Reactive Lymphocytes Present (Not Present) A 07/27/16 04:55 Toxic Granulation Present (Not Present) A 07/27/16 04:55 Toxic Vacuolation Present (Not Present) A 07/23/16 03:11 Dohle Bodies Present (Not Present) A 07/27/16 04:55 Large Platelets Present (Not Present) A 07/26/16 04:35 Polychromasia 1+ (Not Present) A 07/26/16 04:35 Anisocytosis 1+ (Not Present) A 07/22/16 04:00 Macrocytosis Present (Not Present) A 07/26/16 04:35 [place] Cells 3+ (Not Present) A 07/18/16 22:37 Acanthocytes (Spur) 1+ (Not Present) A 07/21/16 23:00 Rouleaux Present (Not Present) A 07/26/16 04:35 Fibrinogen 745 mg/dL (169-393) H* 07/23/16 12:28 ABG pCO2 31 mmHg (35-45) L 07/21/16 04:15 ABG pO2 155 mmHg (85-104) H 07/21/16 04:15 ABG HCO3 18.3 mEQ/L (21-27) L 07/21/16 04:15 ABG Total CO2 19.3 mEq/L (20-26) L 07/21/16 04:15 ABG O2 Saturation 99 % (95-98) H 07/21/16 04:15 ABG Base Excess -6.3 mEq/L (-2.0 to 3.0) L 07/21/16 04:15 Sodium 133 mEq/L (136-145) L 07/27/16 04:55 BUN 38 mg/dL (7-20) H 07/27/16 04:55 BUN/Creatinine Ratio 62 (6-26) H 07/27/16 04:55 Glucose 157 mg/dL (70-99) H 07/27/16 04:55 POC Glucose 103 (58-89) H 07/27/16 00:01 Calcium 7.6 mg/dL (8.6-10.8) L 07/27/16 04:55 Phosphorus 5.1 mg/dL (2.3-4.7) H 07/27/16 04:55 AST 50 Units/L (5-34) H 07/25/16 03:25 Troponin I 0.14 ng/mL (0-0.03) H* 07/18/16 09:38 B-Natriuretic Peptide 3231 pg/mL (0-100) H 07/18/16 10:28 Serum Total Protein 4.3 g/dL (6.0-8.3) L 07/25/16 03:25 Albumin 1.2 g/dL (3.5-5.0) L 07/25/16 03:25 Albumin/Globulin Ratio 0.4 (1.1-2.2) L 07/25/16 03:25 Prealbumin 4.0 mg/dL (16.0-38.0) L 07/20/16 11:05 Urine Clarity Cloudy (Clear) A 07/18/16 10:55 Urine Protein 30 mg/dL (Neg-Trace) H 07/18/16 10:55 Ur Leukocyte Esterase Large (Negative) H 07/18/16 10:55 Urine Microscopic WBC 50-100 per hpf (0-3) H 07/18/16 10:55 Urine Bacteria Many per hpf (None-Few) H 07/18/16 10:55 Ur Culture Indicated? YES (NO) A 07/18/16 10:55 Phenytoin 6.6 mcg/mL (10-20) L 07/26/16 04:35 Free Phenytoin 2.6 ug/mL (1.0-2.5) H* 07/24/16 04:35 Total Phenytoin 9.2 ug/mL (10.0-20.0) L 07/24/16 04:35 Percent Free Phenytoin 28.3 % (8.0-14.0) H 07/24/16 04:35 Levetiracetam 47 ug/mL (12-46) H 07/24/16 04:35 - Clinical Findings Intake & Output: Intake & Output 07/26/16 07/27/16 07/27/16 23:59 07:59 15:59 Intake Total 2624 / 2624 650 / 650 Output Total 1050 / 1050 400 / 400 Balance 1574 / 1574 650 / 650 -400 / -400 Weight 73.5 kg - VTE Documentation of Mechanical Device: Intermittent pneumatic compression device Consult Discharge Plan - Plan Referrals: NO,PCP [Non-Partnered Physician] - <Guevara Cristina - Last Filed: 07/27/16 12:04> Date of Encounter: 07/27/16 Objective PUL Vital signs: Last Vital Signs Temp 100.2 F H 07/27/16 09:03 Pulse 90 07/27/16 10:30 Resp 18 07/27/16 11:18 BP 104/48 07/27/16 11:18 Pulse Ox 100 07/27/16 11:18 Ventilator Settings Ventilator Settings: Ventilator Settings, Last 8 Hours Ventilator Mode VC+ Ventilator Mode VC+ Ventilator Mode VC+ Ventilator Mode VC+ Ventilator Mode VC+ Ventilator Mode VC+ Ventilator Mode VC+ Ventilator Mode VC+ Ventilator Mode VC+ Ventilator Tidal Volume 450 Setting Ventilator Tidal Volume 450 Setting Ventilator Tidal Volume 450 Setting Ventilator Tidal Volume 450 Setting Ventilator Tidal Volume 450 Setting Ventilator Tidal Volume 450 Setting Ventilator Tidal Volume 450 Setting Ventilator Tidal Volume 450 Setting Ventilator Tidal Volume 450 Setting Ventilator Respiratory Rate 12 Setting Ventilator Respiratory Rate 12 Setting Ventilator Respiratory Rate 12 Setting Ventilator Respiratory Rate 12 Setting Ventilator Respiratory Rate 12 Setting Ventilator Respiratory Rate 12 Setting Ventilator Respiratory Rate 12 Setting Ventilator Respiratory Rate 12 Setting Ventilator Respiratory Rate 12 Setting Actual Respiratory Rate 14 Actual Respiratory Rate 21 Actual Respiratory Rate 24 Actual Respiratory Rate 24 Actual Respiratory Rate 24 Actual Respiratory Rate 29 Actual Respiratory Rate 30 Actual Respiratory Rate 23 Actual Respiratory Rate 25 Positive End Expiratory 5 Pressure Positive End Expiratory 5 Pressure Positive End Expiratory 5 Pressure Positive End Expiratory 5 Pressure Positive End Expiratory 5 Pressure Positive End Expiratory 5 Pressure Positive End Expiratory 5 Pressure Positive End Expiratory 5 Pressure Peak Inspiratory Airway 23 Pressure Peak Inspiratory Airway 16 Pressure Peak Inspiratory Airway 22 Pressure Peak Inspiratory Airway 23 Pressure Peak Inspiratory Airway 23 Pressure Peak Inspiratory Airway 22 Pressure Peak Inspiratory Airway 20 Pressure Peak Inspiratory Airway 25 Pressure Peak Inspiratory Airway 22 Pressure Peak Inspiratory Airway 22 Pressure Peak Inspiratory Airway 26 Pressure Peak Inspiratory Airway 26 Pressure Results - Laboratory Findings CBC and BMP: 07/27/16 04:55 07/27/16 04:55 ABG ABG pH 7.38 pH Units (7.32-7.45) 07/21/16 04:15 ABG pCO2 31 mmHg (35-45) L 07/21/16 04:15 ABG pO2 155 mmHg (85-104) H 07/21/16 04:15 ABG O2 Saturation 99 % (95-98) H 07/21/16 04:15 PT/INR, D-dimer PT 10.7 Seconds (9.4-12.1) 07/23/16 11:25 Abnormal lab findings: Abnormal lab results RBC 2.86 M/mcL (3.82-4.97) L 07/27/16 04:55 Hgb 8.6 g/dL (11.5-15.4) L 07/27/16 04:55 Hct 26.1 % (35.3-44.9) L 07/27/16 04:55 RDW 14.6 % (11.5-14.5) H 07/27/16 04:55 Immature Gran % 5.8 % (0-4) H 07/24/16 03:24 Band Neutrophils % 13.0 % (0-4) H 07/26/16 04:35 Metamyelocytes % 2.0 % (0) H 07/21/16 23:00 Myelocytes % 1.0 % (0) H 07/26/16 04:35 Promyelocytes % 1.0 % (0) H 07/26/16 04:35 Nucleated RBCs/100 WBC 0.2 /100 WBC (0) H 07/24/16 03:24 Reactive Lymphocytes Present (Not Present) A 07/27/16 04:55 Toxic Granulation Present (Not Present) A 07/27/16 04:55 Toxic Vacuolation Present (Not Present) A 07/23/16 03:11 Dohle Bodies Present (Not Present) A 07/27/16 04:55 Large Platelets Present (Not Present) A 07/26/16 04:35 Polychromasia 1+ (Not Present) A 07/26/16 04:35 Anisocytosis 1+ (Not Present) A 07/22/16 04:00 Macrocytosis Present (Not Present) A 07/26/16 04:35 Isai Cells 3+ (Not Present) A 07/18/16 22:37 Acanthocytes (Spur) 1+ (Not Present) A 07/21/16 23:00 Rouleaux Present (Not Present) A 07/26/16 04:35 Fibrinogen 745 mg/dL (169-393) H* 07/23/16 12:28 ABG pCO2 31 mmHg (35-45) L 07/21/16 04:15 ABG pO2 155 mmHg (85-104) H 07/21/16 04:15 ABG HCO3 18.3 mEQ/L (21-27) L 07/21/16 04:15 ABG Total CO2 19.3 mEq/L (20-26) L 07/21/16 04:15 ABG O2 Saturation 99 % (95-98) H 07/21/16 04:15 ABG Base Excess -6.3 mEq/L (-2.0 to 3.0) L 07/21/16 04:15 Sodium 133 mEq/L (136-145) L 07/27/16 04:55 BUN 38 mg/dL (7-20) H 07/27/16 04:55 BUN/Creatinine Ratio 62 (6-26) H 07/27/16 04:55 Glucose 157 mg/dL (70-99) H 07/27/16 04:55 POC Glucose 109 (58-89) H 07/27/16 11:51 Calcium 7.6 mg/dL (8.6-10.8) L 07/27/16 04:55 Phosphorus 5.1 mg/dL (2.3-4.7) H 07/27/16 04:55 AST 50 Units/L (5-34) H 07/25/16 03:25 Troponin I 0.14 ng/mL (0-0.03) H* 07/18/16 09:38 B-Natriuretic Peptide 3231 pg/mL (0-100) H 07/18/16 10:28 Serum Total Protein 4.3 g/dL (6.0-8.3) L 07/25/16 03:25 Albumin 1.2 g/dL (3.5-5.0) L 07/25/16 03:25 Albumin/Globulin Ratio 0.4 (1.1-2.2) L 07/25/16 03:25 Prealbumin 4.0 mg/dL (16.0-38.0) L 07/20/16 11:05 Urine Clarity Cloudy (Clear) A 07/18/16 10:55 Urine Protein 30 mg/dL (Neg-Trace) H 07/18/16 10:55 Ur Leukocyte Esterase Large (Negative) H 07/18/16 10:55 Urine Microscopic WBC 50-100 per hpf (0-3) H 07/18/16 10:55 Urine Bacteria Many per hpf (None-Few) H 07/18/16 10:55 Ur Culture Indicated? YES (NO) A 07/18/16 10:55 Phenytoin 6.6 mcg/mL (10-20) L 07/26/16 04:35 Free Phenytoin 2.6 ug/mL (1.0-2.5) H* 07/24/16 04:35 Total Phenytoin 9.2 ug/mL (10.0-20.0) L 07/24/16 04:35 Percent Free Phenytoin 28.3 % (8.0-14.0) H 07/24/16 04:35 Levetiracetam 47 ug/mL (12-46) H 07/24/16 04:35 - Clinical Findings Intake & Output: Intake & Output 07/26/16 07/27/16 07/27/16 23:59 07:59 15:59 Intake Total 2624 / 2624 650 / 650 200 / 200 Output Total 1050 / 1050 400 / 400 Balance 1574 / 1574 650 / 650 -200 / -200 Weight 73.5 kg - Attending Attestation I examined this patient and my medical decision-making was reviewed with the PROFESSOR OF COMMUNICATION/PA/Advanced Practice Nurse/Resident Physician. I agree with the documented findings, disposition and treatment plan as described except to the extent set forth below. Neuropsych: b/l Acute CVA including large right MCA and left PALEOLOGY TEACHER territory and smaller LUCAS. Suspect emoblic in the context of atrial fibrillation. ASA 81mg given consider full anticoagulation early next week if neurologically stable. . Cont fentanyl and precedex as needed for pain/agitation. Cont antiepileptics for seizure disorder (Dilantin and Keppra) neurology following. Daily sedation holiday. Pulm: Hypoxic respiratory failure intubated. minimal vent settings requirements acceptable oxygenation but failed SBT (tachypenia) possible from pulmonary edema +/_ sepsis. Will cont Daily spontaneous breathing trial. Consideration of trach if fails liberation trial over the next week. Cards: Hemodynamics are stable. Recommendations from cardiology her to start full anticoagulation when safe from a neurological perspective which would be early next week. FEN-GI: cont TPN. Cont trophic enteral nutrition. General surgery currently fabors enteral nutrition through NG vs PEG. Renal: CLEMENTINA has resolved. appropriate UOP replace lytes per protocol cont daily BMP. ID: Febrile overnight temperature as 102f with purulent drainage from right thumb site treating broadly for hospital-acquired pathogens as well as fungal start vancomycin and meropenem and micafungin has patient on TPN high risk for fungal infection. Heme/Onc: Anemia s/t to blood loss complicated by critical illness. H/H stable cont to monitor. Thrombocytopenia has resolved . Cont mechanical DVT prophy Endo:cont synthroid for hypothyroidism, glucose monitored and stable. Integ/MSK: cont skin care per ICU protocol; remove right thumb site appears to be infected the catheter has been removed and the tip has been cultured CODE: Full Code. Request for emergent granted (for 48 hours) I spoke to the legal guardian Mr. Deras he is petition for full guardianship which will be under review next week
[2016-07-27] MEDS: Micafungin 100 MG in 0.9 % Sodium Chloride 100 ML IVPB SCH (13:53)
[2016-07-27] MEDS: Meropenem 1,000 MG in 0.9 % Sodium Chloride Mini Bag 100 ML IVPB SCH ×2 (14:07→20:21)
[2016-07-27] MEDS: Vancomycin 1,000 MG in D5% in Water 250 ML IVPB SCH ×2 (14:08→23:17)
[2016-07-27] MEDS: Clinimix E 5%-15% SOLUTION 2,000 ML with MVI, adult with vitamin K 10 ML IVC SCH (17:40)
[2016-07-28] MEDS: FentaNYL (PF) 1,000 MCG in 0.9 % Sodium Chloride 80 ML IVC SCH ×5 (01:12→21:59)
[2016-07-28] MEDS: Dexmedetomidine HCl 400 MCG/100 ML MLS IVC SCH ×4 (02:32→19:48)
[2016-07-28 03:39] LABS: Hematocrit 26.1 % (35.3-44.9); Hemoglobin 8.5 g/dL (11.5-15.4); Mean Corpuscular HGB Conc 32.6 g/dL (31.6-35.5); Mean Corpuscular Hemoglobin 30.1 pg (28.0-33.3); Mean Corpuscular Volume 92.6 fL (83.0-100.0); Mean Platelet Volume 9.7 fL (9.4-12.4); Monocytes # 0.9 K/mcL (0.0-1.3); Platelet Count 394 K/mcL (140-400); Red Blood Count 2.82 M/mcL (3.82-4.97); Red Cell Distribution Width 14.5 % (11.5-14.5)
[2016-07-28 03:51] LABS: BUN/Creatinine Ratio 61 (6-26); Blood Urea Nitrogen 36 mg/dL (7-20); Calcium 7.5 mg/dL (8.6-10.8); Carbon Dioxide 20 mEq/L (19-29); Chloride 108 mEq/L (98-109); Glucose 135 mg/dL (70-99); Magnesium 1.7 mg/dL (1.6-2.6); Osmolality,Calculated 288 (280-300); Phosphorous 4.6 mg/dL (2.3-4.7); Potassium 4.2 mEq/L (3.5-4.5); Sodium 134 mEq/L (136-145); eGFR For African Americans > 60 (> 60); eGFR For Non-African Americans > 60 (> 60)
[2016-07-28] MEDS: Meropenem 1,000 MG in 0.9 % Sodium Chloride Mini Bag 100 ML IVPB SCH ×3 (03:55→19:05)
[2016-07-28] MEDS: Lacri-Lube 3.5 GM TUBE BOTH EYES SCH ×6 (03:55→22:30)
[2016-07-28 04:04] LABS: Large Platelets Present (Not Present); Lymphocytes # 1.1 K/mcL (0.6-4.6); Neutrophils # 6.9 K/mcL (1.6-8.9); Platelet Estimate Normal (Normal)
[2016-07-28 04:05] LABS: Toxic Granulation Present (Not Present)
[2016-07-28] MEDS: Pantoprazole 40 MG VIAL IVP SCH (06:10)
[2016-07-28] MEDS: Magnesium Sulfate 2 GM in D5% in Water 100 ML IVPB PRN (06:10)
--- NOTE | 2016-07-28 07:58 | Pulmonology Progress Note ---
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 fib. Patient needs anticoagulation therapy for A. fib; this will start 07/29 - withholding anticoagulation 5 days post cerebellar infarction. 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 Laurent 07/20 --Plan for PEG tube being held at this time due to patient's tendency to pull at lines and tubes. --Enteral feedings via NG tube, plan to slowly increase enteral feeds and decreased TPN. Good output to ileostomy. Goal net I/O = 0 Renal: Stable ID: Patient spiked fever overnight 07/27-07/28. Walls cultures pending. Antibiotic coverage changed to vancomycin, meropenem, and micafungin (day 2). check chest x-ray and abdominal ultrasound. Heme/Onc: --DVT prophylaxis with IPCDs, neurology recommends withholding anticoagulation for at least 5 days post cerebellar infarction --Transfused a total of 4 units pRBC, last transfusion 07/22 Endocrine: NG tube feeds and TPN (increasing tube feeds, decreasing TPN); hypoglycemia protocol Integ/MSK: Continue ICU skin care protocol to prevent ulcers Lines: ETT, NG, R PICC Code: DNR-CCA (2) Cerebral infarction involving left anterior cerebral artery Current Visit: Yes Status: Acute (3) Cerebral infarction involving left posterior cerebral artery Current Visit: Yes Status: Acute (4) Acute respiratory failure with hypoxia Current Visit: Yes Status: Acute (5) Goals of care, counseling/discussion Current Visit: Yes Status: Acute [address]-appointed guardianship has been approved Patient does not have POA Social work following (6) Postoperative anemia Current Visit: Yes Status: Acute Patient received 2 units pRBC 07/21 and 2 units pRBC 07/22 (7) Pneumonia Current Visit: Yes Status: Suspected Suspect aspiration pneumonia coverage with aztreonam and flagyl Qualifiers: Pneumonia type: aspiration pneumonia Laterality: unspecified laterality Lung location: unspecified part of lung Qualified Code(s): J69.0 - Pneumonitis due to inhalation of food and vomit (8) Thrombocytopenia Current Visit: Yes Status: Resolved Resolved (9) UTI (urinary tract infection) Current Visit: Yes Status: Suspected Suspected UTI with many bacteria, large leukocyte esterase, 50-100 WBCs Urine culture 07/18/2016 no growth to date, no pathogens isolated Qualifiers: Urinary tract infection type: site unspecified Hematuria presence: without hematuria Qualified Code(s): N39.0 - Urinary tract infection, site not specified (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 status post surgery (11) Bowel obstruction Current Visit: Yes Status: Resolved Resolved status post surgery Qualifiers: Intestinal obstruction type: unspecified Qualified Code(s): K56.60 - Unspecified intestinal obstruction (12) Mental retardation Current Visit: Yes Status: Chronic Patient lives in a prison and is reportedly high functioning (13) Seizure disorder Current Visit: Yes Status: Chronic No recent seizure activity reported (14) Septic shock Current Visit: Yes Status: Resolved Resolved (15) Lactic acidosis Current Visit: Yes Status: Resolved Resolved (16) Tachycardia Current Visit: Yes Status: Resolved Resolved (17) Acute kidney injury Current Visit: Yes Status: Resolved Resolved Subjective Principal diagnosis: Sepsis secondary to bowel necrosis, acute respiratory failure Interval history: Patient with fever overnight. Objective PUL Vital signs: Last Vital Signs Temp 99.7 F H 07/28/16 04:00 Pulse 103 07/28/16 07:27 Resp 24 07/28/16 07:48 BP 95/61 07/28/16 07:48 Pulse Ox 100 07/28/16 07:48 General appearance: no acute distress, other (Sedated on mechanical ventilation) Eyes: nonicteric ENT: oropharynx moist Neck: supple Effort: normal Auscultation: bilateral: clear Cardiovascular: regular rate and rhythm Gastrointestinal: normoactive bowel sounds, soft Integumentary: normal Extremities: no cyanosis, no edema Gait: other (Continuous movements of right extremities, no movements of the left extremities) Ventilator Settings Ventilator Settings: Ventilator Settings, Last 8 Hours Ventilator Mode CPAP Ventilator Mode CPAP Ventilator Mode CPAP Ventilator Mode VC+ Ventilator Mode VC+ Ventilator Mode VC+ Ventilator Mode VC+ Ventilator Mode VC+ Ventilator Tidal Volume 450 Setting Ventilator Tidal Volume 450 Setting Ventilator Tidal Volume 450 Setting Ventilator Tidal Volume 450 Setting Ventilator Tidal Volume 450 Setting Ventilator Tidal Volume 450 Setting Ventilator Respiratory Rate 12 Setting Ventilator Respiratory Rate 12 Setting Ventilator Respiratory Rate 12 Setting Ventilator Respiratory Rate 12 Setting Ventilator Respiratory Rate 12 Setting Actual Respiratory Rate 23 Actual Respiratory Rate 23 Actual Respiratory Rate 22 Actual Respiratory Rate 22 Actual Respiratory Rate 27 Actual Respiratory Rate 22 Actual Respiratory Rate 26 Actual Respiratory Rate 23 Positive End Expiratory 5 Pressure Positive End Expiratory 5 Pressure Positive End Expiratory 5 Pressure Positive End Expiratory 5 Pressure Positive End Expiratory 5 Pressure Positive End Expiratory 5 Pressure Positive End Expiratory 5 Pressure Positive End Expiratory 5 Pressure Peak Inspiratory Airway 16 Pressure Peak Inspiratory Airway 19 Pressure Peak Inspiratory Airway 16 Pressure Peak Inspiratory Airway 25 Pressure Peak Inspiratory Airway 26 Pressure Peak Inspiratory Airway 33 Pressure Peak Inspiratory Airway 28 Pressure Peak Inspiratory Airway 29 Pressure Results - Laboratory Findings CBC and BMP: 07/28/16 03:35 07/28/16 03:35 ABG ABG pH 7.38 pH Units (7.32-7.45) 07/21/16 04:15 ABG pCO2 31 mmHg (35-45) L 07/21/16 04:15 ABG pO2 155 mmHg (85-104) H 07/21/16 04:15 ABG O2 Saturation 99 % (95-98) H 07/21/16 04:15 PT/INR, D-dimer PT 10.7 Seconds (9.4-12.1) 07/23/16 11:25 Abnormal lab findings: Abnormal lab results RBC 2.82 M/mcL (3.82-4.97) L 07/28/16 03:35 Hgb 8.5 g/dL (11.5-15.4) L 07/28/16 03:35 Hct 26.1 % (35.3-44.9) L 07/28/16 03:35 Immature Gran % 5.8 % (0-4) H 07/24/16 03:24 Metamyelocytes % 2.0 % (0) H 07/21/16 23:00 Myelocytes % 1.0 % (0) H 07/26/16 04:35 Promyelocytes % 1.0 % (0) H 07/26/16 04:35 Nucleated RBCs/100 WBC 0.2 /100 WBC (0) H 07/24/16 03:24 Reactive Lymphocytes Present (Not Present) A 07/27/16 04:55 Toxic Granulation Present (Not Present) A 07/28/16 03:35 Toxic Vacuolation Present (Not Present) A 07/23/16 03:11 Dohle Bodies Present (Not Present) A 07/27/16 04:55 Large Platelets Present (Not Present) A 07/28/16 03:35 Polychromasia 1+ (Not Present) A 07/26/16 04:35 Anisocytosis 1+ (Not Present) A 07/22/16 04:00 Macrocytosis Present (Not Present) A 07/26/16 04:35 Isai Cells 3+ (Not Present) A 07/18/16 22:37 Acanthocytes (Spur) 1+ (Not Present) A 07/21/16 23:00 Rouleaux Present (Not Present) A 07/26/16 04:35 Fibrinogen 745 mg/dL (169-393) H* 07/23/16 12:28 ABG pCO2 31 mmHg (35-45) L 07/21/16 04:15 ABG pO2 155 mmHg (85-104) H 07/21/16 04:15 ABG HCO3 18.3 mEQ/L (21-27) L 07/21/16 04:15 ABG Total CO2 19.3 mEq/L (20-26) L 07/21/16 04:15 ABG O2 Saturation 99 % (95-98) H 07/21/16 04:15 ABG Base Excess -6.3 mEq/L (-2.0 to 3.0) L 07/21/16 04:15 Sodium 134 mEq/L (136-145) L 07/28/16 03:35 BUN 36 mg/dL (7-20) H 07/28/16 03:35 BUN/Creatinine Ratio 61 (6-26) H 07/28/16 03:35 Glucose 135 mg/dL (70-99) H 07/28/16 03:35 POC Glucose 116 (58-89) H 07/28/16 05:09 Calcium 7.5 mg/dL (8.6-10.8) L 07/28/16 03:35 AST 50 Units/L (5-34) H 07/25/16 03:25 Troponin I 0.14 ng/mL (0-0.03) H* 07/18/16 09:38 B-Natriuretic Peptide 3231 pg/mL (0-100) H 07/18/16 10:28 Serum Total Protein 4.3 g/dL (6.0-8.3) L 07/25/16 03:25 Albumin 1.2 g/dL (3.5-5.0) L 07/25/16 03:25 Albumin/Globulin Ratio 0.4 (1.1-2.2) L 07/25/16 03:25 Prealbumin 4.0 mg/dL (16.0-38.0) L 07/20/16 11:05 Urine Clarity Cloudy (Clear) A 07/18/16 10:55 Urine Protein 30 mg/dL (Neg-Trace) H 07/18/16 10:55 Ur Leukocyte Esterase Large (Negative) H 07/18/16 10:55 Urine Microscopic WBC 50-100 per hpf (0-3) H 07/18/16 10:55 Urine Bacteria Many per hpf (None-Few) H 07/18/16 10:55 Ur Culture Indicated? YES (NO) A 07/18/16 10:55 Phenytoin 6.6 mcg/mL (10-20) L 07/26/16 04:35 Free Phenytoin 2.6 ug/mL (1.0-2.5) H* 07/24/16 04:35 Total Phenytoin 9.2 ug/mL (10.0-20.0) L 07/24/16 04:35 Percent Free Phenytoin 28.3 % (8.0-14.0) H 07/24/16 04:35 Levetiracetam 47 ug/mL (12-46) H 07/24/16 04:35 - Microbiology Findings Microbiology Findings: Microbiology, Last 48 Hours 07/26/16 18:09 Catheter Tip Culture - Preliminary Intravenous or Arterial Cath No growth. - Clinical Findings Intake & Output: Intake & Output 07/27/16 07/27/16 07/28/16 15:59 23:59 07:59 Intake Total 960 / 960 2433 / 2433 717 / 717 Output Total 800 / 800 900 / 900 1150 / 1150 Balance 160 / 160 1533 / 1533 -433 / -433 Weight 76.1 kg - VTE Documentation of Mechanical Device: Intermittent pneumatic compression device Consult Discharge Plan - Plan Referrals: NO,PCP [Non-Partnered Physician] - <Guevara Cristina - Last Filed: 07/28/16 10:01> Date of Encounter: 07/28/16 Objective PUL Vital signs: Last Vital Signs Temp 99.1 F 07/28/16 08:02 Pulse 100 07/28/16 08:15 Resp 20 07/28/16 09:44 BP 108/54 07/28/16 09:44 Pulse Ox 100 07/28/16 09:44 Ventilator Settings Ventilator Settings: Ventilator Settings, Last 8 Hours Ventilator Mode VC+ Ventilator Mode CPAP Ventilator Mode CPAP Ventilator Mode CPAP Ventilator Mode CPAP Ventilator Mode VC+ Ventilator Mode VC+ Ventilator Mode VC+ Ventilator Tidal Volume 450 Setting Ventilator Tidal Volume 450 Setting Ventilator Tidal Volume 450 Setting Ventilator Tidal Volume 450 Setting Ventilator Tidal Volume 450 Setting Ventilator Respiratory Rate 12 Setting Ventilator Respiratory Rate 12 Setting Ventilator Respiratory Rate 12 Setting Ventilator Respiratory Rate 12 Setting Actual Respiratory Rate 26 Actual Respiratory Rate 23 Actual Respiratory Rate 23 Actual Respiratory Rate 22 Actual Respiratory Rate 22 Actual Respiratory Rate 27 Actual Respiratory Rate 22 Positive End Expiratory 5 Pressure Positive End Expiratory 5 Pressure Positive End Expiratory 5 Pressure Positive End Expiratory 5 Pressure Positive End Expiratory 5 Pressure Positive End Expiratory 5 Pressure Positive End Expiratory 5 Pressure Peak Inspiratory Airway 27 Pressure Peak Inspiratory Airway 16 Pressure Peak Inspiratory Airway 19 Pressure Peak Inspiratory Airway 16 Pressure Peak Inspiratory Airway 25 Pressure Peak Inspiratory Airway 26 Pressure Peak Inspiratory Airway 33 Pressure Results - Laboratory Findings CBC and BMP: 07/28/16 03:35 07/28/16 03:35 ABG ABG pH 7.38 pH Units (7.32-7.45) 07/21/16 04:15 ABG pCO2 31 mmHg (35-45) L 07/21/16 04:15 ABG pO2 155 mmHg (85-104) H 07/21/16 04:15 ABG O2 Saturation 99 % (95-98) H 07/21/16 04:15 PT/INR, D-dimer PT 10.7 Seconds (9.4-12.1) 07/23/16 11:25 Abnormal lab findings: Abnormal lab results RBC 2.82 M/mcL (3.82-4.97) L 07/28/16 03:35 Hgb 8.5 g/dL (11.5-15.4) L 07/28/16 03:35 Hct 26.1 % (35.3-44.9) L 07/28/16 03:35 Immature Gran % 5.8 % (0-4) H 07/24/16 03:24 Metamyelocytes % 2.0 % (0) H 07/21/16 23:00 Myelocytes % 1.0 % (0) H 07/26/16 04:35 Promyelocytes % 1.0 % (0) H 07/26/16 04:35 Nucleated RBCs/100 WBC 0.2 /100 WBC (0) H 07/24/16 03:24 Reactive Lymphocytes Present (Not Present) A 07/27/16 04:55 Toxic Granulation Present (Not Present) A 07/28/16 03:35 Toxic Vacuolation Present (Not Present) A 07/23/16 03:11 Dohle Bodies Present (Not Present) A 07/27/16 04:55 Large Platelets Present (Not Present) A 07/28/16 03:35 Polychromasia 1+ (Not Present) A 07/26/16 04:35 Anisocytosis 1+ (Not Present) A 07/22/16 04:00 Macrocytosis Present (Not Present) A 07/26/16 04:35 Isai Cells 3+ (Not Present) A 07/18/16 22:37 Acanthocytes (Spur) 1+ (Not Present) A 07/21/16 23:00 Rouleaux Present (Not Present) A 07/26/16 04:35 Fibrinogen 745 mg/dL (169-393) H* 07/23/16 12:28 ABG pCO2 31 mmHg (35-45) L 07/21/16 04:15 ABG pO2 155 mmHg (85-104) H 07/21/16 04:15 ABG HCO3 18.3 mEQ/L (21-27) L 07/21/16 04:15 ABG Total CO2 19.3 mEq/L (20-26) L 07/21/16 04:15 ABG O2 Saturation 99 % (95-98) H 07/21/16 04:15 ABG Base Excess -6.3 mEq/L (-2.0 to 3.0) L 07/21/16 04:15 Sodium 134 mEq/L (136-145) L 07/28/16 03:35 BUN 36 mg/dL (7-20) H 07/28/16 03:35 BUN/Creatinine Ratio 61 (6-26) H 07/28/16 03:35 Glucose 135 mg/dL (70-99) H 07/28/16 03:35 POC Glucose 116 (58-89) H 07/28/16 05:09 Calcium 7.5 mg/dL (8.6-10.8) L 07/28/16 03:35 AST 50 Units/L (5-34) H 07/25/16 03:25 Troponin I 0.14 ng/mL (0-0.03) H* 07/18/16 09:38 B-Natriuretic Peptide 3231 pg/mL (0-100) H 07/18/16 10:28 Serum Total Protein 4.3 g/dL (6.0-8.3) L 07/25/16 03:25 Albumin 1.2 g/dL (3.5-5.0) L 07/25/16 03:25 Albumin/Globulin Ratio 0.4 (1.1-2.2) L 07/25/16 03:25 Prealbumin 4.0 mg/dL (16.0-38.0) L 07/20/16 11:05 Urine Clarity Cloudy (Clear) A 07/18/16 10:55 Urine Protein 30 mg/dL (Neg-Trace) H 07/18/16 10:55 Ur Leukocyte Esterase Large (Negative) H 07/18/16 10:55 Urine Microscopic WBC 50-100 per hpf (0-3) H 07/18/16 10:55 Urine Bacteria Many per hpf (None-Few) H 07/18/16 10:55 Ur Culture Indicated? YES (NO) A 07/18/16 10:55 Phenytoin 6.6 mcg/mL (10-20) L 07/26/16 04:35 Free Phenytoin 2.6 ug/mL (1.0-2.5) H* 07/24/16 04:35 Total Phenytoin 9.2 ug/mL (10.0-20.0) L 07/24/16 04:35 Percent Free Phenytoin 28.3 % (8.0-14.0) H 07/24/16 04:35 Levetiracetam 47 ug/mL (12-46) H 07/24/16 04:35 - Microbiology Findings Microbiology Findings: Microbiology, Last 48 Hours 07/26/16 18:09 Catheter Tip Culture - Preliminary Intravenous or Arterial Cath No growth. - Clinical Findings Intake & Output: Intake & Output 07/27/16 07/28/16 07/28/16 23:59 07:59 15:59 Intake Total 2433 / 2433 717 / 717 100 / 100 Output Total 900 / 900 1150 / 1150 350 / 350 Balance 1533 / 1533 -433 / -433 -250 / -250 Weight 76.1 kg - Attending Attestation I examined this patient and my medical decision-making was reviewed with the FAST FOOD WORKER/PA/Advanced Practice Nurse/Resident Physician. I agree with the documented findings, disposition and treatment plan as described except to the extent set forth below. Patient seen and examined at bedside Labs, radiology, chart personally reviewed. All lines examined without evidence of infection. Neuropsych: Status post embolic CVA -Neuro exam stable today. Aspirin given. Discussed with pharmacy to dose IV formulations of anti-seizure medications to by mouth now that antral administration is possible Pulm: Acute hypoxic respiratory failure stable still with suboptimal spontaneous breathing trials would likely benefit from tracheostomy sometime in the upcoming week. Acceptable oxygenation on minimal settings today Cardio: Atrial fibrillation was likely embolic stroke consider full anticoagulation tomorrow cardiology following FEN-GI: Trophic enteral nutrition given continue total parenteral nutrition Renal: No LIANA appears volume overloaded IV Lasix given today we will attempt to decrease amount of IV fluids given for medications etc. ID: Remains persistently febrile broad-spectrum antimicrobials given yesterday cultures pending at risk for fungal infection and healthcare organizations all of which have been covered for. I am concerned source may be femoral catheter insertion site which still has purulent drainage we will get a bedside ultrasound to see if there is any fluid collection in this area Heme/Onc: The chemical DVT prophylaxis given hemoglobin and platelets are stable Endo: Glucose monitored Integ/MSK: Skin care per ICU protocol to prevent ulcers CODE: DNR-CCA
[2016-07-28] MEDS: Chlorhexidine Rinse 15 ML MOUTHWASH MM SCH ×2 (07:59→20:11)
[2016-07-28] MEDS: Levothyroxine Sodium 100 MCG VIAL IVP SCH (08:00)
[2016-07-28] MEDS: Aspirin 81 MG TAB.CHEW PO SCH (08:00)
--- NOTE | 2016-07-28 09:18 | General Surgery Progress Note ---
Date of Encounter: 07/28/16 Time of Encounter: 09:16 - Assessment and Plan (1) Acute abdomen Current Visit: Yes Status: Resolved Status post subtotal colectomy with ileostomy. Continue with dressing changes. Patient tolerating TFs via NGT-no significant residual. OK with advancement of TFs. Subjective Patient reports: other (Patient remains intubated/sedated. On fentanyl IV. Occassional agitation with attempts to remove ET tube/IVs.) Objective Vital Signs - Last 8 Hours Temp Pulse Resp BP Pulse Ox 07/28/16 08:15 100 28 109/50 100 07/28/16 08:02 99.1 F 07/28/16 07:48 24 95/61 100 07/28/16 07:27 103 23 110/63 100 07/28/16 06:00 100 24 111/59 98 07/28/16 05:30 24 105/60 98 07/28/16 05:00 100 21 105/60 98 07/28/16 04:29 22 100/64 100 07/28/16 04:00 99.7 F H 101 22 100/64 100 07/28/16 03:57 99.7 F H 07/28/16 03:00 110 26 106/87 100 07/28/16 02:25 22 130/76 98 07/28/16 02:00 86 18 130/76 97 Intake and Output 07/27/16 07/28/16 07/28/16 23:59 07:59 15:59 Intake Total 2433 / 2433 717 / 717 100 / 100 Output Total 900 / 900 1150 / 1150 350 / 350 Balance 1533 / 1533 -433 / -433 -250 / -250 Intake: IV Fluids 2410 / 2410 650 / 650 100 / 100 PRECEDEX 400 mcg In 100 100 / 100 100 / 100 100 / 100 ml @ 0.2 MCG/KG/HR 3.6 mls/hr IVC .Q24H ANALI Rx#: [id number] FentaNYL (PF) 1,000 MCG 100 / 100 200 / 200 In 0.9 % Sodium Chloride 80 ML @ 50 MCG/HR 5 mls/ hr IVC CONT ANALI Rx#: [id number] Clinimix E 5%-15% 1900 / 1900 SOLUTION 2,000 ML @ 75 mls/hr IVC .Q24H ANALI with M.v.i. Adult 10 ml Rx#: [id number] Merrem 1,000 MG In 0.9 % 200 / 200 100 / 100 Sodium Chloride (Mini-Bag +) 100 ML @ 200 mls/hr IVPB Q8H ANALI Rx#: [id number] Vancocin 1,000 MG In 250 / 250 Dextrose 5% 250 ML @ 167 mls/hr IVPB Q12H ANALI Rx#: [id number] Keppra 1,000 MG In 0.9 % 110 / 110 Sodium Chloride 100 ML @ 400 mls/hr IVPB BID ANALI Rx#:[id number] Tube Feeding Output: Stool 350 / 350 350 / 350 50 / 50 Catheter 550 / 550 800 / 800 300 / 300 Other: Weight 76.1 kg Blood Glucose* 116 Patient Weight 07/28/16 23:59 Weight 76.1 kg - General physical appearance well nourished, no distress - Abdomen Abdomen: Present: soft (Unable to assess tenderness. Incision CDI. No erythema or drainage. NGT in place.) - Labs 07/28/16 03:35 07/28/16 03:35 Diabetes panel 07/28/16 Range/Units 03:35 Sodium 134 L (136-145) mEq/L Potassium 4.2 (3.5-4.5) mEq/L Chloride 108 (98-109) mEq/L Carbon Dioxide 20 (19-29) mEq/L BUN 36 H (7-20) mg/dL Creatinine 0.59 (0.57-1.11) mg/dL Glucose 135 H (70-99) mg/dL Calcium 7.5 L (8.6-10.8) mg/dL Calcium panel 07/28/16 Range/Units 03:35 Calcium 7.5 L (8.6-10.8) mg/dL Phosphorus 4.6 (2.3-4.7) mg/dL Pituitary panel 07/28/16 Range/Units 03:35 Sodium 134 L (136-145) mEq/L Potassium 4.2 (3.5-4.5) mEq/L Chloride 108 (98-109) mEq/L Carbon Dioxide 20 (19-29) mEq/L BUN 36 H (7-20) mg/dL Creatinine 0.59 (0.57-1.11) mg/dL Glucose 135 H (70-99) mg/dL Calcium 7.5 L (8.6-10.8) mg/dL Adrenal panel 07/28/16 Range/Units 03:35 Sodium 134 L (136-145) mEq/L Potassium 4.2 (3.5-4.5) mEq/L Chloride 108 (98-109) mEq/L Carbon Dioxide 20 (19-29) mEq/L BUN 36 H (7-20) mg/dL Creatinine 0.59 (0.57-1.11) mg/dL Glucose 135 H (70-99) mg/dL Calcium 7.5 L (8.6-10.8) mg/dL - VTE Documentation of Mechanical Device: Intermittent pneumatic compression device Consult Discharge Plan - Plan Referrals: NO,PCP [Non-Partnered Physician] -
[2016-07-28] MEDS ORDERED: Furosemide 20 MG/2 ML VIAL IVP ONE (09:19)
[2016-07-28] MEDS: levETIRAcetam 500 MG/5 ML UDC PO SCH ×2 (10:36→20:09)
[2016-07-28] MEDS: Vancomycin 1,000 MG in D5% in Water 250 ML IVPB SCH ×2 (10:37→23:34)
[2016-07-28] MEDS: Micafungin 100 MG in 0.9 % Sodium Chloride 100 ML IVPB SCH (10:41)
[2016-07-28] MEDS: levETIRAcetam 1,000 MG in 0.9 % Sodium Chloride 100 ML IVPB SCH (10:43)
[2016-07-28 11:26] LABS: Ionized Calcium 1.13 mmol/L (1.15-1.35)
[2016-07-28 11:41] LABS: Vancomycin,Trough 14.9 mcg/mL (10-20)
[2016-07-28] MEDS: Clinimix E 5%-15% SOLUTION 2,000 ML with MVI, adult with vitamin K 10 ML IVC SCH ×3 (17:57→19:14)
[2016-07-29] MEDS: Dexmedetomidine HCl 400 MCG/100 ML MLS IVC SCH ×4 (00:37→18:20)
[2016-07-29] MEDS: Meropenem 1,000 MG in 0.9 % Sodium Chloride Mini Bag 100 ML IVPB SCH ×3 (02:03→18:53)
[2016-07-29] MEDS: FentaNYL (PF) 1,000 MCG in 0.9 % Sodium Chloride 80 ML IVC SCH ×4 (02:14→19:50)
[2016-07-29] MEDS: Lacri-Lube 3.5 GM TUBE BOTH EYES SCH ×6 (03:30→23:15)
[2016-07-29 03:35] LABS: Hematocrit 25.8 % (35.3-44.9); Hemoglobin 8.3 g/dL (11.5-15.4); Mean Corpuscular HGB Conc 32.2 g/dL (31.6-35.5); Mean Corpuscular Volume 93.1 fL (83.0-100.0); Mean Platelet Volume 9.8 fL (9.4-12.4); Platelet Count 469 K/mcL (140-400); Red Blood Count 2.77 M/mcL (3.82-4.97); Red Cell Distribution Width 14.4 % (11.5-14.5)
[2016-07-29 03:36] LABS: Lymphocytes # 0.9 K/mcL (0.6-4.6)
[2016-07-29 03:47] LABS: BUN/Creatinine Ratio 65 (6-26); Blood Urea Nitrogen 35 mg/dL (7-20); Calcium 7.6 mg/dL (8.6-10.8); Carbon Dioxide 20 mEq/L (19-29); Chloride 107 mEq/L (98-109); Glucose 109 mg/dL (70-99); Magnesium 1.5 mg/dL (1.6-2.6); Osmolality,Calculated 281 (280-300); Phosphorous 4.1 mg/dL (2.3-4.7); Potassium 4.1 mEq/L (3.5-4.5); Sodium 131 mEq/L (136-145); Triglycerides 61 mg/dL (< 150); eGFR For African Americans > 60 (> 60); eGFR For Non-African Americans > 60 (> 60)
[2016-07-29 04:04] LABS: Monocytes # 0.6 K/mcL (0.0-1.3); Neutrophils # 6.1 K/mcL (1.6-8.9)
[2016-07-29 04:05] LABS: Reactive Lymphocytes Present (Not Present)
[2016-07-29 04:06] LABS: Anisocytosis 1+ (Not Present); Toxic Granulation Present (Not Present)
[2016-07-29] MEDS: Magnesium Sulfate 2 GM in D5% in Water 100 ML IVPB PRN (04:16)
[2016-07-29] MEDS: Pantoprazole 40 MG VIAL IVP SCH (05:20)
[2016-07-29 06:51] LABS: ABG Base Excess -1.6 mEq/L (-2.0 to 3.0); ABG HCO3 21.8 mEQ/L (21-27); ABG Oxygen Saturation 98 % (95-98); ABG PCO2 30 mmHg (35-45); ABG PH 7.47 pH Units (7.32-7.45); ABG PO2 106 mmHg (85-104); ABG TCO2 22.7 mEq/L (20-26)
[2016-07-29 06:52] LABS: Blood Gas FiO2 30 %
[2016-07-29] MEDS ORDERED: Calcium Gluconate 1,000 MG in D5% in Water 100 ML IVPB PRN (07:02)
--- NOTE | 2016-07-29 08:15 | Pulmonology Progress Note ---
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 Neuropsych: --Sedated on ventilator --Acute infarcts to right MCA, left SOUND CONTROLLER,and left LUCAS 07/23; repeat head CT 07/24 shows stroke stable --History of MRDD and seizure disorder, home medications of phenytoin, keppra, triletpal, and prozac --Currently on phenytoin and Keppra, start Trileptal and Seroquel -- 07/29 Phenytoin corrected level 15.3; start 50 mg QAM and 100 mg QPM Pulm: Chronic respiratory failure on ventilator support, CPAP trials daily; will wean off vent when tolerated Cardio: EKG evidence of paroxysmal A. fib. 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 Laurent 07/20 --Enteral feedings via NG tube, plan to slowly increase enteral feeds and decreased TPN. Good output to ileostomy. --Goal net I/O = 0; albumin and Lasix --On electrolyte protocol Renal: Stable ID: Patient spiked fever overnight 07/27-07/29. Catheter tip preliminary report gram-positive cocci, urinary preliminary report yeast species, blood culture preliminary report no growth. Antibiotic coverage vancomycin, meropenem, and micafungin (day 3). Abdominal CT shows bilateral pleural effusions, small to moderate hyperdense fluid in the pelvis compatible with hemoperitoneum, moderate amount of ascites in the abdomen. Heme/Onc: --DVT prophylaxis with subcutaneous heparin --Transfused a total of 4 units pRBC, last transfusion 07/22 Endocrine: NG tube feeds and TPN (increasing tube feeds, decreasing TPN); hypoglycemia protocol Integ/MSK: Continue ICU skin care protocol to prevent ulcers Lines: ETT, NG, R PICC Code: DNR-CCA (2) Cerebral infarction involving left anterior cerebral artery Current Visit: Yes Status: Acute (3) Cerebral infarction involving left posterior cerebral artery Current Visit: Yes Status: Acute (4) Chronic respiratory failure Current Visit: Yes Status: Acute Qualifiers: Respiratory failure complication: unspecified whether with hypoxia or hypercapnia Qualified Code(s): J96.10 - Chronic respiratory failure, unspecified whether with hypoxia or hypercapnia (5) Goals of care, counseling/discussion Current Visit: Yes Status: Acute [address]-appointed guardianship has been approved Patient does not have POA Social work following (6) Paroxysmal a-fib Current Visit: Yes Status: Acute (7) Postoperative anemia Current Visit: Yes Status: Acute Patient received 2 units pRBC / and 2 units pRBC / (8) Pneumonia Current Visit: Yes Status: Suspected Suspect aspiration pneumonia coverage with aztreonam and flagyl Qualifiers: Pneumonia type: aspiration pneumonia Laterality: unspecified laterality Lung location: unspecified part of lung Qualified Code(s): J69.0 - Pneumonitis due to inhalation of food and vomit (9) Thrombocytopenia Current Visit: Yes Status: Resolved Resolved (10) UTI (urinary tract infection) Current Visit: Yes Status: Suspected Suspected UTI with many bacteria, large leukocyte esterase, 50-100 WBCs Urine culture 07/18/2016 no growth to date, no pathogens isolated Qualifiers: Urinary tract infection type: site unspecified Hematuria presence: without hematuria Qualified Code(s): N39.0 - Urinary tract infection, site not specified (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 Resolved status post surgery (12) Bowel obstruction Current Visit: Yes Status: Resolved Resolved status post surgery Qualifiers: Intestinal obstruction type: unspecified Qualified Code(s): K56.60 - Unspecified intestinal obstruction (13) Mental retardation Current Visit: Yes Status: Chronic Patient lives in a [facility] and is reportedly high functioning (14) Seizure disorder Current Visit: Yes Status: Chronic No recent seizure activity reported (15) Septic shock Current Visit: Yes Status: Resolved Resolved (16) Lactic acidosis Current Visit: Yes Status: Resolved Resolved (17) Tachycardia Current Visit: Yes Status: Resolved Resolved (18) Acute kidney injury Current Visit: Yes Status: Resolved Resolved Subjective Principal diagnosis: Sepsis secondary to bowel necrosis, acute respiratory failure Interval history: Patient with fever overnight. Did not tolerate CPAP trial this morning. Objective PUL Vital signs: Last Vital Signs Temp 100.5 F H 07/29/16 04:43 Pulse 101 07/29/16 07:30 Resp 26 07/29/16 07:35 BP 107/58 07/29/16 07:30 Pulse Ox 100 07/29/16 07:35 General appearance: no acute distress Eyes: nonicteric ENT: oropharynx dry Neck: supple Effort: normal Auscultation: bilateral: clear Cardiovascular: regular rate and rhythm Gastrointestinal: normoactive bowel sounds, soft Extremities: no cyanosis, pink and warm, anasarca Musculoskeletal: no deformities, other (Moving right extremities, no movement of left extremities) other (Sedated on mechanical ventilation, follows commands with right extremities) Ventilator Settings Ventilator Settings: Ventilator Settings, Last 8 Hours Ventilator Mode VC+ Ventilator Mode VC+ Ventilator Mode VC+ Ventilator Mode VC+ Ventilator Mode VC+ Ventilator Mode VC+ Ventilator Mode VC+ Ventilator Mode VC+ Ventilator Mode VC+ Ventilator Mode VC+ Ventilator Mode VC+ Ventilator Mode VC+ Ventilator Mode VC+ Ventilator Tidal Volume 400 Setting Ventilator Tidal Volume 450 Setting Ventilator Tidal Volume 450 Setting Ventilator Tidal Volume 450 Setting Ventilator Tidal Volume 450 Setting Ventilator Tidal Volume 450 Setting Ventilator Tidal Volume 450 Setting Ventilator Tidal Volume 450 Setting Ventilator Tidal Volume 450 Setting Ventilator Tidal Volume 450 Setting Ventilator Tidal Volume 450 Setting Ventilator Tidal Volume 450 Setting Ventilator Tidal Volume 450 Setting Ventilator Respiratory Rate 12 Setting Ventilator Respiratory Rate 12 Setting Ventilator Respiratory Rate 12 Setting Ventilator Respiratory Rate 12 Setting Ventilator Respiratory Rate 12 Setting Ventilator Respiratory Rate 12 Setting Ventilator Respiratory Rate 12 Setting Ventilator Respiratory Rate 12 Setting Ventilator Respiratory Rate 12 Setting Ventilator Respiratory Rate 12 Setting Ventilator Respiratory Rate 12 Setting Ventilator Respiratory Rate 12 Setting Ventilator Respiratory Rate 12 Setting Actual Respiratory Rate 27 Actual Respiratory Rate 26 Actual Respiratory Rate 24 Actual Respiratory Rate 24 Actual Respiratory Rate 24 Actual Respiratory Rate 24 Actual Respiratory Rate 27 Actual Respiratory Rate 27 Actual Respiratory Rate 27 Actual Respiratory Rate 20 Actual Respiratory Rate 25 Actual Respiratory Rate 25 Positive End Expiratory 5 Pressure Positive End Expiratory 5 Pressure Positive End Expiratory 5 Pressure Positive End Expiratory 5 Pressure Positive End Expiratory 5 Pressure Positive End Expiratory 5 Pressure Positive End Expiratory 5 Pressure Positive End Expiratory 5 Pressure Positive End Expiratory 5 Pressure Positive End Expiratory 5 Pressure Positive End Expiratory 5 Pressure Positive End Expiratory 5 Pressure Positive End Expiratory 5 Pressure Peak Inspiratory Airway 23 Pressure Peak Inspiratory Airway 19 Pressure Peak Inspiratory Airway 26 Pressure Peak Inspiratory Airway 22 Pressure Peak Inspiratory Airway 27 Pressure Peak Inspiratory Airway 27 Pressure Peak Inspiratory Airway 28 Pressure Peak Inspiratory Airway 28 Pressure Peak Inspiratory Airway 24 Pressure Peak Inspiratory Airway 24 Pressure Peak Inspiratory Airway 16 Pressure Results - Laboratory Findings CBC and BMP: 07/29/16 03:00 07/29/16 03:00 ABG ABG pH 7.47 pH Units (7.32-7.45) H 07/29/16 06:44 ABG pCO2 30 mmHg (35-45) L 07/29/16 06:44 ABG pO2 106 mmHg (85-104) H 07/29/16 06:44 ABG O2 Saturation 98 % (95-98) 07/29/16 06:44 PT/INR, D-dimer PT 10.7 Seconds (9.4-12.1) 07/23/16 11:25 Abnormal lab findings: Abnormal lab results RBC 2.77 M/mcL (3.82-4.97) L 07/29/16 03:00 Hgb 8.3 g/dL (11.5-15.4) L 07/29/16 03:00 Hct 25.8 % (35.3-44.9) L 07/29/16 03:00 Plt Count 469 K/mcL (140-400) H 07/29/16 03:00 Immature Gran % 5.8 % (0-4) H 07/24/16 03:24 Band Neutrophils % 8.0 % (0-4) H 07/29/16 03:00 Metamyelocytes % 2.0 % (0) H 07/21/16 23:00 Myelocytes % 1.0 % (0) H 07/26/16 04:35 Promyelocytes % 1.0 % (0) H 07/26/16 04:35 Nucleated RBCs/100 WBC 0.2 /100 WBC (0) H 07/24/16 03:24 Reactive Lymphocytes Present (Not Present) A 07/29/16 03:00 Toxic Granulation Present (Not Present) A 07/29/16 03:00 Toxic Vacuolation Present (Not Present) A 07/23/16 03:11 Dohle Bodies Present (Not Present) A 07/27/16 04:55 Platelet Estimate Slight increase (Normal) H 07/29/16 03:00 Large Platelets Present (Not Present) A 07/28/16 03:35 Polychromasia 1+ (Not Present) A 07/26/16 04:35 Anisocytosis 1+ (Not Present) A 07/29/16 03:00 Macrocytosis Present (Not Present) A 07/26/16 04:35 Isai Cells 3+ (Not Present) A 07/18/16 22:37 Acanthocytes (Spur) 1+ (Not Present) A 07/21/16 23:00 Rouleaux Present (Not Present) A 07/26/16 04:35 Fibrinogen 745 mg/dL (169-393) H* 07/23/16 12:28 ABG pH 7.47 pH Units (7.32-7.45) H 07/29/16 06:44 ABG pCO2 30 mmHg (35-45) L 07/29/16 06:44 ABG pO2 106 mmHg (85-104) H 07/29/16 06:44 Sodium 131 mEq/L (136-145) L 07/29/16 03:00 BUN 35 mg/dL (7-20) H 07/29/16 03:00 Creatinine 0.54 mg/dL (0.57-1.11) L 07/29/16 03:00 BUN/Creatinine Ratio 65 (6-26) H 07/29/16 03:00 Glucose 109 mg/dL (70-99) H 07/29/16 03:00 POC Glucose 158 (58-89) H 07/28/16 23:45 Calcium 7.6 mg/dL (8.6-10.8) L 07/29/16 03:00 Ionized Calcium 1.13 mmol/L (1.15-1.35) L 07/28/16 11:05 Magnesium 1.5 mg/dL (1.6-2.6) L 07/29/16 03:00 AST 50 Units/L (5-34) H 07/25/16 03:25 Troponin I 0.14 ng/mL (0-0.03) H* 07/18/16 09:38 B-Natriuretic Peptide 3231 pg/mL (0-100) H 07/18/16 10:28 Serum Total Protein 4.3 g/dL (6.0-8.3) L 07/25/16 03:25 Albumin 1.2 g/dL (3.5-5.0) L 07/25/16 03:25 Albumin/Globulin Ratio 0.4 (1.1-2.2) L 07/25/16 03:25 Prealbumin 13.0 mg/dL (16.0-38.0) L 07/29/16 03:00 Urine Clarity Cloudy (Clear) A 07/18/16 10:55 Urine Protein 30 mg/dL (Neg-Trace) H 07/18/16 10:55 Ur Leukocyte Esterase Large (Negative) H 07/18/16 10:55 Urine Microscopic WBC 50-100 per hpf (0-3) H 07/18/16 10:55 Urine Bacteria Many per hpf (None-Few) H 07/18/16 10:55 Ur Culture Indicated? YES (NO) A 07/18/16 10:55 Phenytoin 5.2 mcg/mL (10-20) L 07/29/16 03:00 Free Phenytoin 2.6 ug/mL (1.0-2.5) H* 07/24/16 04:35 Total Phenytoin 9.2 ug/mL (10.0-20.0) L 07/24/16 04:35 Percent Free Phenytoin 28.3 % (8.0-14.0) H 07/24/16 04:35 Levetiracetam 47 ug/mL (12-46) H 07/24/16 04:35 - Microbiology Findings Microbiology Findings: Microbiology, Last 48 Hours 07/26/16 18:09 Catheter Tip Culture - Preliminary Intravenous or Arterial Cath Gram Positive Cocci 07/27/16 13:30 Blood Culture - Preliminary Peripheral Venipuncture No growth. 07/27/16 13:30 Blood Culture - Preliminary Peripheral Venipuncture No growth. 07/27/16 13:45 Urine Culture - Preliminary Urine,Catheterized Yeast Species - Clinical Findings Intake & Output: Intake & Output 07/28/16 07/28/16 07/29/16 15:59 23:59 07:59 Intake Total 1647 / 1647 2605 / 2605 1014 / 1014 Output Total 2075 / 2075 275 / 275 675 / 675 Balance -428 / -428 2330 / 2330 339 / 339 Weight 76 kg - VTE Documentation of Mechanical Device: Intermittent pneumatic compression device Consult Discharge Plan - Plan Referrals: NO,PCP [Non-Partnered Physician] - <Chaparrita Kessler - Last Filed: 07/29/16 16:36> Date of Encounter: 07/29/16 Objective PUL Vital signs: Last Vital Signs Temp 98.8 F 07/29/16 15:30 Pulse 106 07/29/16 16:18 Resp 24 07/29/16 16:18 BP 118/69 07/29/16 16:18 Pulse Ox 100 07/29/16 16:18 Ventilator Settings Ventilator Settings: Ventilator Settings, Last 8 Hours Ventilator Mode VC+ Ventilator Mode VC+ Ventilator Mode VC+ Ventilator Mode VC+ Ventilator Mode VC+ Ventilator Mode VC+ Ventilator Tidal Volume 400 Setting Ventilator Tidal Volume 400 Setting Ventilator Tidal Volume 400 Setting Ventilator Tidal Volume 400 Setting Ventilator Tidal Volume 400 Setting Ventilator Respiratory Rate 12 Setting Ventilator Respiratory Rate 12 Setting Ventilator Respiratory Rate 12 Setting Ventilator Respiratory Rate 12 Setting Ventilator Respiratory Rate 12 Setting Actual Respiratory Rate 24 Actual Respiratory Rate 25 Actual Respiratory Rate 25 Actual Respiratory Rate 24 Actual Respiratory Rate 22 Positive End Expiratory 5 Pressure Positive End Expiratory 5 Pressure Positive End Expiratory 5 Pressure Positive End Expiratory 5 Pressure Positive End Expiratory 5 Pressure Peak Inspiratory Airway 33 Pressure Peak Inspiratory Airway 33 Pressure Peak Inspiratory Airway 33 Pressure Peak Inspiratory Airway 30 Pressure Peak Inspiratory Airway 20 Pressure Peak Inspiratory Airway 25 Pressure Peak Inspiratory Airway 18 Pressure Peak Inspiratory Airway 23 Pressure Peak Inspiratory Airway 25 Pressure Peak Inspiratory Airway 28 Pressure Peak Inspiratory Airway 23 Pressure Peak Inspiratory Airway 22 Pressure Results - Laboratory Findings CBC and BMP: 07/29/16 03:00 07/29/16 03:00 ABG ABG pH 7.47 pH Units (7.32-7.45) H 07/29/16 06:44 ABG pCO2 30 mmHg (35-45) L 07/29/16 06:44 ABG pO2 106 mmHg (85-104) H 07/29/16 06:44 ABG O2 Saturation 98 % (95-98) 07/29/16 06:44 PT/INR, D-dimer PT 14.2 Seconds (9.4-12.1) H 07/29/16 09:21 Abnormal lab findings: Abnormal lab results RBC 2.77 M/mcL (3.82-4.97) L 07/29/16 03:00 Hgb 8.3 g/dL (11.5-15.4) L 07/29/16 03:00 Hct 25.8 % (35.3-44.9) L 07/29/16 03:00 Plt Count 469 K/mcL (140-400) H 07/29/16 03:00 Immature Gran % 5.8 % (0-4) H 07/24/16 03:24 Band Neutrophils % 8.0 % (0-4) H 07/29/16 03:00 Metamyelocytes % 2.0 % (0) H 07/21/16 23:00 Myelocytes % 1.0 % (0) H 07/26/16 04:35 Promyelocytes % 1.0 % (0) H 07/26/16 04:35 Nucleated RBCs/100 WBC 0.2 /100 WBC (0) H 07/24/16 03:24 Reactive Lymphocytes Present (Not Present) A 07/29/16 03:00 Toxic Granulation Present (Not Present) A 07/29/16 03:00 Toxic Vacuolation Present (Not Present) A 07/23/16 03:11 Dohle Bodies Present (Not Present) A 07/27/16 04:55 Platelet Estimate Slight increase (Normal) H 07/29/16 03:00 Large Platelets Present (Not Present) A 07/28/16 03:35 Polychromasia 1+ (Not Present) A 07/26/16 04:35 Anisocytosis 1+ (Not Present) A 07/29/16 03:00 Macrocytosis Present (Not Present) A 07/26/16 04:35 Dellrose Cells 3+ (Not Present) A 07/18/16 22:37 Acanthocytes (Spur) 1+ (Not Present) A 07/21/16 23:00 Rouleaux Present (Not Present) A 07/26/16 04:35 PT 14.2 Seconds (9.4-12.1) H 07/29/16 09:21 Fibrinogen 745 mg/dL (169-393) H* 07/23/16 12:28 ABG pH 7.47 pH Units (7.32-7.45) H 07/29/16 06:44 ABG pCO2 30 mmHg (35-45) L 07/29/16 06:44 ABG pO2 106 mmHg (85-104) H 07/29/16 06:44 Sodium 131 mEq/L (136-145) L 07/29/16 03:00 BUN 35 mg/dL (7-20) H 07/29/16 03:00 Creatinine 0.54 mg/dL (0.57-1.11) L 07/29/16 03:00 BUN/Creatinine Ratio 65 (6-26) H 07/29/16 03:00 Glucose 109 mg/dL (70-99) H 07/29/16 03:00 POC Glucose 113 (58-89) H 07/29/16 11:51 Calcium 7.6 mg/dL (8.6-10.8) L 07/29/16 03:00 Ionized Calcium 1.13 mmol/L (1.15-1.35) L 07/28/16 11:05 Magnesium 1.5 mg/dL (1.6-2.6) L 07/29/16 03:00 AST 41 Units/L (5-34) H 07/29/16 09:21 Troponin I 0.14 ng/mL (0-0.03) H* 07/18/16 09:38 B-Natriuretic Peptide 3231 pg/mL (0-100) H 07/18/16 10:28 Serum Total Protein 4.3 g/dL (6.0-8.3) L 07/29/16 09:21 Albumin 1.1 g/dL (3.5-5.0) L 07/29/16 09:21 Albumin/Globulin Ratio 0.3 (1.1-2.2) L 07/29/16 09:21 Prealbumin 13.0 mg/dL (16.0-38.0) L 07/29/16 03:00 Urine Clarity Cloudy (Clear) A 07/18/16 10:55 Urine Protein 30 mg/dL (Neg-Trace) H 07/18/16 10:55 Ur Leukocyte Esterase Large (Negative) H 07/18/16 10:55 Urine Microscopic WBC 50-100 per hpf (0-3) H 07/18/16 10:55 Urine Bacteria Many per hpf (None-Few) H 07/18/16 10:55 Ur Culture Indicated? YES (NO) A 07/18/16 10:55 Phenytoin 5.2 mcg/mL (10-20) L 07/29/16 03:00 Free Phenytoin 2.6 ug/mL (1.0-2.5) H* 07/24/16 04:35 Total Phenytoin 9.2 ug/mL (10.0-20.0) L 07/24/16 04:35 Percent Free Phenytoin 28.3 % (8.0-14.0) H 07/24/16 04:35 Levetiracetam 47 ug/mL (12-46) H 07/24/16 04:35 - Microbiology Findings Microbiology Findings: Microbiology, Last 48 Hours 07/26/16 18:09 Catheter Tip Culture - Preliminary Intravenous or Arterial Cath Gram Positive Cocci 07/27/16 13:30 Blood Culture - Preliminary Peripheral Venipuncture No growth. 07/27/16 13:30 Blood Culture - Preliminary Peripheral Venipuncture No growth. 07/27/16 13:45 Urine Culture - Preliminary Urine,Catheterized Yeast Species - Clinical Findings Intake & Output: Intake & Output 07/29/16 07/29/16 07/29/16 07:59 15:59 23:59 Intake Total 1114 / 1114 1625 / 1625 80 / 80 Output Total 675 / 675 800 / 800 1460 / 1460 Balance 439 / 439 825 / 825 -1380 / -1380 Weight 76 kg - Attending Attestation I examined this patient and my medical decision-making was reviewed with the SHELL MOLD BONDER/PA/Advanced Practice Nurse/Resident Physician. I agree with the documented findings, disposition and treatment plan as described except to the extent set forth below. Patient seen and examined. Labs, radiology, chart personally reviewed. Agree with resident's history and physical, assessment, plan with following comments: [employer] AGENT: Patient awake and anxious looking, but does not follows commands. Pulmonary: Acceptable oxygenation and ventilation. Ultrasound was done at the bedside with a pocket of pleural effusion which a few diuresis would be appropriate and fluid goal to be negative and subsequently to extubate before and he plans for tracheostomy if her breathing improves. Cardiovascular: stable. I feel the risk of full anticoagulation outweighs the benefits at this time since she is postsurgical and his risk of hemorrhagic conversion of her stroke. GI: Nutrition per dietary and GI prophylaxis per routine. Decreased rate of TPN which will help fluid management. Heme: DVT prophylaxis per routine ID: Continue antibiotics and plan to de-escalation Renal; urine out put and renal funtion reviewed Endorcine: blood glucose is monitored Lines: all lines checked and no evidence of infections Skin: skin care to prevent pressure ulcers per nursing routine care Overall prognosis is poor
[2016-07-29] MEDS ORDERED: *HR* Heparin 5,000 UNIT/ML VIAL IVP PRN ×2 (08:37)
[2016-07-29] MEDS ORDERED: *HR* Heparin 5,000 UNIT/ML VIAL IVP ONE (08:37)
[2016-07-29] MEDS ORDERED: Heparin 25,000 UNIT/500 ML D5W 25,000 UNIT/500 ML MLS IVC SCH (08:45)
[2016-07-29] MEDS: Chlorhexidine Rinse 15 ML MOUTHWASH MM SCH ×2 (09:02→21:33)
[2016-07-29] MEDS: levETIRAcetam 500 MG/5 ML UDC PO SCH ×2 (09:03→21:34)
[2016-07-29] MEDS: Aspirin 81 MG TAB.CHEW PO SCH (09:03)
[2016-07-29] MEDS: Furosemide 20 MG/2 ML VIAL IVP SCH ×2 (09:05→17:49)
[2016-07-29 09:43] LABS: INR 1.3; Prothrombin Time 14.2 Seconds (9.4-12.1)
[2016-07-29 09:46] LABS: Activated Partial Thrombo Time 28.4 Seconds (26.0-36.0)
[2016-07-29 10:06] LABS: Albumin/Globulin Ratio 0.3 (1.1-2.2); Bilirubin,Direct 0.4 mg/dL (0.0-0.5); Bilirubin,Indirect 0.2 mg/dL (0.0-1.2); Bilirubin,Total 0.6 mg/dL (0.2-1.2); Globulin 3.2 g/dL (2.4-3.5); Total Protein 4.3 g/dL (6.0-8.3)
[2016-07-29 10:09] LABS: Albumin 1.1 g/dL (3.5-5.0)
--- NOTE | 2016-07-29 11:37 | General Surgery Progress Note ---
Date of Encounter: 07/29/16 Time of Encounter: 11:35 - Assessment and Plan (1) Acute abdomen Current Visit: Yes Status: Resolved Status post subtotal colectomy with ileostomy. Agree with continued increase in TF to goal. I personally reviewed the CT scan images an report which verify an significant amount of third spacing of fluid. Ostomy functioning; agree with decreasing TPN as TFs increase. Subjective Patient reports: other (Patient intubated. Responsive. On TF via NGT at 20ml/ hr.) Objective Vital Signs - Last 8 Hours Temp Pulse Resp BP Pulse Ox 07/29/16 11:09 20 94 07/29/16 10:30 107 24 130/79 07/29/16 09:30 102 25 119/73 100 07/29/16 09:14 99.7 F H 07/29/16 08:38 104 20 115/60 100 07/29/16 08:20 25 100 07/29/16 07:35 26 100 07/29/16 07:30 101 24 107/58 100 07/29/16 06:01 24 110/59 100 07/29/16 06:00 101 20 109/56 100 07/29/16 05:00 103 24 109/55 100 07/29/16 04:43 100.5 F H 07/29/16 04:07 24 109/54 91 07/29/16 04:00 102 24 109/54 100 Intake and Output 07/28/16 07/29/16 07/29/16 23:59 07:59 15:59 Intake Total 2605 / 2605 1114 / 1114 250 / 250 Output Total 275 / 275 675 / 675 350 / 350 Balance 2330 / 2330 439 / 439 -100 / -100 Intake: IV Fluids 2550 / 2550 1104 / 1104 250 / 250 ALBURX 5% 12.5 gm In 250 250 / 250 ml @ 60 mls/hr IVC . Q4H10M [facility] Rx#:[id number] PRECEDEX 400 mcg In 100 100 / 100 200 / 200 ml @ 0.2 MCG/KG/HR 3.6 mls/hr IVC .Q24H [facility] Rx#: [id number] FentaNYL (PF) 1,000 MCG 200 / 200 200 / 200 In 0.9 % Sodium Chloride 80 ML @ 50 MCG/HR 5 mls/ hr IVC CONT [facility] Rx#: [id number] Clinimix E 5%-15% 1900 / 1900 SOLUTION 2,000 ML @ 75 mls/hr IVC .Q24H [facility] with M.v.i. Adult 10 ml Rx#: [id number] Intralipid 20% 250 ML @ 250 / 250 21 mls/hr IVPB DAILY@1700 [facility] Rx#:[id number] Magnesium Sulfate 2 GM In 104 / 104 Dextrose 5% 100 ML @ 50 mls/hr IVPB Q6H PRN Rx#: [id number] Merrem 1,000 MG In 0.9 % 100 / 100 100 / 100 Sodium Chloride (Mini-Bag +) 100 ML @ 200 mls/hr IVPB Q8H [facility] Rx#: [id number] Vancocin 1,000 MG In 250 / 250 250 / 250 Dextrose 5% 250 ML @ 167 mls/hr IVPB Q12H [facility] Rx#: [id number] Tube Feeding 45 / 45 Free Water 10 10 10 Output: Stool 75 / 75 75 / 75 Catheter 200 / 200 600 / 600 275 / 275 Gastric Drainage 75 / 75 Other: Weight 76 kg Blood Glucose* 158 Patient Weight 07/29/16 23:59 Weight 76 kg - Abdomen Abdomen: Present: soft (Unable to appreciate pain with palpation. Incision CDI. No erythema, no drainage. Ostomy pink, positive output.) - Musculoskeletal other (Positive pitting edema and total boday soft tissue edema.) - Labs 07/29/16 03:00 07/29/16 03:00 Diabetes panel 07/29/16 07/29/16 Range/Units 03:00 09:21 Sodium 131 L (136-145) mEq/L Potassium 4.1 (3.5-4.5) mEq/L Chloride 107 (98-109) mEq/L Carbon Dioxide 20 (19-29) mEq/L BUN 35 H (7-20) mg/dL Creatinine 0.54 L (0.57-1.11) mg/dL Glucose 109 H (70-99) mg/dL Calcium 7.6 L (8.6-10.8) mg/dL AST 41 H (5-34) Units/L ALT 29 (0-55) Units/L Alkaline Phosphatase 54 (38-126) Units/L Albumin 1.1 L (3.5-5.0) g/dL Triglycerides 61 (< 150) mg/dL Calcium panel 07/29/16 07/29/16 07/29/16 Range/Units 03:00 03:00 09:21 Calcium 7.6 L (8.6-10.8) mg/dL Phosphorus 4.1 (2.3-4.7) mg/dL Albumin 1.1 L (3.5-5.0) g/dL Pituitary panel 07/29/16 Range/Units 03:00 Sodium 131 L (136-145) mEq/L Potassium 4.1 (3.5-4.5) mEq/L Chloride 107 (98-109) mEq/L Carbon Dioxide 20 (19-29) mEq/L BUN 35 H (7-20) mg/dL Creatinine 0.54 L (0.57-1.11) mg/dL Glucose 109 H (70-99) mg/dL Calcium 7.6 L (8.6-10.8) mg/dL Adrenal panel 07/29/16 07/29/16 Range/Units 03:00 09:21 Sodium 131 L (136-145) mEq/L Potassium 4.1 (3.5-4.5) mEq/L Chloride 107 (98-109) mEq/L Carbon Dioxide 20 (19-29) mEq/L BUN 35 H (7-20) mg/dL Creatinine 0.54 L (0.57-1.11) mg/dL Glucose 109 H (70-99) mg/dL Calcium 7.6 L (8.6-10.8) mg/dL Total Bilirubin 0.6 (0.2-1.2) mg/dL AST 41 H (5-34) Units/L ALT 29 (0-55) Units/L Alkaline Phosphatase 54 (38-126) Units/L Albumin 1.1 L (3.5-5.0) g/dL - VTE Documentation of Mechanical Device: Intermittent pneumatic compression device Consult Discharge Plan - Plan Referrals: NO,PCP [Non-Partnered Physician] -
[2016-07-29] MEDS: Micafungin 100 MG in 0.9 % Sodium Chloride 100 ML IVPB SCH (11:53)
[2016-07-29] MEDS: Vancomycin 1,000 MG in D5% in Water 250 ML IVPB SCH ×2 (11:54→23:14)
[2016-07-29] MEDS ORDERED: Aminoglycoside Consult 1 EACH MC ONE (12:00)
[2016-07-29] MEDS: *HR* Heparin 5,000 UNIT/ML VIAL SQ SCH ×2 (15:45→21:33)
[2016-07-29] MEDS ORDERED: Clinimix E 5%-15% SOLUTION 2,000 ML with MVI, adult with vitamin K 10 ML IVC SCH (17:00)
[2016-07-29] MEDS: Clinimix E 5%-15% SOLUTION 2,000 ML with MVI, adult with vitamin K 10 ML IVC SCH (17:45)
[2016-07-29] MEDS: OXcarbazepine 150 MG TABLET PO SCH (21:34)
[2016-07-30] MEDS: Dexmedetomidine HCl 400 MCG/100 ML MLS IVC SCH ×4 (00:16→23:59)
[2016-07-30] MEDS: Acetaminophen 325 MG TABLET PO PRN (00:16)
[2016-07-30] MEDS: FentaNYL (PF) 1,000 MCG in 0.9 % Sodium Chloride 80 ML IVC SCH ×3 (01:45→18:29)
[2016-07-30] MEDS: Meropenem 1,000 MG in 0.9 % Sodium Chloride Mini Bag 100 ML IVPB SCH ×3 (02:21→18:44)
[2016-07-30 03:38] LABS: Basophils % 0.1 %; Hematocrit 22.8 % (35.3-44.9); Hemoglobin 7.5 g/dL (11.5-15.4); Lymphocytes # 0.9 K/mcL (0.6-4.6); Lymphocytes % 12.9 %; Mean Corpuscular HGB Conc 32.9 g/dL (31.6-35.5); Mean Corpuscular Volume 94.2 fL (83.0-100.0); Mean Platelet Volume 9.8 fL (9.4-12.4); Monocytes # 0.8 K/mcL (0.0-1.3); Monocytes % 12.1 %; Platelet Count 529 K/mcL (140-400); Red Blood Count 2.42 M/mcL (3.82-4.97); Red Cell Distribution Width 14.5 % (11.5-14.5); Segmented Neutrophils % 72.9 %
[2016-07-30 03:49] LABS: BUN/Creatinine Ratio 66 (6-26); Blood Urea Nitrogen 35 mg/dL (7-20); Calcium 7.6 mg/dL (8.6-10.8); Carbon Dioxide 22 mEq/L (19-29); Chloride 107 mEq/L (98-109); Glucose 125 mg/dL (70-99); Magnesium 1.5 mg/dL (1.6-2.6); Osmolality,Calculated 279 (280-300); Phosphorous 3.7 mg/dL (2.3-4.7); Potassium 3.9 mEq/L (3.5-4.5); Sodium 130 mEq/L (136-145); eGFR For African Americans > 60 (> 60); eGFR For Non-African Americans > 60 (> 60)
[2016-07-30] MEDS: Lacri-Lube 3.5 GM TUBE BOTH EYES SCH ×5 (03:57→21:14)
[2016-07-30 04:05] LABS: Platelet Estimate Increased (Normal)
[2016-07-30] MEDS: Magnesium Sulfate 2 GM in D5% in Water 100 ML IVPB PRN (04:46)
[2016-07-30] MEDS: *HR* Heparin 5,000 UNIT/ML VIAL SQ SCH (05:13)
[2016-07-30] MEDS: Pantoprazole 40 MG VIAL IVP SCH (05:15)
[2016-07-30] MEDS ORDERED: Furosemide 20 MG/2 ML VIAL IVP ONE (05:54)
[2016-07-30] MEDS: Aspirin 81 MG TAB.CHEW PO SCH (08:03)
[2016-07-30] MEDS: OXcarbazepine 150 MG TABLET PO SCH ×2 (08:03→21:13)
[2016-07-30] MEDS: Furosemide 20 MG/2 ML VIAL IVP SCH ×2 (08:04→17:03)
[2016-07-30] MEDS: Chlorhexidine Rinse 15 ML MOUTHWASH MM SCH ×2 (08:04→21:14)
--- NOTE | 2016-07-30 08:29 | Pulmonology Progress Note ---
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 Hemoglobin has slowly trended down from 9.0 (07/26) to 7.5 today. Plan for bronchoscopy today. 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 Plan for bronchoscopy today, possible emergent tracheostomy. Cardio: EKG evidence of paroxysmal A. fib. Patient will need anticoagulation for this. No anticoagulations at this time due to anemia and blood via PO suctioning. 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 Laurent 07/20 --Enteral feedings via NG tube, increase enteral feeds and decreased TPN. Good output to ileostomy. --Goal net I/O = 0; Lasix BID, extra Lasix dose this morning --On electrolyte protocol Renal: Stable ID: Patient spiked fever overnight 07/27-07/30. Catheter tip Staphylococcus epidermidis, urinary Nevaeh albicans, sputum cultures pulmonary no growth, blood culture preliminary report no growth. De-escalate antibiotics: Stop vancomycin and micafungin, continue meropenem (day 3). Chest x-ray small bilateral pleural effusions and bibasilar atelectasis or pneumonitis. Heme/Onc: --DVT prophylaxis with SCDs due to anemia. --Transfused a total of 4 units pRBC, last transfusion 07/22 Endocrine: NG tube feeds and TPN (increasing tube feeds, decreasing TPN); hypoglycemia protocol Integ/MSK: Continue ICU skin care protocol to prevent ulcers Lines: ETT, NG, powerglide Code: DNR-CCA (2) Cerebral infarction involving left anterior cerebral artery Current Visit: Yes Status: Acute (3) Cerebral infarction involving left posterior cerebral artery Current Visit: Yes Status: Acute (4) Chronic respiratory failure Current Visit: Yes Status: Acute Qualifiers: Respiratory failure complication: unspecified whether with hypoxia or hypercapnia Qualified Code(s): J96.10 - Chronic respiratory failure, unspecified whether with hypoxia or hypercapnia (5) Goals of care, counseling/discussion Current Visit: Yes Status: Acute [address]-appointed guardianship has been approved Patient does not have POA Social work following (6) Paroxysmal a-fib Current Visit: Yes Status: Acute (7) Postoperative anemia Current Visit: Yes Status: Acute Patient received 2 units pRBC / and 2 units pRBC / (8) Pneumonia Current Visit: Yes Status: Suspected Suspect aspiration pneumonia coverage with aztreonam and flagyl Qualifiers: Pneumonia type: aspiration pneumonia Laterality: unspecified laterality Lung location: unspecified part of lung Qualified Code(s): J69.0 - Pneumonitis due to inhalation of food and vomit (9) Thrombocytopenia Current Visit: Yes Status: Resolved Resolved (10) UTI (urinary tract infection) Current Visit: Yes Status: Suspected Suspected UTI with many bacteria, large leukocyte esterase, 50-100 WBCs Urine culture 07/18/2016 no growth to date, no pathogens isolated Qualifiers: Urinary tract infection type: site unspecified Hematuria presence: without hematuria Qualified Code(s): N39.0 - Urinary tract infection, site not specified (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 Resolved status post surgery (12) Bowel obstruction Current Visit: Yes Status: Resolved Resolved status post surgery Qualifiers: Intestinal obstruction type: unspecified Qualified Code(s): K56.60 - Unspecified intestinal obstruction (13) Mental retardation Current Visit: Yes Status: Chronic Patient lives in a jail and is reportedly high functioning (14) Seizure disorder Current Visit: Yes Status: Chronic No recent seizure activity reported (15) Septic shock Current Visit: Yes Status: Resolved Resolved (16) Lactic acidosis Current Visit: Yes Status: Resolved Resolved (17) Tachycardia Current Visit: Yes Status: Resolved Resolved (18) Acute kidney injury Current Visit: Yes Status: Resolved Resolved Subjective Principal diagnosis: Sepsis secondary to bowel necrosis, acute respiratory failure Interval history: Patient with fever overnight. Patient tolerated CPAP well this morning. Increased blood from by mouth suctioning. Objective PUL Vital signs: Last Vital Signs Temp 99.4 F 07/30/16 07:44 Pulse 101 07/30/16 07:25 Resp 32 07/30/16 08:20 BP 109/48 07/30/16 07:20 Pulse Ox 97 07/30/16 08:20 General appearance: no acute distress, other (Sedated and on mechanical ventilation) Eyes: nonicteric ENT: oropharynx dry Neck: supple Effort: normal Auscultation: bilateral: rhonchi (R>L) Cardiovascular: regular rate and rhythm Gastrointestinal: normoactive bowel sounds, soft Extremities: no cyanosis, pink and warm, pulses normal Musculoskeletal: no deformities, other (Moving regularly extremity, no movement of left extremities) Ventilator Settings Ventilator Settings: Ventilator Settings, Last 8 Hours Ventilator Mode CPAP Ventilator Mode CPAP Ventilator Mode CPAP Ventilator Mode CPAP Ventilator Mode VC+ Ventilator Mode VC+ Ventilator Mode VC+ Ventilator Mode VC+ Ventilator Mode VC+ Ventilator Mode VC+ Ventilator Mode VC+ Ventilator Tidal Volume 400 Setting Ventilator Tidal Volume 400 Setting Ventilator Tidal Volume 400 Setting Ventilator Tidal Volume 400 Setting Ventilator Tidal Volume 400 Setting Ventilator Tidal Volume 400 Setting Ventilator Tidal Volume 400 Setting Ventilator Tidal Volume 400 Setting Ventilator Respiratory Rate 12 Setting Ventilator Respiratory Rate 12 Setting Ventilator Respiratory Rate 12 Setting Ventilator Respiratory Rate 12 Setting Ventilator Respiratory Rate 12 Setting Ventilator Respiratory Rate 12 Setting Ventilator Respiratory Rate 12 Setting Ventilator Respiratory Rate 12 Setting Actual Respiratory Rate 30 Actual Respiratory Rate 33 Actual Respiratory Rate 28 Actual Respiratory Rate 28 Actual Respiratory Rate 28 Actual Respiratory Rate 28 Actual Respiratory Rate 25 Actual Respiratory Rate 20 Actual Respiratory Rate 20 Actual Respiratory Rate 20 Actual Respiratory Rate 25 Positive End Expiratory 5 Pressure Positive End Expiratory 5 Pressure Positive End Expiratory 5 Pressure Positive End Expiratory 5 Pressure Positive End Expiratory 5 Pressure Positive End Expiratory 5 Pressure Positive End Expiratory 5 Pressure Positive End Expiratory 5 Pressure Positive End Expiratory 5 Pressure Positive End Expiratory 5 Pressure Peak Inspiratory Airway 17 Pressure Peak Inspiratory Airway 11 Pressure Peak Inspiratory Airway 16 Pressure Peak Inspiratory Airway 3 Pressure Peak Inspiratory Airway 22 Pressure Peak Inspiratory Airway 28 Pressure Peak Inspiratory Airway 27 Pressure Peak Inspiratory Airway 28 Pressure Peak Inspiratory Airway 25 Pressure Peak Inspiratory Airway 29 Pressure Peak Inspiratory Airway 30 Pressure Results - Laboratory Findings CBC and BMP: 07/30/16 03:30 07/30/16 03:30 ABG ABG pH 7.47 pH Units (7.32-7.45) H 07/29/16 06:44 ABG pCO2 30 mmHg (35-45) L 07/29/16 06:44 ABG pO2 106 mmHg (85-104) H 07/29/16 06:44 ABG O2 Saturation 98 % (95-98) 07/29/16 06:44 PT/INR, D-dimer PT 14.2 Seconds (9.4-12.1) H 07/29/16 09:21 Abnormal lab findings: Abnormal lab results RBC 2.42 M/mcL (3.82-4.97) L 07/30/16 03:30 Hgb 7.5 g/dL (11.5-15.4) L 07/30/16 03:30 Hct 22.8 % (35.3-44.9) L 07/30/16 03:30 Plt Count 529 K/mcL (140-400) H 07/30/16 03:30 Band Neutrophils % 8.0 % (0-4) H 07/29/16 03:00 Metamyelocytes % 2.0 % (0) H 07/21/16 23:00 Myelocytes % 1.0 % (0) H 07/26/16 04:35 Promyelocytes % 1.0 % (0) H 07/26/16 04:35 Nucleated RBCs/100 WBC 0.2 /100 WBC (0) H 07/24/16 03:24 Reactive Lymphocytes Present (Not Present) A 07/29/16 03:00 Toxic Granulation Present (Not Present) A 07/29/16 03:00 Toxic Vacuolation Present (Not Present) A 07/23/16 03:11 Dohle Bodies Present (Not Present) A 07/27/16 04:55 Platelet Estimate Increased (Normal) H 07/30/16 03:30 Large Platelets Present (Not Present) A 07/28/16 03:35 Polychromasia 1+ (Not Present) A 07/26/16 04:35 Anisocytosis 1+ (Not Present) A 07/29/16 03:00 Macrocytosis Present (Not Present) A 07/26/16 04:35 Isai Cells 3+ (Not Present) A 07/18/16 22:37 Acanthocytes (Spur) 1+ (Not Present) A 07/21/16 23:00 Rouleaux Present (Not Present) A 07/26/16 04:35 PT 14.2 Seconds (9.4-12.1) H 07/29/16 09:21 Fibrinogen 745 mg/dL (169-393) H* 07/23/16 12:28 ABG pH 7.47 pH Units (7.32-7.45) H 07/29/16 06:44 ABG pCO2 30 mmHg (35-45) L 07/29/16 06:44 ABG pO2 106 mmHg (85-104) H 07/29/16 06:44 Sodium 130 mEq/L (136-145) L 07/30/16 03:30 BUN 35 mg/dL (7-20) H 07/30/16 03:30 Creatinine 0.53 mg/dL (0.57-1.11) L 07/30/16 03:30 BUN/Creatinine Ratio 66 (6-26) H 07/30/16 03:30 Glucose 125 mg/dL (70-99) H 07/30/16 03:30 POC Glucose 117 (58-89) H 07/29/16 23:46 Calculated Osmolality 279 (280-300) L 07/30/16 03:30 Calcium 7.6 mg/dL (8.6-10.8) L 07/30/16 03:30 Ionized Calcium 1.13 mmol/L (1.15-1.35) L 07/28/16 11:05 Magnesium 1.5 mg/dL (1.6-2.6) L 07/30/16 03:30 AST 41 Units/L (5-34) H 07/29/16 09:21 Troponin I 0.14 ng/mL (0-0.03) H* 07/18/16 09:38 B-Natriuretic Peptide 3231 pg/mL (0-100) H 07/18/16 10:28 Serum Total Protein 4.3 g/dL (6.0-8.3) L 07/29/16 09:21 Albumin 1.1 g/dL (3.5-5.0) L 07/29/16 09:21 Albumin/Globulin Ratio 0.3 (1.1-2.2) L 07/29/16 09:21 Prealbumin 13.0 mg/dL (16.0-38.0) L 07/29/16 03:00 Urine Clarity Cloudy (Clear) A 07/18/16 10:55 Urine Protein 30 mg/dL (Neg-Trace) H 07/18/16 10:55 Ur Leukocyte Esterase Large (Negative) H 07/18/16 10:55 Urine Microscopic WBC 50-100 per hpf (0-3) H 07/18/16 10:55 Urine Bacteria Many per hpf (None-Few) H 07/18/16 10:55 Ur Culture Indicated? YES (NO) A 07/18/16 10:55 Phenytoin 5.2 mcg/mL (10-20) L 07/29/16 03:00 Free Phenytoin 2.6 ug/mL (1.0-2.5) H* 07/24/16 04:35 Total Phenytoin 9.2 ug/mL (10.0-20.0) L 07/24/16 04:35 Percent Free Phenytoin 28.3 % (8.0-14.0) H 07/24/16 04:35 Levetiracetam 47 ug/mL (12-46) H 07/24/16 04:35 - Microbiology Findings Microbiology Findings: Microbiology, Last 48 Hours 07/30/16 03:35 Sputum Culture - Preliminary Sputum 07/27/16 13:45 Urine Culture - Final Urine,Catheterized Nevaeh albicans 07/26/16 18:09 Catheter Tip Culture - Final Intravenous or Arterial Cath Staphylococcus epidermidis 07/27/16 13:30 Blood Culture - Preliminary Peripheral Venipuncture No growth. 07/27/16 13:30 Blood Culture - Preliminary Peripheral Venipuncture No growth. - Clinical Findings Intake & Output: Intake & Output 07/29/16 07/30/16 07/30/16 23:59 07:59 15:59 Intake Total 847 / 847 1103 / 1103 Output Total 2560 / 2560 2100 / 2100 Balance -1713 / -1713 -997 / -997 Weight 75.8 kg - VTE Documentation of Mechanical Device: Intermittent pneumatic compression device Consult Discharge Plan - Plan Referrals: NO,PCP [Non-Partnered Physician] - <Chaparrita Kessler - Last Filed: 07/30/16 17:34> Date of Encounter: 07/30/16 Objective PUL Vital signs: Last Vital Signs Temp 99.0 F 07/30/16 17:17 Pulse 88 07/30/16 17:17 Resp 20 07/30/16 17:17 BP 96/51 07/30/16 17:17 Pulse Ox 100 07/30/16 16:00 Ventilator Settings Ventilator Settings: Ventilator Settings, Last 8 Hours Ventilator Mode VC+ Ventilator Mode VC+ Ventilator Mode VC+ Ventilator Tidal Volume 400 Setting Ventilator Tidal Volume 400 Setting Ventilator Tidal Volume 400 Setting Ventilator Respiratory Rate 12 Setting Ventilator Respiratory Rate 12 Setting Ventilator Respiratory Rate 12 Setting Actual Respiratory Rate 24 Actual Respiratory Rate 24 Positive End Expiratory 5 Pressure Positive End Expiratory 5 Pressure Positive End Expiratory 5 Pressure Peak Inspiratory Airway 37 Pressure Peak Inspiratory Airway 20 Pressure Results - Laboratory Findings CBC and BMP: 07/30/16 03:30 07/30/16 03:30 ABG ABG pH 7.47 pH Units (7.32-7.45) H 07/29/16 06:44 ABG pCO2 30 mmHg (35-45) L 07/29/16 06:44 ABG pO2 106 mmHg (85-104) H 07/29/16 06:44 ABG O2 Saturation 98 % (95-98) 07/29/16 06:44 PT/INR, D-dimer PT 13.5 Seconds (9.4-12.1) H 07/30/16 14:00 Abnormal lab findings: Abnormal lab results RBC 2.42 M/mcL (3.82-4.97) L 07/30/16 03:30 Hgb 7.5 g/dL (11.5-15.4) L 07/30/16 03:30 Hct 22.8 % (35.3-44.9) L 07/30/16 03:30 Plt Count 529 K/mcL (140-400) H 07/30/16 03:30 Band Neutrophils % 8.0 % (0-4) H 07/29/16 03:00 Metamyelocytes % 2.0 % (0) H 07/21/16 23:00 Myelocytes % 1.0 % (0) H 07/26/16 04:35 Promyelocytes % 1.0 % (0) H 07/26/16 04:35 Nucleated RBCs/100 WBC 0.2 /100 WBC (0) H 07/24/16 03:24 Reactive Lymphocytes Present (Not Present) A 07/29/16 03:00 Toxic Granulation Present (Not Present) A 07/29/16 03:00 Toxic Vacuolation Present (Not Present) A 07/23/16 03:11 Dohle Bodies Present (Not Present) A 07/27/16 04:55 Platelet Estimate Increased (Normal) H 07/30/16 03:30 Large Platelets Present (Not Present) A 07/28/16 03:35 Polychromasia 1+ (Not Present) A 07/26/16 04:35 Anisocytosis 1+ (Not Present) A 07/29/16 03:00 Macrocytosis Present (Not Present) A 07/26/16 04:35 Isai Cells 3+ (Not Present) A 07/18/16 22:37 Acanthocytes (Spur) 1+ (Not Present) A 07/21/16 23:00 Rouleaux Present (Not Present) A 07/26/16 04:35 PT 13.5 Seconds (9.4-12.1) H 07/30/16 14:00 Fibrinogen 745 mg/dL (169-393) H* 07/23/16 12:28 ABG pH 7.47 pH Units (7.32-7.45) H 07/29/16 06:44 ABG pCO2 30 mmHg (35-45) L 07/29/16 06:44 ABG pO2 106 mmHg (85-104) H 07/29/16 06:44 Sodium 130 mEq/L (136-145) L 07/30/16 03:30 BUN 35 mg/dL (7-20) H 07/30/16 03:30 Creatinine 0.53 mg/dL (0.57-1.11) L 07/30/16 03:30 BUN/Creatinine Ratio 66 (6-26) H 07/30/16 03:30 Glucose 125 mg/dL (70-99) H 07/30/16 03:30 POC Glucose 132 (58-89) H 07/30/16 11:33 Calculated Osmolality 279 (280-300) L 07/30/16 03:30 Calcium 7.6 mg/dL (8.6-10.8) L 07/30/16 03:30 Ionized Calcium 1.13 mmol/L (1.15-1.35) L 07/28/16 11:05 Magnesium 1.5 mg/dL (1.6-2.6) L 07/30/16 03:30 AST 41 Units/L (5-34) H 07/29/16 09:21 Troponin I 0.14 ng/mL (0-0.03) H* 07/18/16 09:38 B-Natriuretic Peptide 3231 pg/mL (0-100) H 07/18/16 10:28 Serum Total Protein 4.3 g/dL (6.0-8.3) L 07/29/16 09:21 Albumin 1.1 g/dL (3.5-5.0) L 07/29/16 09:21 Albumin/Globulin Ratio 0.3 (1.1-2.2) L 07/29/16 09:21 Prealbumin 13.0 mg/dL (16.0-38.0) L 07/29/16 03:00 Urine Clarity Cloudy (Clear) A 07/18/16 10:55 Urine Protein 30 mg/dL (Neg-Trace) H 07/18/16 10:55 Ur Leukocyte Esterase Large (Negative) H 07/18/16 10:55 Urine Microscopic WBC 50-100 per hpf (0-3) H 07/18/16 10:55 Urine Bacteria Many per hpf (None-Few) H 07/18/16 10:55 Ur Culture Indicated? YES (NO) A 07/18/16 10:55 Phenytoin 5.2 mcg/mL (10-20) L 07/29/16 03:00 Free Phenytoin 2.6 ug/mL (1.0-2.5) H* 07/24/16 04:35 Total Phenytoin 9.2 ug/mL (10.0-20.0) L 07/24/16 04:35 Percent Free Phenytoin 28.3 % (8.0-14.0) H 07/24/16 04:35 Levetiracetam 47 ug/mL (12-46) H 07/24/16 04:35 - Microbiology Findings Microbiology Findings: Microbiology, Last 48 Hours 07/30/16 03:35 Sputum Culture - Preliminary Sputum 07/27/16 13:45 Urine Culture - Final Urine,Catheterized Nevaeh albicans 07/26/16 18:09 Catheter Tip Culture - Final Intravenous or Arterial Cath Staphylococcus epidermidis 07/27/16 13:30 Blood Culture - Preliminary Peripheral Venipuncture No growth. 07/27/16 13:30 Blood Culture - Preliminary Peripheral Venipuncture No growth. - Clinical Findings Intake & Output: Intake & Output 07/30/16 07/30/16 07/30/16 07:59 15:59 23:59 Intake Total 1242 / 1242 565 / 565 350 / 350 Output Total 2100 / 2100 1200 / 1200 400 / 400 Balance -858 / -858 -635 / -635 -50 / -50 Weight 75.8 kg - Attending Attestation I examined this patient and my medical decision-making was reviewed with the TALENT RECRUITER/PA/Advanced Practice Nurse/Resident Physician. I agree with the documented findings, disposition and treatment plan as described except to the extent set forth below. Patient seen and examined. Labs, radiology, chart personally reviewed. 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 Patient was noticed to have massive hemoptysis and for that reason bronchoscopy was done emergently with significant finding bleeding from his lung and due to the amount and not able to find exact source of the bleeding, I went and discussed with the interventional radiologist for bronchial embolization and helping to stop bleeding. I will plan for bronhoscopy again to check the area. Cardiovascular: Tachycardia sinus GI: Nutrition per dietary and GI prophylaxis per routine Heme: DVT prophylaxis per routine. Blood transfusion ID: Continue antibiotics and plan to de-escalation Renal; urine out put and renal funtion reviewed Endorcine: blood glucose is monitored Lines: all lines checked and no evidence of infections Skin: skin care to prevent pressure ulcers per nursing routine care I spent 40 min of Critical Care time with this patient. It involved decision making of high complexity to assess, manipulate, and support vital organ system failure and/or to prevent further life threatening deterioration of the patient' s condition. The time involved in the performance of separately reportable procedures was not counted toward critical care time.
--- NOTE | 2016-07-30 10:25 | General Surgery Progress Note ---
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 Kessler Subjective Patient reports: fever (Tmax 101.3), other (Patient resting comfortably on ventilator support; Suctioning of blood from ETT noted- plan for bronchoscopy today; Tube feeds on hold for CPAP trial and bronchoscopy) Objective Vital Signs - Last 8 Hours Temp Pulse Resp BP Pulse Ox 07/30/16 10:01 24 96 07/30/16 10:00 105 20 110/47 97 07/30/16 09:10 32 97 07/30/16 09:00 96 21 102/50 94 07/30/16 08:20 32 97 07/30/16 08:10 30 99 07/30/16 08:00 109 29 109/67 99 07/30/16 07:44 99.4 F 07/30/16 07:25 101 07/30/16 07:20 101 28 109/48 100 07/30/16 07:17 101 28 109/48 100 07/30/16 06:00 102 28 119/62 100 07/30/16 05:50 28 100 07/30/16 05:00 94 28 112/68 100 07/30/16 04:51 33 105/60 100 07/30/16 04:00 99 F 91 251 106/60 0 07/30/16 03:49 92 07/30/16 03:00 82 20 89/43 100 Intake and Output 07/29/16 07/30/16 07/30/16 23:59 07:59 15:59 Intake Total 847 / 847 1138 / 1138 Output Total 2560 / 2560 2100 / 2100 Balance -1713 / -1713 -962 / -962 Intake: IV Fluids 615 / 615 985 / 985 15 / 15 PRECEDEX 400 mcg In 100 100 / 100 200 / 200 ml @ 0.2 MCG/KG/HR 3.6 mls/hr IVC .Q24H [facility] Rx#: [id number] FentaNYL (PF) 1,000 MCG 100 / 100 185 / 185 15 / 15 In 0.9 % Sodium Chloride 80 ML @ 50 MCG/HR 5 mls/ hr IVC CONT [facility] Rx#: [id number] Clinimix E 5%-15% 315 / 315 SOLUTION 2,000 ML @ 75 mls/hr IVC .Q24H [facility] with M.v.i. Adult 10 ml Rx#: [id number] Intralipid 20% 250 ML @ 250 / 250 21 mls/hr IVPB DAILY@1700 [facility] Rx#:[id number] Merrem 1,000 MG In 0.9 % 100 / 100 100 / 100 Sodium Chloride (Mini-Bag +) 100 ML @ 200 mls/hr IVPB Q8H [facility] Rx#: [id number] Vancocin 1,000 MG In 250 / 250 Dextrose 5% 250 ML @ 167 mls/hr IVPB Q12H [facility] Rx#: [id number] Tube Feeding 232 / 232 153 / 153 Output: Stool 260 / 260 350 / 350 Catheter 2300 / 2300 1750 / 1750 Other: Weight 75.8 kg Blood Glucose* 117 Patient Weight 07/30/16 23:59 Weight 75.8 kg - General physical appearance other (Patient resting on ventilator support and no acute distress noted) - Eyes normal ocular movement - ENT atraumatic, normocephalic, Other (blood tinged mucous draining from mouth) - Neck Neck exam: trachea midline - Respiratory other (ventilator support- FiO2 of 30% with PEEP of 5) - Cardiovascular Cardiovascular exam: Present: tachycardia - Abdomen Abdomen: Present: bowel sounds present, soft, wound (Ostomy pink and moist with liquid stool noted; NG tube clamped- tube feeds on hold.) - Incision Incision: Present: clean and dry, intact - Neurologic other (left side flaccid secondary to acute CVA) - Musculoskeletal other (Unable to assess) - Psychiatric other (Unable to assess) - Labs 07/30/16 03:30 07/30/16 03:30 Diabetes panel 07/30/16 Range/Units 03:30 Sodium 130 L (136-145) mEq/L Potassium 3.9 (3.5-4.5) mEq/L Chloride 107 (98-109) mEq/L Carbon Dioxide 22 (19-29) mEq/L BUN 35 H (7-20) mg/dL Creatinine 0.53 L (0.57-1.11) mg/dL Glucose 125 H (70-99) mg/dL Calcium 7.6 L (8.6-10.8) mg/dL Calcium panel 07/30/16 07/30/16 Range/Units 03:30 03:30 Calcium 7.6 L (8.6-10.8) mg/dL Phosphorus 3.7 (2.3-4.7) mg/dL Pituitary panel 07/30/16 Range/Units 03:30 Sodium 130 L (136-145) mEq/L Potassium 3.9 (3.5-4.5) mEq/L Chloride 107 (98-109) mEq/L Carbon Dioxide 22 (19-29) mEq/L BUN 35 H (7-20) mg/dL Creatinine 0.53 L (0.57-1.11) mg/dL Glucose 125 H (70-99) mg/dL Calcium 7.6 L (8.6-10.8) mg/dL Adrenal panel 07/30/16 Range/Units 03:30 Sodium 130 L (136-145) mEq/L Potassium 3.9 (3.5-4.5) mEq/L Chloride 107 (98-109) mEq/L Carbon Dioxide 22 (19-29) mEq/L BUN 35 H (7-20) mg/dL Creatinine 0.53 L (0.57-1.11) mg/dL Glucose 125 H (70-99) mg/dL Calcium 7.6 L (8.6-10.8) mg/dL - VTE Documentation of Mechanical Device: Intermittent pneumatic compression device Consult Discharge Plan - Plan Referrals: NO,PCP [Non-Partnered Physician] - - Attending Attestation I examined this patient and my medical decision-making was reviewed with the TABLE OPERATOR/PA/Advanced Practice Nurse/Resident Physician. I agree with the documented findings, disposition and treatment plan as described except to the extent set forth below. <Arpan Greene - Last Filed: 07/31/16 02:25> Date of Encounter: 07/31/16 - Assessment and Plan (1) Acute abdomen Current Visit: Yes Status: Resolved Objective Vital Signs - Last 8 Hours Temp Pulse Resp BP Pulse Ox 07/31/16 02:00 110 26 123/75 100 07/31/16 01:00 106 26 108/63 98 07/31/16 00:00 99.6 F 91 32 110/54 100 07/30/16 23:37 22 100 07/30/16 23:00 86 20 93/52 100 07/30/16 22:00 97 19 92/58 100 07/30/16 21:02 26 99 07/30/16 21:00 106 24 117/60 99 07/30/16 20:30 99.4 F 114 27 142/94 96 07/30/16 20:00 99.5 F 108 18 126/66 100 07/30/16 19:30 24 100 07/30/16 19:00 94 23 85/54 100 Intake and Output 07/30/16 07/30/16 07/31/16 15:59 23:59 07:59 Intake Total 565 / 565 650 / 650 348 / 348 Output Total 1200 / 1200 1125 / 1125 475 / 475 Balance -635 / -635 -475 / -475 -127 / -127 Intake: IV Fluids 565 / 565 300 / 300 250 / 250 PRECEDEX 400 mcg In 100 100 / 100 100 / 100 ml @ 0.2 MCG/KG/HR 3.6 mls/hr IVC .Q24H [facility] Rx#: [id number] FentaNYL (PF) 1,000 MCG 15 / 15 100 / 100 In 0.9 % Sodium Chloride 80 ML @ 50 MCG/HR 5 mls/ hr IVC CONT [facility] Rx#: [id number] Merrem 1,000 MG In 0.9 % 100 / 100 100 / 100 Sodium Chloride (Mini-Bag +) 100 ML @ 200 mls/hr IVPB Q8H [facility] Rx#: [id number] Mycamine 100 MG In 0.9 % 100 / 100 Sodium Chloride 100 ML @ 100 mls/hr IVPB Q24H [facility] Rx#:[id number] Vancocin 1,000 MG In 250 / 250 250 / 250 Dextrose 5% 250 ML @ 167 mls/hr IVPB Q12H [facility] Rx#: [id number] Tube Feeding 98 / 98 Blood Product 350 / 350 Rbcs Leuko Poor As-1 350 / 350 Unit [id number] Output: Stool 200 / 200 0 / 0 125 / 125 Catheter 1000 / 1000 1125 / 1125 350 / 350 Other: Blood Glucose* 132 93 - Labs 07/30/16 21:39 07/30/16 03:30 Diabetes panel 07/30/16 Range/Units 03:30 Sodium 130 L (136-145) mEq/L Potassium 3.9 (3.5-4.5) mEq/L Chloride 107 (98-109) mEq/L Carbon Dioxide 22 (19-29) mEq/L BUN 35 H (7-20) mg/dL Creatinine 0.53 L (0.57-1.11) mg/dL Glucose 125 H (70-99) mg/dL Calcium 7.6 L (8.6-10.8) mg/dL Calcium panel 07/30/16 07/30/16 Range/Units 03:30 03:30 Calcium 7.6 L (8.6-10.8) mg/dL Phosphorus 3.7 (2.3-4.7) mg/dL Pituitary panel 07/30/16 Range/Units 03:30 Sodium 130 L (136-145) mEq/L Potassium 3.9 (3.5-4.5) mEq/L Chloride 107 (98-109) mEq/L Carbon Dioxide 22 (19-29) mEq/L BUN 35 H (7-20) mg/dL Creatinine 0.53 L (0.57-1.11) mg/dL Glucose 125 H (70-99) mg/dL Calcium 7.6 L (8.6-10.8) mg/dL Adrenal panel 07/30/16 Range/Units 03:30 Sodium 130 L (136-145) mEq/L Potassium 3.9 (3.5-4.5) mEq/L Chloride 107 (98-109) mEq/L Carbon Dioxide 22 (19-29) mEq/L BUN 35 H (7-20) mg/dL Creatinine 0.53 L (0.57-1.11) mg/dL Glucose 125 H (70-99) mg/dL Calcium 7.6 L (8.6-10.8) mg/dL - Attending Attestation I reviewed the above assessment and examination and agree with the overall plan. Continue with tube feeds via the NG tube at this time.
[2016-07-30] MEDS ORDERED: *HR* Midazolam HCl 5 MG/5 ML VIAL IVP ONE (11:12)
[2016-07-30] MEDS: *HR* EPINEPHrine 1 MG/10 ML SYRINGE INTRATRACH PRN ×2 (11:20→14:43)
[2016-07-30] MEDS: Vancomycin 1,000 MG in D5% in Water 250 ML IVPB SCH ×2 (11:41→23:59)
[2016-07-30] MEDS ORDERED: D10% in Water 500 ML IVC PRN (11:48)
[2016-07-30] MEDS: Micafungin 100 MG in 0.9 % Sodium Chloride 100 ML IVPB SCH (12:59)
[2016-07-30] MEDS ORDERED: Heparin 1,000 UNITS/500 mL NS 500 ML ONE (13:14)
[2016-07-30] MEDS ORDERED: 0.9 % Sodium Chloride 500 ML ONE (13:14)
[2016-07-30 14:20] LABS: INR 1.2; Prothrombin Time 13.5 Seconds (9.4-12.1)
[2016-07-30] MEDS ORDERED: *HR* EPINEPHrine 1 MG/10 ML SYRINGE ONE (14:39)
[2016-07-30] MEDS: levETIRAcetam 500 MG/5 ML UDC PO SCH ×2 (14:54→21:14)
[2016-07-30] MEDS: Lidocaine Viscous Oral Soln 15 ML SOLUTION MM SCH ×2 (14:54→21:14)
[2016-07-30] MEDS ORDERED: Clinimix E 5%-15% SOLUTION 2,000 ML with MVI, adult with vitamin K 10 ML IVC ONE (17:00)
[2016-07-30] MEDS ORDERED: 0.9 % Sodium Chloride 250 ML ONE (17:01)
[2016-07-30 21:49] LABS: Hematocrit 27.6 % (35.3-44.9); Hemoglobin 9.3 g/dL (11.5-15.4)
[2016-07-31] MEDS: Meropenem 1,000 MG in 0.9 % Sodium Chloride Mini Bag 100 ML IVPB SCH ×3 (02:11→18:50)
[2016-07-31] MEDS: Lacri-Lube 3.5 GM TUBE BOTH EYES SCH ×6 (03:44→20:11)
[2016-07-31 03:49] LABS: BUN/Creatinine Ratio 60 (6-26); Blood Urea Nitrogen 32 mg/dL (7-20); Calcium 7.8 mg/dL (8.6-10.8); Carbon Dioxide 21 mEq/L (19-29); Chloride 106 mEq/L (98-109); Glucose 108 mg/dL (70-99); Magnesium 1.4 mg/dL (1.6-2.6); Osmolality,Calculated 283 (280-300); Phosphorous 3.6 mg/dL (2.3-4.7); Potassium 3.7 mEq/L (3.5-4.5); Sodium 133 mEq/L (136-145); eGFR For African Americans > 60 (> 60); eGFR For Non-African Americans > 60 (> 60)
[2016-07-31 04:13] LABS: Basophils % 0.5 %; Hematocrit 27.8 % (35.3-44.9); Hemoglobin 9.2 g/dL (11.5-15.4); Immature Granulocytes % 2.2 % (0-4); Lymphocytes # 0.9 K/mcL (0.6-4.6); Lymphocytes % 11.7 %; Mean Corpuscular HGB Conc 33.1 g/dL (31.6-35.5); Mean Corpuscular Hemoglobin 29.6 pg (28.0-33.3); Mean Corpuscular Volume 89.4 fL (83.0-100.0); Mean Platelet Volume 9.8 fL (9.4-12.4); Monocytes # 0.8 K/mcL (0.0-1.3); Monocytes % 10.4 %; Neutrophils # 5.7 K/mcL (1.6-8.9); Platelet Count 676 K/mcL (140-400); Red Blood Count 3.11 M/mcL (3.82-4.97); Red Cell Distribution Width 15.6 % (11.5-14.5); Segmented Neutrophils % 75.2 %
[2016-07-31 04:49] LABS: Platelet Estimate Increased (Normal)
[2016-07-31] MEDS: Pantoprazole 40 MG VIAL IVP SCH (05:57)
[2016-07-31] MEDS: Potassium Chloride 40 MEQ/200 ML BAG IVPB PRN (05:58)
[2016-07-31] MEDS: Magnesium Sulfate 2 GM in D5% in Water 100 ML IVPB PRN (05:58)
[2016-07-31] MEDS: FentaNYL (PF) 1,000 MCG in 0.9 % Sodium Chloride 80 ML IVC SCH ×2 (06:59→21:05)
--- NOTE | 2016-07-31 08:26 | Pulmonology Progress Note ---
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 Bronchoscopy 07/30 showed evidence of bleed, followed by embolization. Plan for bronchoscopy today with biopsies. Cardio: EKG evidence of paroxysmal A. fib. Patient will need anticoagulation for this. 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 Laurent 07/20 --Enteral feedings via NG tube, increase enteral feeds and decreased TPN. Good output to ileostomy. --Goal net I/O = 0; Lasix BID, extra Lasix dose this morning --On electrolyte protocol Renal: Stable ID: Patient spiked fever overnight 07/27-07/30. Catheter tip Staphylococcus epidermidis, urinary Nevaeh albicans, sputum cultures pulmonary no growth, blood culture preliminary report no growth. Continue meropenem (day 5). Heme/Onc: --DVT prophylaxis with SCDs due to anemia. --Transfused a total of 5 units pRBC, last transfusion 07/30 Endocrine: NG tube feeds and TPN (increasing tube feeds, decreasing TPN); hypoglycemia protocol Integ/MSK: Continue ICU skin care protocol to prevent ulcers Lines: ETT, NG, R powerglide Code: DNR-CCA (2) Cerebral infarction involving left anterior cerebral artery Current Visit: Yes Status: Acute (3) Cerebral infarction involving left posterior cerebral artery Current Visit: Yes Status: Acute (4) Chronic respiratory failure Current Visit: Yes Status: Acute Qualifiers: Respiratory failure complication: unspecified whether with hypoxia or hypercapnia Qualified Code(s): J96.10 - Chronic respiratory failure, unspecified whether with hypoxia or hypercapnia (5) Goals of care, counseling/discussion Current Visit: Yes Status: Acute [address]-appointed guardianship has been approved Patient does not have POA Social work following (6) Paroxysmal a-fib Current Visit: Yes Status: Acute (7) Postoperative anemia Current Visit: Yes Status: Acute Patient received 2 units pRBC 6/4 and 2 units pRBC 6/5 (8) Pneumonia Current Visit: Yes Status: Suspected Suspect aspiration pneumonia coverage with aztreonam and flagyl Qualifiers: Pneumonia type: aspiration pneumonia Laterality: unspecified laterality Lung location: unspecified part of lung Qualified Code(s): J69.0 - Pneumonitis due to inhalation of food and vomit (9) Thrombocytopenia Current Visit: Yes Status: Resolved Resolved (10) UTI (urinary tract infection) Current Visit: Yes Status: Suspected Suspected UTI with many bacteria, large leukocyte esterase, 50-100 WBCs Urine culture 07/18/2016 no growth to date, no pathogens isolated Qualifiers: Urinary tract infection type: site unspecified Hematuria presence: without hematuria Qualified Code(s): N39.0 - Urinary tract infection, site not specified (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 Resolved status post surgery (12) Bowel obstruction Current Visit: Yes Status: Resolved Resolved status post surgery Qualifiers: Intestinal obstruction type: unspecified Qualified Code(s): K56.60 - Unspecified intestinal obstruction (13) Mental retardation Current Visit: Yes Status: Chronic Patient lives in a intermediate and is reportedly high functioning (14) Seizure disorder Current Visit: Yes Status: Chronic No recent seizure activity reported (15) Septic shock Current Visit: Yes Status: Resolved Resolved (16) Lactic acidosis Current Visit: Yes Status: Resolved Resolved (17) Tachycardia Current Visit: Yes Status: Resolved Resolved (18) Acute kidney injury Current Visit: Yes Status: Resolved Resolved Subjective Principal diagnosis: Sepsis secondary to bowel necrosis, acute respiratory failure Interval history: No overnight events. Chest x-ray this morning improved from yesterday morning. Patient did not tolerate CPAP this morning. Objective PUL Vital signs: Last Vital Signs Temp 98.3 F 07/31/16 04:00 Pulse 111 07/31/16 07:21 Resp 25 07/31/16 07:44 BP 105/54 07/31/16 07:44 Pulse Ox 100 07/31/16 07:44 General appearance: other (Sedated on mechanical ventilation) Eyes: nonicteric ENT: oropharynx dry Neck: supple Effort: normal Auscultation: bilateral: clear Cardiovascular: regular rate and rhythm Gastrointestinal: hypoactive bowel sounds Extremities: edema Musculoskeletal: other (Movement of her right extremities, no movement of left extremities) Ventilator Settings Ventilator Settings: Ventilator Settings, Last 8 Hours Ventilator Mode VC+ Ventilator Mode VC+ Ventilator Mode VC+ Ventilator Mode VC+ Ventilator Mode VC+ Ventilator Mode VC+ Ventilator Mode VC+ Ventilator Mode VC+ Ventilator Mode VC+ Ventilator Mode VC+ Ventilator Tidal Volume 400 Setting Ventilator Tidal Volume 400 Setting Ventilator Tidal Volume 400 Setting Ventilator Tidal Volume 400 Setting Ventilator Tidal Volume 400 Setting Ventilator Tidal Volume 400 Setting Ventilator Tidal Volume 400 Setting Ventilator Tidal Volume 400 Setting Ventilator Tidal Volume 400 Setting Ventilator Tidal Volume 400 Setting Ventilator Respiratory Rate 12 Setting Ventilator Respiratory Rate 12 Setting Ventilator Respiratory Rate 12 Setting Ventilator Respiratory Rate 12 Setting Ventilator Respiratory Rate 12 Setting Ventilator Respiratory Rate 12 Setting Ventilator Respiratory Rate 12 Setting Ventilator Respiratory Rate 12 Setting Ventilator Respiratory Rate 12 Setting Ventilator Respiratory Rate 12 Setting Actual Respiratory Rate 24 Actual Respiratory Rate 30 Actual Respiratory Rate 22 Actual Respiratory Rate 23 Actual Respiratory Rate 22 Actual Respiratory Rate 25 Actual Respiratory Rate 24 Actual Respiratory Rate 23 Actual Respiratory Rate 26 Actual Respiratory Rate 26 Positive End Expiratory 5 Pressure Positive End Expiratory 5 Pressure Positive End Expiratory 5 Pressure Positive End Expiratory 5 Pressure Positive End Expiratory 5 Pressure Positive End Expiratory 5 Pressure Positive End Expiratory 5 Pressure Positive End Expiratory 5 Pressure Positive End Expiratory 5 Pressure Positive End Expiratory 5 Pressure Peak Inspiratory Airway 31 Pressure Peak Inspiratory Airway 43 Pressure Peak Inspiratory Airway 30 Pressure Peak Inspiratory Airway 28 Pressure Peak Inspiratory Airway 32 Pressure Peak Inspiratory Airway 36 Pressure Peak Inspiratory Airway 39 Pressure Peak Inspiratory Airway 29 Pressure Peak Inspiratory Airway 40 Pressure Peak Inspiratory Airway 36 Pressure Results - Laboratory Findings CBC and BMP: 07/31/16 03:21 07/31/16 03:21 ABG ABG pH 7.47 pH Units (7.32-7.45) H 07/29/16 06:44 ABG pCO2 30 mmHg (35-45) L 07/29/16 06:44 ABG pO2 106 mmHg (85-104) H 07/29/16 06:44 ABG O2 Saturation 98 % (95-98) 07/29/16 06:44 PT/INR, D-dimer PT 13.5 Seconds (9.4-12.1) H 07/30/16 14:00 Abnormal lab findings: Abnormal lab results RBC 3.11 M/mcL (3.82-4.97) L 07/31/16 03:21 Hgb 9.2 g/dL (11.5-15.4) L 07/31/16 03:21 Hct 27.8 % (35.3-44.9) L 07/31/16 03:21 RDW 15.6 % (11.5-14.5) H 07/31/16 03:21 Plt Count 676 K/mcL (140-400) H 07/31/16 03:21 Band Neutrophils % 8.0 % (0-4) H 07/29/16 03:00 Metamyelocytes % 2.0 % (0) H 07/21/16 23:00 Myelocytes % 1.0 % (0) H 07/26/16 04:35 Promyelocytes % 1.0 % (0) H 07/26/16 04:35 Nucleated RBCs/100 WBC 0.2 /100 WBC (0) H 07/24/16 03:24 Reactive Lymphocytes Present (Not Present) A 07/29/16 03:00 Toxic Granulation Present (Not Present) A 07/29/16 03:00 Toxic Vacuolation Present (Not Present) A 07/23/16 03:11 Dohle Bodies Present (Not Present) A 07/27/16 04:55 Platelet Estimate Increased (Normal) H 07/31/16 03:21 Large Platelets Present (Not Present) A 07/28/16 03:35 Polychromasia 1+ (Not Present) A 07/26/16 04:35 Anisocytosis 1+ (Not Present) A 07/29/16 03:00 Macrocytosis Present (Not Present) A 07/26/16 04:35 Isai Cells 3+ (Not Present) A 07/18/16 22:37 Acanthocytes (Spur) 1+ (Not Present) A 07/21/16 23:00 Rouleaux Present (Not Present) A 07/26/16 04:35 PT 13.5 Seconds (9.4-12.1) H 07/30/16 14:00 Fibrinogen 745 mg/dL (169-393) H* 07/23/16 12:28 ABG pH 7.47 pH Units (7.32-7.45) H 07/29/16 06:44 ABG pCO2 30 mmHg (35-45) L 07/29/16 06:44 ABG pO2 106 mmHg (85-104) H 07/29/16 06:44 Sodium 133 mEq/L (136-145) L 07/31/16 03:21 BUN 32 mg/dL (7-20) H 07/31/16 03:21 Creatinine 0.53 mg/dL (0.57-1.11) L 07/31/16 03:21 BUN/Creatinine Ratio 60 (6-26) H 07/31/16 03:21 Glucose 108 mg/dL (70-99) H 07/31/16 03:21 POC Glucose 93 (58-89) H 07/31/16 00:11 Calcium 7.8 mg/dL (8.6-10.8) L 07/31/16 03:21 Ionized Calcium 1.13 mmol/L (1.15-1.35) L 07/28/16 11:05 Magnesium 1.4 mg/dL (1.6-2.6) L 07/31/16 03:21 AST 41 Units/L (5-34) H 07/29/16 09:21 Troponin I 0.14 ng/mL (0-0.03) H* 07/18/16 09:38 B-Natriuretic Peptide 3231 pg/mL (0-100) H 07/18/16 10:28 Serum Total Protein 4.3 g/dL (6.0-8.3) L 07/29/16 09:21 Albumin 1.1 g/dL (3.5-5.0) L 07/29/16 09:21 Albumin/Globulin Ratio 0.3 (1.1-2.2) L 07/29/16 09:21 Prealbumin 13.0 mg/dL (16.0-38.0) L 07/29/16 03:00 Urine Clarity Cloudy (Clear) A 07/18/16 10:55 Urine Protein 30 mg/dL (Neg-Trace) H 07/18/16 10:55 Ur Leukocyte Esterase Large (Negative) H 07/18/16 10:55 Urine Microscopic WBC 50-100 per hpf (0-3) H 07/18/16 10:55 Urine Bacteria Many per hpf (None-Few) H 07/18/16 10:55 Ur Culture Indicated? YES (NO) A 07/18/16 10:55 Phenytoin 5.2 mcg/mL (10-20) L 07/29/16 03:00 Free Phenytoin 2.6 ug/mL (1.0-2.5) H* 07/24/16 04:35 Total Phenytoin 9.2 ug/mL (10.0-20.0) L 07/24/16 04:35 Percent Free Phenytoin 28.3 % (8.0-14.0) H 07/24/16 04:35 Levetiracetam 47 ug/mL (12-46) H 07/24/16 04:35 - Microbiology Findings Microbiology Findings: Microbiology, Last 48 Hours 07/30/16 03:35 Sputum Culture - Preliminary Sputum 07/27/16 13:45 Urine Culture - Final Urine,Catheterized Nevaeh albicans 07/26/16 18:09 Catheter Tip Culture - Final Intravenous or Arterial Cath Staphylococcus epidermidis 07/27/16 13:30 Blood Culture - Preliminary Peripheral Venipuncture No growth. 07/27/16 13:30 Blood Culture - Preliminary Peripheral Venipuncture No growth. - Clinical Findings Intake & Output: Intake & Output 07/30/16 07/31/16 07/31/16 23:59 07:59 15:59 Intake Total 650 / 650 783 / 783 Output Total 1125 / 1125 900 / 900 Balance -475 / -475 -117 / -117 - VTE Documentation of Mechanical Device: Intermittent pneumatic compression device Consult Discharge Plan - Plan Referrals: NO,PCP [Non-Partnered Physician] - <Chaparrita Kessler - Last Filed: 07/31/16 15:01> Date of Encounter: 07/31/16 Objective PUL Vital signs: Last Vital Signs Temp 100.9 F H 07/31/16 11:50 Pulse 103 07/31/16 14:00 Resp 22 07/31/16 14:00 BP 109/61 07/31/16 14:00 Pulse Ox 94 07/31/16 14:00 Ventilator Settings Ventilator Settings: Ventilator Settings, Last 8 Hours Ventilator Mode VC+ Ventilator Tidal Volume 400 Setting Ventilator Respiratory Rate 12 Setting Actual Respiratory Rate 24 Positive End Expiratory 5 Pressure Peak Inspiratory Airway 31 Pressure Results - Laboratory Findings CBC and BMP: 07/31/16 03:21 07/31/16 03:21 ABG ABG pH 7.47 pH Units (7.32-7.45) H 07/29/16 06:44 ABG pCO2 30 mmHg (35-45) L 07/29/16 06:44 ABG pO2 106 mmHg (85-104) H 07/29/16 06:44 ABG O2 Saturation 98 % (95-98) 07/29/16 06:44 PT/INR, D-dimer PT 13.5 Seconds (9.4-12.1) H 07/30/16 14:00 Abnormal lab findings: Abnormal lab results RBC 3.11 M/mcL (3.82-4.97) L 07/31/16 03:21 Hgb 9.2 g/dL (11.5-15.4) L 07/31/16 03:21 Hct 27.8 % (35.3-44.9) L 07/31/16 03:21 RDW 15.6 % (11.5-14.5) H 07/31/16 03:21 Plt Count 676 K/mcL (140-400) H 07/31/16 03:21 Band Neutrophils % 8.0 % (0-4) H 07/29/16 03:00 Metamyelocytes % 2.0 % (0) H 07/21/16 23:00 Myelocytes % 1.0 % (0) H 07/26/16 04:35 Promyelocytes % 1.0 % (0) H 07/26/16 04:35 Nucleated RBCs/100 WBC 0.2 /100 WBC (0) H 07/24/16 03:24 Reactive Lymphocytes Present (Not Present) A 07/29/16 03:00 Toxic Granulation Present (Not Present) A 07/29/16 03:00 Toxic Vacuolation Present (Not Present) A 07/23/16 03:11 Dohle Bodies Present (Not Present) A 07/27/16 04:55 Platelet Estimate Increased (Normal) H 07/31/16 03:21 Large Platelets Present (Not Present) A 07/28/16 03:35 Polychromasia 1+ (Not Present) A 07/26/16 04:35 Anisocytosis 1+ (Not Present) A 07/29/16 03:00 Macrocytosis Present (Not Present) A 07/26/16 04:35 Clio Cells 3+ (Not Present) A 07/18/16 22:37 Acanthocytes (Spur) 1+ (Not Present) A 07/21/16 23:00 Rouleaux Present (Not Present) A 07/26/16 04:35 PT 13.5 Seconds (9.4-12.1) H 07/30/16 14:00 Fibrinogen 745 mg/dL (169-393) H* 07/23/16 12:28 ABG pH 7.47 pH Units (7.32-7.45) H 07/29/16 06:44 ABG pCO2 30 mmHg (35-45) L 07/29/16 06:44 ABG pO2 106 mmHg (85-104) H 07/29/16 06:44 Sodium 133 mEq/L (136-145) L 07/31/16 03:21 BUN 32 mg/dL (7-20) H 07/31/16 03:21 Creatinine 0.53 mg/dL (0.57-1.11) L 07/31/16 03:21 BUN/Creatinine Ratio 60 (6-26) H 07/31/16 03:21 Glucose 108 mg/dL (70-99) H 07/31/16 03:21 POC Glucose 114 (58-89) H 07/31/16 11:08 Calcium 7.8 mg/dL (8.6-10.8) L 07/31/16 03:21 Ionized Calcium 1.11 mmol/L (1.15-1.35) L 07/31/16 08:50 Magnesium 1.4 mg/dL (1.6-2.6) L 07/31/16 03:21 AST 41 Units/L (5-34) H 07/29/16 09:21 Troponin I 0.14 ng/mL (0-0.03) H* 07/18/16 09:38 B-Natriuretic Peptide 3231 pg/mL (0-100) H 07/18/16 10:28 Serum Total Protein 4.3 g/dL (6.0-8.3) L 07/29/16 09:21 Albumin 1.1 g/dL (3.5-5.0) L 07/29/16 09:21 Albumin/Globulin Ratio 0.3 (1.1-2.2) L 07/29/16 09:21 Prealbumin 13.0 mg/dL (16.0-38.0) L 07/29/16 03:00 Urine Clarity Cloudy (Clear) A 07/18/16 10:55 Urine Protein 30 mg/dL (Neg-Trace) H 07/18/16 10:55 Ur Leukocyte Esterase Large (Negative) H 07/18/16 10:55 Urine Microscopic WBC 50-100 per hpf (0-3) H 07/18/16 10:55 Urine Bacteria Many per hpf (None-Few) H 07/18/16 10:55 Ur Culture Indicated? YES (NO) A 07/18/16 10:55 Phenytoin 5.2 mcg/mL (10-20) L 07/29/16 03:00 Free Phenytoin 2.6 ug/mL (1.0-2.5) H* 07/24/16 04:35 Total Phenytoin 9.2 ug/mL (10.0-20.0) L 07/24/16 04:35 Percent Free Phenytoin 28.3 % (8.0-14.0) H 07/24/16 04:35 Levetiracetam 47 ug/mL (12-46) H 07/24/16 04:35 - Microbiology Findings Microbiology Findings: Microbiology, Last 48 Hours 07/30/16 11:05 Respiratory Culture - Preliminary Left Lower Lobe Lung No growth. 07/30/16 03:35 Sputum Culture - Preliminary Sputum 07/27/16 13:45 Urine Culture - Final Urine,Catheterized Nevaeh albicans 07/26/16 18:09 Catheter Tip Culture - Final Intravenous or Arterial Cath Staphylococcus epidermidis - Clinical Findings Intake & Output: Intake & Output 07/30/16 07/31/16 07/31/16 23:59 07:59 15:59 Intake Total 650 / 650 783 / 783 504 / 504 Output Total 1125 / 1125 900 / 900 1300 / 1300 Balance -475 / -475 -117 / -117 -796 / -796 - Attending Attestation I examined this patient and my medical decision-making was reviewed with the HOURLY SIGN LANGUAGE INTERPRETER/PA/Advanced Practice Nurse/Resident Physician. I agree with the documented findings, disposition and treatment plan as described except to the extent set forth below. Patient seen and examined. Labs, radiology, chart personally reviewed. Agree with resident's history and physical, assessment, plan with following comments: OFFICE NURSE: Patient awake but does not follows commands Pulmonary: Acceptable oxygenation and ventilation. She did not failed spontaneous breathing trial and repeated bronchoscopy looking for source of the bleeding. Most likely she will need tracheostomy and plan that for next 1-2 days. Cardiovascular: stable GI: Nutrition per dietary and GI prophylaxis per routine Heme: DVT prophylaxis per routine ID: Continue antibiotics and plan to de-escalation Renal; urine out put and renal funtion reviewed Endorcine: blood glucose is monitored Lines: all lines checked and no evidence of infections Skin: skin care to prevent pressure ulcers per nursing routine care Overall prognosis is poor
[2016-07-31] MEDS: Chlorhexidine Rinse 15 ML MOUTHWASH MM SCH ×2 (08:28→20:09)
[2016-07-31] MEDS: Aspirin 81 MG TAB.CHEW PO SCH (08:28)
[2016-07-31] MEDS: Lidocaine Viscous Oral Soln 15 ML SOLUTION MM SCH ×2 (08:28→20:09)
[2016-07-31] MEDS: OXcarbazepine 150 MG TABLET PO SCH ×2 (08:29→20:10)
[2016-07-31] MEDS: Furosemide 20 MG/2 ML VIAL IVP SCH ×2 (08:29→17:15)
[2016-07-31] MEDS: Dexmedetomidine HCl 400 MCG/100 ML MLS IVC SCH ×2 (09:29→18:52)
[2016-07-31] MEDS: levETIRAcetam 500 MG/5 ML UDC PO SCH ×2 (10:38→20:10)
[2016-07-31] MEDS ORDERED: D10% in Water 500 ML IVC PRN (10:43)
--- NOTE | 2016-07-31 11:20 | General Surgery Progress Note ---
<Zakiya Morrison - Last Filed: 07/31/16 11:24> Date of Encounter: 07/31/16 Time of Encounter: 10:15 - Assessment and Plan (1) Acute abdomen Current Visit: Yes Status: Resolved POD #11 Total abdominal colectomy and 35% of the small bowel (ileum) with Dr. 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 Kessler Subjective Patient reports: afebrile (Tmax 100.8), other (Patient sedated on ventilator support. Failed CPAP trial today. Plan for trach in the next 48 hours with pulmonary. S/P bronchoscopy 07/30/16 due to hemoptysis- s/p IR embolization. Repeat bronchoscopy today for biopsies to rule out malignancy. Tube feeds on hold for bronchoscopy.) Objective Vital Signs - Last 8 Hours Temp Pulse Resp BP Pulse Ox 07/31/16 10:00 106 24 101/57 100 07/31/16 09:00 100.8 F H 110 23 106/63 100 07/31/16 08:25 100.8 F H 07/31/16 08:00 106 21 107/58 100 07/31/16 07:44 25 105/54 100 07/31/16 07:21 111 07/31/16 07:19 111 26 110/79 96 07/31/16 07:00 111 26 110/79 96 07/31/16 06:00 109 30 121/62 100 07/31/16 05:23 22 100 07/31/16 05:00 118 23 93/48 100 07/31/16 04:23 20 98 07/31/16 04:00 98.3 F 106 25 103/55 100 Intake and Output 07/30/16 07/31/16 07/31/16 23:59 07:59 15:59 Intake Total 650 / 650 783 / 783 404 / 404 Output Total 1125 / 1125 900 / 900 500 / 500 Balance -475 / -475 -117 / -117 -96 / -96 Intake: IV Fluids 300 / 300 550 / 550 404 / 404 PRECEDEX 400 mcg In 100 100 / 100 100 / 100 ml @ 0.2 MCG/KG/HR 3.6 mls/hr IVC .Q24H [facility] Rx#: [id number] FentaNYL (PF) 1,000 MCG 100 / 100 100 / 100 In 0.9 % Sodium Chloride 80 ML @ 50 MCG/HR 5 mls/ hr IVC CONT [facility] Rx#: [id number] Versed 50 MG In 0.9 % 100 / 100 Sodium Chloride 90 ML @ 2 MG/HR 4 mls/hr IVC CONT [facility] Rx#:[id number] Magnesium Sulfate 2 GM In 104 / 104 Dextrose 5% 100 ML @ 50 mls/hr IVPB Q6H PRN Rx#: [id number] Merrem 1,000 MG In 0.9 % 100 / 100 100 / 100 Sodium Chloride (Mini-Bag +) 100 ML @ 200 mls/hr IVPB Q8H [facility] Rx#: [id number] Potassium Chloride 20 mEq 200 / 200 /100 mL 40 meq In 200 ml @ 100 mls/hr IVPB Q1H PRN Rx#:[id number] Vancocin 1,000 MG In 250 / 250 Dextrose 5% 250 ML @ 167 mls/hr IVPB Q12H [facility] Rx#: [id number] Tube Feeding 233 / 233 Blood Product 350 / 350 Rbcs Leuko Poor As-1 350 / 350 Unit [id number] Output: Stool 0 / 0 250 / 250 200 / 200 Catheter 1125 / 1125 650 / 650 300 / 300 Other: Blood Glucose* 93 - General physical appearance chronically ill, other (Patient sedated on ventilator support) - ENT dry mucosa, atraumatic, normocephalic - Neck Neck exam: trachea midline - Respiratory other (ventilator support- FiO2 of 60% and PEEP of 5) rales: bilateral - Abdomen Abdomen: Present: bowel sounds present, soft, non tender (no grimace with palpation), wound (Ostomy pink and moist with liquid brown stool noted; NG tube clamped) - Incision Incision: Present: clean and dry, intact - Genitourinary other (Navarrete catheter to straight drain with clear, yellow urine) - Musculoskeletal other (Unable to assess) - Psychiatric other (Unable to assess) - Labs 07/31/16 03:21 07/31/16 03:21 Diabetes panel 07/31/16 Range/Units 03:21 Sodium 133 L (136-145) mEq/L Potassium 3.7 (3.5-4.5) mEq/L Chloride 106 (98-109) mEq/L Carbon Dioxide 21 (19-29) mEq/L BUN 32 H (7-20) mg/dL Creatinine 0.53 L (0.57-1.11) mg/dL Glucose 108 H (70-99) mg/dL Calcium 7.8 L (8.6-10.8) mg/dL Calcium panel 07/31/16 07/31/16 Range/Units 03:21 03:21 Calcium 7.8 L (8.6-10.8) mg/dL Phosphorus 3.6 (2.3-4.7) mg/dL Pituitary panel 07/31/16 Range/Units 03:21 Sodium 133 L (136-145) mEq/L Potassium 3.7 (3.5-4.5) mEq/L Chloride 106 (98-109) mEq/L Carbon Dioxide 21 (19-29) mEq/L BUN 32 H (7-20) mg/dL Creatinine 0.53 L (0.57-1.11) mg/dL Glucose 108 H (70-99) mg/dL Calcium 7.8 L (8.6-10.8) mg/dL Adrenal panel 07/31/16 Range/Units 03:21 Sodium 133 L (136-145) mEq/L Potassium 3.7 (3.5-4.5) mEq/L Chloride 106 (98-109) mEq/L Carbon Dioxide 21 (19-29) mEq/L BUN 32 H (7-20) mg/dL Creatinine 0.53 L (0.57-1.11) mg/dL Glucose 108 H (70-99) mg/dL Calcium 7.8 L (8.6-10.8) mg/dL - VTE Documentation of Mechanical Device: Intermittent pneumatic compression device Consult Discharge Plan - Plan Referrals: NO,PCP [Non-Partnered Physician] - - Attending Attestation I examined this patient and my medical decision-making was reviewed with the TRAINING DIRECTOR/PA/Advanced Practice Nurse/Resident Physician. I agree with the documented findings, disposition and treatment plan as described except to the extent set forth below. <Arpan Greene - Last Filed: 08/01/16 12:35> Date of Encounter: 08/01/16 - Assessment and Plan (1) Acute abdomen Current Visit: Yes Status: Resolved Objective Vital Signs - Last 8 Hours Temp Pulse Pulse Pulse Pulse Pulse Pulse 08/01/16 11:37 97 91 105 90 105 08/01/16 11:21 100 08/01/16 11:12 08/01/16 11:00 100.8 F H 97 08/01/16 10:00 93 08/01/16 09:37 08/01/16 09:00 96 08/01/16 08:00 95 08/01/16 07:38 08/01/16 07:30 99.3 F 08/01/16 07:18 08/01/16 07:00 99.3 F 93 08/01/16 06:00 93 08/01/16 05:07 08/01/16 05:00 103 Resp Resp Resp Resp Resp Resp BP 08/01/16 11:37 22 20 18 18 18 08/01/16 11:21 08/01/16 11:12 25 125/57 08/01/16 11:00 20 146/59 08/01/16 10:00 18 111/52 08/01/16 09:37 20 117/55 08/01/16 09:00 24 107/53 08/01/16 08:00 22 117/58 08/01/16 07:38 39 119/56 08/01/16 07:30 08/01/16 07:18 34 152/62 08/01/16 07:00 25 152/62 08/01/16 06:00 25 113/57 08/01/16 05:07 23 08/01/16 05:00 22 119/72 BP BP BP BP BP Pulse Ox 08/01/16 11:37 110/56 127/57 153/85 148/61 128/56 08/01/16 11:21 08/01/16 11:12 96 08/01/16 11:00 100 08/01/16 10:00 100 08/01/16 09:37 100 08/01/16 09:00 100 08/01/16 08:00 100 08/01/16 07:38 100 08/01/16 07:30 08/01/16 07:18 100 08/01/16 07:00 100 08/01/16 06:00 100 08/01/16 05:07 100 08/01/16 05:00 100 Intake and Output 07/31/16 08/01/16 08/01/16 23:59 07:59 15:59 Intake Total 649 / 649 845 / 845 429 / 429 Output Total 1050 / 1050 1025 / 1025 950 / 950 Balance -401 / -401 -180 / -180 -521 / -521 Intake: IV Fluids 300 / 300 550 / 550 429 / 429 PRECEDEX 400 mcg In 100 100 / 100 100 / 100 100 / 100 ml @ 0.2 MCG/KG/HR 3.6 mls/hr IVC .Q24H [facility] Rx#: [id number] FentaNYL (PF) 1,000 MCG 100 / 100 114 / 114 In 0.9 % Sodium Chloride 80 ML @ 50 MCG/HR 5 mls/ hr IVC CONT [facility] Rx#: [id number] Versed 50 MG In 0.9 % 100 / 100 Sodium Chloride 90 ML @ 2 MG/HR 4 mls/hr IVC CONT [facility] Rx#:[id number] Intralipid 20% 250 ML @ 250 / 250 21 mls/hr IVPB DAILY@1700 [facility] Rx#:[id number] Magnesium Sulfate 2 GM In 104 / 104 Dextrose 5% 100 ML @ 50 mls/hr IVPB Q6H PRN Rx#: [id number] Merrem 1,000 MG In 0.9 % 100 / 100 100 / 100 Sodium Chloride (Mini-Bag +) 100 ML @ 200 mls/hr IVPB Q8H [facility] Rx#: [id number] Dilantin 50 MG In Syringe 1 / 1 1 EACH @ 120 mls/hr IVPB ONCE ONE Rx#:[id number] Keppra 1,000 MG In 0.9 % 110 / 110 Sodium Chloride 100 ML @ 400 mls/hr IVPB ONCE ONE Rx#:[id number] Tube Feeding 349 / 349 295 / 295 Output: Stool 150 / 150 375 / 375 0 / 0 Catheter 900 / 900 650 / 650 950 / 950 Other: Weight 76.5 kg Blood Glucose* 140 100 Patient Weight 08/01/16 23:59 Weight 76.5 kg - Labs 08/01/16 03:22 08/01/16 03:22 Diabetes panel 08/01/16 08/01/16 Range/Units 03:22 09:20 Sodium 134 L (136-145) mEq/L Potassium 4.0 (3.5-4.5) mEq/L Chloride 108 (98-109) mEq/L Carbon Dioxide 22 (19-29) mEq/L BUN 34 H (7-20) mg/dL Creatinine 0.51 L (0.57-1.11) mg/dL Glucose 113 H (70-99) mg/dL Calcium 7.8 L (8.6-10.8) mg/dL AST 54 H (5-34) Units/L ALT 35 (0-55) Units/L Alkaline Phosphatase 65 (38-126) Units/L Albumin 1.4 L D (3.5-5.0) g/dL Calcium panel 08/01/16 08/01/16 08/01/16 Range/Units 03:22 03:22 09:20 Calcium 7.8 L (8.6-10.8) mg/dL Phosphorus 3.2 (2.3-4.7) mg/dL Albumin 1.4 L D (3.5-5.0) g/dL Pituitary panel 08/01/16 Range/Units 03:22 Sodium 134 L (136-145) mEq/L Potassium 4.0 (3.5-4.5) mEq/L Chloride 108 (98-109) mEq/L Carbon Dioxide 22 (19-29) mEq/L BUN 34 H (7-20) mg/dL Creatinine 0.51 L (0.57-1.11) mg/dL Glucose 113 H (70-99) mg/dL Calcium 7.8 L (8.6-10.8) mg/dL Adrenal panel 08/01/16 08/01/16 Range/Units 03:22 09:20 Sodium 134 L (136-145) mEq/L Potassium 4.0 (3.5-4.5) mEq/L Chloride 108 (98-109) mEq/L Carbon Dioxide 22 (19-29) mEq/L BUN 34 H (7-20) mg/dL Creatinine 0.51 L (0.57-1.11) mg/dL Glucose 113 H (70-99) mg/dL Calcium 7.8 L (8.6-10.8) mg/dL Total Bilirubin 0.9 (0.2-1.2) mg/dL AST 54 H (5-34) Units/L ALT 35 (0-55) Units/L Alkaline Phosphatase 65 (38-126) Units/L Albumin 1.4 L D (3.5-5.0) g/dL - Attending Attestation I personally reviewed this assessment and evaluation with the nurse practitioner and agree with the above-mentioned plan. Continue with tube feeds via the NG tube at this time.
[2016-07-31] MEDS ORDERED: *HR* EPINEPHrine 1 MG/10 ML SYRINGE ONE (12:48)
[2016-07-31] MEDS ORDERED: Clinimix E 5%-15% SOLUTION 2,000 ML with MVI, adult with vitamin K 10 ML IVC SCH (17:00)
[2016-07-31] MEDS: Acetaminophen 325 MG TABLET PO PRN (20:10)
[2016-08-01] MEDS: Lacri-Lube 3.5 GM TUBE BOTH EYES SCH ×7 (00:27→23:30)
[2016-08-01] MEDS: Meropenem 1,000 MG in 0.9 % Sodium Chloride Mini Bag 100 ML IVPB SCH ×3 (02:46→18:34)
[2016-08-01 03:36] LABS: Basophils % 0.3 %; Eosinophils % 0.1 %; Hematocrit 24.8 % (35.3-44.9); Immature Granulocytes % 4.1 % (0-4); Lymphocytes % 13.4 %; Mean Corpuscular HGB Conc 32.3 g/dL (31.6-35.5); Mean Corpuscular Hemoglobin 29.6 pg (28.0-33.3); Mean Corpuscular Volume 91.9 fL (83.0-100.0); Mean Platelet Volume 9.3 fL (9.4-12.4); Monocytes % 13.4 %; Neutrophils # 4.9 K/mcL (1.6-8.9); Platelet Count 630 K/mcL (140-400); Red Cell Distribution Width 15.4 % (11.5-14.5); Segmented Neutrophils % 68.7 %
[2016-08-01 03:53] LABS: BUN/Creatinine Ratio 67 (6-26); Blood Urea Nitrogen 34 mg/dL (7-20); Carbon Dioxide 22 mEq/L (19-29); Chloride 108 mEq/L (98-109); Glucose 113 mg/dL (70-99); Magnesium 1.4 mg/dL (1.6-2.6); Osmolality,Calculated 286 (280-300); Phosphorous 3.2 mg/dL (2.3-4.7); Sodium 134 mEq/L (136-145); eGFR For African Americans > 60 (> 60); eGFR For Non-African Americans > 60 (> 60)
[2016-08-01 04:11] LABS: Calcium 7.8 mg/dL (8.6-10.8)
[2016-08-01] MEDS: Dexmedetomidine HCl 400 MCG/100 ML MLS IVC SCH ×3 (05:23→20:38)
[2016-08-01] MEDS: Pantoprazole 40 MG VIAL IVP SCH (05:24)
[2016-08-01] MEDS: Magnesium Sulfate 2 GM in D5% in Water 100 ML IVPB PRN ×2 (05:29→19:50)
[2016-08-01] MEDS: Aspirin 81 MG TAB.CHEW PO SCH (07:45)
[2016-08-01] MEDS ORDERED: levETIRAcetam 1,000 MG in 0.9 % Sodium Chloride 100 ML IVPB ONE (07:45)
[2016-08-01] MEDS ORDERED: PHENYTOIN IVPB ONE (07:46)
[2016-08-01] MEDS: Furosemide 20 MG/2 ML VIAL IVP SCH ×2 (07:48→16:06)
[2016-08-01] MEDS: Lidocaine Viscous Oral Soln 15 ML SOLUTION MM SCH ×2 (07:49→19:45)
[2016-08-01] MEDS: Chlorhexidine Rinse 15 ML MOUTHWASH MM SCH ×2 (07:49→19:45)
[2016-08-01] MEDS: OXcarbazepine 150 MG TABLET PO SCH ×2 (07:50→19:45)
--- NOTE | 2016-08-01 07:54 | Pulmonology Progress Note ---
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 Bronchoscopy 07/30 showed evidence of bleed, followed by embolization. Bronchoscopy with biopsy 07/31. Plan for tracheostomy 08/01. Cardio: EKG evidence of paroxysmal A. fib. Patient will need anticoagulation for this. 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 Laurent 07/20 --Enteral feedings via NG tube, increase enteral feeds and decreased TPN. Good output to ileostomy. --Goal net I/O = 0; Lasix BID --On electrolyte protocol Renal: Stable ID: Catheter tip Staphylococcus epidermidis, urinary Nevaeh albicans, sputum cultures pulmonary no growth, blood culture preliminary report no growth, respiratory culture preliminary no growth. Tmax previous 24 hours 102.3, continue meropenem (day 6). Heme/Onc: --DVT prophylaxis with SCDs due to anemia. --Transfused a total of 5 units pRBC, last transfusion 07/30 Endocrine: NG tube feeds and TPN (increasing tube feeds, decreasing TPN); hypoglycemia protocol Integ/MSK: Continue ICU skin care protocol to prevent ulcers Lines: ETT, NG, R powerglide Code: DNR-CCA (2) Cerebral infarction involving left anterior cerebral artery Current Visit: Yes Status: Acute (3) Cerebral infarction involving left posterior cerebral artery Current Visit: Yes Status: Acute (4) Chronic respiratory failure Current Visit: Yes Status: Acute Qualifiers: Respiratory failure complication: unspecified whether with hypoxia or hypercapnia Qualified Code(s): J96.10 - Chronic respiratory failure, unspecified whether with hypoxia or hypercapnia (5) Goals of care, counseling/discussion Current Visit: Yes Status: Acute [address] court-appointed guardianship has been approved Patient does not have POA Social work following (6) Thrombocytosis Current Visit: Yes Status: Acute (7) Paroxysmal a-fib Current Visit: Yes Status: Acute (8) Postoperative anemia Current Visit: Yes Status: Acute Patient received 2 units pRBC 6/4 and 2 units pRBC 6/5 (9) Pneumonia Current Visit: Yes Status: Suspected Suspect aspiration pneumonia coverage with aztreonam and flagyl Qualifiers: Pneumonia type: aspiration pneumonia Laterality: unspecified laterality Lung location: unspecified part of lung Qualified Code(s): J69.0 - Pneumonitis due to inhalation of food and vomit (10) UTI (urinary tract infection) Current Visit: Yes Status: Suspected Suspected UTI with many bacteria, large leukocyte esterase, 50-100 WBCs Urine culture 07/18/2016 no growth to date, no pathogens isolated Qualifiers: Urinary tract infection type: site unspecified Hematuria presence: without hematuria Qualified Code(s): N39.0 - Urinary tract infection, site not specified (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 Resolved status post surgery (12) Bowel obstruction Current Visit: Yes Status: Resolved Resolved status post surgery Qualifiers: Intestinal obstruction type: unspecified Qualified Code(s): K56.60 - Unspecified intestinal obstruction (13) Mental retardation Current Visit: Yes Status: Chronic Patient lives in a long-term and is reportedly high functioning (14) Seizure disorder Current Visit: Yes Status: Chronic No recent seizure activity reported (15) Septic shock Current Visit: Yes Status: Resolved Resolved (16) Lactic acidosis Current Visit: Yes Status: Resolved Resolved (17) Tachycardia Current Visit: Yes Status: Resolved Resolved (18) Acute kidney injury Current Visit: Yes Status: Resolved Resolved (19) Thrombocytopenia Current Visit: Yes Status: Resolved Resolved Subjective Principal diagnosis: Sepsis secondary to bowel necrosis, acute respiratory failure Interval history: Moving left extremities spontaneously! Objective PUL Vital signs: Last Vital Signs Temp 99.3 F 08/01/16 07:00 Pulse 93 08/01/16 07:00 Resp 25 08/01/16 07:00 BP 152/62 08/01/16 07:00 Pulse Ox 100 08/01/16 07:00 General appearance: other (Sedated on mechanical ventilation) Eyes: nonicteric ENT: oropharynx dry Neck: supple Effort: normal Auscultation: bilateral: rhonchi Cardiovascular: regular rate and rhythm Gastrointestinal: hypoactive bowel sounds, soft Integumentary: normal Extremities: pink and warm, edema, anasarca Musculoskeletal: other (Moving all extremities, does not respond to commands) unable to assess due to mental status (Does not respond to commands, sedated on mechanical ventilation) Ventilator Settings Ventilator Settings: Ventilator Settings, Last 8 Hours Ventilator Mode VC+ Ventilator Mode VC+ Ventilator Mode VC+ Ventilator Mode VC+ Ventilator Mode VC+ Ventilator Mode VC+ Ventilator Mode VC+ Ventilator Mode VC+ Ventilator Mode VC+ Ventilator Mode VC+ Ventilator Tidal Volume 400 Setting Ventilator Tidal Volume 400 Setting Ventilator Tidal Volume 400 Setting Ventilator Tidal Volume 400 Setting Ventilator Tidal Volume 400 Setting Ventilator Tidal Volume 400 Setting Ventilator Tidal Volume 400 Setting Ventilator Tidal Volume 400 Setting Ventilator Tidal Volume 400 Setting Ventilator Tidal Volume 400 Setting Ventilator Respiratory Rate 12 Setting Ventilator Respiratory Rate 12 Setting Ventilator Respiratory Rate 25 Setting Ventilator Respiratory Rate 12 Setting Ventilator Respiratory Rate 12 Setting Ventilator Respiratory Rate 12 Setting Ventilator Respiratory Rate 12 Setting Ventilator Respiratory Rate 12 Setting Ventilator Respiratory Rate 12 Setting Ventilator Respiratory Rate 12 Setting Actual Respiratory Rate 25 Actual Respiratory Rate 25 Actual Respiratory Rate 27 Actual Respiratory Rate 22 Actual Respiratory Rate 27 Actual Respiratory Rate 27 Actual Respiratory Rate 27 Actual Respiratory Rate 25 Actual Respiratory Rate 24 Actual Respiratory Rate 24 Positive End Expiratory 5 Pressure Positive End Expiratory 5 Pressure Positive End Expiratory 5 Pressure Positive End Expiratory 5 Pressure Positive End Expiratory 5 Pressure Positive End Expiratory 5 Pressure Positive End Expiratory 5 Pressure Positive End Expiratory 5 Pressure Positive End Expiratory 5 Pressure Positive End Expiratory 5 Pressure Peak Inspiratory Airway 28 Pressure Peak Inspiratory Airway 27 Pressure Peak Inspiratory Airway 28 Pressure Peak Inspiratory Airway 24 Pressure Peak Inspiratory Airway 22 Pressure Peak Inspiratory Airway 25 Pressure Peak Inspiratory Airway 29 Pressure Peak Inspiratory Airway 26 Pressure Peak Inspiratory Airway 28 Pressure Results - Laboratory Findings CBC and BMP: 08/01/16 03:22 08/01/16 03:22 ABG ABG pH 7.47 pH Units (7.32-7.45) H 07/29/16 06:44 ABG pCO2 30 mmHg (35-45) L 07/29/16 06:44 ABG pO2 106 mmHg (85-104) H 07/29/16 06:44 ABG O2 Saturation 98 % (95-98) 07/29/16 06:44 PT/INR, D-dimer PT 13.5 Seconds (9.4-12.1) H 07/30/16 14:00 Abnormal lab findings: Abnormal lab results RBC 2.70 M/mcL (3.82-4.97) L 08/01/16 03:22 Hgb 8.0 g/dL (11.5-15.4) L 08/01/16 03:22 Hct 24.8 % (35.3-44.9) L 08/01/16 03:22 RDW 15.4 % (11.5-14.5) H 08/01/16 03:22 Plt Count 630 K/mcL (140-400) H 08/01/16 03:22 MPV 9.3 fL (9.4-12.4) L 08/01/16 03:22 Immature Gran % 4.1 % (0-4) H 08/01/16 03:22 Band Neutrophils % 8.0 % (0-4) H 07/29/16 03:00 Metamyelocytes % 2.0 % (0) H 07/21/16 23:00 Myelocytes % 1.0 % (0) H 07/26/16 04:35 Promyelocytes % 1.0 % (0) H 07/26/16 04:35 Nucleated RBCs/100 WBC 0.2 /100 WBC (0) H 07/24/16 03:24 Reactive Lymphocytes Present (Not Present) A 07/29/16 03:00 Toxic Granulation Present (Not Present) A 07/29/16 03:00 Toxic Vacuolation Present (Not Present) A 07/23/16 03:11 Dohle Bodies Present (Not Present) A 07/27/16 04:55 Platelet Estimate Increased (Normal) H 07/31/16 03:21 Large Platelets Present (Not Present) A 07/28/16 03:35 Polychromasia 1+ (Not Present) A 07/26/16 04:35 Anisocytosis 1+ (Not Present) A 07/29/16 03:00 Macrocytosis Present (Not Present) A 07/26/16 04:35 [place] Cells 3+ (Not Present) A 07/18/16 22:37 Acanthocytes (Spur) 1+ (Not Present) A 07/21/16 23:00 Rouleaux Present (Not Present) A 07/26/16 04:35 PT 13.5 Seconds (9.4-12.1) H 07/30/16 14:00 Fibrinogen 745 mg/dL (169-393) H* 07/23/16 12:28 ABG pH 7.47 pH Units (7.32-7.45) H 07/29/16 06:44 ABG pCO2 30 mmHg (35-45) L 07/29/16 06:44 ABG pO2 106 mmHg (85-104) H 07/29/16 06:44 Sodium 134 mEq/L (136-145) L 08/01/16 03:22 BUN 34 mg/dL (7-20) H 08/01/16 03:22 Creatinine 0.51 mg/dL (0.57-1.11) L 08/01/16 03:22 BUN/Creatinine Ratio 67 (6-26) H 08/01/16 03:22 Glucose 113 mg/dL (70-99) H 08/01/16 03:22 POC Glucose 140 (58-89) H 07/31/16 23:33 Calcium 7.8 mg/dL (8.6-10.8) L 08/01/16 03:22 Ionized Calcium 1.11 mmol/L (1.15-1.35) L 07/31/16 08:50 Magnesium 1.4 mg/dL (1.6-2.6) L 08/01/16 03:22 AST 41 Units/L (5-34) H 07/29/16 09:21 Troponin I 0.14 ng/mL (0-0.03) H* 07/18/16 09:38 B-Natriuretic Peptide 3231 pg/mL (0-100) H 07/18/16 10:28 Serum Total Protein 4.3 g/dL (6.0-8.3) L 07/29/16 09:21 Albumin 1.1 g/dL (3.5-5.0) L 07/29/16 09:21 Albumin/Globulin Ratio 0.3 (1.1-2.2) L 07/29/16 09:21 Prealbumin 13.0 mg/dL (16.0-38.0) L 07/29/16 03:00 Urine Clarity Cloudy (Clear) A 07/18/16 10:55 Urine Protein 30 mg/dL (Neg-Trace) H 07/18/16 10:55 Ur Leukocyte Esterase Large (Negative) H 07/18/16 10:55 Urine Microscopic WBC 50-100 per hpf (0-3) H 07/18/16 10:55 Urine Bacteria Many per hpf (None-Few) H 07/18/16 10:55 Ur Culture Indicated? YES (NO) A 07/18/16 10:55 Phenytoin 5.2 mcg/mL (10-20) L 07/29/16 03:00 Free Phenytoin 2.6 ug/mL (1.0-2.5) H* 07/24/16 04:35 Total Phenytoin 9.2 ug/mL (10.0-20.0) L 07/24/16 04:35 Percent Free Phenytoin 28.3 % (8.0-14.0) H 07/24/16 04:35 Levetiracetam 47 ug/mL (12-46) H 07/24/16 04:35 - Microbiology Findings Microbiology Findings: Microbiology, Last 48 Hours 07/30/16 11:05 Respiratory Culture - Preliminary Left Lower Lobe Lung No growth. 07/30/16 03:35 Sputum Culture - Preliminary Sputum 07/27/16 13:45 Urine Culture - Final Urine,Catheterized Nevaeh albicans 07/26/16 18:09 Catheter Tip Culture - Final Intravenous or Arterial Cath Staphylococcus epidermidis - Clinical Findings Intake & Output: Intake & Output 07/31/16 07/31/16 08/01/16 15:59 23:59 07:59 Intake Total 504 / 504 649 / 649 845 / 845 Output Total 1675 / 1675 1050 / 1050 750 / 750 Balance -1171 / -1171 -401 / -401 95 / 95 Weight 76.5 kg - VTE Documentation of Mechanical Device: Intermittent pneumatic compression device Consult Discharge Plan - Plan Referrals: NO,PCP [Non-Partnered Physician] - <Chaparrita Kessler - Last Filed: 08/01/16 12:33> Date of Encounter: 08/01/16 Objective PUL Vital signs: Last Vital Signs Temp 100.8 F H 08/01/16 11:00 Pulse 97 08/01/16 11:37 Resp 22 08/01/16 11:37 BP 110/56 08/01/16 11:37 Pulse Ox 96 08/01/16 11:12 Ventilator Settings Ventilator Settings: Ventilator Settings, Last 8 Hours Ventilator Mode VC+ Ventilator Mode VC+ Ventilator Mode VC+ Ventilator Mode VC+ Ventilator Mode VC+ Ventilator Mode VC+ Ventilator Mode CPAP Ventilator Mode VC+ Ventilator Mode VC+ Ventilator Mode VC+ Ventilator Mode VC+ Ventilator Mode VC+ Ventilator Tidal Volume 400 Setting Ventilator Tidal Volume 400 Setting Ventilator Tidal Volume 400 Setting Ventilator Tidal Volume 400 Setting Ventilator Tidal Volume 400 Setting Ventilator Tidal Volume 400 Setting Ventilator Tidal Volume 400 Setting Ventilator Tidal Volume 400 Setting Ventilator Tidal Volume 400 Setting Ventilator Tidal Volume 400 Setting Ventilator Tidal Volume 400 Setting Ventilator Respiratory Rate 12 Setting Ventilator Respiratory Rate 12 Setting Ventilator Respiratory Rate 12 Setting Ventilator Respiratory Rate 12 Setting Ventilator Respiratory Rate 12 Setting Ventilator Respiratory Rate 12 Setting Ventilator Respiratory Rate 12 Setting Ventilator Respiratory Rate 12 Setting Ventilator Respiratory Rate 12 Setting Ventilator Respiratory Rate 25 Setting Ventilator Respiratory Rate 12 Setting Actual Respiratory Rate 25 Actual Respiratory Rate 20 Actual Respiratory Rate 18 Actual Respiratory Rate 20 Actual Respiratory Rate 24 Actual Respiratory Rate 22 Actual Respiratory Rate 39 Actual Respiratory Rate 34 Actual Respiratory Rate 25 Actual Respiratory Rate 25 Actual Respiratory Rate 27 Actual Respiratory Rate 22 Positive End Expiratory 5 Pressure Positive End Expiratory 5 Pressure Positive End Expiratory 5 Pressure Positive End Expiratory 5 Pressure Positive End Expiratory 5 Pressure Positive End Expiratory 5 Pressure Positive End Expiratory 5 Pressure Positive End Expiratory 5 Pressure Positive End Expiratory 5 Pressure Positive End Expiratory 5 Pressure Positive End Expiratory 5 Pressure Positive End Expiratory 5 Pressure Peak Inspiratory Airway 26 Pressure Peak Inspiratory Airway 22 Pressure Peak Inspiratory Airway 24 Pressure Peak Inspiratory Airway 22 Pressure Peak Inspiratory Airway 22 Pressure Peak Inspiratory Airway 24 Pressure Peak Inspiratory Airway 16 Pressure Peak Inspiratory Airway 25 Pressure Peak Inspiratory Airway 28 Pressure Peak Inspiratory Airway 27 Pressure Peak Inspiratory Airway 28 Pressure Peak Inspiratory Airway 24 Pressure Results - Laboratory Findings CBC and BMP: 08/01/16 03:22 08/01/16 03:22 ABG ABG pH 7.47 pH Units (7.32-7.45) H 07/29/16 06:44 ABG pCO2 30 mmHg (35-45) L 07/29/16 06:44 ABG pO2 106 mmHg (85-104) H 07/29/16 06:44 ABG O2 Saturation 98 % (95-98) 07/29/16 06:44 PT/INR, D-dimer PT 12.7 Seconds (9.4-12.1) H 08/01/16 09:20 Abnormal lab findings: Abnormal lab results RBC 2.70 M/mcL (3.82-4.97) L 08/01/16 03:22 Hgb 8.0 g/dL (11.5-15.4) L 08/01/16 03:22 Hct 24.8 % (35.3-44.9) L 08/01/16 03:22 RDW 15.4 % (11.5-14.5) H 08/01/16 03:22 Plt Count 630 K/mcL (140-400) H 08/01/16 03:22 MPV 9.3 fL (9.4-12.4) L 08/01/16 03:22 Immature Gran % 4.1 % (0-4) H 08/01/16 03:22 Band Neutrophils % 8.0 % (0-4) H 07/29/16 03:00 Metamyelocytes % 2.0 % (0) H 07/21/16 23:00 Myelocytes % 1.0 % (0) H 07/26/16 04:35 Promyelocytes % 1.0 % (0) H 07/26/16 04:35 Nucleated RBCs/100 WBC 0.2 /100 WBC (0) H 07/24/16 03:24 Reactive Lymphocytes Present (Not Present) A 07/29/16 03:00 Toxic Granulation Present (Not Present) A 07/29/16 03:00 Toxic Vacuolation Present (Not Present) A 07/23/16 03:11 Dohle Bodies Present (Not Present) A 07/27/16 04:55 Platelet Estimate Increased (Normal) H 07/31/16 03:21 Large Platelets Present (Not Present) A 07/28/16 03:35 Polychromasia 1+ (Not Present) A 07/26/16 04:35 Anisocytosis 1+ (Not Present) A 07/29/16 03:00 Macrocytosis Present (Not Present) A 07/26/16 04:35 [place] Cells 3+ (Not Present) A 07/18/16 22:37 Acanthocytes (Spur) 1+ (Not Present) A 07/21/16 23:00 Rouleaux Present (Not Present) A 07/26/16 04:35 PT 12.7 Seconds (9.4-12.1) H 08/01/16 09:20 Fibrinogen 745 mg/dL (169-393) H* 07/23/16 12:28 ABG pH 7.47 pH Units (7.32-7.45) H 07/29/16 06:44 ABG pCO2 30 mmHg (35-45) L 07/29/16 06:44 ABG pO2 106 mmHg (85-104) H 07/29/16 06:44 Sodium 134 mEq/L (136-145) L 08/01/16 03:22 BUN 34 mg/dL (7-20) H 08/01/16 03:22 Creatinine 0.51 mg/dL (0.57-1.11) L 08/01/16 03:22 BUN/Creatinine Ratio 67 (6-26) H 08/01/16 03:22 Glucose 113 mg/dL (70-99) H 08/01/16 03:22 POC Glucose 100 (58-89) H 08/01/16 11:41 Calcium 7.8 mg/dL (8.6-10.8) L 08/01/16 03:22 Magnesium 1.4 mg/dL (1.6-2.6) L 08/01/16 03:22 Direct Bilirubin 0.6 mg/dL (0.0-0.5) H 08/01/16 09:20 AST 54 Units/L (5-34) H 08/01/16 09:20 Troponin I 0.14 ng/mL (0-0.03) H* 07/18/16 09:38 B-Natriuretic Peptide 3231 pg/mL (0-100) H 07/18/16 10:28 Serum Total Protein 4.6 g/dL (6.0-8.3) L 08/01/16 09:20 Albumin 1.4 g/dL (3.5-5.0) L D 08/01/16 09:20 Albumin/Globulin Ratio 0.4 (1.1-2.2) L 08/01/16 09:20 Prealbumin 13.0 mg/dL (16.0-38.0) L 07/29/16 03:00 Urine Clarity Cloudy (Clear) A 07/18/16 10:55 Urine Protein 30 mg/dL (Neg-Trace) H 07/18/16 10:55 Ur Leukocyte Esterase Large (Negative) H 07/18/16 10:55 Urine Microscopic WBC 50-100 per hpf (0-3) H 07/18/16 10:55 Urine Bacteria Many per hpf (None-Few) H 07/18/16 10:55 Ur Culture Indicated? YES (NO) A 07/18/16 10:55 Phenytoin 5.2 mcg/mL (10-20) L 07/29/16 03:00 Free Phenytoin 2.6 ug/mL (1.0-2.5) H* 07/24/16 04:35 Total Phenytoin 9.2 ug/mL (10.0-20.0) L 07/24/16 04:35 Percent Free Phenytoin 28.3 % (8.0-14.0) H 07/24/16 04:35 Levetiracetam 47 ug/mL (12-46) H 07/24/16 04:35 - Microbiology Findings Microbiology Findings: Microbiology, Last 48 Hours 07/30/16 11:05 Respiratory Culture - Final Left Lower Lobe Lung No growth. 07/30/16 03:35 Sputum Culture - Preliminary Sputum Yeast Species - Clinical Findings Intake & Output: Intake & Output 07/31/16 08/01/16 08/01/16 23:59 07:59 15:59 Intake Total 649 / 649 845 / 845 429 / 429 Output Total 1050 / 1050 1025 / 1025 950 / 950 Balance -401 / -401 -180 / -180 -521 / -521 Weight 76.5 kg - Attending Attestation I examined this patient and my medical decision-making was reviewed with the MACARONI MAKER/PA/Advanced Practice Nurse/Resident Physician. I agree with the documented findings, disposition and treatment plan as described except to the extent set forth below. Patient seen and examined. Labs, radiology, chart personally reviewed. Agree with resident's history and physical, assessment, plan with following comments: FLAP PRESSER: Patient doesn't follows commands, Pulmonary: Acceptable oxygenation and ventilation. Patient failed SBT and for that reason tracheostomy was placed for need of prolong mechanical ventilation. I'm still concern about the clot in the left side and still not clear eitiology , could be malignancy, but due to the size of the clot and risk to remove it, biospy was not done. Just monitor for now. Cardiovascular: stable GI: Nutrition per dietary and GI prophylaxis per routine Heme: DVT prophylaxis per routine ID: Continue antibiotics and plan to de-escalation Renal; urine out put and renal funtion reviewed. Continue diuresis. Endorcine: blood glucose is monitored Lines: all lines checked and no evidence of infections Skin: skin care to prevent pressure ulcers per nursing routine care
[2016-08-01 09:39] LABS: INR 1.2; Prothrombin Time 12.7 Seconds (9.4-12.1)
[2016-08-01 09:41] LABS: Activated Partial Thrombo Time 32.4 Seconds (26.0-36.0)
[2016-08-01 09:48] LABS: Albumin/Globulin Ratio 0.4 (1.1-2.2); Bilirubin,Direct 0.6 mg/dL (0.0-0.5); Bilirubin,Indirect 0.3 mg/dL (0.0-1.2); Bilirubin,Total 0.9 mg/dL (0.2-1.2); Globulin 3.2 g/dL (2.4-3.5); Total Protein 4.6 g/dL (6.0-8.3)
[2016-08-01 09:49] LABS: Albumin 1.4 g/dL (3.5-5.0)
[2016-08-01] MEDS ORDERED: *HR* Vecuronium 10 MG VIAL IVP ONE (10:30)
[2016-08-01] MEDS: FentaNYL (PF) 1,000 MCG in 0.9 % Sodium Chloride 80 ML IVC SCH ×2 (10:41→19:49)
--- NOTE | 2016-08-01 15:26 | General Surgery Progress Note ---
Date of Encounter: 08/01/16 Time of Encounter: 15:00 - Assessment and Plan (1) Acute abdomen Current Visit: Yes Status: Resolved POD #12 Total abdominal colectomy and 35% of the small bowel (ileum) with Dr. Laurent secondary to Full-thickness necrosis of the colon and patchy full- thickness necrosis of 35% of the small bowel (ileum) Continue tube feeds via NG tube TPN discontinued Ostomy care Supportive care/pain control Critical care/ventilator managment per Dr. Kessler- s/p traheostomy today Subjective Patient reports: no new complaints, fever (Tmax 102.3), other (Patient sedated on ventilator support; s/p tracheostomy placement today.) Objective Vital Signs - Last 8 Hours Temp Pulse Pulse Pulse Pulse Pulse Pulse 08/01/16 13:00 95 08/01/16 12:00 98 08/01/16 11:37 97 91 105 90 105 08/01/16 11:21 100 08/01/16 11:12 08/01/16 11:00 100.8 F H 97 08/01/16 10:00 93 08/01/16 09:37 08/01/16 09:00 96 08/01/16 08:00 95 08/01/16 07:38 08/01/16 07:30 99.3 F Resp Resp Resp Resp Resp Resp BP 08/01/16 13:00 18 118/55 08/01/16 12:00 22 103/56 08/01/16 11:37 22 20 18 18 18 08/01/16 11:21 08/01/16 11:12 25 125/57 08/01/16 11:00 20 146/59 08/01/16 10:00 18 111/52 08/01/16 09:37 20 117/55 08/01/16 09:00 24 107/53 08/01/16 08:00 22 117/58 08/01/16 07:38 39 119/56 08/01/16 07:30 BP BP BP BP BP Pulse Ox 08/01/16 13:00 100 08/01/16 12:00 100 08/01/16 11:37 110/56 127/57 153/85 148/61 128/56 08/01/16 11:21 08/01/16 11:12 96 08/01/16 11:00 100 08/01/16 10:00 100 06/15/17 09:37 100 08/01/16 09:00 100 08/01/16 08:00 100 08/01/16 07:38 100 08/01/16 07:30 Intake and Output 07/31/16 08/01/16 08/01/16 23:59 07:59 15:59 Intake Total 649 / 649 845 / 845 429 / 429 Output Total 1050 / 1050 1025 / 1025 950 / 950 Balance -401 / -401 -180 / -180 -521 / -521 Intake: IV Fluids 300 / 300 550 / 550 429 / 429 PRECEDEX 400 mcg In 100 100 / 100 100 / 100 100 / 100 ml @ 0.2 MCG/KG/HR 3.6 mls/hr IVC .Q24H [facility] Rx#: [id number] FentaNYL (PF) 1,000 MCG 100 / 100 114 / 114 In 0.9 % Sodium Chloride 80 ML @ 50 MCG/HR 5 mls/ hr IVC CONT [facility] Rx#: [id number] Versed 50 MG In 0.9 % 100 / 100 Sodium Chloride 90 ML @ 2 MG/HR 4 mls/hr IVC CONT [facility] Rx#:[id number] Intralipid 20% 250 ML @ 250 / 250 21 mls/hr IVPB DAILY@1700 [facility] Rx#:[id number] Magnesium Sulfate 2 GM In 104 / 104 Dextrose 5% 100 ML @ 50 mls/hr IVPB Q6H [facility] Rx#: [id number] Merrem 1,000 MG In 0.9 % 100 / 100 100 / 100 Sodium Chloride (Mini-Bag +) 100 ML @ 200 mls/hr IVPB Q8H [facility] Rx#: [id number] Dilantin 50 MG In Syringe 1 / 1 EACH @ 120 mls/hr IVPB ONCE ONE Rx#:[id number] Keppra 1,000 MG In 0.9 % 110 / 110 Sodium Chloride 100 ML @ 400 mls/hr IVPB ONCE ONE Rx#:[id number] Tube Feeding 349 / 349 295 / 295 Output: Stool 150 / 150 375 / 375 0 / 0 Catheter 900 / 900 650 / 650 950 / 950 Other: Weight 76.5 kg Blood Glucose* 140 100 Patient Weight 08/01/16 23:59 Weight 76.5 kg - General physical appearance other (Resting comfortably on ventilator support) - Eyes PERRL - ENT atraumatic, normocephalic - Neck Neck exam: trachea midline (tracheostomy secure) - Respiratory other (ventilator support- FiO2 40% PEEP of 5) rales: bilateral - Cardiovascular Cardiovascular exam: Present: RRR - Abdomen Abdomen: Present: bowel sounds present, soft, non tender (no grimace with palpation), wound (Colostomy pink and moist with liquid, brown stool noted) - Incision Incision: Present: clean and dry, intact - Genitourinary other (Navarrete catheter to straight drain with clear, yellow urine) - Musculoskeletal other (Unable to assess at this time) - Psychiatric other (Unable to assess at this time) - Labs 08/01/16 03:22 08/01/16 03:22 Diabetes panel 08/01/16 08/01/16 Range/Units 03:22 09:20 Sodium 134 L (136-145) mEq/L Potassium 4.0 (3.5-4.5) mEq/L Chloride 108 (98-109) mEq/L Carbon Dioxide 22 (19-29) mEq/L BUN 34 H (7-20) mg/dL Creatinine 0.51 L (0.57-1.11) mg/dL Glucose 113 H (70-99) mg/dL Calcium 7.8 L (8.6-10.8) mg/dL AST 54 H (5-34) Units/L ALT 35 (0-55) Units/L Alkaline Phosphatase 65 (38-126) Units/L Albumin 1.4 L D (3.5-5.0) g/dL Calcium panel 08/01/16 08/01/16 08/01/16 Range/Units 03:22 03:22 09:20 Calcium 7.8 L (8.6-10.8) mg/dL Phosphorus 3.2 (2.3-4.7) mg/dL Albumin 1.4 L D (3.5-5.0) g/dL Pituitary panel 08/01/16 Range/Units 03:22 Sodium 134 L (136-145) mEq/L Potassium 4.0 (3.5-4.5) mEq/L Chloride 108 (98-109) mEq/L Carbon Dioxide 22 (19-29) mEq/L BUN 34 H (7-20) mg/dL Creatinine 0.51 L (0.57-1.11) mg/dL Glucose 113 H (70-99) mg/dL Calcium 7.8 L (8.6-10.8) mg/dL Adrenal panel 08/01/16 08/01/16 Range/Units 03:22 09:20 Sodium 134 L (136-145) mEq/L Potassium 4.0 (3.5-4.5) mEq/L Chloride 108 (98-109) mEq/L Carbon Dioxide 22 (19-29) mEq/L BUN 34 H (7-20) mg/dL Creatinine 0.51 L (0.57-1.11) mg/dL Glucose 113 H (70-99) mg/dL Calcium 7.8 L (8.6-10.8) mg/dL Total Bilirubin 0.9 (0.2-1.2) mg/dL AST 54 H (5-34) Units/L ALT 35 (0-55) Units/L Alkaline Phosphatase 65 (38-126) Units/L Albumin 1.4 L D (3.5-5.0) g/dL - VTE Documentation of Mechanical Device: Intermittent pneumatic compression device Consult Discharge Plan - Plan Referrals: NO,PCP [Non-Partnered Physician] -
[2016-08-01] MEDS ORDERED: Clinimix E 5%-15% SOLUTION 2,000 ML with MVI, adult with vitamin K 10 ML IVC SCH (17:00)
[2016-08-01] MEDS: levETIRAcetam 500 MG/5 ML UDC PO SCH (19:48)
[2016-08-02] MEDS: FentaNYL (PF) 1,000 MCG in 0.9 % Sodium Chloride 80 ML IVC SCH (03:10)
[2016-08-02] MEDS: Lacri-Lube 3.5 GM TUBE BOTH EYES SCH ×3 (04:07→10:35)
[2016-08-02] MEDS: Meropenem 1,000 MG in 0.9 % Sodium Chloride Mini Bag 100 ML IVPB SCH ×2 (04:07→10:33)
[2016-08-02 04:39] LABS: Basophils % 0.3 %; Eosinophils % 0.1 %; Hematocrit 23.1 % (35.3-44.9); Hemoglobin 7.5 g/dL (11.5-15.4); Immature Granulocytes % 2.9 % (0-4); Immature Platelets 1.2 % (1.1-6.1); Lymphocytes # 0.7 K/mcL (0.6-4.6); Lymphocytes % 9.2 %; Mean Corpuscular HGB Conc 32.5 g/dL (31.6-35.5); Mean Corpuscular Hemoglobin 30.1 pg (28.0-33.3); Mean Corpuscular Volume 92.8 fL (83.0-100.0); Mean Platelet Volume 9.7 fL (9.4-12.4); Monocytes % 14.2 %; Neutrophils # 5.3 K/mcL (1.6-8.9); Platelet Count 659 K/mcL (140-400); Red Blood Count 2.49 M/mcL (3.82-4.97); Red Cell Distribution Width 15.5 % (11.5-14.5); Segmented Neutrophils % 73.3 %
[2016-08-02 04:56] LABS: BUN/Creatinine Ratio 67 (6-26); Blood Urea Nitrogen 32 mg/dL (7-20); Calcium 7.6 mg/dL (8.6-10.8); Carbon Dioxide 24 mEq/L (19-29); Chloride 107 mEq/L (98-109); Glucose 115 mg/dL (70-99); Magnesium 1.7 mg/dL (1.6-2.6); Osmolality,Calculated 286 (280-300); Phosphorous 3.2 mg/dL (2.3-4.7); Sodium 134 mEq/L (136-145); eGFR For African Americans > 60 (> 60); eGFR For Non-African Americans > 60 (> 60)
[2016-08-02] MEDS: Pantoprazole 40 MG VIAL IVP SCH (05:32)
[2016-08-02] MEDS: Dexmedetomidine HCl 400 MCG/100 ML MLS IVC SCH (06:41)
[2016-08-02] MEDS: Magnesium Sulfate 2 GM in D5% in Water 100 ML IVPB PRN (07:30)
--- NOTE | 2016-08-02 07:55 | Pulmonology Progress Note ---
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 07/30 Bronchoscopy showed evidence of bleed, followed by embolization. 07/31 Bronchoscopy showed large blood clot. Cardio: EKG evidence of paroxysmal A. fib. Patient will need anticoagulation for this. 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 Laurent 07/20 --Tube feeds via NG. Good output to ileostomy. --Goal net I/O = 0; Lasix BID --On electrolyte protocol Renal: Stable ID: Catheter tip Staphylococcus epidermidis, urinary Nevaeh albicans, sputum cultures pulmonary no growth, blood culture preliminary report no growth, respiratory culture preliminary no growth. Tmax previous 24 hours 101.5. Meropenem 7 day course will finish today. Heme/Onc: --Concern for neoplasm due to vasculature of lungs seen on CTA, blood clot in lungs seen on bronchoscopy, and platelet count rising. Unable to get biopsy during bronchoscopy 07/31 due to large blood clot. -- Anemia: Hemoglobin continues to trend down slowly. Continue to monitor with transfusions as needed. --Thrombocytosis: Continues to trend up. --DVT prophylaxis with SCDs due to anemia. --Transfused a total of 5 units pRBC, last transfusion 07/30 Endocrine: NG tube feeds; hypoglycemia protocol Integ/MSK: Continue ICU skin care protocol to prevent ulcers Lines: ETT, NG, R powerglide Code: DNR-CCA (2) Cerebral infarction involving left anterior cerebral artery Current Visit: Yes Status: Acute (3) Cerebral infarction involving left posterior cerebral artery Current Visit: Yes Status: Acute (4) Chronic respiratory failure Current Visit: Yes Status: Acute Qualifiers: Respiratory failure complication: unspecified whether with hypoxia or hypercapnia Qualified Code(s): J96.10 - Chronic respiratory failure, unspecified whether with hypoxia or hypercapnia (5) Goals of care, counseling/discussion Current Visit: Yes Status: Acute [address]-appointed guardianship has been approved Patient does not have POA Social work following (6) Thrombocytosis Current Visit: Yes Status: Acute (7) Paroxysmal a-fib Current Visit: Yes Status: Acute (8) Postoperative anemia Current Visit: Yes Status: Acute Patient received 2 units pRBC / and 2 units pRBC / (9) Pneumonia Current Visit: Yes Status: Suspected Suspect aspiration pneumonia coverage with aztreonam and flagyl Qualifiers: Pneumonia type: aspiration pneumonia Laterality: unspecified laterality Lung location: unspecified part of lung Qualified Code(s): J69.0 - Pneumonitis due to inhalation of food and vomit (10) UTI (urinary tract infection) Current Visit: Yes Status: Suspected Suspected UTI with many bacteria, large leukocyte esterase, 50-100 WBCs Urine culture 07/18/2016 no growth to date, no pathogens isolated Qualifiers: Urinary tract infection type: site unspecified Hematuria presence: without hematuria Qualified Code(s): N39.0 - Urinary tract infection, site not specified (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 Resolved status post surgery (12) Bowel obstruction Current Visit: Yes Status: Resolved Resolved status post surgery Qualifiers: Intestinal obstruction type: unspecified Qualified Code(s): K56.60 - Unspecified intestinal obstruction (13) Mental retardation Current Visit: Yes Status: Chronic Patient lives in a snf and is reportedly high functioning (14) Seizure disorder Current Visit: Yes Status: Chronic No recent seizure activity reported (15) Septic shock Current Visit: Yes Status: Resolved Resolved (16) Lactic acidosis Current Visit: Yes Status: Resolved Resolved (17) Tachycardia Current Visit: Yes Status: Resolved Resolved (18) Acute kidney injury Current Visit: Yes Status: Resolved Resolved (19) Thrombocytopenia Current Visit: Yes Status: Resolved Resolved Subjective Principal diagnosis: Sepsis secondary to bowel necrosis, acute respiratory failure Interval history: Patient did not tolerate CPAP this morning. Objective PUL Vital signs: Last Vital Signs Temp 100.2 F H 08/02/16 07:49 Pulse 112 08/02/16 06:00 Resp 28 08/02/16 07:23 BP 156/71 08/02/16 07:23 Pulse Ox 99 08/02/16 07:23 General appearance: no acute distress, other (sedated on mechanical ventilation) Eyes: nonicteric ENT: oropharynx dry Neck: other (with tracheostomy) Auscultation: bilateral: rhonchi Cardiovascular: regular rate and rhythm Gastrointestinal: hypoactive bowel sounds Integumentary: normal Extremities: edema, anasarca Musculoskeletal: no deformities, other (moving all extremities) other (does not follow commands) Ventilator Settings Ventilator Settings: Ventilator Settings, Last 8 Hours Ventilator Mode VC+ Ventilator Mode VC+ Ventilator Mode VC+ Ventilator Mode VC+ Ventilator Mode VC+ Ventilator Mode VC+ Ventilator Mode VC+ Ventilator Mode VC+ Ventilator Mode VC+ Ventilator Mode VC+ Ventilator Mode VC+ Ventilator Mode VC+ Ventilator Tidal Volume 400 Setting Ventilator Tidal Volume 400 Setting Ventilator Tidal Volume 400 Setting Ventilator Tidal Volume 400 Setting Ventilator Tidal Volume 400 Setting Ventilator Tidal Volume 400 Setting Ventilator Tidal Volume 400 Setting Ventilator Tidal Volume 400 Setting Ventilator Tidal Volume 400 Setting Ventilator Tidal Volume 400 Setting Ventilator Tidal Volume 400 Setting Ventilator Tidal Volume 400 Setting Ventilator Respiratory Rate 12 Setting Ventilator Respiratory Rate 12 Setting Ventilator Respiratory Rate 12 Setting Ventilator Respiratory Rate 12 Setting Ventilator Respiratory Rate 12 Setting Ventilator Respiratory Rate 12 Setting Ventilator Respiratory Rate 12 Setting Ventilator Respiratory Rate 12 Setting Ventilator Respiratory Rate 12 Setting Ventilator Respiratory Rate 12 Setting Ventilator Respiratory Rate 12 Setting Ventilator Respiratory Rate 12 Setting Actual Respiratory Rate 27 Actual Respiratory Rate 36 Actual Respiratory Rate 22 Actual Respiratory Rate 23 Actual Respiratory Rate 17 Actual Respiratory Rate 17 Actual Respiratory Rate 17 Actual Respiratory Rate 20 Actual Respiratory Rate 33 Actual Respiratory Rate 19 Actual Respiratory Rate 22 Actual Respiratory Rate 22 Positive End Expiratory 5 Pressure Positive End Expiratory 5 Pressure Positive End Expiratory 5 Pressure Positive End Expiratory 5 Pressure Positive End Expiratory 5 Pressure Positive End Expiratory 5 Pressure Positive End Expiratory 5 Pressure Positive End Expiratory 5 Pressure Positive End Expiratory 5 Pressure Positive End Expiratory 5 Pressure Positive End Expiratory 5 Pressure Positive End Expiratory 5 Pressure Peak Inspiratory Airway 27 Pressure Peak Inspiratory Airway 30 Pressure Peak Inspiratory Airway 26 Pressure Peak Inspiratory Airway 2 Pressure Peak Inspiratory Airway 24 Pressure Peak Inspiratory Airway 23 Pressure Peak Inspiratory Airway 23 Pressure Peak Inspiratory Airway 22 Pressure Peak Inspiratory Airway 33 Pressure Peak Inspiratory Airway 22 Pressure Peak Inspiratory Airway 22 Pressure Peak Inspiratory Airway 25 Pressure Results - Laboratory Findings CBC and BMP: 08/02/16 04:10 08/02/16 04:24 ABG ABG pH 7.47 pH Units (7.32-7.45) H 07/29/16 06:44 ABG pCO2 30 mmHg (35-45) L 07/29/16 06:44 ABG pO2 106 mmHg (85-104) H 07/29/16 06:44 ABG O2 Saturation 98 % (95-98) 07/29/16 06:44 PT/INR, D-dimer PT 12.7 Seconds (9.4-12.1) H 08/01/16 09:20 Abnormal lab findings: Abnormal lab results RBC 2.49 M/mcL (3.82-4.97) L 08/02/16 04:10 Hgb 7.5 g/dL (11.5-15.4) L 08/02/16 04:10 Hct 23.1 % (35.3-44.9) L 08/02/16 04:10 RDW 15.5 % (11.5-14.5) H 08/02/16 04:10 Plt Count 659 K/mcL (140-400) H 08/02/16 04:10 Band Neutrophils % 8.0 % (0-4) H 07/29/16 03:00 Metamyelocytes % 2.0 % (0) H 07/21/16 23:00 Myelocytes % 1.0 % (0) H 07/26/16 04:35 Promyelocytes % 1.0 % (0) H 07/26/16 04:35 Nucleated RBCs/100 WBC 0.2 /100 WBC (0) H 07/24/16 03:24 Reactive Lymphocytes Present (Not Present) A 07/29/16 03:00 Toxic Granulation Present (Not Present) A 07/29/16 03:00 Toxic Vacuolation Present (Not Present) A 07/23/16 03:11 Dohle Bodies Present (Not Present) A 07/27/16 04:55 Platelet Estimate Increased (Normal) H 07/31/16 03:21 Large Platelets Present (Not Present) A 07/28/16 03:35 Polychromasia 1+ (Not Present) A 07/26/16 04:35 Anisocytosis 1+ (Not Present) A 07/29/16 03:00 Macrocytosis Present (Not Present) A 07/26/16 04:35 Isai Cells 3+ (Not Present) A 07/18/16 22:37 Acanthocytes (Spur) 1+ (Not Present) A 07/21/16 23:00 Rouleaux Present (Not Present) A 07/26/16 04:35 PT 12.7 Seconds (9.4-12.1) H 08/01/16 09:20 Fibrinogen 745 mg/dL (169-393) H* 07/23/16 12:28 ABG pH 7.47 pH Units (7.32-7.45) H 07/29/16 06:44 ABG pCO2 30 mmHg (35-45) L 07/29/16 06:44 ABG pO2 106 mmHg (85-104) H 07/29/16 06:44 Sodium 134 mEq/L (136-145) L 08/02/16 04:24 BUN 32 mg/dL (7-20) H 08/02/16 04:24 Creatinine 0.48 mg/dL (0.57-1.11) L 08/02/16 04:24 BUN/Creatinine Ratio 67 (6-26) H 08/02/16 04:24 Glucose 115 mg/dL (70-99) H 08/02/16 04:24 Calcium 7.6 mg/dL (8.6-10.8) L 08/02/16 04:24 Direct Bilirubin 0.6 mg/dL (0.0-0.5) H 08/01/16 09:20 AST 54 Units/L (5-34) H 08/01/16 09:20 Troponin I 0.14 ng/mL (0-0.03) H* 07/18/16 09:38 B-Natriuretic Peptide 3231 pg/mL (0-100) H 07/18/16 10:28 Serum Total Protein 4.6 g/dL (6.0-8.3) L 08/01/16 09:20 Albumin 1.4 g/dL (3.5-5.0) L D 08/01/16 09:20 Albumin/Globulin Ratio 0.4 (1.1-2.2) L 08/01/16 09:20 Prealbumin 13.0 mg/dL (16.0-38.0) L 07/29/16 03:00 Urine Clarity Cloudy (Clear) A 07/18/16 10:55 Urine Protein 30 mg/dL (Neg-Trace) H 07/18/16 10:55 Ur Leukocyte Esterase Large (Negative) H 07/18/16 10:55 Urine Microscopic WBC 50-100 per hpf (0-3) H 07/18/16 10:55 Urine Bacteria Many per hpf (None-Few) H 07/18/16 10:55 Ur Culture Indicated? YES (NO) A 07/18/16 10:55 Phenytoin < 0.5 mcg/mL (10-20) L 08/02/16 04:24 Free Phenytoin 2.6 ug/mL (1.0-2.5) H* 07/24/16 04:35 Total Phenytoin 9.2 ug/mL (10.0-20.0) L 07/24/16 04:35 Percent Free Phenytoin 28.3 % (8.0-14.0) H 07/24/16 04:35 Levetiracetam 47 ug/mL (12-46) H 07/24/16 04:35 - Microbiology Findings Microbiology Findings: Microbiology, Last 48 Hours 07/27/16 13:30 Blood Culture - Final Peripheral Venipuncture No growth. 07/27/16 13:30 Blood Culture - Final Peripheral Venipuncture No growth. 07/30/16 03:35 Sputum Culture - Preliminary Sputum Yeast Species 07/30/16 11:05 Respiratory Culture - Final Left Lower Lobe Lung No growth. - Clinical Findings Intake & Output: Intake & Output 08/01/16 08/01/16 08/02/16 15:59 23:59 07:59 Intake Total 698 / 698 1989 / 1989 576 / 576 Output Total 1300 / 1300 1825 / 1825 775 / 775 Balance -602 / -602 165 / 165 -199 / -199 Weight 74.446 kg - VTE Documentation of Mechanical Device: Intermittent pneumatic compression device Consult Discharge Plan - Plan Additional Instructions: If/when patient's anemia resolves, she will need anticoagulation for paroxysmal A. fib. Referrals: NO,PCP [Non-Partnered Physician] - <Chaparrita Kessler - Last Filed: 08/02/16 16:16> Date of Encounter: 08/02/16 Objective PUL Vital signs: Last Vital Signs Temp 99.4 F 08/02/16 12:00 Pulse 103 08/02/16 14:00 Resp 18 08/02/16 14:00 BP 120/75 08/02/16 14:00 Pulse Ox 100 08/02/16 14:00 Ventilator Settings Ventilator Settings: Ventilator Settings, Last 8 Hours Ventilator Mode VC+ Ventilator Mode VC+ Ventilator Mode VC+ Ventilator Mode VC+ Ventilator Mode VC+ Ventilator Mode VC+ Ventilator Mode VC+ Ventilator Mode VC+ Ventilator Mode VC+ Ventilator Tidal Volume 400 Setting Ventilator Tidal Volume 400 Setting Ventilator Tidal Volume 400 Setting Ventilator Tidal Volume 400 Setting Ventilator Tidal Volume 400 Setting Ventilator Tidal Volume 400 Setting Ventilator Tidal Volume 400 Setting Ventilator Tidal Volume 400 Setting Ventilator Tidal Volume 400 Setting Ventilator Respiratory Rate 12 Setting Ventilator Respiratory Rate 12 Setting Ventilator Respiratory Rate 12 Setting Ventilator Respiratory Rate 12 Setting Ventilator Respiratory Rate 12 Setting Ventilator Respiratory Rate 12 Setting Ventilator Respiratory Rate 12 Setting Ventilator Respiratory Rate 12 Setting Ventilator Respiratory Rate 12 Setting Actual Respiratory Rate 18 Actual Respiratory Rate 29 Actual Respiratory Rate 21 Actual Respiratory Rate 21 Actual Respiratory Rate 24 Actual Respiratory Rate 24 Actual Respiratory Rate 24 Actual Respiratory Rate 18 Actual Respiratory Rate 21 Positive End Expiratory 5 Pressure Positive End Expiratory 5 Pressure Positive End Expiratory 5 Pressure Positive End Expiratory 5 Pressure Positive End Expiratory 5 Pressure Positive End Expiratory 5 Pressure Positive End Expiratory 5 Pressure Positive End Expiratory 5 Pressure Positive End Expiratory 5 Pressure Peak Inspiratory Airway 26 Pressure Peak Inspiratory Airway 31 Pressure Peak Inspiratory Airway 27 Pressure Results - Laboratory Findings CBC and BMP: 08/02/16 04:10 08/02/16 04:24 ABG ABG pH 7.47 pH Units (7.32-7.45) H 07/29/16 06:44 ABG pCO2 30 mmHg (35-45) L 07/29/16 06:44 ABG pO2 106 mmHg (85-104) H 07/29/16 06:44 ABG O2 Saturation 98 % (95-98) 07/29/16 06:44 PT/INR, D-dimer PT 12.7 Seconds (9.4-12.1) H 08/01/16 09:20 Abnormal lab findings: Abnormal lab results RBC 2.49 M/mcL (3.82-4.97) L 08/02/16 04:10 Hgb 7.5 g/dL (11.5-15.4) L 08/02/16 04:10 Hct 23.1 % (35.3-44.9) L 08/02/16 04:10 RDW 15.5 % (11.5-14.5) H 08/02/16 04:10 Plt Count 659 K/mcL (140-400) H 08/02/16 04:10 Band Neutrophils % 8.0 % (0-4) H 07/29/16 03:00 Metamyelocytes % 2.0 % (0) H 07/21/16 23:00 Myelocytes % 1.0 % (0) H 07/26/16 04:35 Promyelocytes % 1.0 % (0) H 07/26/16 04:35 Nucleated RBCs/100 WBC 0.2 /100 WBC (0) H 07/24/16 03:24 Reactive Lymphocytes Present (Not Present) A 07/29/16 03:00 Toxic Granulation Present (Not Present) A 07/29/16 03:00 Toxic Vacuolation Present (Not Present) A 07/23/16 03:11 Dohle Bodies Present (Not Present) A 07/27/16 04:55 Platelet Estimate Increased (Normal) H 07/31/16 03:21 Large Platelets Present (Not Present) A 07/28/16 03:35 Polychromasia 1+ (Not Present) A 07/26/16 04:35 Anisocytosis 1+ (Not Present) A 07/29/16 03:00 Macrocytosis Present (Not Present) A 07/26/16 04:35 [place] Cells 3+ (Not Present) A 07/18/16 22:37 Acanthocytes (Spur) 1+ (Not Present) A 07/21/16 23:00 Rouleaux Present (Not Present) A 07/26/16 04:35 PT 12.7 Seconds (9.4-12.1) H 08/01/16 09:20 Fibrinogen 745 mg/dL (169-393) H* 07/23/16 12:28 ABG pH 7.47 pH Units (7.32-7.45) H 07/29/16 06:44 ABG pCO2 30 mmHg (35-45) L 07/29/16 06:44 ABG pO2 106 mmHg (85-104) H 07/29/16 06:44 Sodium 134 mEq/L (136-145) L 08/02/16 04:24 BUN 32 mg/dL (7-20) H 08/02/16 04:24 Creatinine 0.48 mg/dL (0.57-1.11) L 08/02/16 04:24 BUN/Creatinine Ratio 67 (6-26) H 08/02/16 04:24 Glucose 115 mg/dL (70-99) H 08/02/16 04:24 POC Glucose 90 (58-89) H 08/02/16 12:16 Calcium 7.6 mg/dL (8.6-10.8) L 08/02/16 04:24 Ionized Calcium 1.13 mmol/L (1.15-1.35) L 08/02/16 08:30 Direct Bilirubin 0.6 mg/dL (0.0-0.5) H 08/01/16 09:20 AST 54 Units/L (5-34) H 08/01/16 09:20 Troponin I 0.14 ng/mL (0-0.03) H* 07/18/16 09:38 B-Natriuretic Peptide 3231 pg/mL (0-100) H 07/18/16 10:28 Serum Total Protein 4.6 g/dL (6.0-8.3) L 08/01/16 09:20 Albumin 1.4 g/dL (3.5-5.0) L D 08/01/16 09:20 Albumin/Globulin Ratio 0.4 (1.1-2.2) L 08/01/16 09:20 Prealbumin 13.0 mg/dL (16.0-38.0) L 07/29/16 03:00 Urine Clarity Cloudy (Clear) A 07/18/16 10:55 Urine Protein 30 mg/dL (Neg-Trace) H 07/18/16 10:55 Ur Leukocyte Esterase Large (Negative) H 07/18/16 10:55 Urine Microscopic WBC 50-100 per hpf (0-3) H 07/18/16 10:55 Urine Bacteria Many per hpf (None-Few) H 07/18/16 10:55 Ur Culture Indicated? YES (NO) A 07/18/16 10:55 Phenytoin < 0.5 mcg/mL (10-20) L 08/02/16 04:24 Free Phenytoin 2.6 ug/mL (1.0-2.5) H* 07/24/16 04:35 Total Phenytoin 9.2 ug/mL (10.0-20.0) L 07/24/16 04:35 Percent Free Phenytoin 28.3 % (8.0-14.0) H 07/24/16 04:35 Levetiracetam 47 ug/mL (12-46) H 07/24/16 04:35 - Microbiology Findings Microbiology Findings: Microbiology, Last 48 Hours 07/27/16 13:30 Blood Culture - Final Peripheral Venipuncture No growth. 07/27/16 13:30 Blood Culture - Final Peripheral Venipuncture No growth. 07/30/16 03:35 Sputum Culture - Preliminary Sputum Yeast Species 07/30/16 11:05 Respiratory Culture - Final Left Lower Lobe Lung No growth. - Clinical Findings Intake & Output: Intake & Output 08/02/16 08/02/16 08/02/16 07:59 15:59 23:59 Intake Total 626 / 626 300 / 300 Output Total 775 / 775 1050 / 1050 Balance -149 / -149 -750 / -750 - Attending Attestation I examined this patient and my medical decision-making was reviewed with the RECRUITMENT ADVERTISING MANAGER/PA/Advanced Practice Nurse/Resident Physician. I agree with the documented findings, disposition and treatment plan as described except to the extent set forth below. Patient seen and examined. Labs, radiology, chart personally reviewed. Agree with resident's history and physical, assessment, plan with following comments: BEATER HEAD: Patient does not follows commands, Pulmonary: Acceptable oxygenation and ventilation. Patient failed spontaneous breathing trial and to continue vent support. The patient was transferred to long-term vent facility. Patient has a clot in the left side which could be underlying malignancy, however I believe removing the clot or biopsying that area it might create more problems especially overall prognosis is poor. Follow -up images Kathy Garcia. Cardiovascular: stable GI: Nutrition per dietary and GI prophylaxis per routine Heme: DVT prophylaxis per routine ID: Continue antibiotics and plan to de-escalation Renal; urine out put and renal funtion reviewed Endorcine: blood glucose is monitored Lines: all lines checked and no evidence of infections Skin: skin care to prevent pressure ulcers per nursing routine care
[2016-08-02] MEDS: Aspirin 81 MG TAB.CHEW PO SCH (08:44)
[2016-08-02] MEDS: Lidocaine Viscous Oral Soln 15 ML SOLUTION MM SCH (08:44)
[2016-08-02] MEDS: Furosemide 20 MG/2 ML VIAL IVP SCH (08:44)
[2016-08-02] MEDS: Chlorhexidine Rinse 15 ML MOUTHWASH MM SCH (08:45)
[2016-08-02] MEDS: OXcarbazepine 150 MG TABLET PO SCH (08:45)
[2016-08-02] MEDS: levETIRAcetam 500 MG/5 ML UDC PO SCH (08:45)
[2016-08-02] MEDS ORDERED: PHENYTOIN IVPB SCH (09:00)
[2016-08-02] MEDS ORDERED: FentaNYL (PF) 1,000 MCG in 0.9 % Sodium Chloride 80 ML IVC SCH (10:45)
--- NOTE | 2016-08-02 14:02 | Discharge Summary ---
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 Priority: Primary Status: Acute (2) Cerebral infarction involving left anterior cerebral artery Priority: Primary Status: Acute (3) Cerebral infarction involving left posterior cerebral artery Priority: Primary Status: Acute (4) Chronic respiratory failure Priority: Primary Status: Acute Qualifiers: Respiratory failure complication: unspecified whether with hypoxia or hypercapnia Qualified Code(s): J96.10 - Chronic respiratory failure, unspecified whether with hypoxia or hypercapnia (5) Goals of care, counseling/discussion Priority: Secondary Status: Acute (6) Thrombocytosis Priority: Secondary Status: Acute (7) Paroxysmal a-fib Priority: Secondary Status: Acute (8) Postoperative anemia Priority: Secondary Status: Acute (9) Pneumonia Priority: Secondary Status: Suspected Qualifiers: Pneumonia type: aspiration pneumonia Laterality: unspecified laterality Lung location: unspecified part of lung Qualified Code(s): J69.0 - Pneumonitis due to inhalation of food and vomit (10) UTI (urinary tract infection) Priority: Secondary Status: Suspected Qualifiers: Urinary tract infection type: site unspecified Hematuria presence: without hematuria Qualified Code(s): N39.0 - Urinary tract infection, site not specified (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 (12) Bowel obstruction Priority: Secondary Status: Resolved Qualifiers: Intestinal obstruction type: unspecified Qualified Code(s): K56.60 - Unspecified intestinal obstruction (13) Mental retardation Priority: Secondary Status: Chronic (14) Seizure disorder Priority: Secondary Status: Chronic (15) Septic shock Priority: Secondary Status: Resolved (16) Lactic acidosis Priority: Secondary Status: Resolved (17) Tachycardia Priority: Secondary Status: Resolved (18) Acute kidney injury Priority: Secondary Status: Resolved (19) Thrombocytopenia Priority: Secondary Status: Resolved - Discharge Medications Home Medications: Ibandronate Sodium [Boniva] 150 mg PO QMONTH 01/07/15 [History] LevETIRAcetam [Keppra] 1,000 mg PO BID 01/07/15 [History] Levothyroxine [Synthroid] 125 mcg PO QAM 01/07/15 [History] Oxcarbazepine [Trileptal] 900 mg PO BID 01/07/15 [History] Aspirin Enteric Coated [Aspirin EC] 162 mg PO DAILY #0 tablet. 01/08/15 [Rx] Pantoprazole Sodium [Protonix] 20 mg PO BID 90 Days 06/12/15 [Rx] Chloraseptic [place] [Chloraseptic] 1 spray MM QID PRN 07/18/16 [History] Acetaminophen [Tylenol] 650 mg PO Q4HR PRN #0 tablet 08/02/16 [Rx] Furosemide [Lasix] 20 mg IVP BIDDIURETIC vial 08/02/16 [Rx] Lacri-Lube [Lacri-lube] 1 appl BOTH EYES Q2HR PRN #0 tube 08/02/16 [Rx] Lacri-Lube [Lacri-lube] 1 appl BOTH EYES Q4HR tube 08/02/16 [Rx] Lidocaine Viscous Oral Soln 15 ml MM BID solution 08/02/16 [Rx] Phenytoin [Dilantin] 75 mg IVP Q12H vial 08/02/16 [Rx] Quetiapine Fumarate [Seroquel] 50 mg PO HS tablet 08/02/16 [Rx] Allergies/Adverse Reactions: Allergies Sulfa (Sulfonamide Antibiotics) Allergy (Verified 01/07/15 12:33) See Comments unknown Labs on day of discharge: Labs from last 24 hours 08/02/16 08/02/16 08/02/16 12:16 08:30 04:24 WBC RBC Hgb Hct MCV MCH MCHC RDW Plt Count MPV Immature Gran % Seg Neutrophils % Lymphocytes % Monocytes % Eosinophils % Basophils % Neutrophils # Lymphocytes # Monocytes # Eosinophils # Basophils # Immature Plt Fraction Sodium Potassium Chloride Carbon Dioxide BUN Creatinine Est GFR ( Amer) Est GFR (Non-Af Amer) BUN/Creatinine Ratio Glucose POC Glucose 90 H Calculated Osmolality Calcium Ionized Calcium 1.13 L Phosphorus Magnesium Phenytoin < 0.5 L 08/02/16 08/02/16 08/01/16 04:24 04:10 23:26 WBC 7.2 RBC 2.49 L Hgb 7.5 L Hct 23.1 L MCV 92.8 MCH 30.1 MCHC 32.5 RDW 15.5 H Plt Count 659 H MPV 9.7 Immature Gran % 2.9 Seg Neutrophils % 73.3 Lymphocytes % 9.2 Monocytes % 14.2 Eosinophils % 0.1 Basophils % 0.3 Neutrophils # 5.3 Lymphocytes # 0.7 Monocytes # 1.0 Eosinophils # 0.0 Basophils # 0.0 Immature Plt Fraction 1.2 Sodium 134 L Potassium 4.0 Chloride 107 Carbon Dioxide 24 BUN 32 H Creatinine 0.48 L Est GFR ( Amer) > 60 Est GFR (Non-Af Amer) > 60 BUN/Creatinine Ratio 67 H Glucose 115 H POC Glucose 89 Calculated Osmolality 286 Calcium 7.6 L Ionized Calcium Phosphorus 3.2 Magnesium 1.7 Phenytoin 08/01/16 17:30 WBC RBC Hgb Hct MCV MCH MCHC RDW Plt Count MPV Immature Gran % Seg Neutrophils % Lymphocytes % Monocytes % Eosinophils % Basophils % Neutrophils # Lymphocytes # Monocytes # Eosinophils # Basophils # Immature Plt Fraction Sodium Potassium Chloride Carbon Dioxide BUN Creatinine Est GFR ( Amer) Est GFR (Non-Af Amer) BUN/Creatinine Ratio Glucose POC Glucose Calculated Osmolality Calcium Ionized Calcium Phosphorus Magnesium 1.6 Phenytoin Preliminary micro results at discharge 07/30/16 03:35 Sputum Culture - Preliminary Sputum Yeast Species - Impressions ITS Impressions Retroperitoneum Ultrasound 07/18/16 16:56 IMPRESSION: Limited evaluation. No evidence of hydronephrosis. D/ / Jorge Mccann MD / Jorge Mccann MD Interpreting Provider: Jorge Mccann MD Chest X-Ray 07/18/16 21:26 IMPRESSION: Interval placement of endotracheal tube with tip at the level of the yarely recommend retraction by approximately 2.5 cm. Enteric tube identified which appears appropriately positioned. D/ / Merrick Zhao MD / Merrick Zhao MD Interpreting Provider: Merrick Zhao MD X-Ray 07/19/16 08:15 IMPRESSION: Nonvisualization of the patient's reported OG tube. D/ / 07/19/2016 08:55:31 Justice Metz MD / [facility] Interpreting Provider: Justice Metz MD Abdomen/Pelvis CT 07/19/16 11:00 IMPRESSION: There are multiple distended fluid-filled loops of small bowel containing air-fluid levels as well as distention of the stomach and distal esophagus. Findings are concerning for distal small bowel obstruction. Transition point is not identified on this study although evaluation is limited due to poor passage of contrast into the distal small bowel. There is a small amount of ascites with diffuse mesenteric edema. There is bibasilar airspace disease, atelectasis versus pneumonia, with trace bilateral pleural effusions. D/ / Kristina Dhaliwal MD / Kristina Dhaliwal MD Interpreting Provider: Kristina Dhaliwal MD Head CT 07/23/16 07:40 IMPRESSION: Moderate, acute right MCA territory infarct involving the right frontal and parietal lobes. Large, acute left BALING PRESS OPERATOR territory infarct involving the left parietal and occipital lobes. Small, acute left LUCAS territory infarct involving the left superior frontal gyrus. Given involvement of multiple, bilateral vascular territories, a central embolic etiology should be considered. No acute intracranial hemorrhage. Findings were discussed with Niki De Guzman at 8:52 am on 07/23/2016. D/ / 07/23/2016 09:37:54 Ayesha Knight MD / [facility] Interpreting Provider: Ayesha Knight MD Head CT 07/24/16 11:00 IMPRESSION: Maturing multifocal infarcts with developing encephalomalacia since the previous head CT as described above. No new infarcts are identified and no evidence of hemorrhagic transformation. D/ / Fabián Chaidez MD / Fabián Chaidez MD Interpreting Provider: Fabián Chaidez MD X-Ray 07/27/16 16:44 IMPRESSION: 1. Nasogastric tube in proper position within the stomach. 2. Nonspecific bowel gas pattern, without evidence of free air. 3. Small bilateral pleural effusions with mild bibasilar airspace disease. D/ / 07/27/2016 17:04:21 Abe Back MD / [facility] Interpreting Provider: Abe Back MD Chest X-Ray 07/28/16 09:30 IMPRESSION: 1. Mild silhouetting of the left hemidiaphragm. Findings may reflect atelectasis, however superimposed infectious process would be difficult to exclude. D/ / Merrick Zhao MD / Merrick Zhao MD Interpreting Provider: Merrick Zhao MD Abdomen/Pelvis CT 07/28/16 16:30 IMPRESSION: 1. Status post colon resection with placement of right lower quadrant ostomy. There has been interval development of a small to moderate amount of hyperdense fluid dependently within the pelvis compatible with hemoperitoneum. A moderate amount of ascites is present throughout the abdomen. 2. Severe anasarca with no organized drainable fluid collection identified. 3. Moderate to large bilateral pleural effusions and associated atelectasis. D/ / Merrick Zhao MD / Merrick Zhao MD Interpreting Provider: Merrick Zhao MD Arteriogram 07/30/16 00:00 IMPRESSION: Markedly increased in abnormal appearing vascularity arising from an enlarged left bronchial artery. Successful embolization with PVA particles D/ / Merrick Mendiola MD / Merrick Mendiola MD Interpreting Provider: Merrick Mendiola MD Embolization 07/30/16 00:00 IMPRESSION: Markedly increased in abnormal appearing vascularity arising from an enlarged left bronchial artery. Successful embolization with PVA particles D/ / Merrick Mendiola MD / Merrick Mendiola MD Interpreting Provider: Merrick Mendiola MD Embolization 07/30/16 00:00 IMPRESSION: Markedly increased in abnormal appearing vascularity arising from an enlarged left bronchial artery. Successful embolization with PVA particles D/ / Merrick Mendiola MD / Merrick Mendiola MD Interpreting Provider: Merrick Mendiola MD Guidance Needle Placement Ultrasound 07/30/16 00:00 IMPRESSION: Markedly increased in abnormal appearing vascularity arising from an enlarged left bronchial artery. Successful embolization with PVA particles D/ / Merrick Mendiola MD / Merrick Mendiola MD Interpreting Provider: Merrick Mendiola MD Chest X-Ray 07/30/16 07:02 IMPRESSION: Small bilateral pleural effusions and bibasilar atelectasis or pneumonitis. D/ / Paul Tavarez MD / Paul Tavarez MD Interpreting Provider: Paul Tavarez MD Chest CTA 07/30/16 11:10 IMPRESSION: No evidence of pulmonary embolism. No CT evidence of active extravasation of contrast. Interstitial pulmonary edema with large bilateral pleural effusions and bibasilar atelectasis suggesting congestive heart failure/volume overload. Pleural effusions have increased since prior. Abdominal ascites with diffuse soft tissue edema as seen on recent prior CT abdomen and pelvis, suggesting anasarca. Multilevel compression fractures of the thoracic spine and upper lumbar spine, unchanged since at least 2012, consistent with chronic compression fractures. Lines and tubes in satisfactory position. Solid, noncalcified pulmonary nodules in both lungs, stable since 2010 and therefore likely benign. No additional follow-up required. D/ / 07/30/2016 14:46:11 [facility]berg MD [facility] Inter[facility]ting Provider: Alec Eisenberg MD Chest X-Ray 07/31/16 06:09 IMPRESSION: 1. Right lower lobe consolidation, new since the prior exam. In the proper clinical setting, finding may represent a developing pneumonia. 2. Mild central congestion without evidence of overt pulmonary edema. D/ / Marvel Gipson MD / Marvel Gipson MD Interpreting Provider: Marvel Gipson MD Date of admission: 07/18/16 15:49 Primary care physician: Magno Ribeiro MD Consults: 07/18/16 21:47 Consult to Pulmonology [CONS] Routine Consulting Provider: [facility] Reason for Consult: Acute resp failure Call Completed: No 07/19/16 10:52 Consult to Bee Breeder [CONS] Routine Reason for SW Consult: establish POC and verify POA 07/19/16 13:25 Consult to Surgery [CONS] Routine Consulting Provider: Aiden Laurent Reason for Consult: SBO Time Notified: 13:25 Call Completed: Yes 07/20/16 09:17 Consult to Nutrition [CONS] Routine Comment: Consulting Provider: NUTRITION Reason for Dietary Consult: TPN Start and Manage 07/23/16 09:50 Consult to Neurology [CONS] Routine Consulting Provider: Neurology [facility] Reason for Consult: CVA Call Completed: Yes 07/25/16 10:11 Consult to PICC team [Consult to Invasive Line Access Team] [CONS] Routine Reason for Consult: PICC insertion Line Type: PICC Call Completed: No 07/26/16 13:20 Consult to Invasive Line Access Team [CONS] Routine Reason for Consult: Picc Line Insertion Line Type: PICC 07/30/16 13:27 Consult to Interventional Radiology [CONS] Stat Consulting Provider: Radiology Interventional Cols Reason for Consult: embolization of bleeding source in lung Time Notified: 13:28 Call Completed: Yes Discharging clinician: Carissa Chavez Anticipated date of discharge: 08/02/16 - Patient Status Disposition: Transfer LTC Condition: Serious Functional capacity at discharge: bed bound Overall status at discharge: patient is not back to baseline - Discharge Instructions Follow Up With: NO,PCP [Non-Partnered Physician] - Additional Instructions: If/when patient's anemia resolves, she will need anticoagulation for paroxysmal A. fib. - Hospital Course Hospital course: Ms. Curiel is a 66 year old female admitted to the hospital for severe sepsis/ septic shock due to intestinal necrosis. 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 When she was weaned from sedation after surgery it was found that she could not move her left extremities; CT imaging showed new acute stroke of right MCA, left LUCAS, and left BALING PRESS OPERATOR. Her acute respiratory failure turned into chronic respiratory failure, as she was unable to be weaned from the ventilator. On day 13 of her hospital stay she was noted to have blood from PO suctioning; bronchoscopy showed evidence of a bleed which was embolized by interventional radiology. Follow-up bronchoscopy the next day showed evidence of a large blood clot and biopsies were unobtainable due to this blood clot. She has been having nightly fevers since July 27, while on meropenem; this is potentially a medication side effect. Tracheostomy was placed the day prior to discharge. At this time surgery has declined to place a PEG tube due to the patient's tendency to pull out lines and need for restraints. The patient is being fed with tube feeds via NG. - Time Spent with Patient Total time spent providing and/or coordinating discharge services: Physical Examination Vital Signs: Vital Signs, Last 4 Hours Temp Pulse Resp BP Pulse Ox 08/02/16 13:09 21 119/65 100 08/02/16 13:00 105 21 119/65 100 08/02/16 12:00 99.4 F 103 21 121/63 100 08/02/16 11:25 28 107/60 100 08/02/16 11:15 107 08/02/16 11:00 107 22 107/60 100 General appearance: other General appearance: no acute distress, other (sedated on mechanical ventilation) Eyes: nonicteric ENT: oropharynx dry Neck: other (with tracheostomy) Auscultation: bilateral: rhonchi Cardiovascular: regular rate and rhythm Gastrointestinal: hypoactive bowel sounds Integumentary: normal Extremities: edema, anasarca Musculoskeletal: no deformities, other (moving all extremities) other (does not follow commands) - VTE Documentation of Mechanical Device: Intermittent pneumatic compression device <Chaparrita Kessler M - Last Filed: 08/02/16 16:18> Date of Encounter: 08/02/16 Labs on day of discharge: Labs from last 24 hours 08/02/16 08/02/16 08/02/16 12:16 08:30 04:24 WBC RBC Hgb Hct MCV MCH MCHC RDW Plt Count MPV Immature Gran % Seg Neutrophils % Lymphocytes % Monocytes % Eosinophils % Basophils % Neutrophils # Lymphocytes # Monocytes # Eosinophils # Basophils # Immature Plt Fraction Sodium Potassium Chloride Carbon Dioxide BUN Creatinine Est GFR ( Amer) Est GFR (Non-Af Amer) BUN/Creatinine Ratio Glucose POC Glucose 90 H Calculated Osmolality Calcium Ionized Calcium 1.13 L Phosphorus Magnesium Phenytoin < 0.5 L 08/02/16 08/02/16 08/01/16 04:24 04:10 23:26 WBC 7.2 RBC 2.49 L Hgb 7.5 L Hct 23.1 L MCV 92.8 MCH 30.1 MCHC 32.5 RDW 15.5 H Plt Count 659 H MPV 9.7 Immature Gran % 2.9 Seg Neutrophils % 73.3 Lymphocytes % 9.2 Monocytes % 14.2 Eosinophils % 0.1 Basophils % 0.3 Neutrophils # 5.3 Lymphocytes # 0.7 Monocytes # 1.0 Eosinophils # 0.0 Basophils # 0.0 Immature Plt Fraction 1.2 Sodium 134 L Potassium 4.0 Chloride 107 Carbon Dioxide 24 BUN 32 H Creatinine 0.48 L Est GFR ( Amer) > 60 Est GFR (Non-Af Amer) > 60 BUN/Creatinine Ratio 67 H Glucose 115 H POC Glucose 89 Calculated Osmolality 286 Calcium 7.6 L Ionized Calcium Phosphorus 3.2 Magnesium 1.7 Phenytoin 08/01/16 17:30 WBC RBC Hgb Hct MCV MCH MCHC RDW Plt Count MPV Immature Gran % Seg Neutrophils % Lymphocytes % Monocytes % Eosinophils % Basophils % Neutrophils # Lymphocytes # Monocytes # Eosinophils # Basophils # Immature Plt Fraction Sodium Potassium Chloride Carbon Dioxide BUN Creatinine Est GFR ( Amer) Est GFR (Non-Af Amer) BUN/Creatinine Ratio Glucose POC Glucose Calculated Osmolality Calcium Ionized Calcium Phosphorus Magnesium 1.6 Phenytoin Preliminary micro results at discharge 07/30/16 03:35 Sputum Culture - Preliminary Sputum Yeast Species - Impressions ITS Impressions Retroperitoneum Ultrasound 07/18/16 16:56 IMPRESSION: Limited evaluation. No evidence of hydronephrosis. D/ / Jorge Mccann MD / Jorge Mccann MD Interpreting Provider: Jorge Mccann MD Chest X-Ray 07/18/16 21:26 IMPRESSION: Interval placement of endotracheal tube with tip at the level of the yarely recommend retraction by approximately 2.5 cm. Enteric tube identified which appears appropriately positioned. D/ / Merrick Zhao MD / Merrick Zhao MD Interpreting Provider: Merrick Zhao MD X-Ray 07/19/16 08:15 IMPRESSION: Nonvisualization of the patient's reported OG tube. D/ / 07/19/2016 08:55:31 Justice Metz MD / [facility] Interpreting Provider: Justice Metz MD Abdomen/Pelvis CT 07/19/16 11:00 IMPRESSION: There are multiple distended fluid-filled loops of small bowel containing air-fluid levels as well as distention of the stomach and distal esophagus. Findings are concerning for distal small bowel obstruction. Transition point is not identified on this study although evaluation is limited due to poor passage of contrast into the distal small bowel. There is a small amount of ascites with diffuse mesenteric edema. There is bibasilar airspace disease, atelectasis versus pneumonia, with trace bilateral pleural effusions. D/ / Kristina Dhaliwal MD / Kristina Dhaliwal MD Interpreting Provider: Kristina Dhaliwal MD Head CT 07/23/16 07:40 IMPRESSION: Moderate, acute right MCA territory infarct involving the right frontal and parietal lobes. Large, acute left BALING PRESS OPERATOR territory infarct involving the left parietal and occipital lobes. Small, acute left LUCAS territory infarct involving the left superior frontal gyrus. Given involvement of multiple, bilateral vascular territories, a central embolic etiology should be considered. No acute intracranial hemorrhage. Findings were discussed with Niki De Guzman at 8:52 am on 07/23/2016. D/ / 07/23/2016 09:37:54 Ayesha Knight MD / [facility] Interpreting Provider: Ayesha Knight MD Head CT 07/24/16 11:00 IMPRESSION: Maturing multifocal infarcts with developing encephalomalacia since the previous head CT as described above. No new infarcts are identified and no evidence of hemorrhagic transformation. D/ / Fabián Chaidez MD / Fabián Chaidez MD Interpreting Provider: Fabián Chaidez MD X-Ray 07/27/16 16:44 IMPRESSION: 1. Nasogastric tube in proper position within the stomach. 2. Nonspecific bowel gas pattern, without evidence of free air. 3. Small bilateral pleural effusions with mild bibasilar airspace disease. D/ / 07/27/2016 17:04:21 Abe Back MD / [facility] Interpreting Provider: Abe Back MD Chest X-Ray 07/28/16 09:30 IMPRESSION: 1. Mild silhouetting of the left hemidiaphragm. Findings may reflect atelectasis, however superimposed infectious process would be difficult to exclude. D/ / Merrick Zhao MD / Merrick Zhao MD Interpreting Provider: Merrick Zhao MD Abdomen/Pelvis CT 07/28/16 16:30 IMPRESSION: 1. Status post colon resection with placement of right lower quadrant ostomy. There has been interval development of a small to moderate amount of hyperdense fluid dependently within the pelvis compatible with hemoperitoneum. A moderate amount of ascites is present throughout the abdomen. 2. Severe anasarca with no organized drainable fluid collection identified. 3. Moderate to large bilateral pleural effusions and associated atelectasis. D/ / Merrick Zhao MD / Merrick Zhao MD Interpreting Provider: Merrick Zhao MD Arteriogram 07/30/16 00:00 IMPRESSION: Markedly increased in abnormal appearing vascularity arising from an enlarged left bronchial artery. Successful embolization with PVA particles D/ / Merrick Mendiola MD / Merrick Mendiola MD Interpreting Provider: Merrick Mendiola MD Embolization 07/30/16 00:00 IMPRESSION: Markedly increased in abnormal appearing vascularity arising from an enlarged left bronchial artery. Successful embolization with PVA particles D/ / Merrick Mendiola MD / Merrick Mendiola MD Interpreting Provider: Merrick Mendiola MD Embolization 07/30/16 00:00 IMPRESSION: Markedly increased in abnormal appearing vascularity arising from an enlarged left bronchial artery. Successful embolization with PVA particles D/ / Merrick Mendiola MD / Merrick Mendiola MD Interpreting Provider: Merrick Mendiola MD Guidance Needle Placement Ultrasound 07/30/16 00:00 IMPRESSION: Markedly increased in abnormal appearing vascularity arising from an enlarged left bronchial artery. Successful embolization with PVA particles D/ / Merrick Mendiola MD / Merrick Mendiola MD Interpreting Provider: Merrick Mendiola MD Chest X-Ray 07/30/16 07:02 IMPRESSION: Small bilateral pleural effusions and bibasilar atelectasis or pneumonitis. D/ / Paul Tavarez MD / Paul Tavarez MD Interpreting Provider: Paul Tavarez MD Chest CTA 07/30/16 11:10 IMPRESSION: No evidence of pulmonary embolism. No CT evidence of active extravasation of contrast. Interstitial pulmonary edema with large bilateral pleural effusions and bibasilar atelectasis suggesting congestive heart failure/volume overload. Pleural effusions have increased since prior. Abdominal ascites with diffuse soft tissue edema as seen on recent prior CT abdomen and pelvis, suggesting anasarca. Multilevel compression fractures of the thoracic spine and upper lumbar spine, unchanged since at least 2012, consistent with chronic compression fractures. Lines and tubes in satisfactory position. Solid, noncalcified pulmonary nodules in both lungs, stable since 2010 and therefore likely benign. No additional follow-up required. D/ / 07/30/2016 14:46:11 Alec Eisenberg MD / [facility] Interpreting Provider: Alec Eisenberg MD Chest X-Ray 07/31/16 06:09 IMPRESSION: 1. Right lower lobe consolidation, new since the prior exam. In the proper clinical setting, finding may represent a developing pneumonia. 2. Mild central congestion without evidence of overt pulmonary edema. D/ / Marvel Gipson MD / Marvel Gipson MD Interpreting Provider: Marvel Gipson MD Date of admission: 07/18/16 15:49 Primary care physician: Magno Ribeiro MD Consults: 07/18/16 21:47 Consult to Pulmonology [CONS] Routine Consulting Provider: Pulm [facility] Reason for Consult: Acute resp failure Call Completed: No 07/19/16 10:52 Consult to Bee Breeder [CONS] Routine Reason for SW Consult: establish POC and verify POA 07/19/16 13:25 Consult to Surgery [CONS] Routine Consulting Provider: Aiden Laurent Reason for Consult: SBO Time Notified: 13:25 Call Completed: Yes 07/20/16 09:17 Consult to Nutrition [CONS] Routine Comment: Consulting Provider: NUTRITION Reason for Dietary Consult: TPN Start and Manage 07/23/16 09:50 Consult to Neurology [CONS] Routine Consulting Provider: [facility] Reason for Consult: CVA Call Completed: Yes 07/25/16 10:11 Consult to PICC team [Consult to Invasive Line Access Team] [CONS] Routine Reason for Consult: PICC insertion Line Type: PICC Call Completed: No 07/26/16 13:20 Consult to Invasive Line Access Team [CONS] Routine Reason for Consult: Picc Line Insertion Line Type: PICC 07/30/16 13:27 Consult to Interventional Radiology [CONS] Stat Consulting Provider: Radiology Interventional Cols Reason for Consult: embolization of bleeding source in lung Time Notified: 13:28 Call Completed: Yes - Hospital Course Hospital course: Ms. Curiel is a 66 year old female - Time Spent with Patient Total time spent providing and/or coordinating discharge services: Physical Examination Vital Signs: Vital Signs, Last 4 Hours Pulse Resp BP Pulse Ox 08/02/16 14:00 103 18 120/75 100 08/02/16 13:09 21 119/65 100 08/02/16 13:00 105 21 119/65 100 - Attending Attestation I examined this patient and my medical decision-making was reviewed with the SITE LEAD/PA/Advanced Practice Nurse/Resident Physician. I agree with the documented findings, disposition and treatment plan as described except to the extent set forth below. Patient seen and examined. Labs, radiology, chart personally reviewed. Agree with resident's history and physical, assessment, plan with following comments: Patient had tracheostomy and surgeon recommended not to have a PEG tube but to continue to feed through NG. Patient also had hemoptysis which ended up with bronchial artery embolization. If still unknown why she had bleeding from the left side, however malignancy in the differential diagnosis and follow-up images is recommended.
--- NOTE | 2016-08-02 14:05 | Physician Discharge Referral ---
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 Priority: Primary Status: Acute (2) Cerebral infarction involving left anterior cerebral artery Priority: Primary Status: Acute (3) Cerebral infarction involving left posterior cerebral artery Priority: Primary Status: Acute (4) Chronic respiratory failure Priority: Primary Status: Acute (5) Goals of care, counseling/discussion Priority: Secondary Status: Acute (6) Thrombocytosis Priority: Secondary Status: Acute (7) Paroxysmal a-fib Priority: Secondary Status: Acute (8) Postoperative anemia Priority: Secondary Status: Acute (9) Pneumonia Priority: Secondary Status: Suspected (10) UTI (urinary tract infection) Priority: Secondary Status: Suspected (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 (12) Bowel obstruction Priority: Secondary Status: Resolved (13) Mental retardation Priority: Secondary Status: Chronic (14) Seizure disorder Priority: Secondary Status: Chronic (15) Septic shock Priority: Secondary Status: Resolved (16) Lactic acidosis Priority: Secondary Status: Resolved (17) Tachycardia Priority: Secondary Status: Resolved (18) Acute kidney injury Priority: Secondary Status: Resolved (19) Thrombocytopenia Priority: Secondary Status: Resolved Expected Duration of Placement: life Prognosis: Fair - Transfer Medications Home Medications: Chlorhexidine Rinse 15 ml MM DAILY 01/07/15 [History] Cholecalciferol (Vitamin D3) [Vitamin D3] 1,000 unit PO DAILY 01/07/15 [History] FLUoxetine HCl [Prozac] 10 mg PO QAM 01/07/15 [History] HydrOXYzine 10 mg PO TID 01/07/15 [History] Ibandronate Sodium [Boniva] 150 mg PO QMONTH 01/07/15 [History] LevETIRAcetam [Keppra] 1,000 mg PO BID 01/07/15 [History] Levothyroxine [Synthroid] 125 mcg PO QAM 01/07/15 [History] Nitrofurantoin (BID) [Macrobid] 100 mg PO DAILY 01/07/15 [History] Oxcarbazepine [Trileptal] 900 mg PO BID 01/07/15 [History] Phenytoin [Dilantin] 50 mg PO HS 01/07/15 [History] Phenytoin [Dilantin] 200 mg PO HS 11/21/15 [History] Trihexyphenidyl [Artane] 1 mg PO BID 01/07/15 [History] Aspirin Enteric Coated [Aspirin EC] 162 mg PO DAILY #0 tablet. 01/08/15 [Rx] Ascorbate Calcium [Vitamin C] 500 mg PO DAILY 06/10/15 [History] Calcium Carbonate/Vitamin D3 [Oyster Shell 500-Vit D3 200 Tb] 1 tab PO DAILY [History] Diazepam [Diastat] 10 mg RC AD PRN 06/10/15 [History] Multivitamin/Iron/Folic Acid [Certavite-Antioxidant Tablet] 1 tab PO DAILY 06/09 [History] Pantoprazole Sodium [Protonix] 20 mg PO BID 90 Days 06/12/15 [Rx] Sucralfate [Carafate] 1 gm PO TID 90 Days 06/12/15 [Rx] Acetaminophen [Tylenol] 500 mg PO Q4H PRN 07/18/16 [History] Bismuth Subsalicylate [PEPTO-BISMOL (262mg/15mL) Susp] 30 ml PO Q4H PRN [History] Chloraseptic [place] [Chloraseptic] 1 spray MM QID PRN 07/18/16 [History] Loperamide [Imodium] 2 mg PO Q6H PRN 07/18/16 [History] Loratadine [Allergy Relief] 10 mg PO DAILY 07/18/16 [History] Mag Hydrox/Al Hydrox/Simeth [[place] Liquid] 15 ml PO HS 07/18/16 [History] Magnesium Hydroxide [Milk of Magnesia] 30 ml PO DAILY PRN 07/18/16 [History] Polyethylene Glycol 3350 [Purelax] 17 gm PO MOWEFR 07/18/16 [History] Allergies/Adverse Reactions: Allergies Sulfa (Sulfonamide Antibiotics) Allergy (Verified 01/07/15 12:33) See Comments unknown - Respiratory Orders Smoking Cessation: Smoking cessation has been advised. For more information, call the [place] Tobacco Quit Line at 1-178-EDSV-NOW. - Lab Orders Lab Orders: Other (include drug levels w/frequency) (phenytoin weekly until adequate dose to reach/maintain therapeutic level has been established) - Advance Directives Living Will: No Code Status: DNR-Arrest - Rehabiliation Orders Rehab Potential: Poor - Treatments Skin tear care topically daily PRN per policy CERTIFICATION: I certify that the transfer of the above named patient to an Extended Care Facility is necessary for the continuing treatment of the diagnosis listed. The above information is true and accurate reflection of patient's current condition. Confidential - Redisclosure prohibited without a patient's written consent.
[2016-08-02 14:21] VITALS: BP 120/75
== END 2016-08-02 15:40 | DRG 3 ==
LOC: 2ANU 09:06 → EMEROO 09:06 → 2NNU 14:22 → ICNU 21:46
PROVIDERS: ADMIT Nurse Practitioner Family; ATTEND Internal Medicine